=== PATIENT | female | born 1995 | race Caucasian/White ===

== ENCOUNTER 2018-04-22 09:35 | Emergency (ER) | payer MEDICAID, SELFPAY ==
[2018-04-22 09:39] VITALS: BP 132/83; PULSE 107; RESP 18; TEMP 37.4; O2SAT 100
--- NOTE | 2018-04-22 09:44 | ED.GENADUL ---
Disposition Clinical Impression: Tooth ache Disposition: HOME Condition: Good Instructions: Toothache (ED) Additional Instructions: Take the antibiotic as directed. Please follow-up with your dentist as soon as possible for reassessment. Please take Tylenol and Motrin. Please take 1000 mg of Tylenol every 6 hours and a maximum of 800 mg of ibuprofen/Motrin every 6 hours. If you notice any worsening of your symptoms, or any new symptoms such as vomiting, diarrhea, fever, chills, shortness of breath, chest pain, numbness, weakness, or fainting , please return immediately to the emergency department for reevaluation. Please follow up with your primary care provider as soon as possible for reassessment and reevaluation. As always, it was a pleasure participating in your medical care today. Prescriptions: Azithromycin [Zithromax] 200 mg PO DAILY #37 ml Referrals: Radha Mccollum NP [Primary Care Provider] - Medical Decision Making - Medical Decision Making This is a 22-year-old female with history of poor dental health, who presents for evaluation of right lower tooth pain. Physical exam demonstrates dental caries and a fractured tooth but no evidence of abscess. No other significant abnormalities in the mouth at this time. No evidence of systemic disease with fevers, chills, or abnormal vital signs. The patient is refusing a dental block, she has multiple antibiotic allergies but has tolerated azithromycin in the past for her dental pain. She does not want any pills that she states that she cannot swallow pills. We will give her liquid azithromycin for treatment of her dental disease, as well as her suspected pulpitis. I have encouraged her to use oral NSAIDs at home, which she does not want a prescription for. We have encouraged her to follow-up with her dentist and she understands. We discussed red flags for which to return and the importance of close PCP follow-up and she understands. I have extensively reviewed the treatment plan and discharge instructions with the patient. I have addressed all patient concerns at this time. The patient was made aware of what symptoms to monitor for that would warrant a return to the emergency department. Discussed the plan with the patient, they demonstrate verbal understanding and agreement with our assessment and plan at this time. History of Present Illness - General Chief complaint: DentalOral Stated complaint: TOOTH INFECTION Time Seen by Provider: 04/22/18 09:43 - History of Present Illness Initial comments: This is a 22-year-old female with no significant past medical history aside for dental pain who presents today for evaluation of dental pain. Patient states that roughly 1 week ago her right lower molar chipped off while eating, and since then she has had mild pain that is been worsening. She is had no associated fever, chills, discharge, swelling. She has contacted a dentist however has not been able to get follow-up yet. She has been able to eat well without any difficulty. Of note she does state that she cannot take pills and only takes liquid medications in general. The patient has no other associated complaints at this time. She does state that she has had dental pain like this in the past, for which she is responded well to antibiotics. Fortunately due to her allergies of amoxicillin and clindamycin and penicillin she is only able to take azithromycin which she has had good effects within the past. She is not currently on any control. She denies any significant surgeries aside for previous dental extractions. She denies any pertinent family history. She has no other complaints at this time. She denies any IV or illicit drug use. - Related Data Citalopram [CeleXA] 20 mg PO DAILY 11/13/17 Azithromycin [Zithromax] 200 mg PO DAILY #37 ml 04/22/18 Ibuprofen 1 cap PO PRN PRN 04/22/18 Allergies Allergy/AdvReac Type Severity Reaction Status Date / Time aspirin Allergy Mild Swelling Unverified 04/22/18 09:41 in lips amoxicillin [Amoxicillin] Allergy Redness Unverified 04/22/18 09:41 and swelling in throat clindamycin Allergy rash Unverified 04/22/18 09:41 Penicillins Allergy Inflamed Unverified 04/22/18 09:41 throat adhesive AdvReac Intermediate scarring Unverified 04/22/18 09:41 lactose AdvReac Mild Nausea, Unverified 04/22/18 09:41 intolerance-causes gas/diarrhea oxycodone HCl [From Percocet] AdvReac Unknown Nausea Unverified 04/22/18 09:41 Review of Systems Other: 10 point review of systems was performed, pertinent positives and negatives are noted in the history of present illness. Past Medical History - Past Medical History Medical history: no medical history psoriasis, migraine, IBS Surgical history: other (colonoscopy/endoscopy) Family history: no significant family history - Social History Alcohol use: occasionally Drug use: none General Exam - Other Other exam information: 1.Const: Well-nourished, Well-developed, appearing stated age 2.Eyes: PERRL, no conjunctival injection, and symmetrical lids. 3.ENT: Atraumatic external nose and ears. Moist MM. Neck: Symmetric, trachea midline, No thyromegaly. Poor dentition throughout. The patient's upper teeth have been removed and she has dentures. Lower teeth demonstrate notable dental caries. The patient's 28th tooth is fractured, no evidence of abscess or swelling. Dental caries are noted. No severe tenderness on palpation of the jaw, or the tooth root. No evidence of enlarged glands, or cervical lymphadenopathy. No active bleeding or discharge. No trismus. 4.CVS: +S1/S2, No murmurs or gallops. Peripheral pulses 2+ and equal in all extremities. Brisk capillary refill in all extremities. 5.RESP: Unlabored respiratory effort. Clear to auscultation bilaterally. No wheezes rales or rhonchi 6.GI: Soft, Nontender/Nondistended, No hepatosplenomegaly. No guarding or rebound. 7.MSK: Normocephalic/Atraumatic, Extremities w/o deformity or ttp No cyanosis or clubbing, Normal movement of all extremities 8.Skin: Warm, Dry. No rashes or lesions. 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 Sensation grossly intact, no focal neurologic deficits. 10.Psych: (AAO) x3. Appropriate mood and affect Course Vital Signs - 24 hr 04/22/18 09:39 Temperature 37.4 C Pulse 107 H Respiratory 18 Rate Blood Pressure 132/83 Pulse Oximetry 100
[2018-04-22 09:50] VITALS: BP 132/83; PULSE 107; RESP 18; TEMP 37.4; O2SAT 100
== END 2018-04-22 09:51 | disposition home or self-care (01) ==
PROVIDERS: Emergency Provider Student in an Organized Health Care Education/Training Program; PCP Nurse Practitioner Family
DX: S02.5XXA Fracture of tooth (traumatic), initial encounter for closed fracture (principal); X58.XXXA Exposure to other specified factors, initial encounter; K02.9 Dental caries, unspecified; R68.84 Jaw pain
CPT/HCPCS: 99283

== ENCOUNTER 2018-04-26 13:37 | Emergency (ER) | payer MEDICAID, SELFPAY ==
[2018-04-26 13:41] VITALS: BP 116/71; PULSE 90; RESP 18; TEMP 36.6; O2SAT 100
--- NOTE | 2018-04-26 14:24 | ED.GENADUL ---
Disposition Clinical Impression: Infected dental carries Disposition: HOME Condition: Good Instructions: Dental Caries (ED) Additional Instructions: Please take antibiotic as directed. Do not drink any alcohol while on this antibiotic. Please follow-up with your dentist at your scheduled appointment on Tuesday. Please continue to take Tylenol Motrin as directed. If you notice any worsening of your symptoms, or any new symptoms such as vomiting, diarrhea, fever, chills, shortness of breath, chest pain, numbness, weakness, or fainting , please return immediately to the emergency department for reevaluation. Please follow up with your primary care provider as soon as possible for reassessment and reevaluation. As always, it was a pleasure participating in your medical care today. Prescriptions: Levofloxacin [Levaquin] 750 mg PO DAILY #7 tablet Referrals: Radha Mccollum NP [Primary Care Provider] - Medical Decision Making - Medical Decision Making This is a pleasant 22-year-old female with extremely poor dentition, who is here over a week ago for suspected pulpitis, with potential infection. She has multiple allergies and was started on azithromycin which seems to have worked for her in the past. She presents today for mild continued pain there. She does have an appointment with the dentist coming up in 3 days. She also complains of a small area of soft tissue swelling on her upper palate. She had notable tenderness when she tried to put in her plate for her upper teeth this morning, was unable to secondary to the pain. Physical exam showed no signs of systemic infection, or any other significant abnormalities. The area of fluctuance was mildly concerning for small abscess however there was no evidence of local tooth infection right near it. No evidence of communication between the teeth in that space. She does not have many teeth for the upper palate. Out of concern for potential mild abscess area was anesthetized with bupivacaine paste, followed by 3 subsequent incisions with an 18-gauge needle. Each incision led to no discharge whatsoever. Small amount of bleeding, but no purulent discharge. I feel that an infectious etiology is unlikely, especially with no purulence, and no direct medication with the teeth, however and out of an abundance of precaution I did attempt to start the patient on antibiotic. With her allergies we did decide that Flagyl would be appropriate however the patient grossly refuse Flagyl stating that it makes her feel nauseous and that she does not want to take this. She has had Levaquin in the past which has given some benefit, however I do not feel that this is ideal. I did bring up with her starting doxycycline, and the patient is made it clear that she would rather try Levaquin first. I have encouraged her to continue her Tylenol and Motrin, return if she has any worsening of her symptoms, follow-up with her dentist on Tuesday. I have extensively reviewed the treatment plan and discharge instructions with the patient. I have addressed all patient concerns at this time. The patient was made aware of what symptoms to monitor for that would warrant a return to the emergency department. Discussed the plan with the patient, they demonstrate verbal understanding and agreement with our assessment and plan at this time. History of Present Illness - General Chief complaint: DentalOral Stated complaint: TOOTH PAIN Time Seen by Provider: 04/26/18 13:40 - History of Present Illness Initial comments: This is an 22-year-old female with past medical history of poor dentition, multiple pulled teeth, as well as multiple allergies to antibiotics including amoxicillin, clindamycin, penicillins. She was here over a week ago for evaluation of right lower dental pain where she refused a dental block at that time but did request azithromycin which she has been given in the past for treatment of dental pain and abscess. She has been taking Tylenol Motrin for her pain. She presents today because she noticed a small amount of swelling in the roof of her mouth. This was tender and she was unable to put her upper dental plate in. She states she still has some pain in her lower right molar. She does have an appointment with her dentist on Tuesday. The patient has been taking her azithromycin as directed. She denies any systemic symptoms of fevers, chills, chest pain, headache, vision changes, numbness, tingling, weakness. She denies any other complaints at this time. - Related Data Citalopram [CeleXA] 20 mg PO DAILY 11/13/17 Ibuprofen 1 cap PO PRN PRN 04/22/18 Levofloxacin [Levaquin] 750 mg PO DAILY #7 tablet 04/26/18 Allergies Allergy/AdvReac Type Severity Reaction Status Date / Time aspirin Allergy Mild Swelling Unverified 04/26/18 13:43 in lips amoxicillin [Amoxicillin] Allergy Redness Unverified 04/26/18 13:43 and swelling in throat clindamycin Allergy rash Unverified 04/26/18 13:43 Penicillins Allergy Inflamed Unverified 04/26/18 13:43 throat adhesive AdvReac Intermediate scarring Unverified 04/26/18 13:43 lactose AdvReac Mild Nausea, Unverified 04/26/18 13:43 intolerance-causes gas/diarrhea oxycodone HCl [From Percocet] AdvReac Unknown Nausea Unverified 04/26/18 13:43 Review of Systems Other: 10 point review of systems was performed, pertinent positives and negatives are noted in the history of present illness. Past Medical History - Past Medical History Medical history: no medical history psoriasis, migraine, IBS Surgical history: other (colonoscopy/endoscopy) Family history: no significant family history - Social History Alcohol use: occasionally Drug use: none General Exam - Other Other exam information: 1.Const: Well-nourished, Well-developed, appearing stated age 2.Eyes: PERRL, no conjunctival injection, and symmetrical lids. 3.ENT: Atraumatic external nose and ears. Moist MM. Neck: Symmetric, trachea midline, No thyromegaly. Patient demonstrates poor dentition throughout. No evidence of large abscess in the periapical region. Patient does have a very small area of fluctuance over the roof of her mouth behind the 11th tooth over the hard palate. Mild tenderness. No evidence of drainage. No evidence of ulcer. No evidence of airway compromise, large abscess, or discharge. 4.CVS: +S1/S2, No murmurs or gallops. Peripheral pulses 2+ and equal in all extremities. Brisk capillary refill in all extremities. 5.RESP: Unlabored respiratory effort. Clear to auscultation bilaterally. No wheezes rales or rhonchi 6.GI: Soft, Nontender/Nondistended, No hepatosplenomegaly. No guarding or rebound. 7.MSK: Normocephalic/Atraumatic, Extremities w/o deformity or ttp No cyanosis or clubbing, Normal movement of all extremities 8.Skin: Warm, Dry. No rashes or lesions. 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 Sensation grossly intact, no focal neurologic deficits. 10.Psych: (AAO) x3. Appropriate mood and affect Course Vital Signs - 24 hr 04/26/18 13:41 Temperature 36.6 C Pulse 90 Respiratory 18 Rate Blood Pressure 116/71 Pulse Oximetry 100
== END 2018-04-26 14:44 | disposition home or self-care (01) ==
PROVIDERS: Emergency Provider Student in an Organized Health Care Education/Training Program; PCP Nurse Practitioner Family
DX: K02.9 Dental caries, unspecified (principal); K04.7 Periapical abscess without sinus; R22.0 Localized swelling, mass and lump, head
CPT/HCPCS: 99283

== ENCOUNTER 2018-07-30 19:05 | Emergency (ER) | payer MEDICAID, SELFPAY ==
[2018-07-30 19:16] VITALS: BP 119/87; PULSE 75; RESP 16; TEMP 37; O2SAT 100
--- NOTE | 2018-07-30 19:51 | DI.CT_ITS ---
SYMPTOMS/DIAGNOSIS: LLQ ABD PAIN, ? OVARIAN CYST/TORSION CT SCAN OF THE ABDOMEN AND PELVIS: Noncontrast CT scan of the abdomen and pelvis was performed. The lack of IV contrast does limit evaluation of the abdominal and pelvic organs. The lung bases are clear. The unenhanced liver, spleen, pancreas, gallbladder, adrenal glands and bile ducts are unremarkable. There is a question of a tiny 2 mm nonobstructing stone in the lower pole of the left kidney. No ureterolithiasis or hydronephrosis is identified. The urinary bladder is intact. The left ovary measures 4.7 x 3.4 x 3.8 cm. There is a 3.1 cm cyst within the left ovary. The reproductive organs are otherwise unremarkable. The abdominal aorta is normal caliber. No significant free fluid, adenopathy or free air is seen. The bowel shows no evidence of obstruction or inflammation. There is a normal appendix present. The bones are intact. IMPRESSION: 3.1 cm left ovarian cyst. No definite inflammatory changes are seen around the left ovary, however, torsion can not be excluded on this noncontrast CT scan. If further evaluation is warranted, pelvic ultrasound should be performed.
--- NOTE | 2018-07-30 19:51 | ED.GENADUL_ITS ---
Discharge Plan Disposition Patient Disposition: HOME Condition: Stable Discharge Details Chief Complaint: Abd Prob Clinical Impression: Ovarian cyst Primary Care Provider: Radha Mccollum ED Provider: Ceasar Kelley Home Meds and New Rx's Prescriptions: No Action citalopram 10 MG tablet 20 mg PO DAILY RF: 0 ibuprofen 200 MG capsule 1 cap PO PRN PRNRF: 0 Discharge Instructions Instructions: Ovarian Cyst (ED) Additional Instructions: Please take Tylenol and Motrin as needed for pain. Please follow-up immediately with the obstetrics television news producer. Dr. Sarmiento knows that he will be attempting to follow-up this week, please contact their office tomorrow morning. If you notice any worsening of your symptoms, or any new symptoms such as worsening pelvic pain, vaginal discharge, vomiting, diarrhea, fever, chills, shortness of breath, chest pain, numbness, weakness, or fainting , please return immediately to the emergency department for reevaluation. Please follow up with your primary care provider as soon as possible for reassessment and reevaluation. As always, it was a pleasure participating in your medical care today. Referrals: Radha Mccollum, LINH [Primary Care Provider] - Discharge Data Discharge Date/Time-TO BE ENTERED AT DEPARTURE: 07/30/18 21:52 Medical Decision Making <Carmelina Mcconnell DO - Last Filed: 07/31/18 16:22> 22-year-old female with a history of irritable bowel syndrome, anxiety, depression and ovarian cyst who presents with constant left lower quadrant pain for 2 days. Also admits to nausea and dizziness tonight. Vitals within normal limits. Afebrile. Patient appears nontoxic. She does have tenderness to palpation in the suprapubic and left lower quadrant region. No rigidity, rebound, guarding. Differential diagnosis includes ovarian cyst, ovarian torsion, atypical L sided appendicitis, UTI. Pt refused pelvic exam and IV. Discussed with patient that CT scan may be limited with out IV contrast and she is understanding and will still rather proceed w/o IV. Ultrasound not available on the weekend. Dose of Motrin and Compazine p.o. in addition to labs and urinalysis ordered. test negative. Chart noted allergy to aspirin with lip swelling. Pt states she has taken motrin in the past w/o any reaction. 1999 --case endorsed to Dr. Kelley to follow-up on labs and imaging. <Ceasar Kelley, DO - Last Filed: 07/30/18 21:45> The case is signed out to be my my colleague Dr. Mcconnell. Pending CT and laboratory workup at that time. Patient's laboratory workup has returned and demonstrates no significant abnormalities. No evidence of significant leukocytosis or signs of infection. CT scan has returned and demonstrates a notably large left ovary with a total size of 4.7 cm by 3.4 x 3.8, with a 3.1 cm cyst. No evidence of any other significant acute abnormality on CT exam per radiology report. I did go in and reassessed the patient, at this time she is nearly pain-free, she is asking to leave. She states that she feels much better and actually fine now. Repeat pelvic/lower abdominal exam demonstrates no significant tenderness, clinical presentation at this time certainly shows no signs or symptoms suggestive of a ovarian torsion. Patient appears clinically well, with a reassuring exam and vital signs. Because of the size of the cyst and ovary though I did contact the obstetrics television news producer Dr. Lnadon Healy, and discussed the case with her. I reviewed the patient's clinical disposition, her lab and CT findings. She too agrees that with how the patient is currently feeling and looking she can be discharged home, however patient will require close follow-up on an outpatient basis this week. Patient will be discharged home with close follow-up. I had a long discussion with her regarding the red flags for which to immediately return including signs and symptoms of torsion, ruptured ovary, or other significant abnormalities. I have extensively reviewed the treatment plan and discharge instructions with the patient. I have addressed all patient concerns at this time. The patient was made aware of what symptoms to monitor for that would warrant a return to the emergency department. Discussed the plan with the patient, they demonstrate verbal understanding and agreement with our assessment and plan at this time. FINDINGS: Lower thorax: No acute findings. ABDOMEN: Liver: Unremarkable. No mass. Gallbladder and bile ducts: Normal. No calcified stones. No ductal dilation. Pancreas: Unremarkable. No ductal dilation. Spleen: Unremarkable. No splenomegaly. Adrenals: Normal. No mass. Kidneys and ureters: Unremarkable. No stones. No hydronephrosis. Stomach and bowel: Unremarkable. No obstruction. No mucosal thickening. Appendix: No evidence of appendicitis. PELVIS: Bladder: Mild thickening of the urinary bladder wall is likely secondary to underdistention. Reproductive: The left ovary measures 4.7 cm x 3.4 cm x 3.8 cm. There is a cyst measuring 3.1 cm within the left ovary. No inflammatory changes are present adjacent to the left ovary. Ovarian torsion cannot be excluded by unenhanced CT scan. If there is a continued clinical concern for ovarian torsion then further assessment with pelvic ultrasound using spectral Doppler imaging to evaluate for arterial and venous waveforms should be performed. The right adnexa is unremarkable. The uterus is unremarkable. ABDOMEN and PELVIS: Intraperitoneal space: No free air. No significant fluid collection. Bones/joints: No acute fracture. Soft tissues: Unremarkable. Vasculature: Unremarkable. No abdominal aortic aneurysm. Lymph nodes: No enlarged lymph nodes. IMPRESSION: Left ovarian cyst measuring 3.1 cm. Although ovarian torsion cannot be excluded by noncontrast CT scan, no inflammatory changes or fluid is identified adjacent to the left ovary. If clinically necessary, further assessed with pelvic ultrasound could be performed. Dictated and Authenticated by: Kaden Tello MD. Ordering:KAMALA HAYWOOD MD HPI <Carmelina Mcconnell, DO - Last Filed: 07/31/18 16:22> General Mode of arrival: ambulatory . Date/Time Provider Initiated Documentation: 07/30/18 19:18 . Limitations to Documentation: no limitations . Information obtained by: patient . HPI Narrative: Patient is a 22-year-old female with a history of anxiety, depression, irritable bowel syndrome and ovarian cyst who presents with constant left lower quadrant abdominal pain for the past 2 days. Patient states the pain is constantly crampy and occasionally sharp. She states the pain is currently 7/10. She denies any radiation. States the pain is worse with palpation and better without moving. She has not taken any medication for pain. She admits to nausea, dizziness and feeling shaky tonight but denies any vomiting, diarrhea or urinary symptoms. She states she last ate 1/2-hour ago. She states her last bowel movement was this morning and denies any bleeding. She states her pain feels similar to ovarian cysts previously but is more intense. She states she is sexually active with one partner does not use protection. She denies any vaginal discharge, or lesions. Related Data Home Medications Medication Instructions Recorded Confirmed citalopram 20 mg PO DAILY 11/13/17 07/30/18 ibuprofen 1 cap PO PRN PRN 04/22/18 07/30/18 Allergies Allergy/AdvReac Type Severity Reaction Status Date / Time aspirin Allergy Mild Swelling Unverified 07/30/18 19:27 in lips amoxicillin [Amoxicillin] Allergy Redness Unverified 07/30/18 19:27 and swelling in throat clindamycin Allergy rash Unverified 07/30/18 19:27 Penicillins Allergy Inflamed Unverified 07/30/18 19:27 throat adhesive AdvReac Intermediate scarring Unverified 07/30/18 19:27 lactose AdvReac Mild Nausea, Unverified 07/30/18 19:27 intolerance-causes gas/diarrhea oxycodone HCl [From Percocet] AdvReac Unknown Nausea Unverified 07/30/18 19:27 General Stated Complaint: Abd Prob JACKSON: 3 Review of Systems <Carmelina Mcconnell DO - Last Filed: 07/31/18 16:22> Review of Systems All systems reviewed & are unremarkable except as noted in HPI and below Constitutional Reports as per HPI, Denies chills and Denies fever(s) Eyes Denies blurry vision ENT Reports dizziness, Denies sore throat and Denies throat swelling Cardiovascular Denies chest pain and Denies dyspnea Respiratory Denies dyspnea Gastrointestinal Reports abdominal pain, Denies diarrhea, Reports nausea and Denies vomiting Genitourinary Denies hematuria and Denies dysuria Musculoskeletal Denies back pain and Denies numbness Integumentary/Breasts Denies lesions and Denies rash Neurologic Reports dizziness and Denies numbness Allergic/Immunologic Denies throat swelling Exam <Carmelina Mcconnell DO - Last Filed: 07/31/18 16:22> Const General: cooperative and healthy appearing Orientation: alert and awake HENMT Head: normal to inspection Ears: hearing grossly normal bilaterally and external ears normal General nose exam: external nose normal Face and sinus: normal facial exam Mouth: oral mucosae normal Eyes General: appearance normal, both eyes and all related structures Eyelids: eyelids normal EOM: EOM intact bilaterally Neck Neck: normal visual inspection Lymphatic: no lymphadenopathy noted Chest Chest: normal inspection of the chest Resp Effort & Inspection: normal respiratory effort and able to speak in complete sentences Auscultation: clear to auscultation bilaterally Cardio Rate: regular rate Rhythm: regular rhythm GI Inspection: normal to inspection Palpation: soft, not firm, no guarding, no hepatosplenomegaly, no masses and tender in the LLQ and suprapubicly Auscultation: hypoactive bowel sounds Back/Spine/Pelvis Back: no CVA tenderness Skin General skin exam: no rashes or lesions noted Neuro General: alert and awake Cognition: normal cognition Speech: speech normal Gait: normal gait Motor: muscle tone normal throughout Sensory Exam: no sensory deficits noted Extrem General: normal to inspection, full ROM, normal capillary refill and no edema Psych Appearance: grossly normal Mental Status: mental status grossly normal Speech and Movement: speech and movement normal Affect: normal affect Thought Process: normal Course <Carmelina Mcconnell, DO - Last Filed: 07/31/18 16:22> Vital Signs Temperature 98.6 F 07/30/18 19:16 Pulse 75 07/30/18 19:16 Respiratory Rate 16 07/30/18 19:16 Blood Pressure 119/87 07/30/18 19:16 Pulse Oximetry 100 07/30/18 19:16 Temperature 98.6 F 07/30/18 19:16 Temperature Source Temporal Artery Scan 07/30/18 19:16 Pulse 75 07/30/18 19:16 Respiratory Rate 16 07/30/18 19:16 Respiratory Effort 07/30/18 19:16 Blood Pressure 119/87 07/30/18 19:16 Pulse Oximetry 100 07/30/18 19:16 Oxygen Delivery Method Room Air 07/30/18 19:16 Oxygen Flow Rate 0 07/30/18 19:16 Pain Level 7 07/30/18 19:23 Lab/Test Results Lab/Test Results: POC- Test(urine) Negative
[2018-07-30 20:06] LABS: Abs Immature Grans 0.01 k/cumm (0.0-0.09); Absolute Basophil Count 0.04 k/cumm (0.0-0.2); Absolute Lymphocyte Count 2.23 k/cumm (1.2-3.4); Absolute Monocyte Count 0.54 k/cumm (0.11-0.7); Absolute Neutrophil Count 2.22 k/cumm (1.2-6.7); Basophils % 0.8; Eosinophils % 3.8; HCT 38.7 % (36.0-46.0); HGB 13.2 g/dL (12.0-15.5); Immature Grans % 0.2; Lymphocytes % 42.6; Mean Corp. HGB Concentration 34.1 g/dL (32.0-36.0); Mean Corpuscular Hemoglobin 30.7 pg (27.0-33.0); Mean Platelet Volume 10.7 fL (8.0-11.0); Monocytes % 10.3; Neutrophils % 42.3; Platelet Count 212 x1000/uL (130-400); RBC Distribution Width 14.1 % (11.7-14.6); White Blood Cell Count 5.24 k/cumm (4.4-10.8)
[2018-07-30 20:18] LABS: ALT 15 U/L (12-78); AST 13 U/L (15-37); Albumin 4.1 g/dL (3.4-5.0); Alkaline Phosphatase 44 U/L (46-116); Anion Gap 9.9 mmol/L (3-11); BUN 7 mg/dL (7-18); Bilirubin, Total 0.5 mg/dL (0.2-1.0); CO2 29.1 mmol/L (21.0-32.0); CREATININE 0.76 mg/dL (0.55-1.02); Calcium 8.8 mg/dL (8.5-10.1); Chloride 102 mmol/L (98-107); Glucose 97 mg/dL (70-100); Lipase 164 U/L (73-393); Potassium 3.8 mmol/L (3.5-5.1); Sodium 141 mmol/L (136-145); Total Protein 7.2 g/dL (6.4-8.2)
[2018-07-30 20:35] LABS: Bilirubin Negative (Negative); Blood Small (Negative); Clarity Sl Cloudy; Glucose Negative (Negative); Ketones Negative (Negative); Leukocyte Esterase Negative (Negative); Nitrite Negative (Negative); Urobilinogen 0.2 EU/dL (Up TO 0.2)
[2018-07-30 20:58] LABS: Bacteria Rare HPF (Negative); C & S Indicated? No; Casts Negative LPF (Negative); Crystals Negative HPF (Negative); Epithelial Cells Negative HPF (Negative); Mucus Negative (Negative); Other Cells Negative (Negative); RBC 0-2 (0-2); WBC Negative HPF (0-5)
--- NOTE | 2018-07-30 21:11 | DI.VRAD_ITS ---
EXAM: CT Abdomen and Pelvis Without Intravenous Contrast EXAM DATE/TIME: 07/30/2018 7:53 PM CLINICAL HISTORY: 22 years old, female; Pain; Other: Llq x 2 days; Patient HX: Rule out ovarian cyst/torsion TECHNIQUE: Axial computed tomography images of the abdomen and pelvis without intravenous contrast. All CT scans at this facility use at least one of these dose optimization techniques: automated exposure control; mA and/or kV adjustment per patient size (includes targeted exams where dose is matched to clinical indication); or iterative reconstruction. Coronal and sagittal reformatted images were created and reviewed. COMPARISON: CT ABD PELVIS WITH CONTRAST 05/05/2016 4:51 PM FINDINGS: Lower thorax: No acute findings. ABDOMEN: Liver: Unremarkable. No mass. Gallbladder and bile ducts: Normal. No calcified stones. No ductal dilation. Pancreas: Unremarkable. No ductal dilation. Spleen: Unremarkable. No splenomegaly. Adrenals: Normal. No mass. Kidneys and ureters: Unremarkable. No stones. No hydronephrosis. Stomach and bowel: Unremarkable. No obstruction. No mucosal thickening. Appendix: No evidence of appendicitis. PELVIS: Bladder: Mild thickening of the urinary bladder wall is likely secondary to underdistention. Reproductive: The left ovary measures 4.7 cm x 3.4 cm x 3.8 cm. There is a cyst measuring 3.1 cm within the left ovary. No inflammatory changes are present adjacent to the left ovary. Ovarian torsion cannot be excluded by unenhanced CT scan. If there is a continued clinical concern for ovarian torsion then further assessment with pelvic ultrasound using spectral Doppler imaging to evaluate for arterial and venous waveforms should be performed. The right adnexa is unremarkable. The uterus is unremarkable. ABDOMEN and PELVIS: Intraperitoneal space: No free air. No significant fluid collection. Bones/joints: No acute fracture. Soft tissues: Unremarkable. Vasculature: Unremarkable. No abdominal aortic aneurysm. Lymph nodes: No enlarged lymph nodes. IMPRESSION: Left ovarian cyst measuring 3.1 cm. Although ovarian torsion cannot be excluded by noncontrast CT scan, no inflammatory changes or fluid is identified adjacent to the left ovary. If clinically necessary, further assessed with pelvic ultrasound could be performed. Dictated and Authenticated by: Kaden Tello MD. Ordering:KAMALA HAYWOOD MD
[2018-07-30 21:47] VITALS: BP 115/67; PULSE 61; RESP 16; TEMP 36.7; O2SAT 100
== END 2018-07-30 21:52 | disposition home or self-care (01) ==
PROVIDERS: Physician Assistant; Emergency Provider Student in an Organized Health Care Education/Training Program; PCP Nurse Practitioner Family
DX: N83.202 Unspecified ovarian cyst, left side (principal); R11.0 Nausea
CPT/HCPCS: 36415; 80053; 81025; 83690; 99284; 74176; 81003; 81015; 85025

== ENCOUNTER 2018-09-04 12:44 | Outpatient (REF) | payer MEDICAID, SELFPAY ==
--- NOTE | 2018-09-04 11:40 | PAPFT_PTH ---
PATIENT: Shayna Echeverria LOC: [facility] U#:[id number] AGE/SX: 22/F ROOM: RE09/04/[address]: Darline Sarmiento : 1995 BED: DIS: 09/04/2018 SPEC #: [id number] RECD: 09/04/18 17:42 STATUS: BONNY DEMETRI #: [id number] EMILIA: 09/04/18 11:[address]: Darline Sarmiento DEPT: [facility] Cytology RECD BY: Letty Yusuf ENTERED: 09/04/18 17:43 SP TYPE: PAPFT OTHR DR: Radha Mccollum, GREG Tissues: 1 - CX/ENDOCX FOR PAP SMEARS Procedures: PAP THIN PREP/UVM Screening HPV DNA PROBE Comments: [id number]
[2018-09-05 14:51] LABS: Chlamydia Result Negative; GC Result Negative; Specimen Description CERVIX
== END 2018-09-04 13:04 ==
LOC: LBN 12:44
PROVIDERS: PCP Nurse Practitioner Family; Visit Provider Obstetrics & Gynecology Gynecology
DX: Z11.3 Encounter for screening for infections with a predominantly sexual mode of transmission (principal); Z12.4 Encounter for screening for malignant neoplasm of cervix; Z11.51 Encounter for screening for human papillomavirus (HPV)
CPT/HCPCS: 87491; 87591; 88142; 87624

== ENCOUNTER 2019-01-26 15:56 | Outpatient (CLI) | payer SELFPAY ==
[2019-01-26 17:37] LABS: TSH (W/Ref FT4) 1.29 uIU/mL (0.358-3.74)
== END 2019-01-26 16:16 ==
PROVIDERS: PCP Nurse Practitioner Family; Visit Provider Nurse Practitioner Family
DX: F41.9 Anxiety disorder, unspecified (principal)
CPT/HCPCS: 36415; 84443

== ENCOUNTER 2019-04-15 00:18 | Emergency (ER) | payer SELFPAY ==
[2019-04-15 00:25] VITALS: BP 123/72; PULSE 101; RESP 22; TEMP 36.6; O2SAT 99
--- NOTE | 2019-04-15 00:40 | W.ED.GENAD ---
Discharge Plan Disposition Patient Disposition: HOME Condition: Good Discharge Details Chief Complaint: Nk/Back Pain Clinical Impression: Lumbago Primary Care Provider: Radha Mccollum ED Provider: Ceasar Kelley Home Meds and New Rx's Prescriptions: New cyclobenzaprine 10 mg tablet 10 mg PO TID Qty: 14 RF: 0 lidocaine [Lidoderm] 1 PATCH patch 1 patch Topical Q24H Qty: 4 RF: 0 Continued medroxyprogesterone [Depo-Provera] 150 mg/mL syringe 150 mg IM [id number] Qty: 1 RF: 4 citalopram 20 mg tablet 20 mg PO DAILY Qty: 90 RF: 3 ibuprofen 200 MG capsule 1 cap PO PRN PRNRF: 0 acetaminophen 500 mg Tablet 1,000 mg PO PRN PRNRF: 0 Discharge Instructions Instructions: Low Back Strain (ED) Additional Instructions: At this time there is significant concern that you have strained your back. Please take 1000 mg of Tylenol and 800 mg of ibuprofen every 6 hours for pain. Please use Lidoderm patch as directed. Please do not lift anything heavy greater than 5 to 10 pounds for the next week. If you notice any worsening of your symptoms, or any new symptoms such as numbness or tingling in your groin, bowel or bladder incontinence, vomiting, diarrhea, fever, chills, shortness of breath, chest pain, numbness, weakness, or fainting , please return immediately to the emergency department for reevaluation. Please follow up with your primary care provider as soon as possible for reassessment and reevaluation. As always, it was a pleasure participating in your medical care today. Referrals: Radha Mccollum, LINH [Primary Care Provider] - Medical Decision Making This is a pleasant 23-year-old female who presents today for evaluation of low back pain. Pain began at noon. Aching in nature. Slight radiation down the lateral aspects of her legs. She denies any heavy lifting or trauma today. Physical exam demonstrates no concerning abnormalities for cauda equina syndrome or significant osseous deformity requiring imaging. Reflexes are normal, sensation intact throughout including dorsiflexion of the great toe. Straight leg raise elicits some mild pain but no numbness or tingling. She does have some mild urinary frequency. Signs and symptoms appear consistent with muscle strain. They appear inconsistent with cord compression. However because of her urinary frequency we will get a urinalysis for further assessment of potential infection. The patient would like to hold off on any additional imaging at this time. We did discuss risks and benefits of this and the patient understands. 2 AM Patient's urine has returned, no evidence of significant urinary tract infection, no hemoglobin. No RBCs. Patient has refused these steroids, and does not want to take any steroids at this time. We have given Toradol, and a Lidoderm patch and on reassessment the patient has complete resolution of her symptoms with this. Repeat neurologic exam remains normal. No signs or symptoms concerning for cauda equina syndrome or cord compression. With a complete resolution of her symptoms patient is asking to go home. Will give Flexeril for home use. We did discuss continued imaging and the patient would still like to hold off as she feels notably improved. At this time I feel the patient signs and symptoms are clinically consistent with a mild musculoskeletal sprain. Recommend close follow-up with PCP, no heavy lifting greater than 5 pounds, and continued NSAIDs and Lidoderm patch and Flexeril as needed. We discussed the importance of avoiding Flexeril use at home and during waking hours. Additionally we discussed the importance of avoiding driving, patient care, while taking the Flexeril. I have extensively reviewed the treatment plan and discharge instructions with the patient. I have addressed all patient concerns at this time. The patient was made aware of what symptoms to monitor for that would warrant a return to the emergency department. Discussed the plan with the patient, they demonstrate verbal understanding and agreement with our assessment and plan at this time. HPI General Date/Time Provider Initiated Documentation: 04/15/19 00:29. HPI Narrative: This is a 23-year-old female with a past medical history of previous dental caries who presents today for evaluation of back pain. She states that at noon she developed mild to moderate bilateral back pain, some radiation down the lateral aspects of her legs. Pain is made worse with bending over. She denies any associated numbness or tingling. She denies any bowel or bladder incontinence. She denies any saddle anesthesia. She does admit to increased urinary frequency but denies fever chills or hematuria. She does admit to regular heavy lifting for her work but she denies any focal events today. She denies any heavy lifting today, any falls or trauma or other complaints. Patient denies any other complaints or modifying factors at this time. Related Data Home Medications Medication Instructions Recorded Confirmed ibuprofen 1 cap PO PRN PRN 04/22/18 04/15/19 medroxyprogesterone 150 mg/mL 150 mg IM [id number] #1 ml 09/04/18 04/15/19 intramuscular syringe citalopram 20 mg tablet 20 mg PO DAILY #90 tab-cap 10/05/18 04/15/19 acetaminophen 1,000 mg PO PRN PRN 04/15/19 04/15/19 cyclobenzaprine 10 mg PO TID #14 tab 04/15/19 lidocaine [Lidoderm] 1 patch TOPICAL Q24H #4 patch 04/15/19 Previous Rx's Medication Instructions Recorded medroxyprogesterone 150 mg/mL 150 mg IM [id number] #1 ml 09/04/18 intramuscular syringe citalopram 20 mg tablet 20 mg PO DAILY #90 tab-cap 10/05/18 cyclobenzaprine 10 mg PO TID #14 tab 04/15/19 lidocaine [Lidoderm] 1 patch TOPICAL Q24H #4 patch 04/15/19 Allergies Allergy/AdvReac Type Severity Reaction Status Date / Time aspirin Allergy Mild Swelling Unverified 04/15/19 00:27 in lips amoxicillin [Amoxicillin] Allergy Redness Unverified 04/15/19 00:27 and swelling in throat clindamycin Allergy rash Unverified 04/15/19 00:27 Penicillins Allergy Inflamed Unverified 04/15/19 00:27 throat adhesive AdvReac Intermediate scarring Unverified 04/15/19 00:27 lactose AdvReac Mild Nausea, Unverified 04/15/19 00:27 intolerance-causes gas/diarrhea oxycodone HCl [From Percocet] AdvReac Unknown Nausea Unverified 04/15/19 00:27 General Stated Complaint: Nk/Back Pain JACKSON: 3 Review of Systems Review of Systems All systems reviewed & are unremarkable except as noted in HPI and below PFSH Social History Smoking/Tobacco Use Status: Current every day Tobacco Type: cigarettes Alcohol Intake: current Alcohol Intake frequency: a few times a week Drug use: Current Sobriety Substance use type: does not use Caregiver/Support person: No Household members: significant other Number of Children: 0 Communication Needs: None 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 3.ENT: Atraumatic external nose and ears. Moist MM. Neck: Symmetric, trachea midline, No thyromegaly. 4.CVS: +S1/S2, No murmurs or gallops. Peripheral pulses 2+ and equal in all extremities. Brisk capillary refill in all extremities. 5.RESP: Unlabored respiratory effort. Clear to auscultation bilaterally. No wheezes rales or rhonchi 6.GI: Soft, Nontender/Nondistended, No hepatosplenomegaly. No guarding or rebound. 7.MSK: Normocephalic/Atraumatic, Extremities w/o deformity or ttp No cyanosis or clubbing, Normal movement of all extremities. No midline tenderness to palpation over the CTLS spine. Normal ROM in flexion, extension, side bend, and rotation. Notable left-sided paraspinal spasm, notable reproducible pain on the left and right paraspinal sides, particularly around L4-L5 and S1 patient has +5 out of 5 strength in the lower extremities in dorsiflexion and plantarflexion, knee flexion and extension, hip flexion and extension. There is +2 over 2 dorsalis pedis pulses bilaterally. There is normal sensation to the skin with light touch at the foot, knee, and hip. Normal saddle sensation. Good sensation over the deep sural nerve area bilaterally. Normal dorsiflexion of the great toe. Rectal exam demonstrated normal rectal tone and good perirectal sensation. Reflexes are +2 over 4 in the patellar reflex bilaterally. +5 out of 5 strength in the medial, ulnar, radial nerve distribution bilaterally in the hands as well as intact light touch sensation to these dermatomes on the hands 8.Skin: Warm, Dry. No rashes or lesions. 9.Neuro: specimen preparation assistant II-XII grossly intact. Sensation grossly intact, no focal neurologic deficits. 10.Psych: (AAO) x3. Appropriate mood and affect Course Vital Signs Temperature 36.6 C 04/15/19 00:25 Pulse 101 H 04/15/19 00:25 Respiratory Rate 22 04/15/19 00:25 Blood Pressure 123/72 04/15/19 00:25 Pulse Oximetry 99 04/15/19 00:25 Temperature 36.6 C 04/15/19 00:25 Temperature Source Temporal Artery Scan 04/15/19 00:25 Pulse 101 H 04/15/19 00:25 Respiratory Rate 22 04/15/19 00:25 Respiratory Effort 04/15/19 00:30 Blood Pressure 123/72 04/15/19 00:25 Blood Pressure Position Sitting 04/15/19 00:25 Pulse Oximetry 99 04/15/19 00:25 Oxygen Delivery Method Room Air 04/15/19 00:25 Oxygen Flow Rate 0 04/15/19 00:25 Pain Level 8 04/15/19 00:25
[2019-04-15] MEDS: Lidocaine 5% Patch 1 PATCH TP (00:50)
[2019-04-15 00:56] LABS: Bilirubin Negative (Negative); Blood Trace-intact (Negative); Clarity Clear (Clear); Glucose Negative (Negative); Ketones Negative (Negative); Leukocyte Esterase Negative (Negative); Nitrite Negative (Negative); Specific Gravity <= 1.005 (1.005-1.025); Urobilinogen 0.2 EU/dL (Up TO 0.2)
[2019-04-15 00:58] LABS: Bacteria Negative HPF (Negative); C & S Indicated? No; Casts Negative LPF (Negative); Crystals Negative HPF (Negative); Epithelial Cells Negative HPF (Negative); Mucus Negative (Negative); RBC 0-2 (0-2); WBC 0-2 HPF (0-5)
[2019-04-15] MEDS: Acetaminophen 500 MG TAB 1000 MG PO (01:24)
[2019-04-15] MEDS: Ketorolac 30 MG/ML VIAL IM (01:25)
[2019-04-15] MEDS: Cyclobenzaprine 10 MG TAB PO (02:01)
== END 2019-04-15 02:06 | disposition home or self-care (01) ==
PROVIDERS: Emergency Provider Student in an Organized Health Care Education/Training Program; PCP Nurse Practitioner Family
DX: M54.5 Low back pain (principal); R35.0 Frequency of micturition
CPT/HCPCS: 81025; 96372; 99284; 81003; 81015; J1885

== ENCOUNTER 2019-08-10 21:46 | Emergency (ER) | payer SELFPAY ==
[2019-08-10 21:51] VITALS: BP 125/71; PULSE 90; RESP 22; TEMP 36.6; O2SAT 100
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
[2019-08-10] MEDS: Normal Saline 1,000 ML 1000 ML IV (22:45)
[2019-08-10 22:53] LABS: Bilirubin Negative (Negative); Blood Trace-intact (Negative); Clarity Clear (Clear); Glucose Negative (Negative); Ketones Negative (Negative); Leukocyte Esterase Negative (Negative); Nitrite Negative (Negative); Specific Gravity 1.015 (1.005-1.025); Urobilinogen 0.2 EU/dL (Up TO 0.2)
[2019-08-10 23:02] LABS: Abs Immature Grans 0.01 k/cumm (0.0-0.09); Absolute Basophil Count 0.02 k/cumm (0.0-0.2); Absolute Eosinophil Count 0.02 k/cumm (0.0-0.7); Absolute Lymphocyte Count 2.02 k/cumm (1.2-3.4); Absolute Monocyte Count 0.34 k/cumm (0.11-0.7); Absolute Neutrophil Count 2.44 k/cumm (1.2-6.7); Basophils % 0.4; Eosinophils % 0.4; HCT 45.6 % (36.0-46.0); Immature Grans % 0.2; Lymphocytes % 41.6; Mean Corp. HGB Concentration 35.1 g/dL (32.0-36.0); Mean Corpuscular Volume 91.2 fL (80-95); Neutrophils % 50.4; Platelet Count 280 x1000/uL (130-400); RBC Distribution Width 12.1 % (11.7-14.6); White Blood Cell Count 4.85 k/cumm (4.4-10.8)
[2019-08-10 23:12] LABS: Epithelial Cells Few HPF (Negative); HCG Qual (Urine) Negative; RBC 0-2 HPF (0-2); WBC Negative HPF (0-5)
[2019-08-10 23:13] LABS: Bacteria Rare HPF (Negative); C & S Indicated? No; Mucus Trace (Negative)
[2019-08-10 23:15] LABS: *AMPHETAMINES SCREEN URINE Negative (Negative); *BARBITURATES SCREEN URINE Negative (Negative); *BENZODIAZEPINES SCREEN URINE Negative (Negative); Cannabinoids THC Negative (Negative); Cocaine Screen,Urine Negative (Negative); METHADONE URINE SCREEN Negative (Negative); OPIATES URINE SCREEN Negative (Negative)
--- NOTE | 2019-08-10 23:19 | DI.CT_ITS ---
EXAM: CT HEAD WO CT HEAD WO CLINICAL HISTORY: headache with AMS. headache with AMS TECHNIQUE: Imaging Protocol: Axial computed tomography images with coronal and sagittal reformatted images were created and reviewed COMPARISON: No exams were available for comparison FINDINGS: Ventricles and Extra axial spaces: Normal in size and morphology for the patient's age. Hemorrhage: None. Cerebral parenchyma: Normal. Midline shift: None. Brainstem/Cerebellum: Normal. Calvarium: Normal. Visualized Paranasal sinuses/Mastoids: Clear. IMPRESSION: Normal CT of the head. DATA REPOSITORY: All CT scans at this facility are submitted to the National Radiology Data Registry (NRDR) Dose Index Registry (DIR) with the [employer] (ACR). RADIATION OPTIMIZATION: All CT scans at this facility use at least one of these dose optimization te chniques: automated exposure control; mA and/or kV adjustment per patient size (includes targeted exa ms where dose is matched to clinical indication); or iterative reconstruction.
[2019-08-10 23:21] LABS: Tricyclic Antidepressants Negative (Negative)
[2019-08-10 23:22] LABS: ALT 12 U/L (14-59); AST 13 U/L (15-37); Albumin 4.7 g/dL (3.4-5.0); Alkaline Phosphatase 49 U/L (46-116); Anion Gap 11.8 mmol/L (3-11); BUN 4 mg/dL (7-18); Bilirubin, Total 0.2 mg/dL (0.2-1.0); CO2 27.2 mmol/L (21.0-32.0); Calcium 9.1 mg/dL (8.5-10.1); Chloride 109 mmol/L (98-107); ETHANOL BLOOD 268.1 mg/dL (<3); Glucose 92 mg/dL (74-106); Magnesium 2.4 mg/dL (1.8-2.4); Potassium 3.7 mmol/L (3.5-5.1); Sodium 148 mmol/L (136-145); TSH 1.49 uIU/mL (0.36-3.74); Total Protein 8.4 g/dL (6.4-8.2); Troponin I < 0.05 ng/Ml (<0.06)
[2019-08-10 23:33] LABS: Casts Negative LPF (Negative); Crystals Negative HPF (Negative)
--- NOTE | 2019-08-10 23:34 | DI.VRAD_ITS ---
PROCEDURE INFORMATION: Exam: CT Head Without Contrast Exam date and time: 08/10/2019 10:53 PM Age: 23 years old Clinical history: Altered mental status/memory loss; Patient HX: Headache with AMS TECHNIQUE: Imaging protocol: Computed tomography of the head without contrast. Radiation optimization: All CT scans at this facility use at least one of these dose optimization techniques: automated exposure control; mA and/or kV adjustment per patient size (includes targeted exams where dose is matched to clinical indication); or iterative reconstruction. COMPARISON: No relevant prior studies available. FINDINGS: The ventricles, sulci and basilar cisterns appear normal for the patient's stated age. There is no evidence of mass, hemorrhage or infarct. No extra-axial fluid collections are identified. There is no midline shift. There is no evidence of fracture. The visualized paranasal sinuses are well-aerated. IMPRESSION: No evidence for acute infarct, mass or hemorrhage. Dictated and Authenticated by: Kurt Rodgers MD. Ordering:ONEAL Johnson MD
[2019-08-10 23:36] LABS: D-Dimer 210 ng/mlFEU (<500)
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
[2019-08-11] MEDS: Acetaminophen Solution 650 MG/20.3 ML CUP PO (00:24)
[2019-08-11 00:27] VITALS: BP 95/55; PULSE 96; RESP 14; O2SAT 100
--- NOTE | 2019-08-11 00:28 | NUR.NOTE ---
Pt awake, alert and oriented. able to recognize . police contacted per pt request, in to speak to pt.
--- NOTE | 2019-08-11 01:00 | NUR.NOTE ---
pt asking for DC after speaking to police. feels safe returning home with . Discharge instructions reviewed with verbal understanding. aware to f/u with pcp as needed. ambulated to exit with steady gait.
== END 2019-08-11 01:00 | disposition home or self-care (01) ==
LOC: ER 08-11 01:10
PROVIDERS: Emergency Provider Physician Assistant; PCP Nurse Practitioner Family
DX: R41.82 Altered mental status, unspecified (principal)
CPT/HCPCS: 36416; 80053; 80307; 82962; 93005; 96360; 99284; 70450; 80320; 81003; 81015; 81025; 83735; 84443; 84484; 84703; 85025; 85379; 93010

== ENCOUNTER 2019-10-25 20:17 | Emergency (ER) | payer OTHER, SELFPAY ==
--- NOTE | 2019-10-25 20:20 | W.ED.GENAD ---
Discharge Plan Disposition Patient Disposition: HOME Condition: Good Discharge Details Chief Complaint: Urinary Clinical Impression: UTI (urinary tract infection) Primary Care Provider: Radha Mccollum ED Provider: Joe Velázquez [place] Meds and New Rx's Prescriptions: New nitrofurantoin monohyd/m-cryst 100 mg capsule 100 mg PO Q12H Qty: 9 RF: 0 phenazopyridine 100 mg tablet 100 mg PO TID PRN (Reason: urinary symptoms) Qty: 3 RF: 0 Continued medroxyprogesterone [Depo-Provera] 150 mg/mL syringe 150 mg IM [id number] Qty: 1 RF: 4 clobetasol 0.05 % shampoo 1 applic TP QHS 28 Days Qty: 118 RF: 4 citalopram 20 mg tablet 30 mg PO DAILY Qty: 145 RF: 3 ibuprofen 200 MG capsule 1 cap PO PRN PRNRF: 0 acetaminophen 500 mg Tablet 1,000 mg PO PRN PRNRF: 0 Discharge Instructions Instructions: Urinary Tract Infection in Women (ED) Additional Instructions: Pyridium as needed for urinary symptoms and dysuria. Take all of the antibiotic regardless of symptoms. Follow-up with primary care next week if continued symptoms. Return to ED for spiking high fever, back/flank pain, vomiting, worsening abdominal pain. Referrals: Radha Mccollum, BENDING PRESS OPERATOR [Primary Care Provider] - Medical Decision Making Patient presenting with urinary symptoms consistent with UTI. No evidence of systemic illness. test negative. We will send off urinalysis but will begin treatment with Pyridium and Macrobid. Follow-up with PCP next week if continued symptoms despite antibiotic. Return to ED for high fever, flank/back pain, vomiting, worsening abdominal pain. HPI General Mode of arrival: ambulatory. Date/Time Provider Initiated Documentation: 10/25/19 20:18. Limitations to Documentation: no limitations. Information obtained by: patient and RN notes reviewed. HPI Narrative: Patient presents to ED with urinary symptoms for about 5 days now. Currently has dysuria, frequency, urgency. Has suprapubic discomfort on a constant basis. Has no fever, chills, back pain, vomiting. Has had UTIs in the past. Related Data Home Medications Medication Instructions Recorded Confirmed ibuprofen 1 cap PO PRN PRN 04/22/18 10/25/19 medroxyprogesterone 150 mg/mL 150 mg IM [id number] #1 ml 09/04/18 10/25/19 intramuscular syringe acetaminophen 1,000 mg PO PRN PRN 04/15/19 10/25/19 citalopram 20 mg tablet 30 mg PO DAILY #145 tab-cap 09/07/19 10/25/19 clobetasol 0.05 % shampoo 1 applic TP QHS 28 Days #118 ml 09/13/19 10/25/19 nitrofurantoin monohyd/m-cryst 100 mg PO Q12H #9 cap 10/25/19 phenazopyridine 100 mg PO TID PRN #3 tab 10/25/19 Previous Rx's Medication Instructions Recorded medroxyprogesterone 150 mg/mL 150 mg IM [id number] #1 ml 09/04/18 intramuscular syringe citalopram 20 mg tablet 30 mg PO DAILY #145 tab-cap 09/07/19 clobetasol 0.05 % shampoo 1 applic TP QHS 28 Days #118 ml 09/13/19 nitrofurantoin monohyd/m-cryst 100 mg PO Q12H #9 cap 10/25/19 phenazopyridine 100 mg PO TID PRN #3 tab 10/25/19 Allergies Allergy/AdvReac Type Severity Reaction Status Date / Time aspirin Allergy Mild Swelling Unverified 10/25/19 20:28 in lips amoxicillin [Amoxicillin] Allergy Redness Unverified 10/25/19 20:28 and swelling in throat clindamycin Allergy rash Unverified 10/25/19 20:28 Penicillins Allergy Inflamed Unverified 10/25/19 20:28 throat adhesive AdvReac Intermediate scarring Unverified 10/25/19 20:28 lactose AdvReac Mild Nausea, Unverified 10/25/19 20:28 intolerance-causes gas/diarrhea oxycodone HCl [From Percocet] AdvReac Unknown Nausea Unverified 10/25/19 20:28 General JACKSON: 3 Review of Systems Constitutional Constitutional: Denies chills and Denies fever(s) Gastrointestinal Gastrointestinal: Denies nausea and Denies vomiting Genitourinary Genitourinary: Reports urinary frequency, Reports dysuria, Denies flank pain and Reports urinary urgency PFSH Medical History ADHD (attention deficit hyperactivity disorder) (Inactive) Anxiety (Chronic 11/15/11) Body mass index (BMI) 19 or less, adult (Chronic) 12/2015 BMI 16.4 Depo-Provera contraceptive status (Resolved ~2015) initiated 2015. resumed 08/2018. discontinued 2/2 worsening scalp psoriasis. Depression (Chronic) IBS (irritable bowel syndrome) (Resolved) Migraine (Chronic 01/19/13) Oral contraception initial prescription (Acute) 08/2019. Change from DepoProvera to OCPs 2/2 worsening psoriasis sx. Orthostatic hypotension (Chronic 01/17/13) Pelvic pain (Chronic 02/18/16) longstanding. had R ovarian cyst 12/22/15 that had resolved on repeat imaging. Poor dentition (Chronic) has lost several teeth secondary to tooth decay Psoriasis (Chronic 11/28/12) 09/2019. Scalp psoriasis Rx with clobetasol lotion and change from DeopProvera to OCPs. Right ovarian cyst (Resolved) Tic disorder, unspecified (Chronic 11/28/12) Tobacco use disorder (Chronic) Surgical History Tooth extraction (Resolved) teeth extraction. 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[employer] 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: Currently in school for Nursing What is your relationship status?: Panel score (0-1 are the most socially isolated patients): 1 What type of physical activity do you participate in: none Seatbelt use: always Helmet use: Yes Drive intox or ride w/intox ups driver: No Working smoke detector in home: Yes Fire extinguisher in home: Yes Carbon monox detector in home: Yes Do you feel safe at home: Yes Do you feel safe in your relationship?: Yes Exam Narrative Exam Narrative: Vitals: Afebrile with normal vitals and room air pulse ox. Const: Thin female in NAD. HEENT: NC/AT. Normal facial exam. Eyes: Normal conjunctiva and sclera. Neck: Supple. Trachea midline. Lungs: Normal respiratory effort. GI: Soft. NT/ND. No guarding or rebound. Back: No CVAT Neuro: A+O x 3. Normal speech, mentation, gait. Cranial nerves II - XII grossly intact. No gross motor or sensory deficit.
[2019-10-25 20:24] VITALS: BP 123/85; PULSE 90; RESP 16; TEMP 35.4; O2SAT 99
[2019-10-25 20:51] LABS: Bilirubin Negative (Negative); Blood Trace-intact (Negative); Clarity Sl Cloudy (Clear); Glucose Negative (Negative); Ketones Negative (Negative); Leukocyte Esterase Large (Negative); Nitrite Negative (Negative)
[2019-10-25] MEDS: Phenazopyridine 200 MG TAB PO (20:55)
[2019-10-25] MEDS: MacroBID 100 MG CAP PO (20:55)
[2019-10-25] MEDS: Phenazopyridine 100 MG TAB, 2 TABS/BTL PO (20:56)
[2019-10-25 21:07] LABS: WBC >50 HPF (0-5)
[2019-10-25 21:08] LABS: Epithelial Cells Few HPF (Negative)
[2019-10-25 21:09] LABS: Bacteria Few HPF (Negative); C & S Indicated? Yes; Casts Negative LPF (Negative); Crystals Negative HPF (Negative); Mucus Trace (Negative); Other Cells Few Transitional (Negative)
== END 2019-10-25 20:55 | disposition home or self-care (01) ==
PROVIDERS: Emergency Provider Emergency Medicine; PCP Nurse Practitioner Family
DX: N39.0 Urinary tract infection, site not specified (principal)
CPT/HCPCS: 81025; 99283; 81003; 81015; 87086

== ENCOUNTER 2020-04-07 12:20 | Emergency (ER) | payer OTHER, SELFPAY ==
[2020-04-07 12:25] VITALS: BP 125/83; PULSE 94; RESP 16; TEMP 36.8; O2SAT 97
[2020-04-07] MEDS: Normal Saline 1,000 ML 1000 ML IV (12:45)
--- NOTE | 2020-04-07 12:45 | RT.EKG_ITS ---
APPROVED REPORT Exam: Resting ECG Patient Location: E HR:90 bpm ECG Measurements Heart Rate 90 AXIS ND 127 P 55 QRSd 81 QRS 85 QT 365 T 58 QTc 448 Conclusion Sinus rhythm...normal P axis, V-rate 60- 99 QTc nl Normal Electrocardiogram
--- NOTE | 2020-04-07 12:51 | W.ED.GENAD ---
Discharge Plan Disposition Patient Disposition: HOME Condition: Stable Discharge Details Chief Complaint: Nausea/Vomit/Diar Clinical Impression: Anxiety, Nausea vomiting and diarrhea Primary Care Provider: Radha Mccollum ED Provider: Lul Llanos Home Meds and New Rx's Prescriptions: New ondansetron 4 mg tablet,disintegrating 4 mg PO Q8H PRN (Reason: nausea and vomiting) Qty: 5 RF: 0 Continued clobetasol 0.05 % shampoo 1 applic TP QHS 28 Days Qty: 118 RF: 4 ibuprofen 200 MG capsule 1 cap PO PRN PRNRF: 0 acetaminophen 500 mg Tablet 1,000 mg PO PRN PRNRF: 0 No Action escitalopram oxalate 5 mg tablet 5 mg PO DAILY Qty: 30 RF: 1 clonazepam 0.5 mg tablet 0.25 - 0.5 mg PO DAILY PRN (Reason: acute anxiety) Qty: 20 RF: 0 Discharge Instructions Instructions: Acute Nausea and Vomiting (ED), Anxiety (ED) Additional Instructions: Please drink small amounts of fluid frequently in order to stay hydrated. Maintain bowel rest with no solid food tonight. Clear liquid diet only tonight. If you tolerate liquids tonight, you may advance to bland soft diet tomorrow. If you tolerate this diet tomorrow advance further as tolerated. Please contact your primary care physician to arrange follow-up. Return to the ER for any worsening or new concerning symptoms. Stand Alone Forms: Work Release Referrals: Radha Mccollum NP [Primary Care Provider] - Discharge Data Discharge Date/Time-TO BE ENTERED AT DEPARTURE: 04/07/20 14:38 Medical Decision Making 1325??24-year-old female with history of IBS, anxiety disorder, here with nausea, vomiting and loose stool over the past 1 week. Abdominal exam is benign. She does appear dehydrated with dry mucous membranes and tachycardia. ECG was reviewed and interpreted by me: See report, QTC normal. She has not been taking Celexa. I will give Zofran 4 mg IV for nausea. Will give IV fluid rehydration. We will check screening labs to assess for biliary and pancreatic disease. Consider . 1425??urine negative. Labs reviewed and mild anion gap acidosis noted. Suspect starvation ketosis secondary to vomiting. Patient was given 2 L of crystalloid and is now tolerating p.o. fluid. She was reassessed and she feels much better. Plan for discharge with outpatient follow-up. Patient notes she plans to stop using Celexa at this point. I will give short course of Zofran and have her follow-up with her PCP. Disposition decision was made weighing the risks and benefits of hospitalization versus outpatient treatment, the risk for further decompensation, and the patient's wishes. The patient was stable and requested discharge. Prior to discharge, my usual and customary return precautions were reviewed with the patient - this included follow-up instructions and reason to return to the emergency department if condition worsens, does not improve as expected, or other new concerns arise. HPI General Mode of arrival: ambulatory. Date/Time Provider Initiated Documentation: 04/07/20 12:30. Limitations to Documentation: no limitations. Information obtained by: patient. HPI Narrative: 24-year-old female presents with chief complaint of vomiting. Patient notes nausea and vomiting over the past 6 days. Worse over the past couple days. Excessive vomiting today. Vomit is yellowish with no blood. No associate abdominal pain. No associated fever. She does have associated loose stool over same period of time. No known sick contacts. No recent travel. Patient does state that she has associated anxiety and thinks that her nerves are contributing. Related Data Home Medications Medication Instructions Recorded Confirmed ibuprofen 1 cap PO PRN PRN 04/22/18 04/11/20 acetaminophen 1,000 mg PO PRN PRN 04/15/19 04/11/20 clobetasol 0.05 % shampoo 1 applic TP QHS 28 Days #118 ml 09/13/19 04/11/20 ondansetron 4 mg PO Q8H PRN #5 tab 04/07/20 04/11/20 clonazepam 0.5 mg tablet 0.25 - 0.5 mg PO DAILY PRN #20 tab 04/11/20 04/11/20 escitalopram oxalate 5 mg tablet 5 mg PO DAILY #30 tab 04/11/20 04/11/20 Previous Rx's Medication Instructions Recorded clobetasol 0.05 % shampoo 1 applic TP QHS 28 Days #118 ml 09/13/19 ondansetron 4 mg PO Q8H PRN #5 tab 04/07/20 clonazepam 0.5 mg tablet 0.25 - 0.5 mg PO DAILY PRN #20 tab 04/11/20 escitalopram oxalate 5 mg tablet 5 mg PO DAILY #30 tab 04/11/20 Allergies Allergy/AdvReac Type Severity Reaction Status Date / Time aspirin Allergy Mild Swelling Verified 04/11/20 11:03 in lips amoxicillin [Amoxicillin] Allergy Redness Verified 04/11/20 11:03 and swelling in throat clindamycin Allergy rash Verified 04/11/20 11:03 Penicillins Allergy Inflamed Verified 04/11/20 11:03 throat adhesive AdvReac Intermediate scarring Verified 04/11/20 11:03 lactose AdvReac Mild Nausea, Verified 04/11/20 11:03 intolerance-causes gas/diarrhea oxycodone HCl [From Percocet] AdvReac Unknown Nausea Verified 04/11/20 11:03 General Stated Complaint: Nausea/Vomit/Diar JACKSON: 3 Review of Systems All systems reviewed & are unremarkable except as noted in HPI and below Constitutional Constitutional: Denies fever(s) and Denies headache(s) ENT Ears, Nose, Mouth, and Throat: Denies headache(s) Gastrointestinal Gastrointestinal: Denies abdominal pain, Reports nausea and Reports vomiting Genitourinary Genitourinary: Denies vaginal discharge Neurologic Neurologic: Denies headache(s) Psychiatric Psychiatric: Reports anxiety, Denies depression and Denies suicidal ideation [facility] Medical History (Updated 04/11/20 @ 11:54 by Celestina Miranda NP) ADHD (attention deficit hyperactivity disorder) (Inactive) Anxiety (Chronic 11/15/11) RX Citalopram L-T x9 years (helped until stopped eating ~03/2020); RX Escitalopram Body mass index (BMI) 19 or less, adult (Chronic) 12/2015 BMI 16.4 Decreased libido (Acute) Depo-Provera contraceptive status (Resolved ~2015) initiated 2015. resumed 08/2018. discontinued 2/2 worsening scalp psoriasis. Depression (Chronic) RX Citalopram L-T x9 years (helped until stopped eating ~03/2020); RX Escitalopram 03/2020 IBS (irritable bowel syndrome) (Resolved) Migraine (Chronic 01/19/13) Oral contraception initial prescription (Acute) 08/2019. Change from DepoProvera to OCPs 2/2 worsening psoriasis sx. Orthostatic hypotension (Chronic 01/17/13) Pelvic pain (Chronic 02/18/16) longstanding. had R ovarian cyst 4/25/16 that had resolved on repeat imaging. Poor dentition (Chronic) has lost several teeth secondary to tooth decay Psoriasis (Chronic 11/28/12) 09/2019. Scalp psoriasis Rx with clobetasol lotion and change from DeopProvera to OCPs. Right ovarian cyst (Resolved) Tic disorder, unspecified (Chronic 11/28/12) Tobacco use disorder (Chronic) Surgical History Tooth extraction (Resolved) teeth extraction. hx of colonoscopy and endoscopy Family History Mother Drug addiction Mental disorder Gastric ulcer Father Essential hypertension Drug addiction Mental disorder Seizures Sister Autism Maternal Grandmother CHF (congestive heart failure) Gastric ulcer Paternal Great Aunt Coronary heart disease Grandmother CHF (congestive heart failure) Neoplasm Lung [place] (smoker) Grandfather Diabetes Maternal Uncle Diabetes Social History Smoking/Tobacco Use Status: Current every day Tobacco Type: cigarettes Smoking packs per day: 1 Smoking cigarettes per day: 20.0 Years smoked: 10 Smoking pack-years: 10.00 Quit status: considering quitting Alcohol Intake: current Alcohol Intake frequency: a few times a week Alcohol type: beer, wine and hard liquor Drug use: Never Substance use type: does not use Caregiver/Support person: No Household members: significant other Number of Children: 0 Communication Needs: None 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: Currently in school for Nursing What is your relationship status?: Panel score (0-1 are the most socially isolated patients): 1 What type of physical activity do you participate in: none Seatbelt use: always Helmet use: Yes Drive intox or ride w/intox hazardous materials driver: No Working smoke detector in home: Yes Fire extinguisher in home: Yes Carbon monox detector in home: Yes Do you feel safe at home: Yes Do you feel safe in your relationship?: Yes Exam Const General: cooperative and no acute distress HENMT Mouth: other (Dry mucous membranes) Eyes Conjunctivae: normal conjunctivae Sclera: normal sclerae Neck Neck: trachea midline and supple Resp Auscultation: clear to auscultation bilaterally, no rales, no rhonchi and no wheezes Cardio Rhythm: regular rhythm GI Palpation: soft, not firm, no guarding, no masses, not rigid and nontender Skin General skin exam: no rashes or lesions noted Neuro General: patient alert, patient awake, patient oriented x3 and tone normal Extrem General: no edema Psych Appearance: grossly normal Mental Status: mental status grossly normal Speech and Movement: speech and movement normal Mood: anxious mood Affect: normal affect Course Vital Signs Vital signs: Vital Signs Temperature 36.8 C 04/07/20 12:25 Pulse 94 H 04/07/20 12:25 Respiratory Rate 16 04/07/20 12:25 Blood Pressure 125/83 04/07/20 12:25 Pulse Oximetry 97 04/07/20 12:25 Temperature 36.8 C 04/07/20 12:25 Temperature Source Skin 04/07/20 12:25 Pulse 94 H 04/07/20 12:25 Respiratory Rate 16 04/07/20 12:25 Respiratory Effort Non-Labored 04/07/20 12:29 Blood Pressure 125/83 04/07/20 12:25 Blood Pressure Position Sitting 04/07/20 12:25 Pulse Oximetry 97 04/07/20 12:25 Oxygen Delivery Method Room Air 04/07/20 12:25 Oxygen Flow Rate 0 04/07/20 12:25 Pain Level 0 04/07/20 12:25
[2020-04-07] MEDS: Normal Saline Flush 10 ML SYR IVP ×2 (12:58→13:33)
[2020-04-07 13:08] LABS: Abs Immature Grans 0.02 10^3/uL (0.0-0.06); Absolute Basophil Count 0.05 10^3/uL (0.0-0.2); Absolute Eosinophil Count 0.09 10^3/uL (0.0-0.7); Absolute Lymphocyte Count 1.62 10^3/uL (1.2-3.4); Absolute Monocyte Count 0.61 10^3/uL (0.1-0.8); Absolute Neutrophil Count 3.75 10^3/uL (1.2-6.7); Basophils % 0.8; Eosinophils % 1.5; HGB 15.4 g/dL (11.2-15.7); Immature Grans % 0.3; Lymphocytes % 26.4; MCH 31.8 pg (27.0-33.0); MCV 90.7 fL (80-95); MPV 10.5 fL (8.0-11.0); Monocytes % 9.9; Neutrophils % 61.1; Nucleated RBC 0 %; Platelet Count 233 10^3/uL (130-400); RBC 4.85 10^6/uL (3.93-5.22); RDW 13.2 % (11.7-14.6); RDW-SD 43.7 fL; WBC 6.14 10^3/uL (4.4-10.8)
[2020-04-07] MEDS: Ondansetron 4 MG/2 ML VIAL IVP (13:16)
[2020-04-07 13:21] LABS: ALT 12 U/L (14-59); AST 10 U/L (15-37); Albumin 3.9 g/dL (3.4-5.0); Alkaline Phosphatase 52 U/L (46-116); BUN 6 mg/dL (7-18); Bilirubin, Total 0.8 mg/dL (0.2-1.0); CREATININE 0.82 mg/dL (0.55-1.02); Chloride 103 mmol/L (98-107); Glucose 92 mg/dL (74-106); Lipase 59 U/L (73-393); Potassium 3.8 mmol/L (3.5-5.1); Sodium 140 mmol/L (136-145); Total Protein 7.3 g/dL (6.4-8.2)
[2020-04-07] MEDS: LORazepam 2 MG/ML VIAL 0.5 MG IVP (13:32)
[2020-04-07] MEDS: Lactated Ringers 1,000 ML 1000 ML IV (13:33)
[2020-04-07 13:36] LABS: Bilirubin Negative (Negative); Blood Negative (Negative); Clarity Clear (Clear); Glucose Negative (Negative); Ketones Negative (Negative); Leukocyte Esterase Negative (Negative); Nitrite Negative (Negative); Specific Gravity 1.015 (1.005-1.025); pH 8.5 (5-8)
[2020-04-07 13:45] LABS: Bacteria Moderate HPF (Negative); C & S Indicated? No/Sq. Contamination; Casts Negative LPF (Negative); Crystals Negative HPF (Negative); Epithelial Cells Many HPF (Negative); Mucus Negative (Negative); RBC 0-2 HPF (0-2)
[2020-04-07 14:05] VITALS: BP 112/69; PULSE 89; RESP 16; TEMP 36.7; O2SAT 100
[2020-04-07 14:36] VITALS: BP 117/72; PULSE 92; RESP 15; O2SAT 100
== END 2020-04-07 14:38 | disposition home or self-care (01) ==
PROVIDERS: Emergency Provider Student in an Organized Health Care Education/Training Program; PCP Nurse Practitioner Family
DX: R11.2 Nausea with vomiting, unspecified (principal); F41.9 Anxiety disorder, unspecified; K58.9 Irritable bowel syndrome, unspecified; E86.0 Dehydration
CPT/HCPCS: 36415; 80053; 81025; 83690; 93005; 96361; 96374; 96375; 99284; 81003; 81015; 85025; 93010; J2060; J2405

== ENCOUNTER 2020-04-22 07:17 | Outpatient (CLI) | payer OTHER, SELFPAY ==
[2020-04-24 09:35] LABS: SARS-CoV-2 RNA Undetected (Undetected)
== END 2020-04-22 07:37 ==
PROVIDERS: PCP Nurse Practitioner Family; Visit Provider Nurse Practitioner Adult Health
DX: Z11.59 Encounter for screening for other viral diseases (principal)
CPT/HCPCS: U0003

== ENCOUNTER 2020-04-23 13:37 | Outpatient (CLI) | payer OTHER, SELFPAY ==
--- NOTE | 2020-04-23 14:00 | DI.RAD_ITS ---
EXAM: XR WRIST RT COMPLETE CLINICAL HISTORY: Radial pain after a fall M25.531 PAIN RT WRIST TECHNIQUE: COMPARISON: No exams were available for comparison FINDINGS: Three views were obtained. No fracture is seen. Carpal alignment appears within normal limits. IMPRESSION: RADIATION DOSE DELIVERED: Total DLP
== END 2020-04-23 13:57 ==
PROVIDERS: PCP Nurse Practitioner Family; Visit Provider Family Medicine
DX: M25.531 Pain in right wrist (principal)
CPT/HCPCS: 73110

== ENCOUNTER 2020-04-23 20:20 | Outpatient (REF) | payer OTHER, SELFPAY ==
[2020-04-25 15:02] LABS: Chlamydia Result Negative (Negative); GC Result Negative (Negative)
== END 2020-04-23 20:40 ==
LOC: LBN 20:20
PROVIDERS: PCP Nurse Practitioner Family; Visit Provider Obstetrics & Gynecology Gynecology
DX: Z11.3 Encounter for screening for infections with a predominantly sexual mode of transmission (principal)
CPT/HCPCS: 87491; 87591

== ENCOUNTER 2020-05-02 17:49 | Emergency (ER) | payer OTHER, SELFPAY ==
[2020-05-02 17:57] VITALS: BP 109/74; PULSE 115; RESP 20; TEMP 36.6; O2SAT 99
--- NOTE | 2020-05-02 18:10 | ED.GENADUL_ITS ---
Discharge Plan Disposition Patient Disposition: HOME Condition: Stable Discharge Details Chief Complaint: Headache Clinical Impression: Headache Primary Care Provider: Radha Mccollum ED Provider: Melisa Portillo Home Meds and New Rx's Prescriptions: New ondansetron 4 mg tablet,disintegrating 4 mg PO Q8H PRN (Reason: nausea and vomiting) Qty: 10 RF: 0 No Action clobetasol 0.05 % shampoo 1 applic TP QHS 28 Days Qty: 118 RF: 4 medroxyprogesterone 150 mg/mL syringe 150 mg IM [id number] Qty: 1 RF: 4 metronidazole 0.75 % gel 1 appful VG BID 5 Days Qty: 70 RF: 1 escitalopram oxalate 5 mg tablet 5 mg PO DAILY Qty: 30 RF: 1 clonazepam 0.5 mg tablet 0.25 - 0.5 mg PO DAILY PRN (Reason: acute anxiety) Qty: 20 RF: 0 sumatriptan succinate 100 mg tablet 100 mg PO ONCE MDD 200 mg PRN (Reason: migraine headache) Qty: 10 RF: 0 prochlorperazine 25 mg suppository 25 mg [place] BID PRN (Reason: nausea and vomiting) Qty: 12 RF: 0 ibuprofen 200 MG capsule 1 cap PO PRN PRNRF: 0 ondansetron 4 mg tablet,disintegrating 4 mg PO Q8H PRN (Reason: nausea and vomiting) Qty: 5 RF: 0 acetaminophen 500 mg Tablet 1,000 mg PO PRN PRNRF: 0 Discharge Instructions Instructions: General Headache (ED) Additional Instructions: Follow up with primary care provider in 3-5 days. Return to ED sooner if any worsening or concerns. Increase oral fluids. Please take Tylenol or Ibuprofen with food every 4-6 hours as needed for pain and swelling. Take medications as previously prescribed by PCP if needed. Return for fever, worsening headache or any concerns. Referrals: Radha Mccollum NP [Primary Care Provider] - Medical Decision Making 24-year-old female presents to the ER chief complaint of headache associated wit h nausea and vomiting photosensitivity and sensitivity to sound. This began last night. She reports frontal headache which radiates back to her occipital area. Positive neck pain. Denies any trauma no fever, positive chills. Patient states that movement and sound make it worse, makes it better is sleeping. Patient is a smoker does have a history of ADHD, anxiety, depression, irritable bowel syndrome. She does not endorse occasional alcohol no drugs. 2024: Patient reevaluation CT head is pending at this time patient is sleeping breathing eupneic. CBC is largely within normal limits, no leukocytosis, BMP is within normal limits as well. 2148: Patient returned from CT pain is 6 out of 10. Vital signs stable. COMPARISON: CT HEAD WO 08/10/2019 11:17 PM FINDINGS: Brain: Cerebral sulci show bilateral symmetry with no supratentorial mass or mass effect detected. Brainstem and cerebellum are normal in appearance. No significant foci of abnormal increased or decreased attenuation are seen within the brain parenchyma. There is no evidence of acute infarct or intracranial hemorrhage. Ventricles: Ventricular and cisternal spaces are normal in size and configuration and there is no midline shift or hydrocephalus seen. Bones/joints: Bony calvarium and skull base are intact and no acute fractures are detected. Sinuses: Mucosal disease is seen along the anterior margins of the right maxillary sinus and involving a few scattered bilateral ethmoidal lamellae with other paranasal sinuses clear at the levels imaged. Mastoid air cells: Normally pneumatized and clear bilaterally. Soft tissues: Unremarkable. IMPRESSION: Unremarkable noncontrast head CT with no evidence of an acute intracranial process. 2202: Discussed CT results with patient, verbalized understanding. Patient sta aurea that she feels better at this time discussed option of lumbar puncture which patient declined at this time she does understand the risks and benefits. She is able to make her own medical decisions. Will order Toradol 30 mg IV prior to discharge. Instructed to follow-up with her PCP and discuss strict return instructions. HPI General Mode of arrival: ambulatory . Date/Time Provider Initiated Documentation: 05/02/20 17:50 . Limitations to Documentation: no limitations . Information obtained by: patient . HPI Narrative: 24-year-old female presents to the ER chief complaint of headache associated with nausea and vomiting photosensitivity and sensitivity to sound. This began last night. She reports frontal headache which radiates back to her occipital area. Positive neck pain. Denies any trauma no fever, positive chills. Patient states that movement and sound make it worse, makes it better is sleeping. Patient is a smoker does have a history of ADHD, anxiety, depression, irritable bowel syndrome. She does not endorse occasional alcohol no drugs. Related Data Home Medications Medication Instructions Recorded Confirmed ibuprofen 1 cap PO PRN PRN 04/22/18 05/02/20 acetaminophen 1,000 mg PO PRN PRN 04/15/19 05/02/20 clobetasol 0.05 % shampoo 1 applic TP QHS 28 Days #118 ml 09/13/19 05/02/20 ondansetron 4 mg PO Q8H PRN #5 tab 04/07/20 05/02/20 clonazepam 0.5 mg tablet 0.25 - 0.5 mg PO DAILY PRN #20 tab 04/11/20 05/02/20 escitalopram oxalate 5 mg tablet 5 mg PO DAILY #30 tab 04/11/20 05/02/20 medroxyprogesterone 150 mg/mL 150 mg IM [id number] #1 ml 04/23/20 05/02/20 intramuscular syringe metronidazole 0.75 % vaginal gel 1 appful VG BID 5 Days #70 gm 04/23/20 05/02/20 ondansetron 4 mg PO Q8H PRN #10 tab 05/02/20 prochlorperazine 25 mg rectal 25 mg [place] BID PRN #12 each 05/02/20 05/02/20 suppository sumatriptan succinate 100 mg tablet 100 mg PO ONCE PRN #10 tab-cap MDD 05/02/20 05/02/20 200 mg Previous Rx's Medication Instructions Recorded clobetasol 0.05 % shampoo 1 applic TP QHS 28 Days #118 ml 09/13/19 ondansetron 4 mg PO Q8H PRN #5 tab 04/07/20 clonazepam 0.5 mg tablet 0.25 - 0.5 mg PO DAILY PRN #20 tab 04/11/20 escitalopram oxalate 5 mg tablet 5 mg PO DAILY #30 tab 04/11/20 medroxyprogesterone 150 mg/mL 150 mg IM [id number] #1 ml 04/23/20 intramuscular syringe metronidazole 0.75 % vaginal gel 1 appful VG BID 5 Days #70 gm 04/23/20 ondansetron 4 mg PO Q8H PRN #10 tab 05/02/20 prochlorperazine 25 mg rectal 25 mg [place] BID PRN #12 each 05/02/20 suppository sumatriptan succinate 100 mg tablet 100 mg PO ONCE PRN #10 tab-cap MDD 05/02/20 200 mg Allergies Allergy/AdvReac Type Severity Reaction Status Date / Time amoxicillin [Amoxicillin] Allergy Severe Redness Verified 05/02/20 17:59 and swelling in throat Penicillins Allergy Severe Inflamed Verified 05/02/20 17:59 throat clindamycin Allergy Intermediate rash Verified 05/02/20 17:59 aspirin Allergy Mild Swelling Verified 05/02/20 17:59 in lips adhesive AdvReac Intermediate scarring Verified 05/02/20 17:59 lactose AdvReac Mild Nausea, Verified 05/02/20 17:59 intolerance-causes gas/diarrhea oxycodone HCl [From Percocet] AdvReac Unknown Nausea Verified 05/02/20 17:59 General Stated Complaint: Headache JACKSON: 2 Review of Systems Narrative: Constitutional: Negative for weight loss, alert and oriented, well groomed, normal body habitus, appears uncomfortable. HEENT: Denies trauma, blurry vision, nasal discharge, sore throat, trouble swallowing. Positive headache. Chest: Denies chest pain, palpitations, irregular rhythm, hypertension. Respiratory: Denies Shortness of breath, cough, hemoptysis. GI: Denies abdominal pain, diarrhea, constipation. Positive nausea vomiting. : Denies dysuria, hematuria, flank pain, rectal bleeding. Neuro: Denies dizziness, blurry vision, weakness, syncope, or facial numbness. Hematologic: Denies easy bruising, intolerance to heat or cold, hair loss. [facility] Medical History ADHD (attention deficit hyperactivity disorder) (Inactive) Anxiety (Chronic 11/15/11) RX Citalopram L-T x9 years (helped until stopped eating ~03/2020); RX Escitalopram Body mass index (BMI) 19 or less, adult (Chronic) 12/2015 BMI 16.4 Decreased libido (Acute) Depo-Provera contraceptive status (Resolved ~2015) initiated 2015. resumed 08/2018. discontinued 09/30 worsening scalp psoriasis. Depression (Chronic) RX Citalopram L-T x9 years (helped until stopped eating ~03/2020); RX Escitalopram 03/2020 IBS (irritable bowel syndrome) (Resolved) Migraine (Chronic 01/19/13) Oral contraception initial prescription (Acute) 08/2019. Change from DepoProvera to OCPs 09/30 worsening psoriasis sx. Orthostatic hypotension (Chronic 01/17/13) Pelvic pain (Chronic 02/18/16) longstanding. had R ovarian cyst 12/22/15 that had resolved on repeat imaging. Poor dentition (Chronic) has lost several teeth secondary to tooth decay Psoriasis (Chronic 11/28/12) 09/2019. Scalp psoriasis Rx with clobetasol lotion and change from DeopProvera to OCPs. Right ovarian cyst (Resolved) Tic disorder, unspecified (Chronic 11/28/12) Tobacco use disorder (Chronic) Surgical History Tooth extraction (Resolved) teeth extraction. hx of colonoscopy and endoscopy Family History Mother Drug addiction Mental disorder Gastric ulcer Father Essential hypertension Drug addiction Mental disorder Seizures Sister Autism Maternal Grandmother CHF (congestive heart failure) Gastric ulcer Paternal Great Aunt Coronary heart disease Grandmother CHF (congestive heart failure) Neoplasm Lung [place] (smoker) Grandfather Diabetes Maternal Uncle Diabetes Social History Smoking/Tobacco Use Status: Current every day Tobacco Type: cigarettes Smoking packs per day: 1 Smoking cigarettes per day: 20.0 Years smoked: 10 Smoking pack- years: 10.00 Quit status: considering quitting Alcohol Intake: current Alcohol Intake frequency: a few times a week Alcohol type: beer, wine and hard liquor Drug use: Never Substance use type: does not use Caregiver/Support person: No Household members: significant other Number of Children: 0 Communication Needs: None 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: Currently in school for Nursing What is your relationship status?: Panel score (0-1 are the most socially isolated patients): 1 What type of physical activity do you participate in: none Seatbelt use: always Helmet use: Yes Drive intox or ride w/intox motorcycle delivery driver: No Working smoke detector in home: Yes Fire extinguisher in home: Yes Carbon monox detector in home: Yes Do you feel safe at home: Yes Do you feel safe in your relationship?: Yes Exam Narrative Exam Narrative: Constitutional: Alert and oriented x3. Appears stated age. Normal body habitus. Head: Normocephalic, no trauma. Eyes: Pupils PERRLA, Red reflex noted, EOM's intact. Eyelids symmetrical without lesions, discharge, or swelling. ENT: Bilateral TM's WNL, External ear normal to inspection, no mastoid TTP, swelling, or erythema, Nasal turbinates WNL, no nasal discharge. Normal dentition, Posterior pharynx WNL, no exudate. Chest: RRR, Normal S1, S2, distal pulses intact. Resp: Lungs clear to auscultation bilaterally, no wheezes, rales, or rhonchi. Musculoskeletal: Normal gait, 5/5 strength to all four extremities. Skin: No suspicious rashes or lesions. Capillary refill less than 2 sec. Neurologic: Cranial nerves II-XII intact. Alert and oriented x 3. DTR's intact. Hematologic/Lymphatic: No ecchymosis, no lymphadenopathy. Course Vital Signs Vital signs: Vital Signs Temperature 36.6 C 05/02/20 17:57 Pulse 115 H 05/02/20 17:57 Respiratory Rate 05/02/20 17:57 Blood Pressure 109/74 05/02/20 17:57 Pulse Oximetry 99 05/02/20 17:57 Temperature 36.6 C 05/02/20 17:57 Temperature Source Skin 05/02/20 17:57 Pulse 115 H 05/02/20 17:57 Respiratory Rate 05/02/20 17:57 Respiratory Effort Non-Labored 05/02/20 17:59 Blood Pressure 109/74 05/02/20 17:57 Blood Pressure Position Sitting 05/02/20 17:57 Pulse Oximetry 99 05/02/20 17:57 Oxygen Delivery Method Room Air 05/02/20 17:57 Oxygen Flow Rate 0 05/02/20 17:57 Pain Level 10 05/02/20 17:57
[2020-05-02] MEDS: Ondansetron 4 MG/2 ML VIAL IVP (18:26)
[2020-05-02] MEDS: Normal Saline 1,000 ML 1000 ML IV ×2 (18:26→19:54)
[2020-05-02] MEDS: SUMAtriptan 6 MG/0.5 ML VIAL SC (18:28)
[2020-05-02 18:42] LABS: Abs Immature Grans 0.04 10^3/uL (0.0-0.06); Absolute Basophil Count 0.03 10^3/uL (0.0-0.2); Absolute Eosinophil Count 0.01 10^3/uL (0.0-0.7); Absolute Lymphocyte Count 1.22 10^3/uL (1.2-3.4); Absolute Monocyte Count 1.01 10^3/uL (0.1-0.8); Absolute Neutrophil Count 8.05 10^3/uL (1.2-6.7); Basophils % 0.3; Eosinophils % 0.1; HCT 45.5 % (36.0-46.0); HGB 15.4 g/dL (11.2-15.7); Immature Grans % 0.4; Lymphocytes % 11.8; MCH 32.5 pg (27.0-33.0); MCHC 33.8 % (32.0-36.0); MPV 9.8 fL (8.0-11.0); Monocytes % 9.7; Neutrophils % 77.7; Nucleated RBC 0 %; Platelet Count 226 10^3/uL (130-400); RBC 4.74 10^6/uL (3.93-5.22); RDW 14.9 % (11.7-14.6); RDW-SD 52.9 fL; WBC 10.36 10^3/uL (4.4-10.8)
[2020-05-02 18:55] LABS: ALT 9 U/L (14-59); AST 11 U/L (15-37); Albumin 3.5 g/dL (3.4-5.0); Alkaline Phosphatase 69 U/L (46-116); Anion Gap 12.2 mmol/L (3-11); BUN 7 mg/dL (7-18); Bilirubin, Total 0.7 mg/dL (0.2-1.0); CO2 23.8 mmol/L (21.0-32.0); CREATININE 0.86 mg/dL (0.55-1.02); Calcium 9.1 mg/dL (8.5-10.1); Chloride 105 mmol/L (98-107); Glucose 91 mg/dL (74-106); Potassium 3.5 mmol/L (3.5-5.1); Sodium 141 mmol/L (136-145); Total Protein 6.8 g/dL (6.4-8.2)
[2020-05-02 19:53] VITALS: BP 118/78; PULSE 97; RESP 16; O2SAT 100
[2020-05-02] MEDS: Prochlorperazine 10 MG/2 ML VIAL IVP (19:55)
[2020-05-02] MEDS: diphenhydrAMINE 50 MG/ML VIAL 25 MG IVP (19:57)
[2020-05-02] MEDS: MORPHine 10 MG/ML VIAL 2 MG IVP (19:59)
[2020-05-02 21:06] LABS: C-Reactive Protein 0.55 mg/dL (0.0-0.3)
[2020-05-02 21:10] LABS: Bilirubin Small (Negative); Blood Negative (Negative); Clarity Clear (Clear); Glucose Negative (Negative); Ketones 40 mg/dL (Negative); Leukocyte Esterase Negative (Negative); Nitrite Negative (Negative); Specific Gravity 1.025 (1.005-1.025); Urobilinogen 0.2 EU/dL (Up TO 0.2)
[2020-05-02 21:26] LABS: ESR 8 mm/hr (0-20)
--- NOTE | 2020-05-02 21:40 | DI.CT_ITS ---
EXAM: CT HEAD WO CLINICAL HISTORY: Headache. TECHNIQUE: Imaging Protocol: Axial computed tomography images with coronal and sagittal reformatted images were created and reviewed COMPARISON: CT CT HEAD WO from 08/10/2019 FINDINGS: Exam is mildly limited by motion on the inferior images. Ventricles and Extra axial spaces: Normal in size and morphology for the patient's age. Hemorrhage: None. Cerebral parenchyma: Normal. Midline shift: None. Brainstem/Cerebellum: Normal. Calvarium: Normal. Visualized Paranasal sinuses/Mastoids: Clear. Soft Tissues: Unremarkable. IMPRESSION: No acute intracranial process. RADIATION DOSE DELIVERED: Total DLP DATA REPOSITORY: All CT scans at this facility are submitted to the National Radiology Data Registry (NRDR) Dose Index Registry (DIR) with the [employer] (A[employer]). RADIATION OPTIMIZATION: All CT scans at this facility use at least one of these dose optimization te chniques: automated exposure control; mA and/or kV adjustment per patient size (includes targeted exa ms where dose is matched to clinical indication); or iterative reconstruction.
[2020-05-02 21:46] VITALS: BP 104/66; PULSE 76; RESP 16; TEMP 37; O2SAT 100
--- NOTE | 2020-05-02 21:55 | DI.VRAD_ITS ---
PROCEDURE INFORMATION: Exam: CT Head Without Contrast Exam date and time: 05/02/2020 9:35 PM Age: 24 years old Clinical indication: Other: Headache TECHNIQUE: Imaging protocol: Computed tomography of the head without contrast. Radiation optimization: All CT scans at this facility use at least one of these dose optimization techniques: automated exposure control; mA and/or kV adjustment per patient size (includes targeted exams where dose is matched to clinical indication); or iterative reconstruction. COMPARISON: CT HEAD WO 08/10/2019 11:17 PM FINDINGS: Brain: Cerebral sulci show bilateral symmetry with no supratentorial mass or mass effect detected. Brainstem and cerebellum are normal in appearance. No significant foci of abnormal increased or decreased attenuation are seen within the brain parenchyma. There is no evidence of acute infarct or intracranial hemorrhage. Ventricles: Ventricular and cisternal spaces are normal in size and configuration and there is no midline shift or hydrocephalus seen. Bones/joints: Bony calvarium and skull base are intact and no acute fractures are detected. Sinuses: Mucosal disease is seen along the anterior margins of the right maxillary sinus and involving a few scattered bilateral ethmoidal lamellae with other paranasal sinuses clear at the levels imaged. Mastoid air cells: Normally pneumatized and clear bilaterally. Soft tissues: Unremarkable. IMPRESSION: Unremarkable noncontrast head CT with no evidence of an acute intracranial process. Dictated and Authenticated by: Sunday Rivera MD. Ordering:CHRISTOPHER Vincent MD
[2020-05-02] MEDS: Ketorolac 30 MG/ML VIAL IVP (22:16)
[2020-05-02 22:25] VITALS: BP 110/68; PULSE 75; RESP 16; O2SAT 99
== END 2020-05-02 22:50 | disposition home or self-care (01) ==
PROVIDERS: Emergency Provider Registered Nurse Emergency; PCP Nurse Practitioner Family
DX: R51 Headache (principal); R11.2 Nausea with vomiting, unspecified; M54.2 Cervicalgia
CPT/HCPCS: 36415; 80053; 81025; 85652; 96361; 96372; 96374; 96375; 99284; 70450; 81003; 84702; 85025; 86140; J0780; J1200; J1885; J2270; J2405

== ENCOUNTER 2020-07-02 12:32 | Outpatient (REF) | payer OTHER, SELFPAY ==
[2020-07-02 20:01] LABS: ALT 12 U/L (14-59); AST 12 U/L (15-37); Alkaline Phosphatase 58 U/L (46-116); Anion Gap 7.5 mmol/L (3-11); BUN 5 mg/dL (7-18); Bilirubin, Total 0.5 mg/dL (0.2-1.0); CO2 27.5 mmol/L (21.0-32.0); CREATININE 0.95 mg/dL (0.55-1.02); Calcium 8.8 mg/dL (8.5-10.1); Chloride 106 mmol/L (98-107); Glucose 88 mg/dL (74-106); Potassium 4.2 mmol/L (3.5-5.1); Sodium 141 mmol/L (136-145)
[2020-07-02 20:09] LABS: Lipase 114 U/L (73-393)
[2020-07-11 16:22] LABS: HIV-1/2 Ag & Ab Screen Negative (Negative)
== END 2020-07-02 12:52 ==
LOC: LBN 12:32
PROVIDERS: PCP Nurse Practitioner Adult Health; Visit Provider Nurse Practitioner Adult Health
DX: R16.0 Hepatomegaly, not elsewhere classified (principal); R11.2 Nausea with vomiting, unspecified; Z11.4 Encounter for screening for human immunodeficiency virus [HIV]
CPT/HCPCS: 80053; 83690; 87389

== ENCOUNTER 2020-07-07 14:50 | Outpatient (REF) | payer OTHER, SELFPAY ==
[2020-07-09 11:59] LABS: SARS-CoV-2 RNA Not Detected (NotDetected); SARS-CoV-2 RNA Source Nasal/Nares
== END 2020-07-07 15:10 ==
LOC: LBO 14:50
PROVIDERS: PCP Nurse Practitioner Adult Health; Visit Provider Nurse Practitioner Family
DX: Z11.59 Encounter for screening for other viral diseases (principal)
CPT/HCPCS: U0003

== ENCOUNTER 2020-07-22 01:37 | Outpatient (CLI) | payer OTHER, SELFPAY ==
--- NOTE | 2020-07-22 07:30 | DI.US_ITS ---
EXAM: US SOFT TISSUE EXTREMITY CLINICAL HISTORY: L FA over brachioradialis tender ?cyst,SKIN LUMP OF ARM,R22.30. TECHNIQUE: Ultrasound was performed using standard protocol. COMPARISON: No exams were available for comparison FINDINGS: Sonographic assessment utilizing grayscale and color Doppler imaging was performed and targeted to th e area of clinical concern. No fluid collection or mass is identified. Thrombus is visible in the cephalic vein in the forearm. IMPRESSION: Cephalic vein thrombosis. No evidence of cyst or mass. DATA REPOSITORY:
--- NOTE | 2020-07-22 13:15 | DI.US_ITS ---
EXAM: US UPPER EXTREMITY VENOUS LT CLINICAL HISTORY: Superficial thrombophlebitis, lt arm, I80.9. TECHNIQUE: Ultrasound examination of the left upper extremity venous system(s) is performed using gr ayscale, color-flow, and spectral Doppler analysis. COMPARISON: US US SOFT TISSUE EXTREMITY from 07/22/2020 FINDINGS: There is thrombus in the left cephalic vein seen in the forearm to the level of the elbow. The lengt h of the thrombus is approximately 7 cm. The left internal jugular, axillary, subclavian, basilic, brachial, radial, and ulnar veins are patent without evidence of thrombosis. IMPRESSION: Thrombus within the cephalic vein in the forearm. No additional sites of thrombus. DATA REPOSITORY:
== END 2020-07-22 01:57 ==
PROVIDERS: PCP Nurse Practitioner Adult Health; Visit Provider Nurse Practitioner Adult Health
DX: I82.612 Acute embolism and thrombosis of superficial veins of left upper extremity (principal)
CPT/HCPCS: 76881; 93971

== ENCOUNTER 2020-10-12 12:39 | Outpatient (REF) | payer OTHER, SELFPAY ==
[2020-10-12 14:27] LABS: HCG Quant, Pregnancy < 1 mIU/mL (1-3)
== END 2020-10-12 12:40 | disposition home or self-care (01) ==
LOC: LBN 12:39
PROVIDERS: Obstetrics & Gynecology Gynecology; PCP Nurse Practitioner Adult Health; Visit Provider Nurse Practitioner Adult Health
DX: N91.2 Amenorrhea, unspecified (principal)
CPT/HCPCS: 84702

== ENCOUNTER 2021-01-02 22:15 | Emergency (ER) | payer OTHER, SELFPAY ==
[2021-01-02] VITALS (13 sets, daily range): BP systolic 97–125; BP diastolic 73–90; PULSE 92–117; RESP 19–25; TEMP 36.8–37; O2SAT 97–100
--- NOTE | 2021-01-02 22:15 | RT.EKG_ITS ---
APPROVED REPORT Exam: Resting ECG Reason for Exam: sob Patient Location: E HR:89 bpm ECG Measurements Heart Rate 89 AXIS WY 141 P 39 QRSd 76 QRS 77 QT 356 T 55 QTc 433 Conclusion Sinus rhythm...normal P axis, V-rate 60- 99
--- NOTE | 2021-01-02 22:15 | DI.RAD_ITS ---
Exam(s) XR PORTABLE CHEST AP EXAM: XR PORTABLE CHEST AP CLINICAL HISTORY: sob. TECHNIQUE: 2D digital imaging was performed. COMPARISON: CR CHEST 2 VIEWS PA,LAT from 06/04/2012 FINDINGS: Heart size is normal. The mediastinum is not widened. Lungs are clear. No infiltrates nor obvious pleural effusions. IMPRESSION: No acute pulmonary findings on this single AP portable view of the chest. DATA REPOSITORY: RADIATION DOSE DELIVERED: All CT scans at this facility use at least one of these dose optimization techniques: automated exposure control; mA and/or kV adjustment per patient size (includes targeted e xams where dose is matched to clinical indication); or iterative reconstruction.
--- NOTE | 2021-01-02 22:20 | ED.GENADUL_ITS ---
Discharge Plan Disposition Patient Disposition: HOME Condition: Stable Discharge Details Clinical Impression: Dyspnea Primary Care Provider: Celestina Miranda ED Provider: Blaine Krause Home Meds and New Rx's Prescriptions: Continued escitalopram oxalate 10 mg tablet 10 mg PO DAILY Qty: 90 RF: 3 triamcinolone acetonide 0.5 % cream 1 applic topical BID Qty: 15 RF: 5 vitamins PO DAILY RF: 0 buspirone 5 mg tablet 5 mg PO BID RF: 0 clonazepam 0.5 mg tablet 0.25 - 0.5 mg PO DAILY PRN (Reason: acute anxiety) Qty: 20 RF: 0 fluticasone propionate [Flonase Allergy Relief] 50 mcg/actuation spray,suspension 1 - 2 spray SHANIKA DAILY PRN (Reason: sinus congestion/pressure) Qty: 9.9 RF: 0 loratadine [Allergy Relief (loratadine)] 10 mg tablet 10 mg PO DAILY PRN (Reason: allergy symptoms) Qty: 30 RF: 0 aluminum chloride [Drysol] 20 % solution 1 applic topical QHS Qty: 60 RF: 2 clobetasol 0.05 % shampoo 1 applic TP QHS 28 Days Qty: 118 RF: 4 ibuprofen 200 MG capsule 1 cap PO PRN PRNRF: 0 acetaminophen 500 mg Tablet 1,000 mg PO PRN PRNRF: 0 Discharge Instructions Instructions: Dyspnea (ED) Additional Instructions: Work-up in the ER thus far has been unremarkable, you are afebrile, O2 sats are 99% on room air, and your heart rate is in the 90s. Rapid Covid test is pending and will be resulted in 1-2 hours. If your test is positive we will contact you. You were tomorrow morning here at our facility, I recommend contacting the ER first thing tomorrow morning for your results if you do not hear from us this evening. If your test is positive you will not be able to come to work and will need to quarantine. Otherwise please watch for new or worsening symptoms and return to the ER for any concerns. Contact your primary care provider on Tuesday to discuss your evaluation here in the ER and need for outpatient reassessment. Medical Decision Making 25-year-old female reports what she describes as a dry cough and shortness of breath that began approximately 1 hour ago while smoking a cigarette. She denies any fever, productive cough, recent illness, travel or sick contacts, or chest pain. Denies any pain or swelling in her legs. She appears slightly anxious and is slightly tachycardic. Based upon her presentation extremely low suspicion for ACS. Do believe obtaining routine laboratory values, D-dimer, chest x-ray is reasonable. O2 sats are 100% on room air and she is afebrile. Lungs are clear to auscultation and she is speaking in full sentences. No respiratory distress. No indication for breathing treatment at this time or steroids. Upon reevaluation heart rate is 86, O2 sat is 99% on room air. WBC of 7.00 hemoglobin 16.7 hematocrit 49.3 platelet count 297. Urinalysis unremarkable. Chest x-ray read by me as negative, awaiting official radiology read Laboratory values reveal a D-dimer of 260. Will not pursue CTA. Sodium 143, potassium 3.3, EKG does not reveal any signs of hypokalemia. Creatinine 0.9 GFR greater than 60, troponin less than 0.05. Tox screen negative. Chest x-ray read by radiology as negative. 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 Because of this I will perform a rapid Covid. Patient appears well, nontoxic, would not make her wait here in the ER for the results. We will contact her this evening if the results are positive otherwise will have her call the ER first thing in the morning for her results. Patient is agreeable to this plan. Medical Records Medical records reviewed: Yes I reviewed the patient's medical records. ECG Data Attestation: I personally reviewed and interpreted this ECG (s) as follows: Interpretation: Please see official report by Dr. Llanos. Sinus rhythm, ventricular rate 89. No STEMI HPI General Mode of arrival: ambulatory . Date/Time Provider Initiated Documentation: 01/02/21 22:15 . Limitations to Documentation: no limitations . Information obtained by: patient . HPI Narrative: This is a 25-year-old female, reports past medical history of anxiety, depression, ADHD, superficial phlebitis, denies any current hormone therapy, current smoker of approximately half pack of cigarettes daily, presents to the ER reporting shortness of breath approximately 1 hour ago that began while smoking a cigarette. She admits to occasional marijuana use and alcohol use but denies any other drug use. She reports a mild dry cough also began about an hour ago. She denies any fever, recent travel, sick contacts, headache, productive cough, chest pain, wheezing, abdominal pain, nausea, vomiting, pain or swelling in her legs, back pain, change in bowel or bladder function. Patient states that it simply feels like she cannot catch a deep breath. Related Data Home Medications Medication Instructions Recorded Confirmed ibuprofen 1 cap PO PRN PRN 04/22/18 11/28/20 acetaminophen 1,000 mg PO PRN PRN 04/15/19 11/28/20 fluticasone propionate 50 1 - 2 spray SHANIKA DAILY PRN #9.9 gm 05/04/20 11/28/20 mcg/actuation nasal spray,suspension loratadine 10 mg tablet 10 mg PO DAILY PRN #30 tab 05/04/20 11/28/20 escitalopram oxalate 10 mg tablet 10 mg PO DAILY #90 tab 06/04/20 11/28/20 aluminum chloride 20 % topical 1 applic TOPICAL QHS #60 ml 10/02/20 11/28/20 solution triamcinolone acetonide 0.5 % 1 applic TOPICAL BID #15 g 10/24/20 11/28/20 topical cream clobetasol 0.05 % shampoo 1 applic TP QHS 28 Days #118 ml 11/04/20 11/28/20 buspirone 5 mg tablet 5 mg PO BID 11/28/20 11/28/20 clonazepam 0.5 mg tablet 0.25 - 0.5 mg PO DAILY PRN #20 tab 11/28/20 11/28/20 vitamins PO DAILY 11/28/20 11/28/20 Previous Rx's Medication Instructions Recorded fluticasone propionate 50 1 - 2 spray SHANIKA DAILY PRN #9.9 gm 05/04/20 mcg/actuation nasal spray,suspension loratadine 10 mg tablet 10 mg PO DAILY PRN #30 tab 05/04/20 escitalopram oxalate 10 mg tablet 10 mg PO DAILY #90 tab 06/04/20 aluminum chloride 20 % topical 1 applic TOPICAL QHS #60 ml 10/02/20 solution triamcinolone acetonide 0.5 % 1 applic TOPICAL BID #15 g 10/24/20 topical cream clobetasol 0.05 % shampoo 1 applic TP QHS 28 Days #118 ml 11/04/20 clonazepam 0.5 mg tablet 0.25 - 0.5 mg PO DAILY PRN #20 tab 11/28/20 Allergies Allergy/AdvReac Type Severity Reaction Status Date / Time amoxicillin [Amoxicillin] Allergy Severe Redness Verified 11/28/20 11:20 and swelling in throat Penicillins Allergy Severe Inflamed Verified 11/28/20 11:20 throat clindamycin Allergy Intermediate rash Verified 11/28/20 11:20 aspirin Allergy Mild Swelling Verified 11/28/20 11:20 in lips adhesive AdvReac Intermediate scarring Verified 11/28/20 11:20 lactose AdvReac Mild Nausea, Verified 11/28/20 11:20 intolerance-causes gas/diarrhea oxycodone HCl [From Percocet] AdvReac Unknown Nausea Verified 11/28/20 11:20 General JACKSON: 2 Review of Systems Constitutional Constitutional: Denies fatigue, Denies fever(s) and Denies weakness ENT Ears, Nose, Mouth, and Throat: Denies neck pain Cardiovascular Cardiovascular: Denies chest pain and Reports dyspnea Respiratory Respiratory: Reports cough and Reports dyspnea Gastrointestinal Gastrointestinal: Denies abdominal pain, Denies nausea and Denies vomiting Genitourinary Genitourinary: Denies dysuria Musculoskeletal Musculoskeletal: Denies back pain, Denies neck pain, Denies numbness and Denies tingling Integumentary/Breasts Skin/Breast: Denies rash Neurologic Neurologic: Denies numbness, Denies tingling and Denies weakness Psychiatric Psychiatric: Reports anxiety Endocrine Endocrine: Denies fatigue Hematologic/Lymphatic Hematologic/Lymphatic: Denies easy bleeding and Denies easy bruising [facility] Medical History ADHD (attention deficit hyperactivity disorder) Anxiety (11/15/11) RX Citalopram L-T x9 years (helped until stopped eating ~03/2020); RX Esc italopram Body mass index (BMI) 19 or less, adult 12/2015 BMI 16.4 Cephalic vein thrombosis superficial vein; s/p IV Decreased libido Depo-Provera contraceptive status (~2015) initiated 2015. resumed 08/2018. discontinued 09/30 worsening scalp psoriasis. Depression RX Citalopram L-T x9 years (helped until stopped eating ~03/2020); RX Escitalopram 03/2020 Hyperhidrosis of axilla Improved with Rx antiperspirant IBS (irritable bowel syndrome) Migraine (01/19/13) Oral contraception initial prescription 08/2019. Change from DepoProvera to OCPs 09/30 worsening psoriasis sx. 05/2020. stopped Depo 09/24/20. Restarted OCPs Orthostatic hypotension (01/17/13) Pelvic pain (02/18/16) longstanding. had R ovarian cyst 12/22/15 that had resolved on repeat imaging. Poor dentition has lost several teeth secondary to tooth decay Psoriasis (11/28/12) 09/2019. Scalp psoriasis Rx with clobetasol lotion and change from DeopProvera to OCPs. Right ovarian cyst Stress due to family tension Tic disorder, unspecified (11/28/12) Tobacco use disorder Surgical History Tooth extraction teeth extraction. hx of colonoscopy and endoscopy Family History Mother Drug addiction Mental disorder Gastric ulcer Father Essential hypertension Drug addiction Mental disorder Seizures Sister Autism Maternal Grandmother CHF (congestive heart failure) Gastric ulcer Paternal Great Aunt Coronary heart disease Grandmother CHF (congestive heart failure) Neoplasm Lung CA (smoker) Grandfather Diabetes Maternal Uncle Diabetes Other Alcohol abuse Social History Smoking/Tobacco Use Status: Current every day Tobacco Type: cigarettes Smoking packs per day: 1 Smoking cigarettes per day: 20.0 Years smoked: 10 Smoking pack- years: 10.00 Quit status: considering quitting Smoking risk assessment performed?: Yes Alcohol Intake: current Alcohol Intake frequency: a few times a week Alcohol type: beer Counseling given: Yes Counseling provided: other Details: see A/P Drug use: Occasionally Substance use type: marijuana Caregiver/Support person: No Household members: significant other and other Details: New partner since 01/2020. 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 What is your relationship status?: Panel score (0-1 are the most socially isolated patients): 0 What type of physical activity do you participate in: none Seatbelt use: always Helmet use: Yes Drive intox or ride w/intox equipment driver: No Working smoke detector in home: Yes Fire extinguisher in home: Yes Carbon monox detector in home: Yes Do you feel safe at home: Yes Do you feel safe in your relationship?: Yes Exam Const General: cooperative, healthy appearing, comfortable, no acute distress and anxious (Slightly) Orientation: alert, awake and oriented x3 HENMT Head: normal to inspection, normocephalic and atraumatic Face and sinus: normal facial exam Mouth: moist mucous membranes Throat: posterior oropharynx normal Eyes General: appearance normal, both eyes and all related structures Conjunctivae: conjunctivae normal Neck Neck: normal visual inspection, full ROM, no meningeal signs, trachea midline and supple Resp Effort & Inspection: normal respiratory effort and able to speak in complete sentences Auscultation: clear to auscultation bilaterally Cardio Rate: tachycardic (106) Rhythm: regular rhythm GI Palpation: soft and nontender Back/Spine/Pelvis Back: No back tenderness Skin General skin exam: no rashes or lesions noted Neuro General: patient alert, patient awake, moves all extremities and no focal motor deficits Cognition: normal cognition Speech: speech normal Gait: normal gait Motor: muscle tone normal throughout Sensory Exam: no sensory deficits noted Extrem General: normal to inspection, full ROM, capillary refill normal, no pedal edema and no calf tenderness Psych Appearance: grossly normal Mental Status: mental status grossly normal
[2021-01-02 22:41] LABS: Bilirubin Negative (Negative); Blood Negative (Negative); Clarity Clear (Clear); Glucose Negative (Negative); Ketones Negative (Negative); Leukocyte Esterase Negative (Negative); Nitrite Negative (Negative); Specific Gravity <= 1.005 (1.005-1.025); Urobilinogen 0.2 EU/dL (Up TO 0.2)
[2021-01-02 22:43] LABS: Abs Immature Grans 0.01 10^3/uL (0.0-0.06); Absolute Basophil Count 0.05 10^3/uL (0.0-0.2); Absolute Eosinophil Count 0.11 10^3/uL (0.0-0.7); Absolute Lymphocyte Count 3.32 10^3/uL (1.2-3.4); Absolute Monocyte Count 0.58 10^3/uL (0.1-0.8); Absolute Neutrophil Count 2.93 10^3/uL (1.2-6.7); Basophils % 0.7; Eosinophils % 1.6; HCT 49.3 % (36.0-46.0); HGB 16.7 g/dL (11.2-15.7); Immature Grans % 0.1; Lymphocytes % 47.4; MCH 33.7 pg (27.0-33.0); MCHC 33.9 % (32.0-36.0); MCV 99.6 fL (80-95); MPV 9.8 fL (8.0-11.0); Monocytes % 8.3; Neutrophils % 41.9; Nucleated RBC 0 %; Platelet Count 297 10^3/uL (130-400); RBC 4.95 10^6/uL (3.93-5.22); RDW 13.7 % (11.7-14.6); RDW-SD 50.7 fL
[2021-01-02 22:59] LABS: ALT 15 U/L (14-59); AST 12 U/L (15-37); Albumin 4.2 g/dL (3.4-5.0); Alkaline Phosphatase 61 U/L (46-116); Anion Gap 10.4 mmol/L (3-11); BUN 5 mg/dL (7-18); Bilirubin, Total 0.3 mg/dL (0.2-1.0); CO2 26.6 mmol/L (21.0-32.0); CREATININE 0.9 mg/dL (0.55-1.02); Calcium 8.8 mg/dL (8.5-10.1); Chloride 106 mmol/L (98-107); Glucose 86 mg/dL (74-106); Potassium 3.3 mmol/L (3.5-5.1); Sodium 143 mmol/L (136-145); Total Protein 7.9 g/dL (6.4-8.2)
[2021-01-02 23:01] LABS: *AMPHETAMINES SCREEN URINE Negative (Negative); *BARBITURATES SCREEN URINE Negative (Negative); *BENZODIAZEPINES SCREEN URINE Negative (Negative); Cannabinoids THC Negative (Negative); Cocaine Screen,Urine Negative (Negative); METHADONE URINE SCREEN Negative (Negative); OPIATES URINE SCREEN Negative (Negative)
[2021-01-02 23:03] LABS: Troponin I < 0.05 ng/mL (<0.06)
[2021-01-02 23:03] LABS: Tricyclic Antidepressants Negative (Negative)
[2021-01-02 23:13] LABS: D-Dimer 260 ng/mlFEU (<500)
--- NOTE | 2021-01-02 23:16 | DI.VRAD_ITS ---
PROCEDURE INFORMATION: Exam: XR Chest Exam date and time: 01/02/2021 22:27 Age: 25 years old Clinical indication: Shortness of breath TECHNIQUE: Imaging protocol: XR of the chest. Views: 1 view. COMPARISON: No relevant prior studies available. FINDINGS: Lungs: No consolidation. Pleural spaces: No pleural effusion. No pneumothorax. Heart/Mediastinum: No cardiomegaly. Bones/joints: No acute fracture. IMPRESSION: Negative portable chest. Dictated and Authenticated by: Kira Rai MD. Ordering:ASHLEY Valladares MD
[2021-01-03 07:27] LABS: COVID-19 PCR Negative (Negative)
== END 2021-01-02 23:35 | disposition home or self-care (01) ==
PROVIDERS: Emergency Provider Physician Assistant; PCP Nurse Practitioner Adult Health
DX: R06.00 Dyspnea, unspecified (principal); F17.210 Nicotine dependence, cigarettes, uncomplicated; Z03.818 Encounter for observation for suspected exposure to other biological agents ruled out
CPT/HCPCS: 36415; 80053; 80307; 81025; 87635; 93005; 99285; 71045; 81003; 84484; 85025; 85379; 93010

== ENCOUNTER 2021-01-07 16:47 | Outpatient (CLI) | payer OTHER, SELFPAY ==
[2021-01-07 17:28] LABS: HCG Quant, Pregnancy < 1 mIU/mL (1-3)
== END 2021-01-07 16:48 | disposition home or self-care (01) ==
LOC: LBO 16:48
PROVIDERS: PCP Nurse Practitioner Adult Health; Visit Provider Obstetrics & Gynecology Gynecology
DX: N91.2 Amenorrhea, unspecified (principal)
CPT/HCPCS: 84702

== ENCOUNTER 2021-03-07 00:29 | Emergency (ER) | payer OTHER, SELFPAY ==
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
[2021-03-07 00:30] VITALS: BP 132/88; PULSE 116; RESP 16; TEMP 36.7; O2SAT 98
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
[2021-03-07 00:54] LABS: Abs Immature Grans 0.01 10^3/uL (0.0-0.06); Absolute Basophil Count 0.04 10^3/uL (0.0-0.2); Absolute Eosinophil Count 0.09 10^3/uL (0.0-0.7); Absolute Lymphocyte Count 1.84 10^3/uL (1.2-3.4); Absolute Monocyte Count 0.46 10^3/uL (0.1-0.8); Absolute Neutrophil Count 2.98 10^3/uL (1.2-6.7); Basophils % 0.7; Eosinophils % 1.7; HCT 44.4 % (36.0-46.0); Immature Grans % 0.2; Lymphocytes % 33.9; MCH 32.9 pg (27.0-33.0); MCHC 33.8 % (32.0-36.0); MCV 97.4 fL (80-95); Monocytes % 8.5; Nucleated RBC 0 %; Platelet Count 228 10^3/uL (130-400); RBC 4.56 10^6/uL (3.93-5.22); RDW 12.6 % (11.7-14.6); RDW-SD 45.2 fL; WBC 5.42 10^3/uL (4.4-10.8)
[2021-03-07 01:08] LABS: ALT 14 U/L (14-59); AST 15 U/L (15-37); Albumin 3.7 g/dL (3.4-5.0); Alkaline Phosphatase 50 U/L (46-116); Anion Gap 11.5 mmol/L (3-11); BUN 5 mg/dL (7-18); Bilirubin, Total 0.4 mg/dL (0.2-1.0); CO2 22.5 mmol/L (21.0-32.0); CREATININE 0.8 mg/dL (0.55-1.02); Calcium 8.3 mg/dL (8.5-10.1); Chloride 108 mmol/L (98-107); ETHANOL BLOOD 194.6 mg/dL (<3); Glucose 114 mg/dL (74-106); Lipase 93 U/L (73-393); Magnesium 2.2 mg/dL (1.8-2.4); Potassium 3.3 mmol/L (3.5-5.1); Sodium 142 mmol/L (136-145); Total Protein 6.9 g/dL (6.4-8.2)
[2021-03-07 01:20] VITALS: BP 115/80; PULSE 120; RESP 16; O2SAT 99
[2021-03-07 01:30] VITALS: BP 118/81; PULSE 119; RESP 16; O2SAT 100
[2021-03-07] MEDS: Omnipaque 350 MG/ML 100 ML BTL IJ (01:35)
[2021-03-07] MEDS: Normal Saline Flush 10 ML SYR IVP (01:37)
[2021-03-07] MEDS: Normal Saline - Diluent 50 ML VIAL IV (01:37)
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
[2021-03-07 01:45] VITALS: BP 121/85; PULSE 106; RESP 16; O2SAT 99
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
[2021-03-07] MEDS: Lactated Ringers 1,000 ML 1000 ML IV (01:50)
[2021-03-07 02:15] VITALS: BP 122/83; PULSE 103; RESP 18; O2SAT 98
[2021-03-07 02:30] VITALS: BP 109/72; PULSE 83; RESP 16; O2SAT 100
[2021-03-07 02:35] LABS: Bilirubin Negative (Negative); Blood Negative (Negative); Clarity Clear (Clear); Glucose Negative (Negative); Ketones Negative (Negative); Leukocyte Esterase Negative (Negative); Nitrite Negative (Negative)
[2021-03-07 02:48] LABS: *AMPHETAMINES SCREEN URINE Negative (Negative); *BARBITURATES SCREEN URINE Negative (Negative); *BENZODIAZEPINES SCREEN URINE Negative (Negative); Cannabinoids THC Negative (Negative); Cocaine Screen,Urine Negative (Negative); METHADONE URINE SCREEN Negative (Negative); OPIATES URINE SCREEN Negative (Negative); Tricyclic Antidepressants Negative (Negative)
== END 2021-03-07 03:00 | disposition other institution (70) ==
LOC: ER 02:50
PROVIDERS: Emergency Provider Emergency Medicine; PCP Nurse Practitioner Adult Health
DX: S01.112A Laceration without foreign body of left eyelid and periocular area, initial encounter (principal); S16.1XXA Strain of muscle, fascia and tendon at neck level, initial encounter; S50.12XA Contusion of left forearm, initial encounter; V47.5XXA Car driver injured in collision with fixed or stationary object in traffic accident, initial encounter; F10.120 Alcohol abuse with intoxication, uncomplicated; Y90.6 Blood alcohol level of 120-199 mg/100 ml
CPT/HCPCS: 36415; 74177; 80053; 80307; 81025; 83690; 96360; 99285; 70450; 71260; 72125; 80320; 81003; 83735; 85025; 99284; J3490

== ENCOUNTER 2021-09-12 13:05 | Emergency (ER) | payer OTHER, SELFPAY ==
--- NOTE | 2021-09-12 13:00 | RT.EKG_ITS ---
APPROVED REPORT Exam: Resting ECG Reason for Exam: chest pain Patient Location: E HR:107 bpm ECG Measurements Heart Rate 107 AXIS IN 149 P 84 QRSd 87 QRS 93 QT 344 T -25 QTc 460 Conclusion Sinus tachycardia...rate> 99 Probable left atrial enlargement...P >50mS, <-0.10mV V1 Nonspecific T abnormalities, anterior leads...T <-0.10mV, V2-V4. Sinus. T wave inversion in V3-4. No STEMI. I have reviewed and interpreted ECG and agree with software generated interpretation.
[2021-09-12 13:08] VITALS: BP 145/88; PULSE 118; RESP 16; TEMP 36.6; O2SAT 99
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
[2021-09-12] MEDS: LORazepam 1 MG TAB PO (14:11)
[2021-09-12 14:24] LABS: Abs Immature Grans 0.01 10^3/uL (0.0-0.06); Absolute Basophil Count 0.04 10^3/uL (0.0-0.2); Absolute Eosinophil Count 0.12 10^3/uL (0.0-0.7); Absolute Lymphocyte Count 2.07 10^3/uL (1.2-3.4); Absolute Monocyte Count 0.46 10^3/uL (0.1-0.8); Absolute Neutrophil Count 2.64 10^3/uL (1.2-6.7); Basophils % 0.7; Eosinophils % 2.2; HCT 43.5 % (36.0-46.0); HGB 14.4 g/dL (11.2-15.7); Immature Grans % 0.2; Lymphocytes % 38.8; MCH 31.5 pg (27.0-33.0); MCHC 33.1 % (32.0-36.0); MCV 95.2 fL (80-95); Monocytes % 8.6; Neutrophils % 49.5; Nucleated RBC 0 %; Platelet Count 287 10^3/uL (130-400); RBC 4.57 10^6/uL (3.93-5.22); RDW 13.2 % (11.7-14.6); RDW-SD 46.3 fL; WBC 5.34 10^3/uL (4.4-10.8)
[2021-09-12 14:40] LABS: ALT 37 U/L (14-59); AST 121 U/L (15-37); Albumin 4.1 g/dL (3.4-5.0); Alkaline Phosphatase 55 U/L (46-116); Anion Gap 7.5 mmol/L (3-11); BUN 7 mg/dL (7-18); Bilirubin, Total 0.4 mg/dL (0.2-1.0); CO2 27.5 mmol/L (21.0-32.0); CREATININE 0.7 mg/dL (0.55-1.02); Calcium 9.1 mg/dL (8.5-10.1); Chloride 103 mmol/L (98-107); Glucose 94 mg/dL (74-106); Magnesium 1.8 mg/dL (1.8-2.4); Potassium 3.6 mmol/L (3.5-5.1); Sodium 138 mmol/L (136-145); Total Protein 7.2 g/dL (6.4-8.2)
[2021-09-12 14:41] LABS: Troponin I < 50 ng/L (<or=60)
--- NOTE | 2021-09-12 14:53 | DI.RAD_ITS ---
Exam(s) XR CHEST 2V PA LATERAL EXAM: XR CHEST 2V PA LATERAL CLINICAL HISTORY: palpitations, r/o acute disease. TECHNIQUE: 2D digital imaging was performed. COMPARISON: CR,XR XR PORTABLE CHEST AP from 01/02/2021 FINDINGS: Heart size is normal. The mediastinum is not widened. Lungs are clear. No infiltrates nor pleural effusions. IMPRESSION: No acute pulmonary findings. DATA REPOSITORY: RADIATION DOSE DELIVERED:
[2021-09-12 14:55] LABS: D-Dimer 117 ng/mlFEU (<500)
--- NOTE | 2021-09-12 15:00 | DI.VRAD_ITS ---
PROCEDURE INFORMATION: Exam: XR Chest Exam date and time: 09/12/2021 1:52 PM Age: 25 years old Clinical indication: Other: Palpitations; Additional info: New piercing, unable to remove for imaging TECHNIQUE: Imaging protocol: XR of the chest. Views: 2 views. Total images: 2 COMPARISON: CT CHEST/ABD/PEL W 03/07/2021 1:17 AM FINDINGS: Lungs: Unremarkable. No consolidation. Pleural spaces: No pleural effusion. No pneumothorax. Heart/Mediastinum: Unremarkable. No cardiomegaly. Bones/joints: No acute bone abnormality. IMPRESSION: No acute findings. Dictated and Authenticated by: Vilma Rose MD. Ordering:KAMALA Cosme MD
== END 2021-09-12 15:24 | disposition home or self-care (01) ==
PROVIDERS: Emergency Provider Physician Assistant; PCP Nurse Practitioner Adult Health
DX: R00.2 Palpitations (principal); R06.02 Shortness of breath; R42 Dizziness and giddiness; R07.9 Chest pain, unspecified
CPT/HCPCS: 36415; 80053; 81025; 93005; 99284; 71046; 83735; 84484; 85025; 85379; 93010; 99283

== ENCOUNTER 2021-09-14 15:45 | Outpatient (RCR) | payer OTHER, SELFPAY ==
--- NOTE | 2021-09-14 16:15 | HOLTER_ITS ---
APPROVED REPORT Conclusion This is a 48-hour Holter monitor ordered for palpitations Rhythm throughout was sinus with an average heart rate of 96. Minimum was 57, maximum 149 There were no supraventricular dysrhythmias A total of 4 isolated PVCs were seen There was no atrial fibrillation, no high-grade AV block, no pauses greater than 3 seconds Patient symptoms corresponded to sinus tachycardia rate 138
== END 2021-09-28 23:59 | disposition home or self-care (01) ==
LOC: RT 15:45
PROVIDERS: PCP Nurse Practitioner Adult Health; Visit Provider Nurse Practitioner Adult Health
DX: R00.2 Palpitations (principal); I49.3 Ventricular premature depolarization
CPT/HCPCS: 93225; 93226

== ENCOUNTER 2021-11-12 03:58 | Outpatient (CLI) | payer SELFPAY ==
[2021-11-12 15:15] LABS: FREE T4 0.81 ng/dL (0.76-1.46)
[2021-11-12 15:24] LABS: TSH 1.83 uIU/mL (0.36-3.74)
[2021-11-12 15:29] LABS: HCG Quant, Pregnancy < 1 mIU/mL (1-3)
[2021-11-12 21:58] LABS: T3,Free 4.4 pg/mL (2.8-5.3)
[2021-11-14 11:24] LABS: Antimullerian Hormone 5.9 ng/mL (0.89-9.9)
== END 2021-11-12 03:59 | disposition home or self-care (01) ==
LOC: LBO 03:58
PROVIDERS: Nurse Practitioner; PCP Nurse Practitioner Adult Health; Visit Provider Obstetrics & Gynecology Gynecology
DX: Z31.9 Encounter for procreative management, unspecified (principal); N91.2 Amenorrhea, unspecified; R00.2 Palpitations
CPT/HCPCS: 36415; 83520; 84439; 84443; 84481; 84702

== ENCOUNTER 2022-03-03 02:56 | Outpatient (CLI) | payer MEDICAID, SELFPAY ==
[2022-03-03 13:32] LABS: HCG Quant, Pregnancy < 1 mIU/mL (1-3)
== END 2022-03-03 02:57 | disposition home or self-care (01) ==
LOC: LBO 02:57
PROVIDERS: PCP Nurse Practitioner Adult Health; Visit Provider Obstetrics & Gynecology Gynecology
DX: N92.6 Irregular menstruation, unspecified (principal)
CPT/HCPCS: 36415; 84702

== ENCOUNTER 2022-03-09 19:40 | Outpatient (CLI) | payer SELFPAY ==
[2022-03-09 16:20] LABS: HCG Qual (Serum) Positive
== END 2022-03-09 19:41 | disposition home or self-care (01) ==
LOC: LBO 19:43
PROVIDERS: PCP Nurse Practitioner Adult Health; Visit Provider Obstetrics & Gynecology
DX: Z32.01 Encounter for pregnancy test, result positive (principal); N92.5 Other specified irregular menstruation
CPT/HCPCS: 36415; 84703

== ENCOUNTER 2022-03-16 11:19 | Emergency (ER) | payer MEDICAID, SELFPAY ==
[2022-03-16 11:26] VITALS: BP 114/72; PULSE 84; RESP 16; TEMP 34.7; O2SAT 100
--- NOTE | 2022-03-16 11:30 | DI.US_ITS ---
Exam(s) US OB 1ST TRIMESTER EXAM: US OB 1ST TRIMESTER CLINICAL HISTORY: abd pain, ? 7 wks preg, r/o ectopic. TECHNIQUE: First trimester obstetrical ultrasound was performed. COMPARISON: US US LOWER EXTREMITY VENOUS RT from 12/29/2021 FINDINGS: There is finding in the endometrium on transvaginal study which measures 3.6 x 2.6 millimeters, this hypoechoic structure possibly representing an early gestational sac. Yolk sac pole are not see n at point. Maternal ovaries: Right ovary measures 2.6 x 2.0 x 2.1 cm Left ovary measures 3.7 x 2.8 x 2.9 cm. Contains a 2.1 x 2.0 cm septated cyst There is no fluid in the cul-de-sac and adnexal regions. IMPRESSION:: Very small-early probable intrauterine gestational sac. Too early to detect pole and yolk sac. Close follow-up recommended and correlation with appropriate blood work. This study does not rule out possibly of ectopic DATA REPOSITORY:
[2022-03-16 13:26] LABS: Abs Immature Grans 0.03 10^3/uL (0.0-0.06); Absolute Basophil Count 0.05 10^3/uL (0.0-0.2); Absolute Eosinophil Count 0.14 10^3/uL (0.0-0.7); Absolute Lymphocyte Count 2.19 10^3/uL (1.2-3.4); Absolute Monocyte Count 0.63 10^3/uL (0.1-0.8); Absolute Neutrophil Count 4.42 10^3/uL (1.2-6.7); Basophils % 0.7; Eosinophils % 1.9; HCT 40.6 % (36.0-46.0); HGB 13.7 g/dL (11.2-15.7); Immature Grans % 0.4; Lymphocytes % 29.4; MCH 32.2 pg (27.0-33.0); MCHC 33.7 % (32.0-36.0); MCV 95 fL (80-95); Monocytes % 8.4; Neutrophils % 59.2; Platelet Count 293 10^3/uL (130-400); RBC 4.26 10^6/uL (3.93-5.22); RDW 14.6 % (11.7-14.6); RDW-SD 50.9 fL; WBC 7.46 10^3/uL (4.4-10.8)
[2022-03-16 13:34] LABS: Bilirubin Negative (Negative); Blood Negative (Negative); Clarity Clear (Clear); Glucose Negative (Negative); Ketones Negative (Negative); Leukocyte Esterase Trace (Negative); Nitrite Negative (Negative); Specific Gravity 1.015 (1.005-1.025); Urobilinogen 0.2 EU/dL (Up TO 0.2); pH 7.5 (5-8)
[2022-03-16 13:45] LABS: Epithelial Cells Many HPF (Negative); RBC Negative HPF (0-2)
[2022-03-16 13:46] LABS: Bacteria Few HPF (Negative); C & S Indicated? No/Sq. Contamination; Casts Negative LPF (Negative); Crystals Negative HPF (Negative); Mucus Negative (Negative)
[2022-03-16 13:54] LABS: ALT 17 U/L (14-59); AST 16 U/L (15-37); Albumin 3.3 g/dL (3.4-5.0); Alkaline Phosphatase 48 U/L (46-116); Anion Gap 9.1 mmol/L (3-11); BUN 6 mg/dL (7-18); Bilirubin, Total 0.5 mg/dL (0.2-1.0); CO2 25.9 mmol/L (21.0-32.0); CREATININE 0.7 mg/dL (0.55-1.02); Calcium 8.4 mg/dL (8.5-10.1); Chloride 104 mmol/L (98-107); Glucose 89 mg/dL (74-106); Lipase 71 U/L (73-393); Potassium 3.7 mmol/L (3.5-5.1); Sodium 139 mmol/L (136-145); Total Protein 6.2 g/dL (6.4-8.2)
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
[2022-03-16 14:48] VITALS: BP 122/80; PULSE 65; RESP 18
[2022-03-16 22:33] LABS: HCG Beta,Quant Preg 809 mIU/mL (<5)
== END 2022-03-16 14:50 | disposition home or self-care (01) ==
PROVIDERS: Emergency Provider Physician Assistant; PCP Nurse Practitioner Adult Health
DX: O26.891 Other specified pregnancy related conditions, first trimester (principal); R10.30 Lower abdominal pain, unspecified; Z3A.01 Less than 8 weeks gestation of pregnancy
CPT/HCPCS: 80053; 83690; 99284; 76801; 81003; 81015; 84702; 85025; 99283

== ENCOUNTER 2022-03-18 10:08 | Outpatient (CLI) | payer MEDICAID, SELFPAY ==
[2022-03-18 22:06] LABS: HCG Beta,Quant Preg 1793 mIU/mL (<5)
== END 2022-03-18 10:09 | disposition home or self-care (01) ==
LOC: LBO 10:08
PROVIDERS: PCP Nurse Practitioner Adult Health; Visit Provider Physician Assistant
DX: Z34.91 Encounter for supervision of normal pregnancy, unspecified, first trimester (principal); Z3A.01 Less than 8 weeks gestation of pregnancy
CPT/HCPCS: 36415; 84702

== ENCOUNTER 2022-04-26 11:34 | Outpatient (REF) | payer MEDICAID, SELFPAY ==
[2022-04-28 11:12] LABS: COVID-19 RT-PCR UVMMC Result Positive (Negative)
== END 2022-04-26 11:35 | disposition home or self-care (01) ==
LOC: LBN 11:34
PROVIDERS: PCP Nurse Practitioner Adult Health; Visit Provider Nurse Practitioner Adult Health
DX: Z20.822 Contact with and (suspected) exposure to COVID-19 (principal)
CPT/HCPCS: U0003

== ENCOUNTER 2022-05-04 02:12 | Outpatient (CLI) | payer MEDICAID, SELFPAY ==
[2022-05-04 14:54] LABS: Kit/Specimen SENT
[2022-05-04 15:03] LABS: Abs Immature Grans 0.03 10^3/uL (0.0-0.06); Absolute Basophil Count 0.03 10^3/uL (0.0-0.2); Absolute Eosinophil Count 0.14 10^3/uL (0.0-0.7); Absolute Lymphocyte Count 2.61 10^3/uL (1.2-3.4); Absolute Monocyte Count 0.63 10^3/uL (0.1-0.8); Absolute Neutrophil Count 6.92 10^3/uL (1.2-6.7); Basophils % 0.3; Eosinophils % 1.4; HCT 32.7 % (36.0-46.0); HGB 11.8 g/dL (11.2-15.7); Immature Grans % 0.3; Lymphocytes % 25.2; MCH 31.2 pg (27.0-33.0); MCHC 36.1 % (32.0-36.0); MCV 87 fL (80-95); MPV 11.5 fL (8.0-11.0); Monocytes % 6.1; Neutrophils % 66.7; Platelet Count 218 10^3/uL (130-400); RBC 3.78 10^6/uL (3.93-5.22); RDW 13.1 % (11.7-14.6); RDW-SD 41.3 fL; WBC 10.36 10^3/uL (4.4-10.8)
[2022-05-05 09:28] LABS: Hepatitis C Ab w Rflx HCV PCR Negative (Negative)
[2022-05-05 09:39] LABS: HIV-1/2 Ag & Ab Screen Negative (Negative)
[2022-05-05 10:15] LABS: Hepatitis B Surface Ag Negative (Negative)
[2022-05-05 11:08] LABS: Varicella IgG Antibody Positive (See Note)
[2022-05-05 11:16] LABS: Rubella IgG Ab (UVM) Negative (See Note)
[2022-05-05 19:24] LABS: Syphilis IgG w/Reflex Nonreactive (Nonreactive)
[2022-05-08 01:17] LABS: Specimen WB Whole Blood
[2022-05-28 18:11] LABS: Result Summary NEGATIVE; Specimen WB Whole Blood
== END 2022-05-04 02:13 | disposition home or self-care (01) ==
LOC: LBO 02:12
PROVIDERS: PCP Nurse Practitioner Adult Health; Visit Provider Advanced Practice Midwife
DX: Z34.81 Encounter for supervision of other normal pregnancy, first trimester (principal)
CPT/HCPCS: 81220; 81222; 81329; 86787; 86803; 86850; 86900; 86901; 87340; 87389; 85025; 86762; 86780

== ENCOUNTER 2022-05-04 14:19 | Outpatient (REF) | payer MEDICAID, SELFPAY ==
--- NOTE | 2022-05-04 13:50 | PAPFT_PTH ---
PATIENT: Shayna Echeverria LOC: [facility] U#:[id number] AGE/SX: 26/F ROOM: RE05/04/[address]: Patt Smith CNM : 1995 BED: DIS: 05/04/2022 SPEC #: [id number] RECD: 05/04/22 18:15 STATUS: BONNY REQ #: [id number] EMILIA: 05/04/22 13:[address]: Patt Smith DEPT: [facility] Cytology RECD BY: Letty Yusuf ENTERED: 05/04/22 18:15 SP TYPE: PAPFT OTHR DR: Celestina Miranda APRN Tissues: 1 - CX/ENDOCX FOR PAP SMEARS Procedures: PAP THIN PREP/[facility] Screening HPV DNA PROBE Comments: [id number] (CHLAMYDIA/GC)
[2022-05-04 15:54] LABS: *AMPHETAMINES SCREEN URINE Negative (Negative); *BARBITURATES SCREEN URINE Negative (Negative); *BENZODIAZEPINES SCREEN URINE Negative (Negative); Cannabinoids THC Negative (Negative); Cocaine Screen,Urine Negative (Negative); METHADONE URINE SCREEN Negative (Negative); OPIATES URINE SCREEN Negative (Negative)
[2022-05-04 16:03] LABS: Tricyclic Antidepressants Negative (Negative)
[2022-05-05 15:39] LABS: Chlamydia Result Negative (Negative); GC Result Negative (Negative)
[2022-05-07 12:25] LABS: Buprenorphine Negative ng/mL (Cutoff: 5.0); Norbuprenorphine Negative ng/mL (Cutoff: 2.5)
== END 2022-05-04 14:20 | disposition home or self-care (01) ==
LOC: LBN 14:19
PROVIDERS: PCP Nurse Practitioner Adult Health; Visit Provider Advanced Practice Midwife
DX: Z34.91 Encounter for supervision of normal pregnancy, unspecified, first trimester (principal); Z3A.11 11 weeks gestation of pregnancy; Z12.4 Encounter for screening for malignant neoplasm of cervix; Z11.3 Encounter for screening for infections with a predominantly sexual mode of transmission; R87.610 Atypical squamous cells of undetermined significance on cytologic smear of cervix (ASC-US); Z11.51 Encounter for screening for human papillomavirus (HPV); R87.810 Cervical high risk human papillomavirus (HPV) DNA test positive
CPT/HCPCS: 80307; 87491; 87591; 88142; 87086; 87624

== ENCOUNTER 2022-05-07 15:48 | Emergency (ER) | payer MEDICAID, SELFPAY ==
[2022-05-07] VITALS (7 sets, daily range): BP systolic 97–113; BP diastolic 63–73; PULSE 72–81; RESP 16–23; TEMP 36.9–37; O2SAT 98–100
[2022-05-07 16:57] LABS: Bilirubin Negative (Negative); Blood Small (Negative); Clarity Clear (Clear); Glucose Negative (Negative); Ketones Negative (Negative); Leukocyte Esterase Negative (Negative); Nitrite Negative (Negative); Urobilinogen 0.2 EU/dL (Up TO 0.2); pH 6.5 (5-8)
[2022-05-07] MEDS: Acetaminophen 325 MG TAB 650 MG PO (16:58)
[2022-05-07 17:44] LABS: Abs Immature Grans 0.03 10^3/uL (0.0-0.06); Absolute Basophil Count 0.03 10^3/uL (0.0-0.2); Absolute Eosinophil Count 0.17 10^3/uL (0.0-0.7); Absolute Lymphocyte Count 2.52 10^3/uL (1.2-3.4); Absolute Monocyte Count 0.56 10^3/uL (0.1-0.8); Absolute Neutrophil Count 4.54 10^3/uL (1.2-6.7); Basophils % 0.4; Eosinophils % 2.2; HGB 10.4 g/dL (11.2-15.7); Immature Grans % 0.4; Lymphocytes % 32.1; MCH 31.1 pg (27.0-33.0); MCHC 35.9 % (32.0-36.0); MCV 87 fL (80-95); MPV 11.8 fL (8.0-11.0); Monocytes % 7.1; Neutrophils % 57.8; Platelet Count 206 10^3/uL (130-400); RBC 3.34 10^6/uL (3.93-5.22); RDW 13.1 % (11.7-14.6); RDW-SD 41.7 fL; WBC 7.85 10^3/uL (4.4-10.8)
[2022-05-07 17:51] LABS: Bacteria Negative HPF (Negative); C & S Indicated? No/Sq. Contamination; Casts Negative LPF (Negative); Crystals Negative HPF (Negative); Epithelial Cells Many HPF (Negative); Mucus Negative (Negative); Other Cells Negative (Negative); RBC Negative HPF (0-2)
--- NOTE | 2022-05-07 18:00 | DI.US_ITS ---
Exam(s) US OB 1ST TRIMESTER EXAM: US OB 1ST TRIMESTER CLINICAL HISTORY: pelvic pain, 11 weeks preg. TECHNIQUE: First trimester obstetrical ultrasound was performed. COMPARISON: US US OB 1ST TRIMESTER from 03/16/2022 FINDINGS: There is an intrauterine gestational sac which contains a viable pole which exhibits hear t rate of 167 bpm. [place]-rump length measurement is 51 mm, corresponding to 11 weeks and 6 days gestational age. There is no evidence of subchorionic hemorrhage. Placenta appears to be developing anteriorly. Maternal ovaries: Both appear unremarkable. There are no extraovarian adnexal masses. No free fluid. There is no fluid in the cul-de-sac and adnexal regions. IMPRESSION:: Single viable intrauterine gestation which is approximately 11 weeks and 6 days gestati onal age by crown rump length measurement, implying JB of 11/20/2022, No abnormal adnexal findings. DATA REPOSITORY:
--- NOTE | 2022-05-07 18:00 | RT.EKG_ITS ---
APPROVED REPORT Exam: Resting ECG Reason for Exam: hypokalemia Patient Location: E HR:64 bpm ECG Measurements Heart Rate 64 AXIS GA 140 P 31 QRSd 82 QRS 82 QT 394 T 21 QTc 406 Conclusion Sinus arrhythmia...V-rate 49- 78, variation>10%
[2022-05-07 18:08] LABS: Lipase 17 U/L (73-393)
[2022-05-07 18:12] LABS: ALT 14 U/L (14-59); AST 13 U/L (15-37); Alkaline Phosphatase 25 U/L (46-116); Anion Gap 8.3 mmol/L (3-11); BUN 5 mg/dL (7-18); Bilirubin, Total 0.4 mg/dL (0.2-1.0); CO2 26.7 mmol/L (21.0-32.0); CREATININE 0.6 mg/dL (0.55-1.02); Calcium 8.7 mg/dL (8.5-10.1); Chloride 102 mmol/L (98-107); Estimated GFR 126.09 (mL/min/1.73m2); Glucose 75 mg/dL (74-106); Sodium 137 mmol/L (136-145); Total Protein 5.9 g/dL (6.4-8.2)
[2022-05-07 18:14] LABS: HCG Quant, Pregnancy 41975 mIU/mL (1-3); Potassium 2.6 mmol/L (3.5-5.1)
[2022-05-07] MEDS: Potassium Chloride 20 MEQ TABCR 40 MEQ PO (18:49)
--- NOTE | 2022-05-07 19:09 | DI.VRAD_ITS ---
PROCEDURE INFORMATION: Exam: US First Trimester, Transabdominal Exam date and time: 05/07/2022 6:11 PM Age: 26 years old Clinical indication: Other: Pelvic pain; Gestational age or lmp: 11 weeks, 3 days based on josette; TECHNIQUE: Imaging protocol: Real-time transabdominal obstetrical ultrasound of the maternal pelvis and a first trimester , less than 14 weeks 0 days, with image documentation. COMPARISON: US OB 1ST TRIMESTER 03/16/2022 12:21 PM FINDINGS: GESTATION: Gestation: There is a single live intrauterine present. Embryonic/ heart rate: heart rate is 164. Extra-embryonic membranes/Placenta: There is no subchorionic hemorrhage. Amniotic fluid: Amniotic and extra-amniotic fluid are normal for gestational age. BIOMETRY: Gestational age (AUA): measurements correlate with a mean gestational age of 11 weeks 6 days +/-1 week. Early gestational age precludes any comment on anatomy. MATERNAL: Uterus: The uterus appears normal. Cervix: The cervix is normal. The cervix appears closed. Right ovary/adnexa: The right ovary appears normal with normal Doppler signal. Left ovary/adnexa: The left ovary appears normal with normal Doppler signal. Intraperitoneal space: There is no free fluid present. IMPRESSION: Single live intrauterine . Dictated and Authenticated by: Gregg Garcia MD. Ordering:JOCELYNE Saenz MD
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
== END 2022-05-07 19:36 | disposition home or self-care (01) ==
PROVIDERS: Emergency Provider Physician Assistant; PCP Nurse Practitioner Adult Health
DX: O26.891 Other specified pregnancy related conditions, first trimester (principal); R10.30 Lower abdominal pain, unspecified; O99.281 Endocrine, nutritional and metabolic diseases complicating pregnancy, first trimester; E87.6 Hypokalemia; O99.331 Smoking (tobacco) complicating pregnancy, first trimester; F17.210 Nicotine dependence, cigarettes, uncomplicated; Z86.718 Personal history of other venous thrombosis and embolism; Z3A.11 11 weeks gestation of pregnancy
CPT/HCPCS: 36415; 80053; 83690; 93005; 96365; 96366; 99284; 76801; 81003; 81015; 84702; 85025; 93010

== ENCOUNTER 2022-05-12 16:40 | Outpatient (REF) | payer MEDICAID, SELFPAY ==
[2022-05-12 20:13] LABS: Anion Gap 11.9 mmol/L (3-11); BUN 6 mg/dL (7-18); CO2 23.1 mmol/L (21.0-32.0); CREATININE 0.5 mg/dL (0.55-1.02); Calcium 8.5 mg/dL (8.5-10.1); Chloride 102 mmol/L (98-107); Estimated GFR 131.75 (mL/min/1.73m2); Glucose 107 mg/dL (74-106); Potassium 3.1 mmol/L (3.5-5.1); Sodium 137 mmol/L (136-145)
== END 2022-05-12 16:41 | disposition home or self-care (01) ==
LOC: LBN 16:40
PROVIDERS: PCP Nurse Practitioner Adult Health; Visit Provider Nurse Practitioner Adult Health
DX: R10.9 Unspecified abdominal pain (principal); E87.6 Hypokalemia
CPT/HCPCS: 80048

== ENCOUNTER 2022-05-21 10:13 | Emergency (ER) | payer MEDICAID, SELFPAY ==
[2022-05-21 10:15] VITALS: BP 112/71; PULSE 90; RESP 18; TEMP 36.7; O2SAT 100
--- NOTE | 2022-05-21 10:15 | RT.EKG_ITS ---
APPROVED REPORT Exam: Resting ECG Reason for Exam: high hr Patient Location: E HR:83 bpm ECG Measurements Heart Rate 83 AXIS DE 132 P 42 QRSd 71 QRS 80 QT 358 T 51 QTc 421 Conclusion Sinus rhythm...normal P axis, V-rate 60- 99 sinus rhythm, normal axis, normal intervals, non ischemic
[2022-05-21 10:32] VITALS: PULSE 90; RESP 19; O2SAT 98
[2022-05-21 10:33] VITALS: BP 117/81; PULSE 89; PULSE 90; RESP 21; O2SAT 100
[2022-05-21 10:42] VITALS: RESP 18
[2022-05-21] MEDS: LORazepam 1 MG TAB PO (11:27)
[2022-05-21 11:43] LABS: Bilirubin Negative (Negative); Blood Negative (Negative); Clarity Clear (Clear); Glucose Negative (Negative); Ketones Trace mg/dL (Negative); Leukocyte Esterase Negative (Negative); Nitrite Negative (Negative); Specific Gravity 1.015 (1.005-1.025); Urobilinogen 0.2 EU/dL (Up TO 0.2)
[2022-05-21 11:48] LABS: Anion Gap 8.6 mmol/L (3-11); BUN 4 mg/dL (7-18); CO2 25.4 mmol/L (21.0-32.0); CREATININE 0.5 mg/dL (0.55-1.02); Calcium 8.9 mg/dL (8.5-10.1); Chloride 104 mmol/L (98-107); Estimated GFR 131.75 (mL/min/1.73m2); Glucose 89 mg/dL (74-106); Potassium 3.4 mmol/L (3.5-5.1); Sodium 138 mmol/L (136-145)
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
[2022-05-21 12:38] VITALS: BP 117/81; PULSE 89; RESP 18; TEMP 36.7; O2SAT 100
== END 2022-05-21 12:47 | disposition home or self-care (01) ==
PROVIDERS: Emergency Provider Physician Assistant; PCP Nurse Practitioner Adult Health
DX: O26.891 Other specified pregnancy related conditions, first trimester (principal); R42 Dizziness and giddiness; O99.331 Smoking (tobacco) complicating pregnancy, first trimester; F17.210 Nicotine dependence, cigarettes, uncomplicated; Z3A.13 13 weeks gestation of pregnancy
CPT/HCPCS: 80048; 81025; 93005; 99283; 81003; 93010; 99284

== ENCOUNTER 2022-06-29 17:15 | Outpatient (REF) | payer MEDICAID, SELFPAY | END 2022-06-29 17:16 | disposition home or self-care (01) | LOC: LBN 17:15 | PROVIDERS: PCP Nurse Practitioner Adult Health; Visit Provider Advanced Practice Midwife | DX: R10.2 Pelvic and perineal pain (principal) | CPT/HCPCS: 87077; 87086; 87186 ==

== ENCOUNTER 2022-07-08 16:09 | Outpatient (REF) | payer MEDICAID, SELFPAY | END 2022-07-08 16:10 | disposition home or self-care (01) | LOC: LBN 16:09 | PROVIDERS: PCP Nurse Practitioner Adult Health; Visit Provider Advanced Practice Midwife | DX: R10.9 Unspecified abdominal pain (principal) | CPT/HCPCS: 87086; 87480; 87510; 87660 ==

== ENCOUNTER 2022-08-11 16:02 | Outpatient (REF) | payer MEDICAID, SELFPAY ==
[2022-08-13 13:47] LABS: COVID-19 RT-PCR UVMMC Result Negative (Negative)
[2022-08-13 15:50] LABS: Influenza A RNA Result Negative (Negative); Influenza B RNA Result Negative (Negative); RSV RNA Result Negative (Negative)
== END 2022-08-11 16:03 | disposition home or self-care (01) ==
LOC: LBN 16:02
PROVIDERS: PCP Nurse Practitioner Adult Health; Visit Provider Nurse Practitioner
DX: R05.8 Other specified cough (principal); R53.83 Other fatigue; Z20.822 Contact with and (suspected) exposure to COVID-19
CPT/HCPCS: 87631; U0003

== ENCOUNTER 2022-08-19 18:49 | Outpatient (CLI) | payer MEDICAID, SELFPAY ==
--- NOTE | 2022-08-25 17:19 | W.OBNST ---
Date of service: 08/19/22 Time of Service: 19:00 NST Evaluation Reason for NST Reasons for Nonstress Test: DECREASED MOVEMENT Gestational Age Gestational Age in Weeks and Days: 26 Weeks and 2Days Test and Monitor Explained Test/Monitor Explained: Test Explained and Monitor Explained Urine Results Urine Protein: Negative Urine Ketones: Negative Urine Glucose: Negative Urine Blood: Negative NST Information Date on Monitor: 08/19/22 Time on Monitor: 19:04 Date off Monitor: 08/19/22 Time off Monitor: 19:45 Total Time on Monitor: 41 NST Interventions: None NST Evaluation Patient States Movement: Present FHR Baseline: 150 Variability: Moderate 6-25 bpm Accelerations: None Decelerations: None Note NST Note Note: Appropriate for gestational age. Pt also felt movement after arriving. NST Reviewed and Verified by: Priscilla Azar
== END 2022-08-19 19:50 | disposition home or self-care (01) ==
LOC: BCD 18:50 → OBS 19:09
PROVIDERS: PCP Nurse Practitioner Adult Health; Visit Provider Obstetrics & Gynecology
DX: O36.8120 Decreased fetal movements, second trimester, not applicable or unspecified (principal); Z3A.26 26 weeks gestation of pregnancy
CPT/HCPCS: 59025

== ENCOUNTER 2022-09-01 03:26 | Outpatient (CLI) | payer MEDICAID, SELFPAY ==
--- NOTE | 2022-09-01 07:00 | DI.US_ITS ---
Exam(s) US OB MAITE WEIGHT EXAM: US OB MAITE WEIGHT CLINICAL HISTORY: wt loss during ,Z34.03. TECHNIQUE: Transabdominal obstetrical ultrasound performed. COMPARISON: US US OB 1ST TRIMESTER from 05/07/2022 FINDINGS:: Number of fetuses: One. position: Vertex. Placental location: Anterior. No evidence of previa. BIOMETRIC DATA: BPD: 70mm = 28+ 2 weeks HC: 260mm = 28+ 2 weeks AC: 234mm = 27+ 5 weeks FL: 51 mm = 27+ 3 weeks EFW: 1114 Gms = 22% Composite Age: 28+ 0 weeks EDC: November 18 Heart Rate: 143BPM Amniotic fluid index: 13.4 cm. Amount of fluid is visually within normal limits. IMPRESSION: size and weight are within the expected range. DATA REPOSITORY:
== END 2022-09-01 03:46 ==
LOC: DI 03:26
PROVIDERS: PCP Nurse Practitioner Adult Health; Visit Provider Obstetrics & Gynecology Gynecology
DX: Z34.03 Encounter for supervision of normal first pregnancy, third trimester (principal); Z3A.28 28 weeks gestation of pregnancy
CPT/HCPCS: 76816

== ENCOUNTER 2022-09-01 04:57 | Outpatient (CLI) | payer MEDICAID, SELFPAY ==
[2022-09-01 10:10] LABS: HCT 31.2 % (36.0-46.0); HGB 10.6 g/dL (11.2-15.7); MCH 32.6 pg (27.0-33.0); MCV 96 fL (80-95); MPV 10.7 fL (8.0-11.0); Platelet Count 190 10^3/uL (130-400); RBC 3.25 10^6/uL (3.93-5.22); RDW 12.2 % (11.7-14.6); RDW-SD 42.6 fL; WBC 10.97 10^3/uL (4.4-10.8)
[2022-09-01 10:20] LABS: Glucose,1 Hr (Glucola) 166 mg/dL (80-140)
== END 2022-09-01 04:58 | disposition home or self-care (01) ==
LOC: LBO 04:57
PROVIDERS: Obstetrics & Gynecology Gynecology; PCP Nurse Practitioner Adult Health; Visit Provider Advanced Practice Midwife
DX: O99.013 Anemia complicating pregnancy, third trimester (principal); O99.343 Other mental disorders complicating pregnancy, third trimester; F41.8 Other specified anxiety disorders; Z3A.28 28 weeks gestation of pregnancy
CPT/HCPCS: 36415; 82950; 85027

== ENCOUNTER 2022-09-01 14:53 | Outpatient (REF) | payer MEDICAID, SELFPAY ==
[2022-09-01 14:18] LABS: *AMPHETAMINES SCREEN URINE Negative (Negative); *BARBITURATES SCREEN URINE Negative (Negative); *BENZODIAZEPINES SCREEN URINE Negative (Negative); Cannabinoids THC Positive (Negative); Cocaine Screen,Urine Negative (Negative); METHADONE URINE SCREEN Negative (Negative); OPIATES URINE SCREEN Negative (Negative)
[2022-09-01 14:19] LABS: Tricyclic Antidepressants Negative (Negative)
== END 2022-09-01 14:54 | disposition home or self-care (01) ==
LOC: LBN 14:53
PROVIDERS: PCP Nurse Practitioner Adult Health; Visit Provider Obstetrics & Gynecology
DX: Z34.93 Encounter for supervision of normal pregnancy, unspecified, third trimester (principal); Z3A.28 28 weeks gestation of pregnancy
CPT/HCPCS: 80307

== ENCOUNTER 2022-09-02 22:39 | Outpatient (CLI) | payer MEDICAID, SELFPAY ==
[2022-09-02 23:08] VITALS: BP 108/68; PULSE 82
[2022-09-02] MEDS: Acetaminophen 500 MG TAB 1000 MG PO (23:39)
[2022-09-06 11:39] VITALS: BP 108/68; PULSE 82
--- NOTE | 2022-09-06 11:39 | W.OBNST ---
Date of service: 09/06/22 Time of Service: 11:39 NST Evaluation Reason for NST Reasons for Nonstress Test: OTHER, SEE COMMENT Reason for NST Other: cramping Gestational Age Gestational Age in Weeks and Days: 28 Weeks and 2Days Test and Monitor Explained Test/Monitor Explained: Test Explained and Monitor Explained Vital Signs Blood Pressure: 108/68 Pulse: 82 NST Information Date on Monitor: 09/02/22 Time on Monitor: 22:45 Date off Monitor: 09/03/22 Time off Monitor: 00:00 Total Time on Monitor: 75 NST Interventions: PO Hydration NST Evaluation Patient States Movement: Present FHR Baseline: 125 Variability: Moderate 6-25 bpm Accelerations: 10x10 Decelerations: None NST Results: Reactive Note NST Note Note: Category 1, reactive nonstress test. No contractions. NST Reviewed and Verified by: Jackeline Powell
== END 2022-09-03 00:05 | disposition home or self-care (01) ==
LOC: BCD 22:43 → OBS 22:50
PROVIDERS: PCP Nurse Practitioner Adult Health; Visit Provider Obstetrics & Gynecology
DX: O26.893 Other specified pregnancy related conditions, third trimester (principal); Z3A.28 28 weeks gestation of pregnancy
CPT/HCPCS: 59025

== ENCOUNTER 2022-09-14 03:02 | Outpatient (CLI) | payer MEDICAID, SELFPAY ==
[2022-09-14 09:30] LABS: Glucose 1 Hour 190 mg/dL
[2022-09-14 11:28] LABS: Glucose 3 Hour 141 mg/dL
== END 2022-09-14 03:03 | disposition home or self-care (01) ==
LOC: LBO 03:02
PROVIDERS: PCP Nurse Practitioner Adult Health; Visit Provider Advanced Practice Midwife
DX: Z34.93 Encounter for supervision of normal pregnancy, unspecified, third trimester (principal); Z3A.30 30 weeks gestation of pregnancy
CPT/HCPCS: 36415; 82951

== ENCOUNTER 2022-09-16 03:30 | Outpatient (CLI) | payer MEDICAID, SELFPAY ==
--- NOTE | 2022-09-16 06:30 | DI.US_ITS ---
Exam(s) US OB MAITE WEIGHT EXAM: US OB MAITE WEIGHT CLINICAL HISTORY: growth and cervical length,h/o covid,z34.03,O26.893. TECHNIQUE: Transabdominal obstetrical ultrasound was performed. COMPARISON: US US OB MAITE WEIGHT from 09/01/2022 FINDINGS: There is a single viable intrauterine gestation with cardiac activity identified-145 bpm The fetus is presently in cephalic position . Amniotic fluid: There is a low normal amount of amniotic fluid with an MAITE of 10.5cm. Placental location: The placenta is anterior grade 2,with no evidence of placenta previa. Dating parameters place this at approximately 30 weeks and 1 day gestational age, implying JB of November 24, 2022. BPD measures 30 weeks and 0 days HC measures 30 weeks and 6 days AC measures 29 weeks and 0 days FL measures 30 weeks and 5 days Estimated weight is 1460 gm-3 pounds 4 ounces Fetus is at the 23rd percentile on the Hadlock scale. IMPRESSION:: Viable 3rd trimester gestation, as described above. DATA REPOSITORY:
--- NOTE | 2022-09-16 14:14 | W.DIABETESNO ---
Date of service: 09/16/22 Time of Service: 14:14 Diabetes Note Reason for Visit: gdm NOTE: Met with Misael in [facility]. She has been checking her BS QID and reports only 1 fasting sugar was high in last week. No elevated post prandial levels. No excess weight gain. Reviewed ideal meal plan for optimal glycemic management. Provided written material, meal plans and contact information. WIll be available prn. Time Spent in Nutritional Counseling and Treatment: 20
== END 2022-09-16 03:50 ==
PROVIDERS: PCP Nurse Practitioner Adult Health; Visit Provider Obstetrics & Gynecology
DX: O99.333 Smoking (tobacco) complicating pregnancy, third trimester (principal); O26.893 Other specified pregnancy related conditions, third trimester; Z3A.30 30 weeks gestation of pregnancy
CPT/HCPCS: 76816

== ENCOUNTER 2022-09-23 03:34 | Outpatient (CLI) | payer MEDICAID, SELFPAY ==
[2022-09-23 03:52] VITALS: BP 110/60; PULSE 65; TEMP 36.6
[2022-09-23 04:40] VITALS: BP 110/66; PULSE 70; TEMP 36.6
--- NOTE | 2022-09-23 07:50 | HPE_ITS ---
Date of service: 09/23/22 Time of Service: 07:50 Assessment and Plan Assessment and plan (1) Second trimester bleeding: Status: Acute Assessment and plan: Patient with a solitary episode of vaginal bleeding noted on the toilet tissue earlier this morning. No evidence of contractions no evidence of vaginal bleeding while in the hospital. No evidence of blood in the vaginal vault with vaginal exam. status is reassuring. I recommend to the patient that she continue on pelvic rest and keep her scheduled appointments. OB-HPI Labor/Delivery History of Present Illness Reason for Visit: REG/ADM Chief Complaint: Vaginal Bleeding , Associated Signs and Symptoms of Vaginal Bleeding: Blood on toilet tissue when wiping. No evidence of blood on SVE at the time of discharge. JB Calculator Estimated Delivery Date Method Current WG Current Estimate 11/23/22 Ultrasound #1 31w 2d Other Estimates 10/31/22 LMP (Certain) 34w 4d 11/23/22 Ultrasound #2 31w 2d History of Present Expected Delivery Route/Plan - 08/03/22 changed to MD care ANDRÉS Blair, his first child BG Rubella Non-Immune, offer MMR Specific Issues/Plan 1. Anxiety/panic attacks/ [facility] provider Rx for clonidine and Abilify. 08/2022. Rx will be prescribed by C till pt gets new provider 2. Hx Superfiical thrombophlebitis x2 s/p IV placement: treated with short term anticoagulation. 2a. [facility] Heme consult October 2021 does not recommend anticoagulation during . 2b. Recommended low dose ASA- declines due to aspirin allergy 3. Hx tobacco and alcohol abuse/DUI. 08/03/22. Has abstained from ETOH and MJ during . Has decreased but no stopped tobacco. -THC positive at 28wk visit. Please review POSC at next visit. 09/16/22. Pt counseled to stop 4. Accepts morphology US & consult at [facility] d/t ASA allergy & FOB family hx of cousin w/heart defect, FOB w/antithrombin disorder 4a. Done 07/06/22, level 2 scan=nml anatomy 5. SMA & CF carrier negative; cfDNA low prob x5 female 6. Pap ASCUS + HR HPV colpo 05/13/2022. No biopsies. Repeat pap at 6 week PPE 7. Covid vaccinated x 2, no booster, Had covid 04/19, 32 week growth US: 09/16/22. EFW 23%tile. MAITE 10.5 8. UTI e.coli @ 20 wks, patient declines all antibiotics except azithromycin. 07/08/22. SURYA neg. 9. Anemia @ 11 wks- CBC at the ED: hgb 10.4/hct 29.0 - 10.6 and 31.2 at 28 weeks 10. BV @ 20 wks: [facility] Rx'ed. HAS DIFFICULTY SWALLOWING PILLS 11. Elevated 1-hr GTT = 166. 09/14/22 3-hr GTT elevated. Met with Maribell, doing CGBs 4x/day Narrative: Patient is currently 30 1W2D EGA who called the approximate 2:00 this morning to report vaginal bleeding. She noted blood on her toilet tissue when wiping. She denies sexual relations in the last 24 hours. She was not experiencing regular contractions but had some pelvic pain and I recommended that she present for evaluation and monitoring on the center. Review of Systems Constitutional Constitutional: Reports system reviewed and no additional complaints, except as documented Psychiatric Psychiatric: Reports anxiety PFSH All Active Problems (Updated 09/23/22 @ 07:55 by Darlien Sarmiento MD) Second trimester bleeding (Acute) Gestational diabetes (Acute) Elevated glucose tolerance test (Acute) Tobacco use disorder (Acute) related pelvic pain in third trimester, antepartum (Acute) Anxiety (Chronic 11/15/11) RX Citalopram L-T x9 years (helped until stopped eating ~03/2020); RX Escitalopram, stopped 02/2021 in favor of Ability & Lamotrigine ([facility]) Depression (Chronic) RX Citalopram L-T x9 years (helped until stopped eating ~03/2020); RX Escitalopram 03/2020, stopped 02/2021 in favor of Ability & Lamotrigine ([facility]) Bipolar 1 disorder (Acute) PTSD (post-traumatic stress disorder) (Acute) Rubella non-immune status, antepartum (Acute) ASCUS with positive high risk HPV cervical (Acute) Colpo on 05/13/22 with KJ. Recommendation is repeat 6 wks PP Anemia affecting first (Acute) (Acute) Encounter for supervision of normal first , third trimester (Acute) Medical History (Updated 09/23/22 @ 07:55 by Darline Sarmiento MD) Acute thrombosis of right basilic vein Started anticoag Apix [facility] Heme consult 10/2021 Alcohol abuse Consumes four beers at a time. Had DWI 2020. 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 History of COVID-16 Apr 2022 Hyperhidrosis of axilla Improved with Rx antiperspirant IBS (irritable bowel syndrome) Poor dentition has lost several teeth secondary to tooth decay Psoriasis (11/28/12) 09/2019. Scalp psoriasis Rx with clobetasol lotion and change from DeopProvera to OCPs. Sinus tachycardia Holter 08/2021, labs & ECHO pending Surgical History Tooth extraction teeth extraction. hx of colonoscopy and endoscopy Family History (Updated 07/13/22 @ 09:19 by Olesya Armas RN) Mother Drug addiction Mental disorder Gastric ulcer Father Essential hypertension Drug addiction Mental disorder Seizures Sister Autism Maternal Grandmother CHF (congestive heart failure) Gastric ulcer COPD (chronic obstructive pulmonary disease) Paternal Great Aunt Coronary heart disease Grandmother CHF (congestive heart failure) Neoplasm Lung CA (smoker) Grandfather Diabetes Maternal Uncle Diabetes Paternal Grandmother COPD (chronic obstructive pulmonary disease) Other Alcohol abuse Congenital heart defect Substance use disorder Social History (Updated 08/03/22 @ 18:19 by Darline Sarmiento MD) Smoking/Tobacco Use Status: Current every day Tobacco Type: cigarettes Smoking packs per day: 1 Smoking cigarettes per day: 20.0 Years smoked: 10 Smoking pack- years: 10.00 Quit status: considering quitting Smoking risk assessment performed?: Yes Alcohol Intake: former Details: see A/P Drug use: Never Substance use type: marijuana Details: Stopping in 2nd trimester. Caregiver/Support person: No Household members: significant other and other Details: New partner since 01/2020. Number of Children: 0 Communication Needs: None current occupation: working as [employer] 08/2022. 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 Date GA/Weeks # Preg Succ Route Wgt Sex Labor Lgth Anesth esia Location Prov Complic 05/03/12 8 No No 04/29/17 6 No No 04/29/18 8 No No Delivery Date: 05/03/12 Last Updated by: KASEY Perry Delivery Date: 04/29/17 Last Updated by: Patt Smith CNM SAB Delivery Date: 04/29/18 Last Updated by: KASEY Perry Meds Allergies and Home Medications Allergies Allergy/AdvReac Type Severity Reaction Status Date / Time amoxicillin [Amoxicillin] Allergy Severe Redness Verified 09/16/22 13:46 and swelling in throat naproxen [From Aleve] Allergy Severe Swelling/Ed Verified 09/16/22 13:46 summer Penicillins Allergy Severe Inflamed Verified 09/16/22 13:46 throat clindamycin Allergy Intermediate rash Verified 09/16/22 13:46 aspirin Allergy Mild Swelling Verified 09/16/22 13:46 in lips adhesive AdvReac Intermediate scarring Verified 09/16/22 13:46 lactose AdvReac Mild Nausea, Verified 09/16/22 13:46 intolerance-causes gas/diarrhea oxycodone HCl [From Percocet] AdvReac Unknown Nausea Verified 09/16/22 13:46 Home Medications Medication Instructions Recorded Confirmed Type acetaminophen 500 mg tablet 1,000 mg PO PRN PRN 04/15/19 09/20/22 History fluticasone propionate 50 1 - 2 spray intranasal DAILY PRN 05/04/20 09/20/22 Rx mcg/actuation nasal sinus congestion/pressure #9.9 spray,suspension (Flonase Allergy grams Relief) loratadine 10 mg tablet (Allergy 10 mg PO DAILY PRN allergy 05/04/20 09/20/22 Rx Relief (loratadine)) symptoms #30 tabs aluminum chloride 20 % topical 1 applic topical QHS #60 mL 10/02/20 09/20/22 Rx solution (Drysol) clobetasol 0.05 % shampoo 1 applic topical QHS 4 weeks #118 12/04/21 09/20/22 Rx mL prenat.vits,elaina,wcj-beyz-oftuk 1 tab PO DAILY 03/29/22 09/20/22 History clonazepam 1 mg tablet 0.5 mg PO DAILY PRN 05/04/22 09/20/22 History citalopram 10 mg tablet (Celexa) 10 mg PO DAILY 05/12/22 09/20/22 History triamcinolone acetonide 0.5 % 1 applic topical BID #15 grams 08/24/22 09/20/22 Rx topical cream aripiprazole 10 mg tablet (Abilify) 10 mg PO DAILY #30 tabs 08/30/22 09/20/22 Rx alcohol swabs (Alcohol Prep Pads) 1 pad topical QID QID testing #200 09/14/22 09/20/22 Rx ea blood sugar diagnostic #100 ea 09/14/22 09/20/22 Rx blood-glucose meter (OneTouch #1 ea 09/14/22 09/20/22 Rx Ultra2 Meter) lancets (OneTouch UltraSoft #200 ea 09/14/22 09/20/22 Rx Lancets) Exam Physical Exam Vital signs: Temp Pulse BP 97.9 F 65 110/60 09/23/22 03:52 09/23/22 03:52 09/23/22 03:52 Vital Signs Reviewed: Yes Narrative: She was observed for several hours no evidence of uterine contractions on external tocometer heart rate category 1 for 31+ weeks EGA. Constitutional Constitutional: no acute distress Detailed Labor and Delivery Exam Dilation: 0 Effacement (%): 0 station: -2 Cervix position: mid Consistency: soft Rodriguez Score: Cervical Points Exam 0 1 2 3 Dilation Closed 1-2cm 3-4 cm 5-6cm Effacement 0-30% 40-50% 60-70% 80% Consistency Firm Medium Soft Station -3 -2 -1,0 +1,+2 Position Posterior Mid Anterior RODRIGUEZ Score(Cervical Ripeness Score): 4 Amniotic Membrane Status: Intact Contraction Frequency(min): 0 Fetus A Heart Rate Baseline: 150 Monitor Accelerations: 10 X 10 Monitor Decelerations: None Variability: Minimal (1-5 BPM) Presentation: Cephalic Categories: Category I (As interpreted by gestational age) Neck Exam Neck Exam: Normal Respiratory Exam Respiratory Exam: Normal Cardiovascular Exam Cardiovascular Exam: Normal Abdominal Exam Abdominal Exam: Normal (Gravid, no focal uterine tenderness.) Rectal Exam Rectal Exam: Not Done Exam Exam: Normal (As previously noted) Skin Exam Skin Exam: Normal (Multiple tattoos) Psychiatric Exam Psychiatric Exam: Normal Results Results Group Beta Strep: Not Done Blood Type: A+ Rubella Status: Nonimmune Varicella Immunity: Immune Risk Assessment Risk for Shoulder Dystocia Historical/Initial OB: NEGATIVE FOR: Pelvic Abnormality, Pre- BMI>30, Previous Shoulder Dystocia or Previous Macrosomia Date/Initial: low risk; 05/04/22 THERESE Risk for Pre-Eclampsia Date Initiated/Initials: 05/04/22: THERESE Yes, if one or more: NEGATIVE FOR: Hx Pre-E/Gest HTN, Chronic HTN, Multiple Gestation, Pre-gestational DM, Renal Disease, Systemic Lupus or APA Syndrome Yes, if 2 or more: POSITIVE FOR: Nulliparity; NEGATIVE FOR: Age>= 35 yrs, >10yr btwn pregnancies, BMI>30, ethinicty, Mother/Sister w/ Pre-E or Previous IUGR Risk for Post- Hemorrhage Initial: NEGATIVE FOR: Multiple Gestation, Previous PPH, Known Clotting Deficiency, Grand Multiparity or Anticoagulation Risks Reviewed Risks Reviewed Upon Admission: Yes
--- NOTE | 2022-09-23 10:53 | W.OBNST ---
Date of service: 09/23/22 Time of Service: 10:53 NST Evaluation Reason for NST Reasons for Nonstress Test: OTHER, SEE COMMENT (vaginal bleeding at 31+w EGA) Gestational Age Gestational Age in Weeks and Days: 31 Weeks and 2Days Test and Monitor Explained Test/Monitor Explained: Test Explained Vital Signs Blood Pressure: 110/66 Pulse: 70 Temperature: 97.9 F Urine Results Urine Protein: Negative Urine Ketones: Negative Urine Glucose: Negative Urine Blood: Negative NST Information Date on Monitor: 09/23/22 Time on Monitor: 03:34 Date off Monitor: 09/23/22 Time off Monitor: 04:32 Total Time on Monitor: 58 NST Interventions: PO Hydration and Meal Given Contraction Frequency: irritablity NST Evaluation Patient States Movement: Decreased FHR Baseline: 135 Variability: Moderate 6-25 bpm Accelerations: 10x10 Decelerations: Variable NST Results: Reactive Note Presentation Presentation Results: VTX Coding for Presentation w/NST: Completed Exam NST Note Note: Pt had no bleeding during her time on BC. No further c/o pelvic discomfort. SVE was performed prior to her discharge: closed, long, soft, VTX, -1 station. Pt will keep her scheduled visit. NST Reviewed and Verified by: Darline Sarmiento
[2022-09-23 10:55] VITALS: BP 110/66; PULSE 70; TEMP 36.6
== END 2022-09-23 08:43 | disposition home or self-care (01) ==
LOC: OBS 08:04 → BCD 08:08
PROVIDERS: PCP Nurse Practitioner Adult Health; Visit Provider Obstetrics & Gynecology Gynecology
DX: O26.853 Spotting complicating pregnancy, third trimester (principal); Z3A.31 31 weeks gestation of pregnancy
CPT/HCPCS: 59025

== ENCOUNTER 2022-09-29 14:51 | Outpatient (CLI) | payer MEDICAID, SELFPAY ==
[2022-09-29 16:01] VITALS: BP 110/65; PULSE 90; TEMP 37.2
[2022-09-29 16:04] VITALS: BP 110/65; PULSE 90
[2022-09-29 16:05] VITALS: PULSE 88; O2SAT 100
--- NOTE | 2022-09-29 17:41 | W.OBNST ---
Date of service: 09/29/22 Time of Service: 17:41 NST Evaluation Reason for NST Reasons for Nonstress Test: OTHER, SEE COMMENT Reason for NST Other: L leg pain and swelling Gestational Age Gestational Age in Weeks and Days: 32 Weeks and 1Days Test and Monitor Explained Test/Monitor Explained: Test Explained, Monitor Explained and Patient Verbalized Understanding Vital Signs Blood Pressure: 110/65 Pulse: 90 Temperature: 99.0 F NST Information Date on Monitor: 09/29/22 Time on Monitor: 15:50 Date off Monitor: 09/29/22 Time off Monitor: 16:17 Total Time on Monitor: 27 NST Interventions: None NST Evaluation Patient States Movement: Present FHR Baseline: 135 Variability: Moderate 6-25 bpm Accelerations: 15x15 Decelerations: None NST Results: Reactive Note N/A NST Note Note: Ultrasound of left leg is negative Sx consistent with sciatica, pt accepts referral to PT F/up with OB provider NST Reviewed and Verified by: Chica Ding
[2022-09-29 17:42] VITALS: BP 110/65; PULSE 90; TEMP 37.2
== END 2022-09-29 16:20 | disposition home or self-care (01) ==
LOC: BCD 14:51 → OBS 15:24
PROVIDERS: PCP Nurse Practitioner Adult Health; Visit Provider Obstetrics & Gynecology
DX: O12.03 Gestational edema, third trimester (principal); Z3A.32 32 weeks gestation of pregnancy
CPT/HCPCS: 59025

== ENCOUNTER 2022-09-29 17:27 | Outpatient (CLI) | payer MEDICAID, SELFPAY ==
--- NOTE | 2022-09-29 15:15 | DI.US_ITS ---
Exam(s) US LOWER EXTREMITY VENOUS LT EXAM: US LOWER EXTREMITY VENOUS LT CLINICAL HISTORY: swelling and pain in left leg, ,Z79.662 PAIN LEFT LEG M79.89 Z34.90. TECHNIQUE: Lower extremity venous ultrasound performed using grayscale, color-flow, and spectral Do ppler analysis. COMPARISON: No exams were available for comparison FINDINGS: The common femoral, femoral and popliteal veins demonstrate normal compressibility, augmentation, and color Doppler. The posterior tibial veins are patent. No saphenous vein thrombosis or other superfi cial venous thrombosis is seen. No hematoma or Salinas's cyst is seen. IMPRESSION: Negative lower extremity ultrasound. No evidence of DVT. DATA REPOSITORY:
== END 2022-09-29 17:47 ==
LOC: DI 17:28
PROVIDERS: PCP Nurse Practitioner Adult Health; Visit Provider Advanced Practice Midwife
DX: O26.893 Other specified pregnancy related conditions, third trimester (principal); O99.333 Smoking (tobacco) complicating pregnancy, third trimester; M79.662 Pain in left lower leg; M79.89 Other specified soft tissue disorders; Z3A.32 32 weeks gestation of pregnancy
CPT/HCPCS: 93971

== ENCOUNTER 2022-10-08 00:10 | Outpatient (CLI) | payer MEDICAID, SELFPAY | END 2022-10-08 00:11 | disposition home or self-care (01) | LOC: BCD 00:13 | PROVIDERS: PCP Nurse Practitioner Adult Health; Visit Provider Obstetrics & Gynecology ==

== ENCOUNTER 2022-10-12 10:32 | Outpatient (CLI) | payer MEDICAID, SELFPAY ==
[2022-10-12 12:54] VITALS: BP 113/67; PULSE 97; RESP 16; TEMP 36.8
[2022-10-12 12:57] VITALS: BP 113/67; PULSE 97
[2022-10-12 13:12] LABS: ROM Plus Negative
--- NOTE | 2022-10-12 13:13 | W.OBNST ---
Date of service: 10/12/22 Time of Service: 13:13 NST Evaluation Reason for NST Reasons for Nonstress Test: OTHER, SEE COMMENT (Possible rupture of membranes) Gestational Age Gestational Age in Weeks and Days: 34 Weeks and 0Days NST Evaluation Patient States Movement: Present Note MAITE (10) Indication: R/O rupture of membranes Total MAITE: 10.8 Other Pertinent Findings: Heart Rate and Presentation (Vertex) Coding for MAITE w/NST: Completed Exam and Presentation Coding for Presentation w/NST: Completed Exam NST Note Note: Patient seen in the triage area for rule out rupture of membranes and nonstress testing. She is 27-year-old female who felt a pop and a gush of fluid while she was at school today. She has been recently sexually active so the ROM plus that was sent to the lab will be in adequate. Speculum examination was performed which shows a scant amount of discharge that is nitrazine positive, however fern negative and no significant pooling. She declines a cervical examination today my impression is that she does not have spontaneous rupture of membranes that her discharge is related to recent sexual activity. She will be seen in the office for her routine care. All of her questions were answered today. NST Reviewed and Verified by: Jackeline Powell
[2022-10-12 16:06] VITALS: BP 112/66; PULSE 117
== END 2022-10-12 12:29 | disposition home or self-care (01) ==
LOC: OBS 13:37 → BCD 10-13 10:32
PROVIDERS: Obstetrics & Gynecology; PCP Nurse Practitioner Adult Health; Visit Provider Obstetrics & Gynecology Gynecology
DX: O26.893 Other specified pregnancy related conditions, third trimester (principal); Z3A.33 33 weeks gestation of pregnancy
CPT/HCPCS: 59025; 84112

== ENCOUNTER 2022-10-17 17:24 | Emergency (ER) | payer MEDICAID, SELFPAY ==
[2022-10-17] VITALS (79 sets, daily range): BP systolic 104–124; BP diastolic 67–85; PULSE 72–117; RESP 16–28; TEMP 36.5–37.1; O2SAT 96–100
--- NOTE | 2022-10-17 17:15 | RT.EKG_ITS ---
APPROVED REPORT Exam: Resting ECG Reason for Exam: chest pain Patient Location: E HR:113 bpm ECG Measurements Heart Rate 113 AXIS VA 126 P 37 QRSd 77 QRS 78 QT 351 T -3 QTc 481 Conclusion Sinus tachycardia...rate> 99 Probable left atrial enlargement...P >50mS, <-0.10mV V1 Borderline T abnormalities, diffuse leads...T flat/neg Sinus tachycardia at a rate of 113. Normal axis. Narrow complex. Intervals within normal limits. No ST segment abnormalities. T wave flattening in lead III. Similar to prior dated last fall. No a cute injury pattern.
--- NOTE | 2022-10-17 18:03 | ED.GENADUL_ITS ---
Discharge Plan Disposition Patient Disposition: Home Condition: Improving Discharge Details Clinical Impression: Third trimester , Chest pain, Palpitations, Hypokalemia, Hypocalcemia Primary Care Provider: Celestina Miranda ED Provider: Carmelina Mcconnell Home Meds and New Rx's Prescriptions: Continued citalopram [Celexa] 10 mg tablet 10 mg PO DAILY clonazepam 1 mg tablet 0.5 mg PO DAILY PRN prenat.vits,elaina,[id number]-[id number] Tablet 1 tab PO DAILY fluticasone propionate [Flonase Allergy Relief] 50 mcg/actuation spray,suspension 1 - 2 spray SHANIKA DAILY PRN (Reason: sinus congestion/pressure) Qty: 9.9 0RF Rx Instructions: administer into each nostril for sinus congestion/pressure loratadine [Allergy Relief (loratadine)] 10 mg tablet 10 mg PO DAILY PRN (Reason: allergy symptoms) Qty: 30 0RF Rx Instructions: Allergies Drysol 20 % solution 1 applic topical QHS Qty: 60 2RF clobetasol 0.05 % shampoo 1 applic TP QHS 28 Days Qty: 118 4RF Rx Instructions: Use daily for 4 weeks. triamcinolone acetonide 0.5 % cream 1 applic topical BID Qty: 15 5RF Rx Instructions: apply small amount to arms and affected areas aripiprazole [Abilify] 10 mg tablet 10 mg PO DAILY Qty: 30 0RF alcohol swabs [Alcohol Prep Pads] Pads, Medicated 1 pad topical QID Qty: 200 2RF (DME) blood-glucose meter [OneTouch Ultra2 Meter] Misc See Rx Instructions .ROUTE .MEDSUPPLY Qty: 1 0RF Rx Instructions: As directed (DME) lancets [OneTouch UltraSoft Lancets] Misc See Rx Instructions .ROUTE .MEDSUPPLY Qty: 200 2RF Rx Instructions: QID testing (DME) blood sugar diagnostic Strip See Rx Instructions .ROUTE .MEDSUPPLY Qty: 100 3RF Rx Instructions: QID testing dexmethylphenidate [Focalin] 2.5 mg tablet 2.5 mg PO DAILY MDD 1 Qty: 20 0RF acetaminophen 500 mg Tablet 1,000 mg PO PRN PRN Discharge Instructions Instructions: Chest Pain (ED), Heart Palpitations (ED), Hypokalemia (ED), Hypocalcemia (ED) Additional Instructions: Your potassium and calcium was noted to be low today in the emergency department but you were given potassium and calcium supplementation and these levels have significantly improved. Your CT scan today showed no evidence of acute concerning findings. Drink plenty of fluids and get plenty of rest. 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 Return immediately to the emergency department if you develop any worsening or new concerning symptoms. Stand Alone Forms: School Release Discharge Data Discharge Date/Time-TO BE ENTERED AT DEPARTURE: 10/17/22 23:25 Discharge Physician: Carmelina Mcconnell Medical Decision Making <Arnulfo Jones MD - Last Filed: 10/18/22 08:20> Dr. Jones This is a tachycardic but normothermic, normotensive and not hypoxic 34-year-old G4, P0 at 35 weeks with chest pain and shortness of breath. Her ECG is nonischemic however will obtain a troponin and if initial troponin is negative will repeat troponin given the duration of her symptoms began less than 3 hours ago. PE is also a possibility given her tachycardia. She has had no vaginal bleeding nor any gush of fluids to suggest premature labor. We discussed D- dimer testing and we will proceed with this and CTA as necessary based on cutpoint of 1000 with YEARS criteria. Patient has not had any syncope. She has had no nausea vomiting however she was found to be markedly hypokalemic with a serum potassium level of 2.4 for which she will receive both IV and oral repletion. She was also found to be markedly hypocalcemic for which we will replete her with 2 g of IV calcium Gluconate. She does report history of gestational diabetes managed by diet. She is not on insulin. 7 PM I updated the patient on plan for repeat troponin and repeat potassium at 9:10 PM. Patient reports that she previously had an MARINE OPERATIONS COORDINATOR follow-up scheduled for tomorrow. I will touch base with MARINE OPERATIONS COORDINATOR as I plan on signing patient out to oncoming provider, Dr. Mcconnell. 7:25 PM I spoke with Dr. Priscilla Azar from MARINE OPERATIONS COORDINATOR letting her know of the patient's hypokalemia and hypocalcemia for which patient is receiving IV repletion. Will order repeat levels at 9:10 PM. Patient will likely benefit from hospitalization if she has a PE, Troponin, or has persistent hypokalemia or hypocalcemia refractory to IV replete. We will defer this decision to Dr. Mcconnell upon her reassessment. Dr. Mcconnell 1999 --please see Dr. Jones's note for initial presentation, exam and plan. Case endorsed to follow-up on CT chest, delta troponin and repeat labs after electrolyte repletion. CT chest negative for PE; notes tiny b/l pleural effusions. Extreme lung bases have been excluded from view, likely expect this is secondary to limit exposure to fetus. Patient is a 27-year-old female G0, P4 at 35 weeks gestation presented with palpitations, chest pain and shortness of breath that occurred while sitting at home today. She states it lasted a few hours and then resolved. She currently is asymptomatic. Thus far she was noted to be hypokalemic and hypocalcemic. She denies any abdominal pain, vaginal bleeding or syncope. She is receiving her normal saline with potassium at this time. Pending repeat electrolytes and troponin. 2144 --repeat troponin negative. Repeat potassium significantly improved now to 3.3. Calcium now normalized at 8.9. Case discussed with Dr. Azar who was informed of improving electrolytes, tiny bilateral pleural effusions but that patient is oxygenating well without any complaint of shortness of breath at this time. Once patient is finished with her potassium and fluid bolus, she can be discharged home if remains asymptomatic. Patient has a follow-up appointment with OB tomorrow afternoon. Patient requested a return to school note indicating her findings in the emergency department. <Carmelina Mcconnell, DO - Last Filed: 10/17/22 22:54> Dr. Jones This is a tachycardic but normothermic, normotensive and not hypoxic 34-year-old G4, P0 at 35 weeks with chest pain and shortness of breath. Her ECG is nonischemic however will obtain a troponin and if it starts single initial troponin is negative will repeat troponin given the duration of her symptoms began less than 3 hours ago. PE is also a possibility given her tachycardia. She has had no vaginal bleeding nor any gush of fluids to suggest premature labor. We discussed D-dimer testing and we will proceed with this and CTA as necessary. Patient has not had any syncope. She has had no nausea vomiting however she was found to be markedly hypokalemic with a serum potassium level of 2.4 for which she will receive both IV and oral repletion. She was also found to be markedly hypocalcemic for which we will replete her with 2 g of IV calcium Gluconate. She does report history of gestational diabetes managed by diet. She is not on insulin. 7 PM I updated the patient on plan for repeat troponin and repeat potassium at 9:10 PM. Patient reports that she previously had an MARINE OPERATIONS COORDINATOR follow-up scheduled for tomorrow. I will touch base with MARINE OPERATIONS COORDINATOR as I would need to sign oncoming provider, Dr. Mcconnell. 7:25 PM I spoke with Dr. Priscilla Azar from MARINE OPERATIONS COORDINATOR letting her know of the patient's hypokalemia and hypocalcemia for which patient is receiving IV repletion. Will order repeat levels at 9:10 PM. Patient will likely benefit from hospitalization if she has a PE, Troponin, or has persistent hypokalemia or h ypocalcemia refractory to IV replete. We will defer this decision to Dr. Mcconnell upon her reassessment. Dr. Mcconnell 1999 --please see Dr. Jones's note for initial presentation, exam and plan. Case endorsed to follow-up on CT chest, delta troponin and repeat labs after electrolyte repletion. CT chest negative for PE; notes tiny b/l pleural effusions. Extreme lung bases have been excluded from view, likely expect this is secondary to limit exposure to fetus. Patient is a 27-year-old female G0, P4 at 35 weeks gestation presented with palpitations, chest pain and shortness of breath that occurred while sitting at home today. She states it lasted a few hours and then resolved. She currently is asymptomatic. Thus far she was noted to be hypokalemic and hypocalcemic. She denies any abdominal pain, vaginal bleeding or syncope. She is receiving her normal saline with potassium at this time. Pending repeat electrolytes and troponin. 2144 --repeat troponin negative. Repeat potassium significantly improved now to 3.3. Calcium now normalized at 8.9. Case discussed with Dr. Azar who was informed of improving electrolytes, tiny bilateral pleural effusions but that patient is oxygenating well without any complaint of shortness of breath at this time. Once patient is finished with her potassium and fluid bolus, she can be discharged home if remains asymptomatic. Patient has a follow-up appointment with OB tomorrow afternoon. Patient requested a return to school note indicating her findings in the emergency department. Medical Records Medical records reviewed: Yes I reviewed the patient's medical records. HPI <Arnulfo Jones MD - Last Filed: 10/18/22 08:20> General Date/Time Provider Initiated Documentation: 10/17/22 17:31 . HPI Narrative: This is a G4, P0 at 35 weeks in the emergency department in the setting of palpitations and chest pain. Patient reports that she felt a dull aching sensation in the center of her chest approximately 1-1/2 hours ago. Subsequently she developed a sharp pain. She notes that she checked her heart rate and it was 140 bpm. Her pain does not radiate. It is not positional nor pleuritic. She did not syncopized. She has never had a lower extremity DVT but there was concern that she had an upper extremity DVT triggered by an IV infusion. She said that she was transiently on apixaban but is no longer on th is medication. She is a daily tobacco user. She denies vaginal bleeding fevers nausea vomiting dysuria and frequency. She does not feel as if her water has broken. Related Data Home Medications Medication Instructions Recorded Confirmed acetaminophen 500 mg tablet 1,000 mg PO PRN PRN 04/15/19 10/17/22 fluticasone propionate 50 1 - 2 spray intranasal DAILY PRN 05/04/20 10/17/22 mcg/actuation nasal sinus congestion/pressure #9.9 spray,suspension (Flonase Allergy grams Relief) loratadine 10 mg tablet (Allergy 10 mg PO DAILY PRN allergy 05/04/20 10/17/22 Relief (loratadine)) symptoms #30 tabs aluminum chloride 20 % topical 1 applic topical QHS #60 mL 10/02/20 10/17/22 solution (Drysol) clobetasol 0.05 % shampoo 1 applic topical QHS 4 weeks #118 12/04/21 10/17/22 mL prenat.vits,elaina,cps-fzzs-yltnm 1 tab PO DAILY 03/29/22 10/17/22 clonazepam 1 mg tablet 0.5 mg PO DAILY PRN 05/04/22 10/17/22 citalopram 10 mg tablet (Celexa) 10 mg PO DAILY 05/12/22 10/17/22 triamcinolone acetonide 0.5 % 1 applic topical BID #15 grams 08/24/22 10/17/22 topical cream aripiprazole 10 mg tablet (Abilify) 10 mg PO DAILY #30 tabs 08/30/22 10/17/22 alcohol swabs (Alcohol Prep Pads) 1 pad topical QID QID testing #200 09/14/22 10/17/22 ea blood sugar diagnostic #100 ea 09/14/22 10/17/22 blood-glucose meter (OneTouch #1 ea 09/14/22 10/17/22 Ultra2 Meter) lancets (OneTouch UltraSoft #200 ea 09/14/22 10/17/22 Lancets) dexmethylphenidate 2.5 mg tablet 2.5 mg PO DAILY #20 tabs 10/07/22 10/17/22 (Focalin) Previous Rx's Medication Instructions Recorded fluticasone propionate 50 1 - 2 spray intranasal DAILY PRN 05/04/20 mcg/actuation nasal sinus congestion/pressure #9.9 spray,suspension (Flonase Allergy grams Relief) loratadine 10 mg tablet (Allergy 10 mg PO DAILY PRN allergy 05/04/20 Relief (loratadine)) symptoms #30 tabs aluminum chloride 20 % topical 1 applic topical QHS #60 mL 10/02/20 solution (Drysol) clobetasol 0.05 % shampoo 1 applic topical QHS 4 weeks #118 12/04/21 mL triamcinolone acetonide 0.5 % 1 applic topical BID #15 grams 08/24/22 topical cream aripiprazole 10 mg tablet (Abilify) 10 mg PO DAILY #30 tabs 08/30/22 alcohol swabs (Alcohol Prep Pads) 1 pad topical QID QID testing #200 09/14/22 ea blood sugar diagnostic #100 ea 09/14/22 blood-glucose meter (OneTouch #1 ea 09/14/22 Ultra2 Meter) lancets (OneTouch UltraSoft #200 ea 09/14/22 Lancets) dexmethylphenidate 2.5 mg tablet 2.5 mg PO DAILY #20 tabs 10/07/22 (Focalin) Allergies Allergy/AdvReac Type Severity Reaction Status Date / Time amoxicillin [Amoxicillin] Allergy Severe Redness Verified 10/17/22 17:41 and swelling in throat naproxen [From Aleve] Allergy Severe Swelling/Ed Verified 10/17/22 17:41 summer Penicillins Allergy Severe Inflamed Verified 10/17/22 17:41 throat clindamycin Allergy Intermediate rash Verified 10/17/22 17:41 aspirin Allergy Mild Swelling Verified 10/17/22 17:41 in lips adhesive AdvReac Intermediate scarring Verified 10/17/22 17:41 lactose AdvReac Mild Nausea, Verified 10/17/22 17:41 intolerance-causes gas/diarrhea oxycodone HCl [From Percocet] AdvReac Unknown Nausea Verified 10/17/22 17:41 General Stated Complaint: Chest Pain JACKSON: 3 PFSH <Arnulfo Jones MD - Last Filed: 10/18/22 08:20> All Active Problems (Updated 10/17/22 @ 21:56 by Carmelina Mcconnell DO) Third trimester (Acute) Chest pain (Acute) Palpitations (Acute) Hypokalemia (Acute) Hypocalcemia (Acute) Attention and concentration deficit (Acute) Sciatica of left side (Acute) Pain and swelling of left lower leg (Acute) Encounter for supervision of normal first , third trimester (Acute) Gestational diabetes (Acute) Elevated glucose tolerance test (Acute) Tobacco use disorder (Acute) related pelvic pain in third trimester, antepartum (Acute) Anxiety (Chronic 11/15/11) RX Citalopram L-T x9 years (helped until stopped eating ~03/2020); RX Escitalopram, stopped 02/2021 in favor of Ability & Lamotrigine ([facility]) Depression (Chronic) RX Citalopram L-T x9 years (helped until stopped eating ~03/2020); RX Escitalopram 03/2020, stopped 02/2021 in favor of Ability & Lamotrigine ([facility]) Bipolar 1 disorder (Acute) PTSD (post-traumatic stress disorder) (Acute) Rubella non-immune status, antepartum (Acute) ASCUS with positive high risk HPV cervical (Acute) Colpo on 05/13/22 with KJ. Recommendation is repeat 6 wks PP Anemia affecting first (Acute) (Acute) Encounter for supervision of normal first , third trimester (Acute) Medical History Acute thrombosis of right basilic vein Started anticoag Apix [facility] Heme consult 10/2021 Alcohol abuse Consumes four beers at a time. Had DWI 2020. 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 History of COVID-16 Apr 2022 Hyperhidrosis of axilla Improved with Rx antiperspirant IBS (irritable bowel syndrome) Poor dentition has lost several teeth secondary to tooth decay Psoriasis (11/28/12) 09/2019. Scalp psoriasis Rx with clobetasol lotion and change from DeopProvera to OCPs. Sinus tachycardia Holter 08/2021, labs & ECHO pending Surgical History Tooth extraction teeth extraction. hx of colonoscopy and endoscopy Family History Mother Drug addiction Mental disorder Gastric ulcer Father Essential hypertension Drug addiction Mental disorder Seizures Sister Autism Maternal Grandmother CHF (congestive heart failure) Gastric ulcer COPD (chronic obstructive pulmonary disease) Paternal Great Aunt Coronary heart disease Grandmother CHF (congestive heart failure) Neoplasm Lung CA (smoker) Grandfather Diabetes Maternal Uncle Diabetes Paternal Grandmother COPD (chronic obstructive pulmonary disease) Other Alcohol abuse Congenital heart defect Substance use disorder Social History Smoking/Tobacco Use Status: Current every day Tobacco Type: cigarettes Smoking packs per day: 1 Smoking cigarettes per day: 20.0 Years smoked: 10 Smoking pack- years: 10.00 Quit status: considering quitting Smoking risk assessment performed?: Yes Alcohol Intake: former Details: see A/P Drug use: Never Details: Stopping in 2nd trimester. Caregiver/Support person: No Household members: significant other and other Details: New partner since 01/2020. Number of Children: 0 Communication Needs: None current occupation: working as [employer] 08/2022. 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 Date GA/Weeks # Preg Succ Route Wgt Sex Labor Lgth Anesth esia Location Prov Compl 05/03/12 8 No No 04/29/17 6 No No 04/29/18 8 No No Delivery Date: 05/03/12 Last Updated by: KASEY Perry Delivery Date: 04/29/17 Last Updated by: Patt Smith CNM SAB Delivery Date: 04/29/18 Last Updated by: KASEY Perry Exam <Arnulfo Jones MD - Last Filed: 10/18/22 08:20> Narrative Exam Narrative: General: Well-appearing in no acute distress speaking in complete sentences. Head: Normocephalic, atraumatic Ear, nose, mouth, throat: Grossly normal inspection. Normal voice, handling secretions normally. Neck: Trachea midline. Cardiovascular: Well-perfused distal extremities. Rapid irregular rhythm. Respiratory: Nonlabored respiration. Gastrointestinal: Nondistended abdomen. Gravid uterus. Musculoskeletal: No edema. Moving all 4 extremities spontaneously. Skin: Normal for age and race, grossly normal temperature and turgor. No acute rash. Neurologic: Alert and appropriate, no apparent acute deficits. Psychiatric: Mood and manner are appropriate. Grooming and personal hygiene are appropriate. Course <Arnulfo Jones MD - Last Filed: 10/18/22 08:20> Vital Signs Vital signs: Vital Signs Temperature 37.1 C 10/17/22 17:27 Pulse 103 H 10/17/22 17:27 Respiratory Rate 18 10/17/22 17:27 Blood Pressure 119/74 10/17/22 17:27 Pulse Oximetry 100 10/17/22 17:27 Temperature 37.1 C 10/17/22 17:27 Temperature Source Tympanic 10/17/22 17:27 Pulse 103 H 10/17/22 17:27 Respiratory Rate 18 10/17/22 17:31 Respiratory Effort Short of Breath 10/17/22 17:31 Respiratory Depth Normal 10/17/22 17:31 Respiratory Pattern Normal 10/17/22 17:31 Blood Pressure 119/74 10/17/22 17:27 Blood Pressure Position Sitting 10/17/22 17:27 Pulse Oximetry 100 10/17/22 17:27 Oxygen Delivery Method Room Air 10/17/22 17:27 Oxygen Flow Rate 0 10/17/22 17:27 POCUS Exam (ED) <Arnulfo Jones MD - Last Filed: 10/18/22 08:20> Limited Cardiac Exam DATE OF EXAM: 10/17/22 TIME OF EXAM: 18:30 REASON FOR EXAM: Chest pain VISUALIZED STRUCTURES: Four Chambers and LVOT VIEW OBTAINED: Apical 4-Chamber, Parasternal long-axis and Subxiphoid PERTINENT FINDINGS/IMPRESSION: Other (Good squeeze, RV less than LV, aortic outflow tract less than 4 cm, no significant pericardial effusion.) Exam complete Limited OB Exam DATE OF EXAM:: 10/17/22 TIME OF EXAM:: 18:31 Type of Exam: Pelvic OB Trans Abdominal REASON FOR EXAM: other (3rd trimester ) indication: assess FHR Exam Complete. DIFFERENTAL DIAGNOSES: Reassuring heart rate at 148 bpm. Sign Out <Arnulfo Jones MD - Last Filed: 10/18/22 08:20> Sign Out Data: Sign Out Comment: G4, P0 34-year-old female with chest pain pending results from a CTA to assess for PE. Also found to be hypokalemic and hypocalcemic for which she is receiving IV repletion and pending repeat labs including troponin at 9:10 PM. Last updated by Arnulfo Jones MD at 10/17/22 19:58
[2022-10-17 18:16] LABS: HCT 25.7 % (36.0-46.0); HGB 8.8 g/dL (11.2-15.7); MCHC 34.2 % (32.0-36.0); MCV 96 fL (80-95); MPV 10.6 fL (8.0-11.0); Platelet Count 206 10^3/uL (130-400); RBC 2.67 10^6/uL (3.93-5.22); RDW 13.6 % (11.7-14.6); RDW-SD 47.8 fL; WBC 9.85 10^3/uL (4.4-10.8)
[2022-10-17 18:21] LABS: Anion Gap 11.1 mmol/L (3-11); BUN 3 mg/dL (7-18); CO2 20.9 mmol/L (21.0-32.0); CREATININE 0.4 mg/dL (0.55-1.02); Calcium 7.3 mg/dL (8.5-10.1); Chloride 109 mmol/L (98-107); Estimated GFR 138.17 (mL/min/1.73m2); Glucose 73 mg/dL (74-106); Sodium 141 mmol/L (136-145)
[2022-10-17 18:24] LABS: Potassium 2.4 mmol/L (3.5-5.1)
[2022-10-17 18:30] LABS: Troponin I < 50 ng/L (<or=60)
--- NOTE | 2022-10-17 18:45 | DI.CT_ITS ---
Exam(s) CT CHEST PE CTA EXAM: CT CHEST PE CTA CLINICAL HISTORY: YEARS adjusted positive dimer,SOB,. TECHNIQUE: Imaging Protocol: Axial CT angiography was performed with multi-slice acquisition and mu lti-planar reconstructions as well as axial, coronal and sagittal MIP reconstructions. CONTRAST MATERIAL: Intravenous: Omnipaque 350 Contrast volume:100 ml COMPARISON: CT CT THORACIC LUMBAR SPINE REC from 03/07/[address] CHEST/ABD/PEL W from 03/07/2021 FINDINGS: Inferior lung bases and inferior aspect of the heart not fully included on the exam. Pulmonary Arteries: No evidence of filling defect to suggest pulmonary emboli. Tracheobronchial tree: Patent where visualized. Mediastinum and Altagracia: No dominant adenopathy or fluid collection. Pulmonary parenchyma: Mild dependent changes. No consolidation or dominant measurable mass. Pleura: No effusion or pneumothorax. Heart: The heart is not dilated. No coronary artery calcifications are seen. Aorta: Thoracic aorta non-dilated. No aneurysm. No dissection. Upper abdomen: Unremarkable. Bones: Unremarkable for age. Tubes, Catheters, and Lines: None IMPRESSION: No evidence of pulmonary embolism or other acute abnormality.. RADIATION DOSE DELIVERED: 176.59mGy.cm Total DLP DATA REPOSITORY: All CT scans at this facility are submitted to the National Radiology Data Registry (NRDR) Dose Index Registry (DIR) with the [employer] (ACR). RADIATION OPTIMIZATION: All CT scans at this facility use at least one of these dose optimization te chniques: automated exposure control; mA and/or kV adjustment per patient size (includes targeted exa ms where dose is matched to clinical indication); or iterative reconstruction.
[2022-10-17 18:50] LABS: D-Dimer 1216 ng/mlFEU (<500)
[2022-10-17] MEDS: Potassium Bicarbonate/Cit AC 25 MEQ TABLET.EFF 50 MEQ PO (18:53)
[2022-10-17] MEDS: Calcium Gluconate 4.65 MEQ/10 ML VIAL 9.3 MG IVP (19:01)
[2022-10-17] MEDS: Normal Saline 100 ML 200 ML (19:17)
[2022-10-17] MEDS: Omnipaque 350 MG/ML 100 ML BTL IJ (19:49)
[2022-10-17] MEDS: Normal Saline - Diluent 50 ML VIAL IV (19:51)
[2022-10-17] MEDS: Normal Saline Flush 10 ML SYR IVP (19:51)
--- NOTE | 2022-10-17 20:07 | DI.VRAD_ITS ---
PROCEDURE INFORMATION: Exam: CTA Chest With Contrast Exam date and time: 10/17/2022 7:41 PM Age: 27 years old Clinical indication: Shortness of breath and other: Elevated d-dimer; Patient HX: Years adjusted positive dimer, SOB, TECHNIQUE: Imaging protocol: Computed tomographic angiography of the chest with contrast. 3D rendering (Not supervised by radiologist): MIP and/or 3D reconstructed images were created by the technologist. Radiation optimization: All CT scans at this facility use at least one of these dose optimization techniques: automated exposure control; mA and/or kV adjustment per patient size (includes targeted exams where dose is matched to clinical indication); or iterative reconstruction. Contrast material: OMNIPAQUE 350; Contrast volume: 60 ml; Contrast route: INTRAVENOUS (IV); COMPARISON: CT CHEST/ABD/PEL W 03/07/2021 1:17 AM FINDINGS: Limitations: Lung bases partially excluded from view. Pulmonary arteries: No pulmonary embolism identified. Aorta: No thoracic aortic aneurysm or dissection. Thyroid: Thyroid gland partially excluded from view but grossly unremarkable through its visualized portion. Lungs: No pulmonary consolidation. Pleural spaces: Tiny bilateral pleural effusions. No pneumothorax. Heart: Heart partially excluded from view but normal in size. Lymph nodes: No pathologically enlarged mediastinal or hilar lymph nodes. Diaphragm: Elevation of the right hemidiaphragm. Bones/joints: Lower ribs partially excluded from view and incompletely evaluated. Otherwise, no acute fracture seen among the bones of the chest. Soft tissues: No gross soft tissue mass or fluid collection seen in the chest wall. IMPRESSION: 1. Extreme lung bases excluded from view. 2. Tiny bilateral pleural effusions. 3. No pulmonary embolism identified. Dictated and Authenticated by: Issa Alfaro MD. Ordering:SHERRY Arredondo MD
[2022-10-17] MEDS: POTASSIUM CHLORIDE/D5-0.9%NACL 1,000 ML 500 MEQ IV (21:30)
[2022-10-17 21:33] LABS: Calcium 8.9 mg/dL (8.5-10.1)
[2022-10-17 21:34] LABS: Potassium 3.3 mmol/L (3.5-5.1)
[2022-10-17 21:43] LABS: Troponin I < 50 ng/L (<or=60)
== END 2022-10-17 23:25 | disposition home or self-care (01) ==
PROVIDERS: Emergency Medicine; Emergency Provider Physician Assistant; PCP Nurse Practitioner Adult Health
DX: O26.893 Other specified pregnancy related conditions, third trimester (principal); R07.9 Chest pain, unspecified; R00.2 Palpitations; O99.283 Endocrine, nutritional and metabolic diseases complicating pregnancy, third trimester; E87.6 Hypokalemia; E83.51 Hypocalcemia; O99.333 Smoking (tobacco) complicating pregnancy, third trimester; F17.210 Nicotine dependence, cigarettes, uncomplicated; Z3A.35 35 weeks gestation of pregnancy; Z86.16 Personal history of COVID-19
CPT/HCPCS: 36416; 71275; 76815; 80048; 82962; 85027; 93005; 93308; 96365; 96366; 96375; 99285; 82310; 84132; 84484; 85379; 93010; 99284; J0610; J3490

== ENCOUNTER 2022-10-18 01:34 | Outpatient (CLI) | payer MEDICAID, SELFPAY ==
--- NOTE | 2022-10-18 06:45 | DI.US_ITS ---
Exam(s) US OB MAITE WEIGHT EXAM: US OB MAITE WEIGHT CLINICAL HISTORY: hx of covid infection,SMOKER,Z34.03. TECHNIQUE: Transabdominal obstetrical ultrasound performed. COMPARISON: US US OB MAITE WEIGHT from 09/16/2022 FINDINGS:: Number of fetuses: One. position: Vertex. Placental location: Anterior, grade 3. No evidence of previa. BIOMETRIC DATA: BPD: 84mm = 33+ 6 weeks HC: 314mm = 35+1 weeks AC: 295mm = 33+4 weeks FL: 66 mm = 33+5 weeks EFW: 2274 Gms = 19% Composite Age: 34+1 weeks EDC: 28 November 2022 Heart Rate: 148BPM Amniotic fluid index: 8.3 cm. Amount of fluid is visually within normal limits. IMPRESSION: size and weight are within the expected range. DATA REPOSITORY:
== END 2022-10-18 01:54 ==
LOC: DI 01:34
PROVIDERS: PCP Nurse Practitioner Adult Health; Visit Provider Obstetrics & Gynecology Gynecology
DX: F17.200 Nicotine dependence, unspecified, uncomplicated (principal); Z34.03 Encounter for supervision of normal first pregnancy, third trimester
CPT/HCPCS: 76816

== ENCOUNTER 2022-10-18 15:04 | Outpatient (CLI) | payer MEDICAID, SELFPAY ==
[2022-10-18 15:40] LABS: ROM Plus Negative
[2022-10-18 16:27] VITALS: BP 110/61; PULSE 103; TEMP 37
--- NOTE | 2022-10-18 16:39 | W.OBNST ---
Date of service: 10/18/22 Time of Service: 16:00 NST Evaluation Reason for NST Reasons for Nonstress Test: OTHER, SEE COMMENT Reason for NST Other: question rupture Gestational Age Gestational Age in Weeks and Days: 34 Weeks and 6Days Test and Monitor Explained Test/Monitor Explained: Test Explained, Monitor Explained and Patient Verbalized Understanding Vital Signs Blood Pressure: 110/61 Pulse: 103 Temperature: 98.6 F NST Information Date on Monitor: 10/18/22 Time on Monitor: 15:15 Date off Monitor: 10/18/22 Time off Monitor: 15:40 Total Time on Monitor: 25 NST Interventions: PO Hydration Contraction Frequency: 0 NST Evaluation Patient States Movement: Present Variability: Moderate 6-25 bpm Accelerations: 15x15 Decelerations: None NST Results: Reactive Note N/A NST Note Note: ROM+ negative NST Reviewed and Verified by: Priscilla Azar
[2022-10-18 16:40] VITALS: BP 110/61; PULSE 103; TEMP 37
== END 2022-10-18 16:43 | disposition home or self-care (01) ==
LOC: BCD 15:06 → OBS 15:07
PROVIDERS: PCP Nurse Practitioner Adult Health; Visit Provider Obstetrics & Gynecology
DX: O26.893 Other specified pregnancy related conditions, third trimester (principal); Z3A.34 34 weeks gestation of pregnancy
CPT/HCPCS: 59025; 84112

== ENCOUNTER 2022-10-20 10:43 | Outpatient (REF) | payer MEDICAID, SELFPAY ==
[2022-10-20 16:29] LABS: Influenza A PCR Negative (Negative); Influenza B PCR Negative (Negative); RSV PCR Negative (Negative)
[2022-10-20 16:36] LABS: COVID-19 PCR Positive (Negative); Source Nasopharynx
== END 2022-10-20 10:44 | disposition home or self-care (01) ==
LOC: LBN 10:43
PROVIDERS: PCP Nurse Practitioner Adult Health; Visit Provider Nurse Practitioner
DX: R50.9 Fever, unspecified (principal); R09.81 Nasal congestion; R05.8 Other specified cough; Z20.822 Contact with and (suspected) exposure to COVID-19
CPT/HCPCS: 87637

== ENCOUNTER 2022-10-27 15:52 | Outpatient (REF) | payer MEDICAID, SELFPAY ==
[2022-10-27 17:45] LABS: *AMPHETAMINES SCREEN URINE Negative (Negative); *BARBITURATES SCREEN URINE Negative (Negative); *BENZODIAZEPINES SCREEN URINE Negative (Negative); Cannabinoids THC Negative (Negative); Cocaine Screen,Urine Negative (Negative); METHADONE URINE SCREEN Negative (Negative); OPIATES URINE SCREEN Negative (Negative)
[2022-10-27 17:48] LABS: Tricyclic Antidepressants Negative (Negative)
[2022-11-03 18:51] LABS: Buprenorphine Negative ng/mL (Cutoff: 5.0); Norbuprenorphine Negative ng/mL (Cutoff: 2.5)
== END 2022-10-27 15:53 | disposition home or self-care (01) ==
LOC: LBN 15:52
PROVIDERS: PCP Nurse Practitioner Adult Health; Visit Provider Obstetrics & Gynecology
DX: Z34.93 Encounter for supervision of normal pregnancy, unspecified, third trimester (principal); Z36.85 Encounter for antenatal screening for Streptococcus B; Z3A.36 36 weeks gestation of pregnancy
CPT/HCPCS: 80307; 80348; 87081

== ENCOUNTER 2022-10-28 00:31 | Outpatient (CLI) | payer MEDICAID, SELFPAY ==
[2022-10-28 01:10] VITALS: BP 113/76; PULSE 93
[2022-10-28 02:15] VITALS: BP 113/76; PULSE 93; RESP 18
--- NOTE | 2022-10-28 04:01 | W.OBNST ---
Date of service: 10/28/22 Time of Service: 13:00 NST Evaluation Reason for NST Reasons for Nonstress Test: LABOR Gestational Age Gestational Age in Weeks and Days: 36 Weeks and 2Days Test and Monitor Explained Test/Monitor Explained: Test Explained, Monitor Explained and Patient Verbalized Understanding Vital Signs Blood Pressure: 113/76 Pulse: 93 Urine Results Urine Protein: Negative Urine Ketones: Negative Urine Glucose: Negative NST Information Date on Monitor: 10/28/22 Time on Monitor: 01:09 Date off Monitor: 10/28/22 Time off Monitor: 01:50 Total Time on Monitor: 41 NST Interventions: PO Hydration NST Evaluation Patient States Movement: Present FHR Baseline: 130 Variability: Moderate 6-25 bpm Accelerations: 15x15 Decelerations: None NST Results: Reactive Note N/A NST Note NST Reviewed and Verified by: Priscilla Azar
[2022-10-28 04:02] VITALS: BP 113/76; PULSE 93
== END 2022-10-28 01:30 | disposition home or self-care (01) ==
PROVIDERS: PCP Nurse Practitioner Adult Health; Visit Provider Obstetrics & Gynecology
DX: O47.03 False labor before 37 completed weeks of gestation, third trimester (principal); Z3A.36 36 weeks gestation of pregnancy
CPT/HCPCS: 59025

== ENCOUNTER 2022-10-28 08:52 | Outpatient (CLI) | payer MEDICAID, SELFPAY ==
[2022-10-28 08:52] VITALS: BP 117/77; PULSE 85; TEMP 36.6
--- NOTE | 2022-10-28 10:08 | W.OBNST ---
Date of service: 10/28/22 Time of Service: 10:08 NST Evaluation Reason for NST Reasons for Nonstress Test: FALSE LABOR Gestational Age Gestational Age in Weeks and Days: 36 Weeks and 2Days Test and Monitor Explained Test/Monitor Explained: Test Explained, Monitor Explained and Patient Verbalized Understanding Vital Signs Blood Pressure: 117/77 Pulse: 85 Temperature: 97.9 F NST Information Date on Monitor: 10/28/22 Time on Monitor: 08:48 Date off Monitor: 10/28/22 Time off Monitor: 09:11 Total Time on Monitor: 23 Contraction Frequency: 10 NST Evaluation Patient States Movement: Present FHR Baseline: 125 Variability: Moderate 6-25 bpm Accelerations: 15x15 Decelerations: None NST Results: Reactive Note N/A NST Note Note: Patient seen and examined while on the center today. She had a nonstress test for report of uterine contractions. While on the monitor, she had 2 discrete mild contractions. Cervical exam performed which showed her cervix to be closed, 50% effaced, posterior. Her nonstress test was reactive, category 1 strip. She will continue to monitor. Reassurance was given. Follow-up as scheduled. NST Reviewed and Verified by: Jackeline Powell
[2022-10-28 10:09] VITALS: BP 117/77; PULSE 85; TEMP 36.6
== END 2022-10-28 09:20 | disposition home or self-care (01) ==
LOC: BCD 08:57 → OBS 08:59
PROVIDERS: PCP Nurse Practitioner Adult Health; Visit Provider Obstetrics & Gynecology
DX: O47.03 False labor before 37 completed weeks of gestation, third trimester (principal); Z3A.36 36 weeks gestation of pregnancy
CPT/HCPCS: 59025

== ENCOUNTER 2022-10-31 16:30 | Outpatient (CLI) | payer MEDICAID, SELFPAY ==
[2022-10-31 17:25] VITALS: BP 109/66; PULSE 98; TEMP 36.8
[2022-10-31 17:55] VITALS: BP 109/66; PULSE 98
== END 2022-10-31 18:26 ==
LOC: BCD 16:33 → OBS 17:19
PROVIDERS: PCP Nurse Practitioner Adult Health; Visit Provider Obstetrics & Gynecology Gynecology
DX: O47.03 False labor before 37 completed weeks of gestation, third trimester (principal); Z3A.36 36 weeks gestation of pregnancy
CPT/HCPCS: 59025

== ENCOUNTER 2022-11-02 19:48 | Outpatient (CLI) | payer MEDICAID, SELFPAY ==
[2022-11-02 20:36] VITALS: BP 109/70; PULSE 83; TEMP 37.1
[2022-11-02 20:38] VITALS: BP 109/70; PULSE 83
[2022-11-02 22:14] LABS: ROM Plus Negative
--- NOTE | 2022-11-02 22:14 | W.OBNST ---
Date of service: 11/02/22 Time of Service: 22:14 NST Evaluation Reason for NST Reasons for Nonstress Test: OTHER, SEE COMMENT Reason for NST Other: r/o labor Gestational Age Gestational Age in Weeks and Days: 37 Weeks and 0Days Test and Monitor Explained Test/Monitor Explained: Test Explained, Monitor Explained and Patient Verbalized Understanding Vital Signs Blood Pressure: 109/70 Pulse: 83 Temperature: 98.8 F NST Information Date on Monitor: 11/02/22 Time on Monitor: 20:36 Date off Monitor: 11/02/22 Time off Monitor: 22:05 Total Time on Monitor: 89 NST Interventions: PO Hydration NST Evaluation Patient States Movement: Present FHR Baseline: 135 Variability: Moderate 6-25 bpm Accelerations: 15x15 NST Results: Reactive Note N/A NST Note Note: Pt is having lots of pain and some contractions worse the past 2hrs. Sh denies bleeding or leaking of fluid prior to arrival. However, after she arrived she had a small amount of fluid leak that wet her pants. No continued leaking. ROM plus pending. No regular ctxs. Cx:closed. Will await ROM+ and treat accordingly. NST Reviewed and Verified by: Priscilla Azar
[2022-11-02 22:16] VITALS: BP 109/70; PULSE 83; TEMP 37.1
== END 2022-11-02 22:20 | disposition home or self-care (01) ==
LOC: BCD 19:50 → OBS 20:35
PROVIDERS: PCP Nurse Practitioner Adult Health; Visit Provider Obstetrics & Gynecology
DX: O47.1 False labor at or after 37 completed weeks of gestation (principal); Z3A.37 37 weeks gestation of pregnancy
CPT/HCPCS: 59025; 84112

== ENCOUNTER 2022-11-03 07:16 | Outpatient (CLI) | payer MEDICAID, SELFPAY ==
[2022-11-03 16:18] VITALS: BP 110/65; PULSE 90; TEMP 36.9
--- NOTE | 2022-11-12 20:02 | PDOC.NST_ITS ---
Date of service: 11/12/22 Time of Service: 20:02 NST Evaluation Reason for NST Reasons for Nonstress Test: OTHER, SEE COMMENT Reason for NST Other: Post Covid / Small Baby Gestational Age Gestational Age in Weeks and Days: 37 Weeks and 4Days Test and Monitor Explained Test/Monitor Explained: Test Explained and Monitor Explained Vital Signs Blood Pressure: 110/65 Pulse: 90 Temperature: 98.4 F NST Information Date on Monitor: 11/03/22 Time on Monitor: 15:57 Date off Monitor: 11/03/22 Time off Monitor: 16:25 Total Time on Monitor: 28 NST Interventions: None NST Evaluation Patient States Movement: Present FHR Baseline: 135 Variability: Moderate 6-25 bpm Accelerations: 15x15 Decelerations: None NST Results: Reactive Note N/A NST Note Note: I reviewed NST findings with pt. No evidence of active labor. Pt given reassu jessica. NST Reviewed and Verified by: Darline Sarmiento
[2022-11-12 20:03] VITALS: BP 110/65; PULSE 90; TEMP 36.9
== END 2022-11-03 16:33 | disposition home or self-care (01) ==
LOC: BCD 07:17 → OBS 15:56
PROVIDERS: PCP Nurse Practitioner Adult Health; Visit Provider Obstetrics & Gynecology Gynecology
DX: O36.5930 Maternal care for other known or suspected poor fetal growth, third trimester, not applicable or unspecified (principal); Z3A.37 37 weeks gestation of pregnancy
CPT/HCPCS: 59025

== ENCOUNTER 2022-11-06 04:46 | Outpatient (CLI) | payer MEDICAID, SELFPAY ==
[2022-11-06 05:57] VITALS: BP 118/73; PULSE 90
[2022-11-06 06:05] VITALS: BP 118/73; PULSE 103
== END 2022-11-06 06:39 | disposition home or self-care (01) ==
LOC: BCD 04:48 → OBS 05:20
PROVIDERS: PCP Nurse Practitioner Adult Health; Visit Provider Obstetrics & Gynecology
DX: O47.1 False labor at or after 37 completed weeks of gestation (principal)
CPT/HCPCS: 59025

== ENCOUNTER 2022-12-22 14:57 | Inpatient (IN) | payer MEDICAID, SELFPAY ==
[2022-12-22] VITALS (16 sets, daily range): BP systolic 107–127; BP diastolic 72–85; PULSE 81–112; RESP 16–24; TEMP 36.5–36.6; O2SAT 97–100
--- NOTE | 2022-12-22 15:15 | DI.US_ITS ---
Exam(s) US LOWER EXTREMITY VENOUS LT EXAM: US LOWER EXTREMITY VENOUS LT CLINICAL HISTORY: hx of dvt, recent preg, L leg pain. TECHNIQUE: Lower extremity venous ultrasound performed using grayscale, color-flow, and spectral Do ppler analysis. COMPARISON: No exams were available for comparison FINDINGS: The common femoral through mid femoral demonstrate normal compressibility, augmentation, and color Do ppler. Thrombus is visible in the distal femoral vein through the popliteal veins into the post post erior tibial veins and peroneal veins the distal calf. No saphenous vein thrombosis or other superfi cial venous thrombosis is seen. No hematoma or Salinas's cyst is seen. IMPRESSION: Deep venous thrombosis from the distal femoral vein through the distal calf veins. DATA REPOSITORY:
--- NOTE | 2022-12-22 15:15 | DI.RAD_ITS ---
Exam(s) XR TIB/FIB LT XR ANKLE LT COMPLETE EXAM: XR ANKLE LT COMPLETE CLINICAL HISTORY: leg pain, ankle pain TECHNIQUE: 2D digital imaging was performed. Three views of the ankle. AP and lateral views of the lower leg.. COMPARISON: CR XR TIB/FIB LT from 12/22/2022 FINDINGS: BONES: No acute fracture is present. No bony destructive lesion is seen. JOINTS:The ankle mortise is normally aligned. The knee is unremarkable as visualized. SOFT TISSUE: Normal. IMPRESSION: Unremarkable radiographs of the left ankle and lower leg.. DATA REPOSITORY: RADIATION DOSE DELIVERED:
--- NOTE | 2022-12-22 15:25 | W.ED.GENAD ---
Discharge Plan Disposition Patient Disposition: Admit to [facility] Condition: Stable Discharge Details Chief Complaint: Orthopedic Clinical Impression: Pulmonary emboli, DVT, lower extremity Primary Care Provider: Celestina Miranda ED Provider: Hoang Wellington Home Meds and New Rx's Prescriptions: No Action citalopram [Celexa] 10 mg tablet 10 mg PO DAILY dexmethylphenidate [Focalin] 2.5 mg tablet 5 mg PO DAILY MDD 1 Qty: 30 0RF clonazepam 1 mg tablet 0.5 mg PO DAILY PRN prenat.vits,elaina,rmi-uzsf-leiyu Tablet 1 tab PO DAILY fluticasone propionate [Flonase Allergy Relief] 50 mcg/actuation spray,suspension 1 - 2 spray SHANIKA DAILY PRN (Reason: sinus congestion/pressure) Qty: 9.9 0RF Rx Instructions: administer into each nostril for sinus congestion/pressure loratadine [Allergy Relief (loratadine)] 10 mg tablet 10 mg PO DAILY PRN (Reason: allergy symptoms) Qty: 30 0RF Rx Instructions: Allergies Drysol 20 % solution 1 applic topical QHS Qty: 60 2RF clobetasol 0.05 % shampoo 1 applic TP QHS 28 Days Qty: 118 4RF Rx Instructions: Use daily for 4 weeks. triamcinolone acetonide 0.5 % cream 1 applic topical BID Qty: 15 5RF Rx Instructions: apply small amount to arms and affected areas aripiprazole [Abilify] 10 mg tablet 10 mg PO DAILY Qty: 30 0RF alcohol swabs [Alcohol Prep Pads] Pads, Medicated 1 pad topical QID Qty: 200 2RF (DME) blood-glucose meter [OneTouch Ultra2 Meter] Misc See Rx Instructions .ROUTE .MEDSUPPLY Qty: 1 0RF Rx Instructions: As directed (DME) lancets [OneTouch UltraSoft Lancets] Misc See Rx Instructions .ROUTE .MEDSUPPLY Qty: 200 2RF Rx Instructions: QID testing (DME) blood sugar diagnostic Strip See Rx Instructions .ROUTE .MEDSUPPLY Qty: 100 3RF Rx Instructions: QID testing acetaminophen 500 mg Tablet 1,000 mg PO PRN PRN Medical Decision Making 27 yr old female hx of dvt upper extremity provoked by infiltrated IV, presents with atraumatic left lower extremity pain located in ankle and calf region, worse with movement and palpation; recently , no exogenous estrogen; bilateral mild edema to ankles; no external signs of trauma; no maleolar or calcaneal tenderness; patient is tender over posterior aspect of leg from calf to ankle; bailey's test demonstrating intact migue's; consider DVT v muscle strain v ligamentous sprain, low suspicion for fracture or dislocation; US LE, xr ankle and tib fib 16: 13 evidence of DVT and left femoral to calf veins. Will discuss anticoagulation options with patient. Patient is moderately tachycardic on arrival however no dyspnea or hypoxia. Will recheck pulse and consider evaluation for PE 20: 20 evidence of submassive PE, bilateral pulmonary arteries into distal branches, evidence of heart strain. No bump in troponin however slightly elevated BNP. Please call to [facility] PE team consulted with Dr. Roche of cardiology to discuss possibility of localized thrombolysis versus thrombectomy however given patient's stability labs and imaging at this point Dr. Roche is recommending inpatient observation and continuation of anticoagulation. Will need hematology evaluation for possible prothrombotic state upon discharge. Patient current resting comfortably hemodynamically stable not requiring any supplemental oxygenation HPI General Date/Time Provider Initiated Documentation: 12/22/22 15:15. HPI Narrative: 27-year-old female history of upper extremity DVT provoked by infiltrated IV, presents with atraumatic left calf pain over the past several days, of note patient was recently . Pain worse with movement and palpation. Related Data Home Medications Medication Instructions Recorded Confirmed acetaminophen 500 mg tablet 1,000 mg PO PRN PRN 04/15/19 10/27/22 fluticasone propionate 50 1 - 2 spray intranasal DAILY PRN 05/04/20 10/27/22 mcg/actuation nasal sinus congestion/pressure #9.9 spray,suspension (Flonase Allergy grams Relief) loratadine 10 mg tablet (Allergy 10 mg PO DAILY PRN allergy 05/04/20 10/27/22 Relief (loratadine)) symptoms #30 tabs aluminum chloride 20 % topical 1 applic topical QHS #60 mL 10/02/20 10/27/22 solution (Drysol) clobetasol 0.05 % shampoo 1 applic topical QHS 4 weeks #118 12/04/21 10/27/22 mL prenat.vits,elaina,ewq-dciv-zctrh 1 tab PO DAILY 03/29/22 10/27/22 clonazepam 1 mg tablet 0.5 mg PO DAILY PRN 05/04/22 10/27/22 citalopram 10 mg tablet (Celexa) 10 mg PO DAILY 05/12/22 10/27/22 triamcinolone acetonide 0.5 % 1 applic topical BID #15 grams 08/24/22 10/27/22 topical cream aripiprazole 10 mg tablet (Abilify) 10 mg PO DAILY #30 tabs 08/30/22 10/27/22 alcohol swabs (Alcohol Prep Pads) 1 pad topical QID QID testing #200 09/14/22 10/27/22 ea blood sugar diagnostic #100 ea 09/14/22 10/27/22 blood-glucose meter (OneTouch #1 ea 09/14/22 10/27/22 Ultra2 Meter) lancets (OneTouch UltraSoft #200 ea 09/14/22 10/27/22 Lancets) dexmethylphenidate 2.5 mg tablet 5 mg PO DAILY #30 tabs 11/03/22 11/03/22 (Focalin) Previous Rx's Medication Instructions Recorded fluticasone propionate 50 1 - 2 spray intranasal DAILY PRN 05/04/20 mcg/actuation nasal sinus congestion/pressure #9.9 spray,suspension (Flonase Allergy grams Relief) loratadine 10 mg tablet (Allergy 10 mg PO DAILY PRN allergy 05/04/20 Relief (loratadine)) symptoms #30 tabs aluminum chloride 20 % topical 1 applic topical QHS #60 mL 10/02/20 solution (Drysol) clobetasol 0.05 % shampoo 1 applic topical QHS 4 weeks #118 12/04/21 mL triamcinolone acetonide 0.5 % 1 applic topical BID #15 grams 08/24/22 topical cream aripiprazole 10 mg tablet (Abilify) 10 mg PO DAILY #30 tabs 08/30/22 alcohol swabs (Alcohol Prep Pads) 1 pad topical QID QID testing #200 09/14/22 ea blood sugar diagnostic #100 ea 09/14/22 blood-glucose meter (OneTouch #1 ea 09/14/22 Ultra2 Meter) lancets (OneTouch UltraSoft #200 ea 09/14/22 Lancets) dexmethylphenidate 2.5 mg tablet 5 mg PO DAILY #30 tabs 11/03/22 (Focalin) Allergies Allergy/AdvReac Type Severity Reaction Status Date / Time amoxicillin [Amoxicillin] Allergy Severe Redness Verified 12/22/22 15:05 and swelling in throat naproxen [From Aleve] Allergy Severe Swelling/Ed Verified 12/22/22 15:05 summer Penicillins Allergy Severe Inflamed Verified 12/22/22 15:05 throat clindamycin Allergy Intermediate rash Verified 12/22/22 15:05 aspirin Allergy Mild Swelling Verified 12/22/22 15:05 in lips adhesive AdvReac Intermediate scarring Verified 12/22/22 15:05 lactose AdvReac Mild Nausea, Verified 12/22/22 15:05 intolerance-causes gas/diarrhea oxycodone HCl [From Percocet] AdvReac Unknown Nausea Verified 12/22/22 15:05 General Stated Complaint: Orthopedic JACKSON: 4 Review of Systems Narrative: Review of Systems Constitutional: negative Eyes: negative ENT: negative Cardiovascular: negative Respiratory: negative Gastrointestinal: negative : negative Musculoskeletal: Leg pain Skin: negative Neurologic: negative Psych: negative PFSH All Active Problems (Updated 12/22/22 @ 20:22 by Hoang Wellington MD) Pulmonary emboli (Chronic) DVT, lower extremity (Acute) COVID-19 affecting in third trimester (Acute) Attention and concentration deficit (Acute) Sciatica of left side (Acute) Pain and swelling of left lower leg (Acute) Encounter for supervision of normal first , third trimester (Acute) Gestational diabetes (Acute) Elevated glucose tolerance test (Acute) Tobacco use disorder (Acute) related pelvic pain in third trimester, antepartum (Acute) Anxiety (Chronic 11/15/11) RX Citalopram L-T x9 years (helped until stopped eating ~03/2020); RX Escitalopram, stopped 02/2021 in favor of Ability & Lamotrigine ([facility]) Depression (Chronic) RX Citalopram L-T x9 years (helped until stopped eating ~03/2020); RX Escitalopram 03/2020, stopped 02/2021 in favor of Ability & Lamotrigine ([facility]) Bipolar 1 disorder (Acute) PTSD (post-traumatic stress disorder) (Acute) Rubella non-immune status, antepartum (Acute) ASCUS with positive high risk HPV cervical (Acute) Colpo on 05/13/22 with KJ. Recommendation is repeat 6 wks PP Anemia affecting first (Acute) (Acute) Encounter for supervision of normal first , third trimester (Acute) Medical History Acute thrombosis of right basilic vein Started anticoag Apix [facility] [place] [facility] [place] consult 10/2021 Alcohol abuse Consumes four beers at a time. Had DWI 2020. Quit with Cephalic vein thrombosis 07/18 and 03/18: superficial thrombophlebitis s/p IV placement [facility] [place] [facility] [place] consult 10/2021: do not recommend ppx during . History of COVID-16 Apr 2022 Hyperhidrosis of axilla Improved with Rx antiperspirant IBS (irritable bowel syndrome) Poor dentition has lost several teeth secondary to tooth decay Psoriasis (11/28/12) 09/2019. Scalp psoriasis Rx with clobetasol lotion and change from DeopProvera to OCPs. Sinus tachycardia Holter 08/2021, labs & ECHO pending Surgical History Tooth extraction teeth extraction. hx of colonoscopy and endoscopy Family History Mother Drug addiction Mental disorder Gastric ulcer Father Essential hypertension Drug addiction Mental disorder Seizures Sister Autism Maternal Grandmother CHF (congestive heart failure) Gastric ulcer COPD (chronic obstructive pulmonary disease) Paternal Great Aunt Coronary heart disease Grandmother CHF (congestive heart failure) Neoplasm Lung CA (smoker) Grandfather Diabetes Maternal Uncle Diabetes Paternal Grandmother COPD (chronic obstructive pulmonary disease) Other Alcohol abuse Congenital heart defect Substance use disorder Social History Smoking/Tobacco Use Status: Current every day Tobacco Type: cigarettes Smoking packs per day: 1 Smoking cigarettes per day: 20.0 Years smoked: 10 Smoking pack-years: 10.00 Quit status: considering quitting Smoking risk assessment performed?: Yes Alcohol Intake: former Details: see A/P Drug use: Never Details: Stopping in 2nd trimester. Caregiver/Support person: No Household members: significant other and other Details: New partner since 01/2020. Number of Children: 0 Communication Needs: None current occupation: working as [employer] 08/2022. 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 Date GA/Weeks # Preg Succ Route Wgt Sex Labor Lgth Anesthesia Location Prov Complic 05/03/12 8 No No 04/29/17 6 No No 04/29/18 8 No No Delivery Date: 05/03/12 Last Updated by: KASEY Perry Delivery Date: 04/29/17 Last Updated by: Patt Smith CNM SAB Delivery Date: 04/29/18 Last Updated by: KASEY Perry Exam Narrative Exam Narrative: Physical Examination General: alert, awake, cooperative, resting comfortably, no acute distress HEENT: normocephalic, atraumatic; PERRL, EOM intact, conjunctiva normal; no nasal discharge; moist mucous membranes, oral and pharyngeal mucosa normal, tolerating secretions Neck: supple, trachea midline; full ROM Chest: normal to inspection Respiratory: normal respiratory effort, speaking in full sentences, clear to auscultation, no wheezing, rales or rhonchi Cardiac: Tachycardia, regular rhythm, S1S2 intact, no murmurs rubs or gallops GI: abdomen soft, non-tender, non-distended; no palpable mass or hepatosplenomegaly Skin: no lesions, rashes or trauma appreciated Neuro: AAOx3, normal speech, moving all extremities Extremities: Tenderness to calf and posterior leg left lower extremity, no evidence of deformity or trauma, no malleoli or tenderness no calcaneal tenderness, DP pulse intact, Bailey's test resulted in normal Achilles function, ambulatory, minimal bilateral edema to ankles Psych: Appropriate mood and affect Course Vital Signs Vital signs: Vital Signs Temperature 36.5 C 12/22/22 15:05 Pulse 112 H 12/22/22 15:05 Respiratory Rate 18 12/22/22 15:05 Blood Pressure 127/85 12/22/22 15:05 Pulse Oximetry 100 12/22/22 15:05 Temperature 36.5 C 12/22/22 15:05 Temperature Source Temporal Artery Scan 12/22/22 15:05 Pulse 112 H 12/22/22 15:05 Respiratory Rate 18 12/22/22 15:05 Respiratory Effort Normal, Non-Labored 12/22/22 15:04 Blood Pressure 127/85 12/22/22 15:05 Pulse Oximetry 100 12/22/22 15:05 Oxygen Delivery Method Room Air 12/22/22 15:05 Oxygen Flow Rate 0 12/22/22 15:05 Lab/Test Results Lab/Test Results: POC- Test(urine) Negative PAWSS Have you Been Recently Intoxicated or Drunk Within the Last 30 days?: No Have you Ever Experienced Previous Episodes of Alcohol Withdrawal?: No Have you ever Experienced Withdrawal Seizures?: No Have you ever Experienced Delirium Tremens(DT)s?: No Have you ever undergone Alcohol Rehabilitation Treatment (i.e, inpt ot outpatient treatment programs)?: No Have you ever Experienced Blackouts?: No Have you ever Combined Alcohol with other Downers within the last 90 days?: No Have you ever Combined Alcohol with any other Substance of Abuse during the last 90 days?: No Positive Blood Alcohol level on Presentation? [PCS.BAL]: No Evidence of Increased Autonomic Activity (i.e. HR>120, tremor, sweating, agitation, nausea)?: No Result: 0
--- NOTE | 2022-12-22 16:30 | DI.CT_ITS ---
Exam(s) CT CHEST PE CTA EXAM: CT CHEST PE CTA CLINICAL HISTORY: LLE DVT, tachycardia. TECHNIQUE: Imaging Protocol: Axial CT angiography was performed with multi-slice acquisition and mu lti-planar and/or 3D reconstructions. CONTRAST MATERIAL: Intravenous: Omnipaque 350 contrast volume:100 mL COMPARISON: Comparison is made with prior examinations. FINDINGS: Tracheobronchial tree: Patent where visualized. Pulmonary parenchyma: No consolidation or dominant measurable mass. No architectural distortion. Pulmonary Arteries: There is extensive pulmonary embolic disease involving all 5 lobes of the pulmona ry arteries. There are emboli seen in the distal aspects of both the right and left main pulmonary a rteries. Mediastinum and Altagracia: No dominant adenopathy or fluid collection. The esophagus is unremarkable. Visualized thyroid gland: Unremarkable. Pleura: No effusion or pneumothorax. Heart: The heart is not dilated. No coronary artery calcifications are seen. No pericardial effusion. The RV to LV ratio is 1. Aorta: Thoracic aorta non-dilated. No evidence of dissection. Upper abdomen: Unremarkable. Soft tissues: Unremarkable. Bones: Within normal limits for the patient's age. IMPRESSION: Extensive pulmonary embolic disease with right ventricular dysfunction. RADIATION DOSE DELIVERED: 236.37mGy.cm Total DLP DATA REPOSITORY: All CT scans at this facility are submitted to the National Radiology Data Registry (NRDR) Dose Index Registry (DIR) with the [employer] (A[employer]). RADIATION OPTIMIZATION: All CT scans at this facility use at least one of these dose optimization te chniques: automated exposure control; mA and/or kV adjustment per patient size (includes targeted exa ms where dose is matched to clinical indication); or iterative reconstruction.
--- NOTE | 2022-12-22 16:45 | RT.EKG_ITS ---
APPROVED REPORT Exam: Resting ECG Reason for Exam: tachy, dvt Patient Location: E HR:100 bpm ECG Measurements Heart Rate 100 AXIS AL 119 P 63 QRSd 78 QRS 88 QT 370 T 63 QTc 478 Conclusion Sinus tachycardia...rate> 99 sinus tachycardia, normal axis, non ischemic
[2022-12-22] MEDS: Normal Saline Flush 10 ML SYR IVP (16:56)
[2022-12-22] MEDS: Omnipaque 350 MG/ML 100 ML BTL IJ (16:57)
[2022-12-22] MEDS: Normal Saline - Diluent 50 ML VIAL IJ (16:57)
[2022-12-22 17:01] LABS: PTT Activated 25.6 sec (21.5-31.9); Prothrombin Time 10.6 sec (9.3-11.0)
[2022-12-22 17:11] LABS: ALT 12 U/L (14-59); AST 10 U/L (15-37); Albumin 3.5 g/dL (3.4-5.0); Alkaline Phosphatase 129 U/L (46-116); BUN 8 mg/dL (7-18); Bilirubin, Total 0.4 mg/dL (0.2-1.0); CREATININE 0.9 mg/dL (0.55-1.02); Chloride 103 mmol/L (98-107); Glucose 94 mg/dL (74-106); NT-proBNP 491 pg/mL (<300); Potassium 3.9 mmol/L (3.5-5.1); Sodium 137 mmol/L (136-145); Total Protein 7.2 g/dL (6.4-8.2); Troponin I < 50 ng/L (<or=60)
[2022-12-22] MEDS: LORazepam 2 MG/ML VIAL 0.5 MG IVP (17:24)
[2022-12-22] MEDS: Apixaban 5 MG TAB 10 MG PO (17:24)
--- NOTE | 2022-12-22 17:39 | DI.VRAD_ITS ---
Addendum created by Yon Otto MD on 12/22/2022 5:44:37 PM EDT: THIS REPORT CONTAINS FINDINGS THAT MAY BE CRITICAL TO PATIENT CARE. The findings were verbally communicated via telephone conference with Hoang Chowdary at 5:44 PM EDT on 12/22/2022. The findings were acknowledged and understood. Initial report created on 12/22/2022 5:39:08 PM EDT: PROCEDURE INFORMATION: Exam: CTA Chest With Contrast Exam date and time: 12/22/2022 4:58 PM Age: 27 years old Clinical indication: Other: Lle dvt, tachycardia TECHNIQUE: Imaging protocol: Computed tomographic angiography of the chest with contrast. 3D rendering (Not supervised by radiologist): MIP and/or 3D reconstructed images were created by the technologist. Contrast material: OMNIPAQUE 350; Contrast volume: 100 ml; Contrast route: INTRAVENOUS (IV); COMPARISON: CT CHEST PE CTA 10/17/2022 7:41 PM FINDINGS: Pulmonary arteries: There is pulmonary embolus within the right main pulmonary artery extending into primary and secondary branches of the right upper lobe. This extends into primary and secondary branches of the right lower lobe. This extends into primary and secondary branches of the right middle lobe. There is pulmonary embolus within the left main pulmonary artery extending into primary and secondary branches of the left upper lobe. This extends into primary and secondary branches of the left lower lobe. Aorta: The aorta is within normal limits. Lungs: The tracheobronchial tree is patent bilaterally. There is no evidence of an infiltrate. Pleural spaces: There are no pleural effusions. Heart: There is right ventricular dysfunction. Heart RV/LV ratio: The RV/LV ratio is equal to 1.00. Coronary arteries: There are no coronary artery calcifications. Lymph nodes: Unremarkable. No enlarged lymph nodes. Bones/joints: The visualized bony structures appear within normal limits. Soft tissues: Unremarkable. IMPRESSION: Extensive pulmonary embolus as described above. There is right ventricular dysfunction. Dictated and Authenticated by: Yon Otto MD. Ordering:SURAJ Bolton MD
[2022-12-22 20:47] LABS: Source Nasal/Nares
[2022-12-22 20:57] LABS: Troponin I < 50 ng/L (<or=60)
--- NOTE | 2022-12-22 21:09 | HPE_ITS ---
Date of service: 12/22/22 Time of Service: 21:11 Assessment and Plan Assessment and plan (1) Bilateral pulmonary embolism: Status: Acute Assessment and plan: Present on admission. In setting of an extensive LLE DVT, also present on admissoin, with RV strain. Stable for medical surgical floor based on the vital signs in the ER. Monitor on telemetry. Obtain an echo. Anticoagulate with therapeutic apixaban. Will need a hypercoagulable workup as outpatient. Does have a h/o prior DVT as well as h/o COVID-19 during the 3rd trimester of her recent . She is currently post-. There is also a h/o tobacco abuse. All of these factors make her hypercoagulable. Will need an outpatient heme referral. (2) Right ventricular dysfunction: Status: Acute Assessment and plan: Case evaluated by [facility]: based on hemodynamic stability, would not benefit from transfer for a trombectomy or thrombolysis. Will obtain a formal echocardiogram in am. I did do a POCUS exam where I did not see obvious wall motion abnormalities in RV, however, saw a suggestion of a D-shaped ventricle on a subcostal view. Monitor on tele. Monitor oxygenation. (3) Left leg DVT: Status: Acute Assessment and plan: Anticoagulate as above (4) H/O deep venous thrombosis: Status: Resolved Assessment and plan: As above (5) Tobacco use disorder: Status: Acute Assessment and plan: Discussed that this could worsen the risk of recurrent blood clots and recommended quitting. Will provide a nicotrol inhaler. (6) History of COVID-19: Assessment and plan: During 3rd trimester of . Possible hypercoagulable state. As above (7) Discharge planning issues: Status: Acute Assessment and plan: Full code Admit to medical surgical floor History of Present Illness History of Present Illness Chief Complaint: LLE pain, SY Narrative: Ms Echeverria is a 27 year old female who is 5 weeks post- and has a PMHx of prior upper extremity DVT in setting of an infiltrated IV, no longer on anticoagulation at the time of presentation, as well as h/o COVID-19 x 2 during her (one of those times was in the 3rd semester of ), tobacco use disorder, gestational diabetes (now resolved), psoriasis, who presented to [facility] ED today c/o LLE pain, was found to be tachycardic and reported SY. Her workup revealed a DVT in her left distal femoral through distal calf veins and an extensive submassive bilateral PE with evidence of RV dysfunction by CTA. The patient had a negative troponin I x2. Her pro-BNP was 491. She is not requiring oxygen, and her vital signs are stable. Her case was reviewed with the [facility] PE team who recommended therapeutic anticoagulation with eliquis (the patient is not breast-feeding). There was no role for transfer of the patient to a tertiary care facility as she was not felt to necessitate either thrombectomy or catheter-directed thrombolysis. Hospitalist admission was requested. Dao states that she has been short of breath, especially on exertion for a couple of weeks. She has noticed that she gets dizzy when she stands up then as well. She never had chest pain, but did notice her ribs moving when breathing also a couple of weeks ago. She had not had any difficulty climbing a flight of 12 stairs during , but now feels short of breath doing that. Today she coughed up brownish sputum (otherwise, it's been green). Her left leg had nerve pain for several weeks, but this morning Dao could not put weight on it and noticed that her ankle was a little swollen and red. Dao denies fevers, chest pain, says her cough has otherwise been productive of greenish sputum, denies palpitations, endorses anxiety more so than her normal, denies n/v, denies blood in stool or urine, but does endorse a brownish vaginal discharge starting today which she thinks may be related to getting a period. She is not currently breast-feeding. There is no family h/o blood clots. Review of Systems All systems reviewed & are unremarkable except as noted in HPI and below PFSH All Active Problems (Updated 12/22/22 @ 21:31 by Evi Wahl MD) Discharge planning issues (Acute) DVT prophylaxis (Acute) Left leg DVT (Acute) Right ventricular dysfunction (Acute) Bilateral pulmonary embolism (Acute) Pulmonary emboli (Chronic) DVT, lower extremity (Acute) COVID-19 affecting in third trimester (Acute) Attention and concentration deficit (Acute) Sciatica of left side (Acute) Pain and swelling of left lower leg (Acute) Encounter for supervision of normal first , third trimester (Acute) Gestational diabetes (Acute) Elevated glucose tolerance test (Acute) Tobacco use disorder (Acute) related pelvic pain in third trimester, antepartum (Acute) Anxiety (Chronic 11/15/11) RX Citalopram L-T x9 years (helped until stopped eating ~03/2020); RX Escitalopram, stopped 02/2021 in favor of Ability & Lamotrigine ([facility]) Depression (Chronic) RX Citalopram L-T x9 years (helped until stopped eating ~03/2020); RX Es citalopram 03/2020, stopped 02/2021 in favor of Ability & Lamotrigine ([facility]) Bipolar 1 disorder (Acute) PTSD (post-traumatic stress disorder) (Acute) Rubella non-immune status, antepartum (Acute) ASCUS with positive high risk HPV cervical (Acute) Colpo on 05/13/22 with KJ. Recommendation is repeat 6 wks PP Anemia affecting first (Acute) (Acute) Encounter for supervision of normal first , third trimester (Acute) Medical History Acute thrombosis of right basilic vein Started anticoag Apix [facility] Heme consult 10/2021 Alcohol abuse Consumes four beers at a time. Had DWI 2020. Quit with Cephalic vein thrombosis 07/18 and 03/18: superficial thrombophlebitis s/p IV placement [facility] Heme consult 10/2021: do not recommend ppx during . History of COVID-16 Apr 2022 Hyperhidrosis of axilla Improved with Rx antiperspirant IBS (irritable bowel syndrome) Poor dentition has lost several teeth secondary to tooth decay Psoriasis (11/28/12) 09/2019. Scalp psoriasis Rx with clobetasol lotion and change from DeopProvera to OCPs. Sinus tachycardia Holter 08/2021, labs & ECHO pending Surgical History Tooth extraction teeth extraction. hx of colonoscopy and endoscopy Family History Mother Drug addiction Mental disorder Gastric ulcer Father Essential hypertension Drug addiction Mental disorder Seizures Sister Autism Maternal Grandmother CHF (congestive heart failure) Gastric ulcer COPD (chronic obstructive pulmonary disease) Paternal Great Aunt Coronary heart disease Grandmother CHF (congestive heart failure) Neoplasm Lung CA (smoker) Grandfather Diabetes Maternal Uncle Diabetes Paternal Grandmother COPD (chronic obstructive pulmonary disease) Other Alcohol abuse Congenital heart defect Substance use disorder Social History (Updated 12/22/22 @ 21:55 by Evi Wahl MD) Smoking/Tobacco Use Status: Current every day Tobacco Type: cigarettes Smoking packs per day: 1 Smoking cigarettes per day: 20.0 Years smoked: 10 Smoking pack- years: 10.00 Tobacco: How many years used: 14 Quit status: considering quitting Smoking risk assessment performed?: Yes Alcohol Intake: former Details: see A/P Drug use: Never Details: Stopping in 2nd trimester. Caregiver/Support person: No Household members: significant other and other Details: New partner since 01/2020. Number of Children: 0 Communication Needs: None current occupation: working as [employer] school 08/2022. 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 Date GA/Weeks # Preg Succ Route Wgt Sex Labor Lgth Anesth esia Location Prov Complic 05/03/12 8 No No 04/29/17 6 No No 04/29/18 8 No No Delivery Date: 05/03/12 Last Updated by: Patt Smith CNM EASusan Delivery Date: 04/29/17 Last Updated by: Patt Smith CNM SAB Delivery Date: 04/29/18 Last Updated by: Patt Smith CNM EAB Meds Allergies and Home Medications Allergies Allergy/AdvReac Type Severity Reaction Status Date / Time amoxicillin [Amoxicillin] Allergy Severe Redness Verified 12/22/22 15:05 and swelling in throat naproxen [From Aleve] Allergy Severe Swelling/Ed Verified 12/22/22 15:05 summer Penicillins Allergy Severe Inflamed Verified 12/22/22 15:05 throat clindamycin Allergy Intermediate rash Verified 12/22/22 15:05 aspirin Allergy Mild Swelling Verified 12/22/22 15:05 in lips adhesive AdvReac Intermediate scarring Verified 12/22/22 15:05 lactose AdvReac Mild Nausea, Verified 12/22/22 15:05 intolerance-causes gas/diarrhea oxycodone HCl [From Percocet] AdvReac Unknown Nausea Verified 12/22/22 15:05 Home Medications Medication Instructions Recorded Confirmed Type acetaminophen 500 mg tablet 1,000 mg PO PRN PRN 04/15/19 12/22/22 History aluminum chloride 20 % topical 1 applic topical QHS #60 mL 10/02/20 12/22/22 Rx solution (Drysol) clobetasol 0.05 % shampoo 1 applic topical QHS 4 weeks #118 12/04/21 12/22/22 Rx mL clonazepam 1 mg tablet 0.5 mg PO DAILY PRN 05/04/22 12/22/22 History citalopram 10 mg tablet (Celexa) 10 mg PO DAILY 05/12/22 12/22/22 History triamcinolone acetonide 0.5 % 1 applic topical BID #15 grams 08/24/22 12/22/22 Rx topical cream aripiprazole 10 mg tablet (Abilify) 10 mg PO DAILY #30 tabs 08/30/22 12/22/22 Rx dexmethylphenidate 2.5 mg tablet 2.5 mg PO BID 12/22/22 12/22/22 History Exam Narrative Exam Narrative: General: Very pleasant female who is A&Ox3, appears comfortable in bed, on RA, no dyspnea/tachypnea/cyanosis Neurological: A&Ox3, no focal deficits Psychiatric: Appropriate speech pattern/content Skin: Multiple tattoos; slight pink discoloration of the medial L ankle, otherwise no bruises/rashes HEENT: Atraumatic, normocephalic, EOMI, MMM, clear oropharynx, no submandibular or cervical lymphadenopathy, no goiter or JVD Cardiovascular: RRR, no m/r/g Lungs: CTAB Gastrointestinal: soft, nontender, nondistended Genitourinary: deferred Extremities: no edema BLEs except for a slight swelling of the L ankle, no c/c. Results Imaging Additional studies: XR L ankle: Unremarkable radiographs of the left ankle and lower leg. XR tib/fib L: Unremarkable radiographs of the left ankle and lower leg. Venous doppler LLE: Deep venous thrombosis from the distal femoral vein through the distal calf veins.? CTA chest: Extensive pulmonary embolus as described above. There is right ventricular dysfunction. EKG: ST, HR 100, no acute ischemia, no [id number]. Labs 12/22/22 21:08 12/22/22 16:30 Labs: Laboratory Results - last 24 hr 12/22/22 12/22/22 12/22/22 16:30 16:30 20:34 PT 10.6 INR 1.0 APTT 25.6 Sodium 137 Potassium 3.9 Chloride 103 Carbon Dioxide 25.0 Anion Gap 9.0 BUN 8 Creatinine 0.9 Est GFR (CKD-EPI 2020) 89.30 Glucose 94 Calcium 9.0 Total Bilirubin 0.4 AST 10 L ALT 12 L Alkaline Phosphatase 129 H Troponin I < 50 < 50 NT-Pro-B Natriuret Pep 491 H Total Protein 7.2 Albumin 3.5 COVID-19 Source 12/22/22 20:44 PT INR APTT Sodium Potassium Chloride Carbon Dioxide Anion Gap BUN Creatinine Est GFR (CKD-EPI 2020) Glucose Calcium Total Bilirubin AST ALT Alkaline Phosphatase Troponin I NT-Pro-B Natriuret Pep Total Protein Albumin COVID-19 Source Nasal/Nares Last Vital Signs Temp 36.5 C 12/22/22 15:05 Pulse 87 12/22/22 19:46 Resp 21 12/22/22 19:50 BP 107/76 12/22/22 19:46 Pulse Ox 100 12/22/22 19:50 PAWSS Have you Been Recently Intoxicated or Drunk Within the Last 30 days?: No Have you Ever Experienced Previous Episodes of Alcohol Withdrawal?: No Have you ever Experienced Withdrawal Seizures?: No Have you ever Experienced Delirium Tremens(DT)s?: No Have you ever undergone Alcohol Rehabilitation Treatment (i.e, inpt ot outpatient treatment programs)?: No Have you ever Experienced Blackouts?: No Have you ever Combined Alcohol with other Downers within the last 90 days?: No Have you ever Combined Alcohol with any other Substance of Abuse during the last 90 days?: No Positive Blood Alcohol level on Presentation? [PCS.BAL]: No Evidence of Increased Autonomic Activity (i.e. HR>120, tremor, sweating, agitation, nausea)?: No Result: 0 Time Spent Time spent with Patient: 55-74 minutes Time was spent: preparing to see the patient(eg.review tests), obtaining and/or reviewing separately otained hiistory, ordering medications,tests, procedures, referring, communicating with other health children's zoo caretaker, indepentently interpreting results, counseling the patient and care coordination
[2022-12-22 21:42] LABS: COVID-19 PCR Negative (Negative)
[2022-12-22 21:49] LABS: Abs Immature Grans 0.02 10^3/uL (0.0-0.06); Absolute Basophil Count 0.06 10^3/uL (0.0-0.2); Absolute Eosinophil Count 0.46 10^3/uL (0.0-0.7); Absolute Lymphocyte Count 3.15 10^3/uL (1.2-3.4); Absolute Monocyte Count 0.66 10^3/uL (0.1-0.8); Absolute Neutrophil Count 4.13 10^3/uL (1.2-6.7); Basophils % 0.7; Eosinophils % 5.4; HGB 12.1 g/dL (11.2-15.7); Immature Grans % 0.2; Lymphocytes % 37.1; MCH 31.8 pg (27.0-33.0); MCHC 33.6 % (32.0-36.0); MCV 95 fL (80-95); MPV 10.2 fL (8.0-11.0); Monocytes % 7.8; Neutrophils % 48.8; Platelet Count 189 10^3/uL (130-400); RDW 13.2 % (11.7-14.6); RDW-SD 44.9 fL; WBC 8.48 10^3/uL (4.4-10.8)
[2022-12-23 03:17] VITALS: BP 116/67; PULSE 82; RESP 16; TEMP 37.7; O2SAT 96
[2022-12-23] MEDS: Apixaban 5 MG TAB 10 MG PO (05:47)
[2022-12-23 05:54] VITALS: BP 116/75; PULSE 95; RESP 18; TEMP 37.5; O2SAT 98
[2022-12-23 06:27] LABS: Abs Immature Grans 0.01 10^3/uL (0.0-0.06); Absolute Basophil Count 0.04 10^3/uL (0.0-0.2); Absolute Eosinophil Count 0.59 10^3/uL (0.0-0.7); Absolute Lymphocyte Count 1.97 10^3/uL (1.2-3.4); Absolute Monocyte Count 0.61 10^3/uL (0.1-0.8); Absolute Neutrophil Count 3.16 10^3/uL (1.2-6.7); Basophils % 0.6; Eosinophils % 9.2; HCT 37.3 % (36.0-46.0); HGB 12.4 g/dL (11.2-15.7); Immature Grans % 0.2; Lymphocytes % 30.9; MCH 31.5 pg (27.0-33.0); MCHC 33.2 % (32.0-36.0); MCV 95 fL (80-95); MPV 10.3 fL (8.0-11.0); Monocytes % 9.6; Neutrophils % 49.5; Platelet Count 210 10^3/uL (130-400); RBC 3.94 10^6/uL (3.93-5.22); RDW 13.3 % (11.7-14.6); RDW-SD 46.1 fL; WBC 6.38 10^3/uL (4.4-10.8)
[2022-12-23 06:46] LABS: Anion Gap 9.5 mmol/L (3-11); BUN 7 mg/dL (7-18); CO2 24.5 mmol/L (21.0-32.0); CREATININE 0.9 mg/dL (0.55-1.02); Calcium 9.1 mg/dL (8.5-10.1); Chloride 104 mmol/L (98-107); Glucose 100 mg/dL (74-106); Potassium 3.9 mmol/L (3.5-5.1); Sodium 138 mmol/L (136-145)
[2022-12-23 07:00] VITALS: PULSE 77
[2022-12-23 07:53] LABS: Procalcitonin < 0.1 ng/mL
[2022-12-23] MEDS: ARIPiprazole 5 MG TAB 10 MG PO (08:18)
[2022-12-23] MEDS: clonazePAM 1 MG TAB 0.5 MG PO (08:25)
--- NOTE | 2022-12-23 10:30 | DI.US_ITS ---
APPROVED REPORT EXAM: Comprehensive 2D, Doppler, and color-flow Echocardiogram Patient Location: In-Patient Room/Bed: 226 Gauge Machine Operator: Frannie Moreno RDCS (AE) Indications: Acute PE with right ventricular dysfunction Other Information Study Quality: Good Conclusion Normal left ventricular wall thickness and chamber size. Estimated ejection fraction is 55 to 60%. Wall motion is normal Normal right ventricular size and systolic function Both atria are normal in size There is no structural or hemodynamically significant valvular disease Admitted right ventricular systolic pressure is 30.7 mmHg Wall motion Left Ventricle The left ventricle is normal size. The left ventricular systolic function is normal. The left ventric ular ejection fraction is within the normal range. There is normal left ventricular wall thickness. T here is normal LV segmental wall motion. There is no ventricular septal defect visualized. LVEF is 57 %. Right Ventricle The right ventricle is normal size. The right ventricular systolic function is normal. The RVSP is 30 .7 mmHg. Atria The left atrium size is normal. The right atrium size is normal. The interatrial septum is intact wit h no evidence for an atrial septal defect. Aortic Valve The aortic valve is normal in structure. Aortic valve is trileaflet. There is no aortic valvular sten osis. No aortic regurgitation is present. Mitral Valve The mitral valve is normal in structure. No evidence of mitral valve stenosis. Trace mitral regurgita tion. Tricuspid Valve The tricuspid valve is normal in structure. There is no tricuspid valve stenosis. Mild tricuspid regu rgitation. Pulmonic Valve The pulmonary valve is normal in structure. There is no pulmonic valvular stenosis. Trace to mild pul [place] regurgitation. Great Vessels The aortic root is normal in size. The ascending aorta is normal in size. Aortic arch is normal in ca liber. IVC is normal in size and collapses >50% with inspiration. Pericardium There is no pericardial effusion. 2D Dimensions IVSD d PLAX 0.67 cm F: 0.6-1.0 LV Vol A2C d MOD 88.2 mL LVPW d PLAX 0.73 cm F: 0.6 - 1.0 LV Vol A4C d MOD 88.1 mL LVID d PLAX 4.33 cm F: 3.8 - 5.2 LA vol/ BSA A4C s A-L 8.2 mL/m2 LVDs 3.05 cm F: 2.2 - 3.5 LA Area A4C s MOD 8.08 cm2 Ao Root d 2.60 cm F: 2.7 - 3.3 LV EF A4C MOD 55.0 % Ao Asc Diam d 2.12 cm F: 2.3 - 3.1 LV EF A2C MOD 56.4 % LV EF Teichholz 56.8 % LV EF Biplane MOD 54.6 % LVEF (Mtz's) 54.55 % F: 54 - 74 SV 49.27 mL LV Volume 75.86 mL F: 46 - 106 SV Index 33.50 mL/m2 LV Volume Index 5.45 mL/m2 F: 29 - 61 LV Vol Biplane MOD 90.3 mL FS 29.50 % M-Mode TAPSE 1.21 cm (M/F) >1.7 LV Diastology MV E' medial 0.132 (>0.07 m/s) MV E' lateral 0.145 (>0.1 m/s) Aortic Valve LVOT Area 2.96 cm2 AoV Area Vmax 2.39 cm2 LVOT Vmax 0.90 m/s AoV Area/ BSA (Vmax) 1.62 cm2/m2 LVOT Mean Rick. 0.72 m/s YI Mean Rick. 2.67 cm2 LVOT Peak Grad 3.2 mmHg YI Mean Rick. Index 1.82 cm2/m2 LVOT Mean Grad 2.2 mmHg LVOT VTI 0.155 m LVOT Diam s 1.90 cm AoV Vmax 1.11 m/s Velocity Ratio 0.81 AoV Mean Rick. 0.80 m/s AoV Peak Grad 5.0 mmHg LVOT SV 45.91 mL AoV Mean Grad 2.9 mmHg AoV VTI 0.182 m AoV Area VTI 2.53 cm2 AoV Area/ BSA (VTI) 1.72 cm/m2 Pulmonary Valve PV Vmax 0.81 (0.5-1.5 m/s) RVOT Peak Gr. 1.26 mmHg PV Peak Grad 2.6 mmHg RVOT Mean Gr. 0.75 mmHg PV Mean Grad 1.4 mmHg RVOT VTI 0.116 m PV VTI 0.136 m RVOT Vmax 0.56 m/s Tricuspid Valve TR Peak Grad 27.7 mmHg TR Vmax 2.63 m/s RA Pressure 3.00 mmHg RVSP (TR) 30.7 mmHg
[2022-12-23 11:10] VITALS: BP 113/74; PULSE 87; RESP 20; TEMP 37.4; O2SAT 94
--- NOTE | 2022-12-23 13:03 | PDOC.CMIN ---
- If Service Date Differs Date of service: 12/23/22 Time of Service: 13:03 Care Management Initial Assess REASON FOR HOSPITALIZATION:: Acute PE w/RV Dysfunction and LLE DVT
--- NOTE | 2022-12-23 13:48 | DSE_ITS ---
Date of service: 12/23/22 Time of Service: 13:48 DS: Diagnosis Discharge Diagnosis (1) Bilateral pulmonary embolism: Status: Acute (2) Right ventricular dysfunction: Status: Deleted (3) Left leg DVT: Status: Acute (4) H/O deep venous thrombosis: Status: Deleted (5) Tobacco use disorder: Status: Acute (6) History of COVID-19: (7) Discharge planning issues: Status: Deleted Discharge Plan Disposition Patient Disposition: Home Condition: Good Discharge Details Reason For Visit: Acute PE w/RV Dysfunction and LLE DVT in a Post Pa Admit Date/Time: 12/22/22 20:24 Admit Provider: Evi Wahl Attending Provider: Evi Wahl Primary Care Provider: Celestina Miranda Hospital Course Hospital Course: This is a 27 year old female who is 5 weeks post- and has a? PMHx of prior upper extremity DVT in setting of an infiltrated IV, no longer on anticoagulation at the time of presentation, as well as h/o COVID-19 x 2 during her (one of those times was in the 3rd semester of ), tobacco use disorder, gestational diabetes (now resolved), psoriasis, who presented to [facility] ED 12/22/2022 c/o LLE pain, was found to be tachycardic and reported SY. Her workup revealed a DVT in her left distal femoral through distal calf veins and bilateral PE with evidence of RV dysfunction by CTA. The patient had a negative troponin I x2. Her pro-BNP was 491. She is not requiring oxygen, and her vital signs are stable. Her [place] was [place] with [place] [facility] [place] who recommended therapeutic anticoagulation with eliquis (the patient is not breast- feeding). There was no role for transfer of the patient to a tertiary care facility as she was not felt to necessitate either thrombectomy or catheter- directed thrombolysis. Dao stated that she had been short of breath, especially on exertion for a couple of weeks. She had noticed that she got dizzy when she stands up then as well. She never had chest pain, but did notice her ribs moving when breathing. She had not had any difficulty climbing a flight of 12 stairs during , but now feels short of breath doing that. On day of admission she coughed up brownish sputum (otherwise, it's been green). Her left leg had nerve pain for several weeks, but on morning of day of admission patient could not put weight on it and noticed that her ankle was a little swollen and red. Dao denied fevers, chest pain, said her cough had otherwise been productive of greenish sputum, denied palpitations, endorsed anxiety more so than her normal, denied n/v, and denied blood in stool or urine. There is no family h/o blood clots. She was started on Apixaban for PE. She had a normal echo. She was told to stop smoking. She was discharged stable to home. Home Meds and New Rx's Prescriptions: New Eliquis 5 mg Tablet 10 mg PO 0600,1800 Qty: 60 0RF Continued citalopram [Celexa] 10 mg tablet 10 mg PO DAILY Rx Instructions: Not yet taking it clonazepam 1 mg tablet 0.5 mg PO DAILY PRN Drysol 20 % solution 1 applic topical QHS Qty: 60 2RF clobetasol 0.05 % shampoo 1 applic TP QHS 28 Days Qty: 118 4RF Rx Instructions: Use daily for 4 weeks. triamcinolone acetonide 0.5 % cream 1 applic topical BID Qty: 15 5RF Rx Instructions: apply small amount to arms and affected areas aripiprazole [Abilify] 10 mg tablet 10 mg PO DAILY Qty: 30 0RF dexmethylphenidate 2.5 mg tablet 2.5 mg PO BID acetaminophen 500 mg Tablet 1,000 mg PO PRN PRN Discharge Instructions Instructions: Apixaban (By mouth), Pulmonary Embolism (DC), How to Stop Smoking (DC) Stand Alone Forms: Nursing Discharge Form Referrals: [facility] [Provider Group] - 01/19/23 3:20 am Activity:: Activity as Tolerated Equipment/Supplies:: No Equipment Needed Diet:: As Tolerated Discharge Orders Discharge Orders: Discharge Order (Routine); Ordered 12/23/22 Ordered By: Yaritza Solis Discharge Data Discharge Date/Time-TO BE ENTERED AT DEPARTURE: 12/23/22 15:48 DS: Summary Time Spent with Patient providing and/or coordinating discharge services: Greater than 30 minutes Status at Discharge Functional status at discharge: independent ambulation Overall status at discharge: patient is progressing back to baseline Mental Status: mental status grossly normal Speech and Movement: speech and movement normal Mood: congruent mood Affect: normal affect Exam Narrative Exam Narrative: General: Very pleasant female who is A&Ox3, appears comfortable in bed, on RA, no dyspnea/tachypnea/cyanosis Neurological: A&Ox3, no focal deficits Psychiatric: Appropriate speech pattern/content Skin: Multiple tattoos; slight pink discoloration of the medial L ankle, otherwise no bruises/rashes HEENT: Atraumatic, normocephalic, EOMI, MMM, clear oropharynx, no submandibular or cervical lymphadenopathy, no goiter or JVD Cardiovascular: RRR, no m/r/g Lungs: CTAB Gastrointestinal: soft, nontender, nondistended Genitourinary: deferred Extremities: no edema BLEs except for a slight swelling of the L ankle, no c/c. Psych Mental Status: mental status grossly normal Speech and Movement: speech and movement normal Mood: congruent mood Affect: normal affect DS: Data Vitals/I&O Vitals and I&O: Vital Signs Temperature 37.4 C 12/23/22 11:10 Temperature Source Tympanic 12/23/22 11:10 Pulse 87 12/23/22 11:10 Pulse Rhythm Regular 12/23/22 09:30 Pulse 84 12/22/22 19:50 Respiratory Rate 20 12/23/22 11:10 Respiratory Effort Normal 12/23/22 09:30 Respiratory Depth Normal 12/23/22 09:30 Respiratory Pattern Normal 12/23/22 09:30 Blood Pressure 113/74 12/23/22 11:10 Blood Pressure Mean 83 12/22/22 19:46 Pulse Oximetry 94 12/23/22 11:10 Oxygen Delivery Method Room Air 12/23/22 11:10 Oxygen Flow Rate 0 12/23/22 11:10 Pain Level 0 12/23/22 11:10 Intake & Output 12/22/22 12/23/22 12/23/22 23:59 11:59 23:59 Output Total 400 / 400 Balance -400 / -400 Weight 47.582 kg 47.2 kg Output: Urine 400 / 400 Other: Urine Color Yellow Urine Appearance Clear Clear Voiding Methods Toilet Data Completed and Pending Labs on day of discharge: Labs from last 24 hours 12/23/22 12/23/22 12/23/22 06:12 06:12 06:12 WBC 6.38 RBC 3.94 Hgb 12.4 Hct 37.3 MCV 95 MCH 31.5 MCHC 33.2 RDW 13.3 Plt Count 210 MPV 10.3 Immature Gran % 0.2 Neutrophils % 49.5 Lymphocytes % 30.9 Monocytes % 9.6 Eosinophils % 9.2 Basophils % 0.6 Nucleated RBC % 0.0 Absolute Neutrophils 3.16 Absolute Lymphocytes 1.97 Absolute Monocytes 0.61 Absolute Eosinophils 0.59 Absolute Basophils 0.04 PT INR APTT Sodium 138 Potassium 3.9 Chloride 104 Carbon Dioxide 24.5 Anion Gap 9.5 BUN 7 Creatinine 0.9 Est GFR (CKD-EPI 2020) 89.30 Glucose 100 Calcium 9.1 Magnesium 2.0 Total Bilirubin AST ALT Alkaline Phosphatase Troponin I NT-Pro-B Natriuret Pep Total Protein Albumin Procalcitonin < 0.1 COVID-19 Source SARS-CoV-2 (PCR) 12/22/22 12/22/22 12/22/22 21:38 20:44 20:34 WBC 8.48 RBC 3.80 L Hgb 12.1 Hct 36.0 MCV 95 MCH 31.8 MCHC 33.6 RDW 13.2 Plt Count 189 MPV 10.2 Immature Gran % 0.2 Neutrophils % 48.8 Lymphocytes % 37.1 Monocytes % 7.8 Eosinophils % 5.4 Basophils % 0.7 Nucleated RBC % 0.0 Absolute Neutrophils 4.13 Absolute Lymphocytes 3.15 Absolute Monocytes 0.66 Absolute Eosinophils 0.46 Absolute Basophils 0.06 PT INR APTT Sodium Potassium Chloride Carbon Dioxide Anion Gap BUN Creatinine Est GFR (CKD-EPI 2020) Glucose Calcium Magnesium Total Bilirubin AST ALT Alkaline Phosphatase Troponin I < 50 NT-Pro-B Natriuret Pep Total Protein Albumin Procalcitonin COVID-19 Source Nasal/Nares SARS-CoV-2 (PCR) Negative 12/22/22 12/22/22 16:30 16:30 WBC RBC Hgb Hct MCV MCH MCHC RDW Plt Count MPV Immature Gran % Neutrophils % Lymphocytes % Monocytes % Eosinophils % Basophils % Nucleated RBC % Absolute Neutrophils Absolute Lymphocytes Absolute Monocytes Absolute Eosinophils Absolute Basophils PT 10.6 INR 1.0 APTT 25.6 Sodium 137 Potassium 3.9 Chloride 103 Carbon Dioxide 25.0 Anion Gap 9.0 BUN 8 Creatinine 0.9 Est GFR (CKD-EPI 2020) 89.30 Glucose 94 Calcium 9.0 Magnesium Total Bilirubin 0.4 AST 10 L ALT 12 L Alkaline Phosphatase 129 H Troponin I < 50 NT-Pro-B Natriuret Pep 491 H Total Protein 7.2 Albumin 3.5 Procalcitonin COVID-19 Source SARS-CoV-2 (PCR) PFSH All Active Problems (Updated 12/24/22 @ 00:03 by GARRET MCCALL) DVT prophylaxis (Acute) Left leg DVT (Acute) Bilateral pulmonary embolism (Acute) COVID-19 affecting in third trimester (Acute) Attention and concentration deficit (Acute) Sciatica of left side (Acute) Pain and swelling of left lower leg (Acute) Encounter for supervision of normal first , third trimester (Acute) Gestational diabetes (Acute) Elevated glucose tolerance test (Acute) Tobacco use disorder (Acute) related pelvic pain in third trimester, antepartum (Acute) Anxiety (Chronic 11/15/11) RX Citalopram L-T x9 years (helped until stopped eating ~03/2020); RX Escitalopram, stopped 02/2021 in favor of Ability & Lamotrigine ([facility]) Depression (Chronic) RX Citalopram L-T x9 years (helped until stopped eating ~03/2020); RX Escitalopram 03/2020, stopped 02/2021 in favor of Ability & Lamotrigine ([facility]) Bipolar 1 disorder (Acute) PTSD (post-traumatic stress disorder) (Acute) Rubella non-immune status, antepartum (Acute) ASCUS with positive high risk HPV cervical (Acute) Colpo on 05/13/22 with KJ. Recommendation is repeat 6 wks PP Anemia affecting first (Acute) (Acute) Encounter for supervision of normal first , third trimester (Acute) Medical History Acute thrombosis of right basilic vein Started anticoag Apix [facility] [place] Alcohol abuse Consumes four beers at a time. Had DWI 2020. Quit with Cephalic vein thrombosis 07/18 and 03/18: superficial thrombophlebitis s/p IV placement [facility] [place] 10/2021: do not recommend ppx during . History of COVID-16 Apr 2022 Hyperhidrosis of axilla Improved with Rx antiperspirant IBS (irritable bowel syndrome) Poor dentition has lost several teeth secondary to tooth decay Psoriasis (11/28/12) 09/2019. Scalp psoriasis Rx with clobetasol lotion and change from DeopProvera to OCPs. Sinus tachycardia Holter 08/2021, labs & ECHO pending Surgical History Tooth extraction teeth extraction. hx of colonoscopy and endoscopy Family History Mother Drug addiction Mental disorder Gastric ulcer Father Essential hypertension Drug addiction Mental disorder Seizures Sister Autism Maternal Grandmother CHF (congestive heart failure) Gastric ulcer COPD (chronic obstructive pulmonary disease) Paternal Great Aunt Coronary heart disease Grandmother CHF (congestive heart failure) Neoplasm Lung CA (smoker) Grandfather Diabetes Maternal Uncle Diabetes Paternal Grandmother COPD (chronic obstructive pulmonary disease) Other Alcohol abuse Congenital heart defect Substance use disorder Social History (Updated 12/22/22 @ 21:55 by Evi Wahl MD) Smoking/Tobacco Use Status: Current every day Tobacco Type: cigarettes Smoking packs per day: 1 Smoking cigarettes per day: 20.0 Years smoked: 10 Smoking pack- years: 10.00 Tobacco: How many years used: 14 Quit status: considering quitting Smoking risk assessment performed?: Yes Alcohol Intake: former Details: see A/P Drug use: Never Details: Stopping in 2nd trimester. Caregiver/Support person: No Household members: significant other and other Details: New partner since 01/2020. Number of Children: 0 Communication Needs: None current occupation: working as [employer] 08/2022. 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 Date GA/Weeks # Preg Succ Route Wgt Sex Labor Lgth Anesth esia Location Prov Complic 05/03/12 8 No No 04/29/17 6 No No 04/29/18 8 No No Delivery Date: 05/03/12 Last Updated by: KASEY Perry Delivery Date: 04/29/17 Last Updated by: Patt Smith CNM SAB Delivery Date: 04/29/18 Last Updated by: KASEY Perry Time Spent with Patient Time Spent with Patient: 45-69 minutes Time was spent: preparing to see the patient(eg.review tests), ordering medications,tests, procedures, referring, communicating with other health healthcare representative, indepentently interpreting results, counseling the patient and care coordination
[2022-12-23 14:29] VITALS: PULSE 106; PULSE 108; PULSE 96; O2SAT 100; O2SAT 98
[2022-12-23 14:49] VITALS: PULSE 93
== END 2022-12-23 15:48 | disposition home or self-care (01) | DRG 776 ==
LOC: ER 20:22 → MS 21:17
PROVIDERS: Admitting Provider Internal Medicine; Emergency Provider Emergency Medicine; PCP Nurse Practitioner Adult Health; Visit Provider Internal Medicine
DX: O88.83 Other embolism in the puerperium (principal); I26.99 Other pulmonary embolism without acute cor pulmonale; O87.1 Deep phlebothrombosis in the puerperium; I82.412 Acute embolism and thrombosis of left femoral vein; I82.442 Acute embolism and thrombosis of left tibial vein; I82.432 Acute embolism and thrombosis of left popliteal vein; I51.89 Other ill-defined heart diseases; Z86.718 Personal history of other venous thrombosis and embolism; F17.210 Nicotine dependence, cigarettes, uncomplicated; Z86.16 Personal history of COVID-19; O99.345 Other mental disorders complicating the puerperium; F41.8 Other specified anxiety disorders
CPT/HCPCS: 36415; 71275; 80048; 80053; 81025; 84145; 87635; 93005; 94618; 96374; 99285; 73590; 73610; 83735; 83880; 84484; 85025; 85610; 85730; 93010; 93306; 93971; 99223; 99239; J2060; J3490

== ENCOUNTER 2023-03-14 12:08 | Emergency (ER) | payer MEDICAID, SELFPAY ==
[2023-03-14] VITALS (15 sets, daily range): BP systolic 111–124; BP diastolic 80–82; PULSE 102–139; RESP 13–27; TEMP 37; O2SAT 100
--- NOTE | 2023-03-14 12:15 | RT.EKG_ITS ---
APPROVED REPORT Exam: Resting ECG Reason for Exam: trouble breathing Patient Location: E HR:116 bpm ECG Measurements Heart Rate 116 AXIS WY 156 P 53 QRSd 76 QRS 88 QT 325 T -6 QTc 452 Conclusion Sinus tachycardia...rate> 99 Borderline T abnormalities, diffuse leads...T flat/neg Physician: no stemi
--- NOTE | 2023-03-14 12:30 | DI.CT_ITS ---
Exam(s) CT CHEST PE CTA EXAM: CT CHEST PE CTA CLINICAL HISTORY: hx of Pe's , now sob. TECHNIQUE: Imaging Protocol: Axial CT angiography was performed with multi-slice acquisition and mu lti-planar reconstructions as well as axial, coronal and sagittal MIP reconstructions. CONTRAST MATERIAL: Intravenous: Omnipaque 350 Contrast volume:52 ml COMPARISON: CT CT CHEST PE CTA from 12/22/2022 FINDINGS: Pulmonary Arteries: Two small filing defects in 2 left lower lobe pulmonary arteries. The prior exam showed extensive bilateral emboli. Tracheobronchial tree: Patent where visualized. Mediastinum and Altagracia: No dominant adenopathy or fluid collection. Pulmonary parenchyma: No consolidation or dominant measurable mass. Pleura: No effusion or pneumothorax. Heart: The heart is not dilated. No coronary artery calcifications are seen. Aorta: Thoracic aorta non-dilated. No aneurysm. No dissection. Upper abdomen: Unremarkable. Bones: Unremarkable for age. Tubes, Catheters, and Lines: None. IMPRESSION: Small left lower lobe pulmonary emboli. This could be residual emboli vs acute emboli. RADIATION DOSE DELIVERED: 204.3mGy.cm Total DLP DATA REPOSITORY: All CT scans at this facility are submitted to the National Radiology Data Registry (NRDR) Dose Index Registry (DIR) with the [employer] (A[employer]). RADIATION OPTIMIZATION: All CT scans at this facility use at least one of these dose optimization te chniques: automated exposure control; mA and/or kV adjustment per patient size (includes targeted exa ms where dose is matched to clinical indication); or iterative reconstruction.
[2023-03-14 13:01] LABS: Abs Immature Grans 0.01 10^3/uL (0.0-0.06); Absolute Basophil Count 0.06 10^3/uL (0.0-0.2); Absolute Eosinophil Count 0.39 10^3/uL (0.0-0.7); Absolute Lymphocyte Count 2.43 10^3/uL (1.2-3.4); Absolute Monocyte Count 0.64 10^3/uL (0.1-0.8); Absolute Neutrophil Count 4.41 10^3/uL (1.2-6.7); Basophils % 0.8; Eosinophils % 4.9; HCT 42.2 % (36.0-46.0); HGB 14.3 g/dL (11.2-15.7); Immature Grans % 0.1; Lymphocytes % 30.6; MCH 29.4 pg (27.0-33.0); MCHC 33.9 % (32.0-36.0); MCV 87 fL (80-95); MPV 9.6 fL (8.0-11.0); Monocytes % 8.1; Neutrophils % 55.5; Platelet Count 347 10^3/uL (130-400); RBC 4.86 10^6/uL (3.93-5.22); RDW 16.4 % (11.7-14.6); RDW-SD 51.5 fL; WBC 7.94 10^3/uL (4.4-10.8)
[2023-03-14] MEDS: LORazepam 2 MG/ML VIAL 1 MG IVP (13:05)
[2023-03-14 13:17] LABS: PTT Activated 23.6 sec (21.5-31.9); Prothrombin Time 10.4 sec (9.3-11.0)
[2023-03-14 13:21] LABS: ALT 15 U/L (14-59); AST 13 U/L (15-37); Albumin 3.4 g/dL (3.4-5.0); Alkaline Phosphatase 82 U/L (46-116); BUN 3 mg/dL (7-18); Bilirubin, Total 0.8 mg/dL (0.2-1.0); CREATININE 0.9 mg/dL (0.55-1.02); Calcium 8.7 mg/dL (8.5-10.1); Chloride 107 mmol/L (98-107); Glucose 94 mg/dL (74-106); Potassium 3.7 mmol/L (3.5-5.1); Sodium 140 mmol/L (136-145); Total Protein 6.9 g/dL (6.4-8.2)
[2023-03-14 13:26] LABS: Troponin I < 50 ng/L (<or=60)
[2023-03-14 13:28] LABS: NT-proBNP 46 pg/mL (<300); TSH (W/Ref FT4) 1.38 uIU/mL (0.36-3.74)
[2023-03-14] MEDS: Omnipaque 350 MG/ML 500 ML BTL-Imaging package IJ (14:13)
[2023-03-14] MEDS: Normal Saline - Diluent 50 ML VIAL IJ (14:14)
--- NOTE | 2023-03-14 15:05 | ED.GENADUL_ITS ---
Discharge Plan Disposition Patient Disposition: Home Condition: Good Discharge Details Clinical Impression: Pulmonary embolism Primary Care Provider: Unknown,Unknown ED Provider: Ceasar Kelley Home Meds and New Rx's Prescriptions: No Action citalopram [Celexa] 10 mg tablet 10 mg PO DAILY Rx Instructions: Not yet taking it Eliquis 5 mg tablet 5 mg PO BID Qty: 60 3RF clonazepam 1 mg tablet 0.5 mg PO DAILY PRN Drysol 20 % solution 1 applic topical QHS Qty: 60 2RF clobetasol 0.05 % shampoo 1 applic TP QHS 28 Days Qty: 118 4RF Rx Instructions: Use daily for 4 weeks. triamcinolone acetonide 0.5 % cream 1 applic topical BID Qty: 15 5RF Rx Instructions: apply small amount to arms and affected areas aripiprazole [Abilify] 10 mg tablet 10 mg PO DAILY Qty: 30 0RF dexmethylphenidate 2.5 mg tablet 2.5 mg PO BID acetaminophen 500 mg Tablet 1,000 mg PO PRN PRN Discharge Instructions Instructions: Pulmonary Embolism (ED) Additional Instructions: At this time you have evidence of pulmonary embolism. Unfortunately this likely occurred due to the diminished dose of the Eliquis. Please continue taking your Eliquis twice daily as directed. Please take 10 mg twice daily for 1 week and then transition back to your normal daily dosing. Please follow-up closely with your primary care provider. If you notice any worsening of your symptoms, or any new symptoms such as vomiting, diarrhea, fever, chills, shortness of breath, chest pain, numbness, weakness, or fainting , please return immediately to the emergency department for reevaluation. Please follow up with your primary care provider as soon as possible for reassessment and reevaluation. As always, it was a pleasure participating in your medical care today. Stand Alone Forms: Work Release Referrals: Rigo Romero [ NON-[facility] STAFF PHYSICIAN] - Discharge Data Discharge Date/Time-TO BE ENTERED AT DEPARTURE: 03/14/23 15:22 Medical Decision Making 27-year-old female with a past medical history of pulmonary embolism DVT in the past, smoking, bipolar type I, PTSD, who presents today for evaluation of shortness of breath. Patient states that she had been missing her nightly dose of Eliquis for the last month or so. It was not purposeful, just in the air. However over the last 12 to 24 hours she developed shortness of breath, mild sensation of panic, weakness, dizziness. And feelings that were similar to her previous pulmonary embolism. She presented to the ER for further assessment. She denies any exertional chest pain. She denies any other complaints. Physical exam demonstrates well-appearing female, elevated heart rate, oxygenation good. No calf tenderness. Lung sounds clear. Concern for potential pulmonary emboli secondary to accidental medication noncompliance. Patient also feels notably nervous. We will give mild dose of anxiolytic. We will evaluate for PE, monitor closely and reassess. 4 PM Laboratory work-up demonstrates evidence of normal white count, electrolytes normal, renal function good, troponin normal, proBNP normal with no suggestion of heart strain. Thyroid function normal. CTA shows evidence of pulmonary emboli x3. Symptoms appear consistent with PE secondary to medication noncompliance. Will recommend taking the full and appropriate dose of her medication here now, patient understands this, and agrees to medication compliance. Additionally the patient shows no clinical or laboratory or radiographic evidence of heart strain. No indication for thrombolytics. EKG otherwise stable. Patient stable for discharge. She does have her home prescription already for the Eliquis. We will recommend 10 mg twice daily for the next week, followed by 5 mg twice daily. I have extensively reviewed the treatment plan and discharge instructions with the patient. I have addressed all patient concerns at this time. The patient was made aware of what symptoms to monitor for that would warrant a return to the emergency department. Discussed the plan with the patient, they demonstrate verbal understanding and agreement with our assessment and plan at this time. The documentation in this chart was dictated using [employer] dictation software. Please excuse any dictation errors. HPI General Date/Time Provider Initiated Documentation: 03/14/23 12:25 . HPI Narrative: 27-year-old female with a past medical history of pulmonary embolism DVT in the past, smoking, bipolar type I, PTSD, who presents today for evaluation of shortness of breath. Patient states that she had been missing her nightly dose of Eliquis for the last month or so. It was not purposeful, just in the air. However over the last 12 to 24 hours she developed shortness of breath, mild sensation of panic, weakness, dizziness. And feelings that were similar to her previous pulmonary embolism. She presented to the ER for further assessment. She denies any exertional chest pain. She denies any other complaints. Related Data Home Medications Medication Instructions Recorded Confirmed acetaminophen 500 mg tablet 1,000 mg PO PRN PRN 04/15/19 12/22/22 aluminum chloride 20 % topical 1 applic topical QHS #60 mL 10/02/20 12/22/22 solution (Drysol) clobetasol 0.05 % shampoo 1 applic topical QHS 4 weeks #118 12/04/21 12/22/22 mL clonazepam 1 mg tablet 0.5 mg PO DAILY PRN 05/04/22 12/22/22 citalopram 10 mg tablet (Celexa) 10 mg PO DAILY 05/12/22 12/22/22 triamcinolone acetonide 0.5 % 1 applic topical BID #15 grams 08/24/22 12/22/22 topical cream aripiprazole 10 mg tablet (Abilify) 10 mg PO DAILY #30 tabs 08/30/22 12/22/22 dexmethylphenidate 2.5 mg tablet 2.5 mg PO BID 12/22/22 12/22/22 apixaban 5 mg tablet (Eliquis) 5 mg PO BID #60 tabs 12/30/22 12/30/22 Previous Rx's Medication Instructions Recorded aluminum chloride 20 % topical 1 applic topical QHS #60 mL 10/02/20 solution (Drysol) clobetasol 0.05 % shampoo 1 applic topical QHS 4 weeks #118 12/04/21 mL triamcinolone acetonide 0.5 % 1 applic topical BID #15 grams 08/24/22 topical cream aripiprazole 10 mg tablet (Abilify) 10 mg PO DAILY #30 tabs 08/30/22 apixaban 5 mg tablet (Eliquis) 5 mg PO BID #60 tabs 12/30/22 Allergies Allergy/AdvReac Type Severity Reaction Status Date / Time amoxicillin [Amoxicillin] Allergy Severe Redness Verified 12/30/22 11:09 and swelling in throat naproxen [From Aleve] Allergy Severe Swelling/Ed Verified 12/30/22 11:09 summer Penicillins Allergy Severe Inflamed Verified 12/30/22 11:09 throat clindamycin Allergy Intermediate rash Verified 12/30/22 11:09 aspirin Allergy Mild Swelling Verified 12/30/22 11:09 in lips adhesive AdvReac Intermediate scarring Verified 12/30/22 11:09 lactose AdvReac Mild Nausea, Verified 12/30/22 11:09 intolerance-causes gas/diarrhea oxycodone HCl [From Percocet] AdvReac Unknown Nausea Verified 12/30/22 11:09 General Stated Complaint: Dizzy/Sync JACKSON: 3 Review of Systems All systems reviewed & are unremarkable except as noted in HPI and below PFSH All Active Problems Pulmonary embolism (Chronic) DVT prophylaxis (Acute) Left leg DVT (Acute) Bilateral pulmonary embolism (Acute) COVID-19 affecting in third trimester (Acute) Attention and concentration deficit (Acute) Sciatica of left side (Acute) Pain and swelling of left lower leg (Acute) Encounter for supervision of normal first , third trimester (Acute) Gestational diabetes (Acute) Elevated glucose tolerance test (Acute) Tobacco use disorder (Acute) related pelvic pain in third trimester, antepartum (Acute) Anxiety (Chronic 11/15/11) RX Citalopram L-T x9 years (helped until stopped eating ~03/2020); RX Escitalopram, stopped 02/2021 in favor of Ability & Lamotrigine ([facility]) Depression (Chronic) RX Citalopram L-T x9 years (helped until stopped eating ~03/2020); RX Escitalopram 03/2020, stopped 02/2021 in favor of Ability & Lamotrigine ([facility]) Bipolar 1 disorder (Acute) PTSD (post-traumatic stress disorder) (Acute) Rubella non-immune status, antepartum (Acute) ASCUS with positive high risk HPV cervical (Acute) Colpo on 05/13/22 with KJ. Recommendation is repeat 6 wks PP Anemia affecting first (Acute) (Acute) Encounter for supervision of normal first , third trimester (Acute) Medical History Acute thrombosis of right basilic vein [place] [facility] [place] Alcohol abuse Consumes four beers at a time. Had DWI 2020. 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 History of COVID-16 Apr 2022 Hyperhidrosis of axilla Improved with Rx antiperspirant IBS (irritable bowel syndrome) Poor dentition has lost several teeth secondary to tooth decay Psoriasis (11/28/12) 09/2019. Scalp psoriasis Rx with clobetasol lotion and change from DeopProvera to OCPs. Sinus tachycardia Holter 08/2021, labs & ECHO pending Surgical History Tooth extraction teeth extraction. hx of colonoscopy and endoscopy Family History Mother Drug addiction Mental disorder Gastric ulcer Father Essential hypertension Drug addiction Mental disorder Seizures Sister Autism Maternal Grandmother CHF (congestive heart failure) Gastric ulcer COPD (chronic obstructive pulmonary disease) Paternal Great Aunt Coronary heart disease Grandmother CHF (congestive heart failure) Neoplasm Lung CA (smoker) Grandfather Diabetes Maternal Uncle Diabetes Paternal Grandmother COPD (chronic obstructive pulmonary disease) Other Alcohol abuse Congenital heart defect Substance use disorder Social History Smoking/Tobacco Use Status: Current every day Tobacco Type: cigarettes Smoking packs per day: 1 Smoking cigarettes per day: 20.0 Years smoked: 10 Smoking pack- years: 10.00 Tobacco: How many years used: 14 Quit status: considering quitting Smoking risk assessment performed?: Yes Alcohol Intake: former Details: see A/P Drug use: Never Details: Stopping in 2nd trimester. Caregiver/Support person: No Household members: significant other and other Details: New partner since 01/2020. Housing: house Number of Children: 0 Communication Needs: None current occupation: working as [employer] school 08/2022. 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 Date GA/Weeks # Preg Succ Route Wgt Sex Labor Lgth Anesth esia Location Prov Complic 05/03/12 8 No No 04/29/17 6 No No 04/29/18 8 No No Delivery Date: 05/03/12 Last Updated by: KASEY Perry Delivery Date: 04/29/17 Last Updated by: Patt Smith CNM SAB Delivery Date: 04/29/18 Last Updated by: KASEY Perry Exam Narrative Exam Narrative: 1.Const: Well-nourished, Well-developed, appearing stated age 2.Eyes: PERRL, no conjunctival injection, and symmetrical lids. 3.ENT: Atraumatic external nose and ears. Moist MM. Neck: Symmetric, trachea midline, No thyromegaly. 4.CVS: +S1/S2, No murmurs or gallops. Peripheral pulses 2+ and equal in all extremities. Brisk capillary refill in all extremities. 5.RESP: Unlabored respiratory effort. Clear to auscultation bilaterally. No wheezes rales or rhonchi 6.GI: Soft, Nontender/Nondistended, No hepatosplenomegaly. No guarding or rebound. 7.MSK: Normocephalic/Atraumatic, Extremities w/o deformity or ttp No cyanosis or clubbing, Normal movement of all extremities 8.Skin: Warm, Dry. No rashes or lesions. 9.Neuro: chief underwriter II-XII grossly intact. Sensation grossly intact, no focal neurologic deficits. 10.Psych: (AAO) x3. Appropriate mood and affect Course Vital Signs Vital signs: Vital Signs Temperature 37.0 C 03/14/23 12:18 Pulse 128 H 03/14/23 12:18 Respiratory Rate 16 03/14/23 12:18 Blood Pressure 111/80 03/14/23 12:18 Pulse Oximetry 100 03/14/23 12:18 Temperature 37.0 C 03/14/23 12:18 Temperature Source Oral 03/14/23 12:18 Pulse 128 H 03/14/23 12:18 Pulse 115 H 03/14/23 14:50 Respiratory Rate 25 H 03/14/23 14:50 Respiratory Effort Normal 03/14/23 12:54 Respiratory Depth Normal 03/14/23 12:54 Respiratory Pattern Normal 03/14/23 12:54 Blood Pressure 111/80 03/14/23 12:18 Blood Pressure Position Sitting 03/14/23 12:18 Pulse Oximetry 100 03/14/23 14:20 Oxygen Delivery Method Room Air 03/14/23 12:18 Oxygen Flow Rate 0 03/14/23 12:18 Lab/Test Results Lab/Test Results: Laboratory Tests Range/Units 03/14/23 03/14/23 03/14/23 12:55 12:55 12:55 WBC (4.4-10.8) 10^3/uL 7.94 RBC (3.93-5.22) 10^6/uL 4.86 Hgb (11.2-15.7) g/dL 14.3 Hct (36.0-46.0) % 42.2 MCV (80-95) fL 87 MCH (27.0-33.0) pg 29.4 MCHC (32.0-36.0) % 33.9 RDW (11.7-14.6) % 16.4 H Plt Count (130-400) 10^3/uL 347 MPV (8.0-11.0) fL 9.6 Immature Gran % 0.1 Neutrophils % 55.5 Lymphocytes % 30.6 Monocytes % 8.1 Eosinophils % 4.9 Basophils % 0.8 Nucleated RBC % (0.0-0.3) % 0.0 Absolute Neutrophils (1.2-6.7) 10^3/uL 4.41 Absolute Lymphocytes (1.2-3.4) 10^3/uL 2.43 Absolute Monocytes (0.1-0.8) 10^3/uL 0.64 Absolute Eosinophils (0.0-0.7) 10^3/uL 0.39 Absolute Basophils (0.0-0.2) 10^3/uL 0.06 PT (9.3-11.0) sec INR (0.9-1.1) APTT (21.5-31.9) sec Sodium (136-145) mmol/L 140 Potassium (3.5-5.1) mmol/L 3.7 Chloride (98-107) mmol/L 107 Carbon Dioxide (21.0-32.0) mmol/L 24.0 Anion Gap (3-11) mmol/L 9.0 BUN (7-18) mg/dL 3 L Creatinine (0.55-1.02) mg/dL 0.9 Est GFR (CKD-EPI 2020) (mL/min/1.73m2) 89.30 Glucose (74-106) mg/dL 94 Calcium (8.5-10.1) mg/dL 8.7 Total Bilirubin (0.2-1.0) mg/dL 0.8 AST (15-37) U/L 13 L ALT (14-59) U/L 15 Alkaline Phosphatase (46-116) U/L 82 Troponin I (<or=60) ng/L < 50 NT-Pro-B Natriuret Pep (<300) pg/mL 46 Total Protein (6.4-8.2) g/dL 6.9 Albumin (3.4-5.0) g/dL 3.4 TSH (0.36-3.74) uIU/mL 1.38 Range/Units 03/14/23 12:55 WBC (4.4-10.8) 10^3/uL RBC (3.93-5.22) 10^6/uL Hgb (11.2-15.7) g/dL Hct (36.0-46.0) % MCV (80-95) fL MCH (27.0-33.0) pg MCHC (32.0-36.0) % RDW (11.7-14.6) % Plt Count (130-400) 10^3/uL MPV (8.0-11.0) fL Immature Gran % Neutrophils % Lymphocytes % Monocytes % Eosinophils % Basophils % Nucleated RBC % (0.0-0.3) % Absolute Neutrophils (1.2-6.7) 10^3/uL Absolute Lymphocytes (1.2-3.4) 10^3/uL Absolute Monocytes (0.1-0.8) 10^3/uL Absolute Eosinophils (0.0-0.7) 10^3/uL Absolute Basophils (0.0-0.2) 10^3/uL PT (9.3-11.0) sec 10.4 INR (0.9-1.1) 1.0 APTT (21.5-31.9) sec 23.6 Sodium (136-145) mmol/L Potassium (3.5-5.1) mmol/L Chloride (98-107) mmol/L Carbon Dioxide (21.0-32.0) mmol/L Anion Gap (3-11) mmol/L BUN (7-18) mg/dL Creatinine (0.55-1.02) mg/dL Est GFR (CKD-EPI 2020) (mL/min/1.73m2) Glucose (74-106) mg/dL Calcium (8.5-10.1) mg/dL Total Bilirubin (0.2-1.0) mg/dL AST (15-37) U/L ALT (14-59) U/L Alkaline Phosphatase (46-116) U/L Troponin I (<or=60) ng/L NT-Pro-B Natriuret Pep (<300) pg/mL Total Protein (6.4-8.2) g/dL Albumin (3.4-5.0) g/dL TSH (0.36-3.74) uIU/mL POC- Test(urine) Negative PAWSS Have you Been Recently Intoxicated or Drunk Within the Last 30 days?: No Have you Ever Experienced Previous Episodes of Alcohol Withdrawal?: No Have you ever Experienced Withdrawal Seizures?: No Have you ever Experienced Delirium Tremens(DT)s?: No Have you ever undergone Alcohol Rehabilitation Treatment (i.e, inpt ot outpatient treatment programs)?: No Have you ever Experienced Blackouts?: No Have you ever Combined Alcohol with other Downers within the last 90 days?: No Have you ever Combined Alcohol with any other Substance of Abuse during the last 90 days?: No Positive Blood Alcohol level on Presentation? [PCS.BAL]: No Evidence of Increased Autonomic Activity (i.e. HR>120, tremor, sweating, agitation, nausea)?: No Result: 0
== END 2023-03-14 15:22 | disposition home or self-care (01) ==
PROVIDERS: Emergency Provider Student in an Organized Health Care Education/Training Program
DX: R06.02 Shortness of breath (principal); I26.99 Other pulmonary embolism without acute cor pulmonale; R53.1 Weakness; T45.516A Underdosing of anticoagulants, initial encounter; Z91.148 Patient's other noncompliance with medication regimen for other reason; F17.210 Nicotine dependence, cigarettes, uncomplicated; Z86.718 Personal history of other venous thrombosis and embolism
CPT/HCPCS: 36415; 71275; 80053; 93005; 93308; 99285; 83880; 84443; 84484; 85025; 85610; 85730; 93010; 99284; J2060

== ENCOUNTER 2023-03-15 22:09 | Emergency (ER) | payer MEDICAID, SELFPAY ==
--- NOTE | 2023-03-15 22:00 | RT.EKG_ITS ---
APPROVED REPORT Exam: Resting ECG Reason for Exam: SOB Patient Location: E HR:123 bpm ECG Measurements Heart Rate 123 AXIS DC 138 P 53 QRSd 75 QRS 89 QT 316 T 21 QTc 452 Conclusion Sinus tachycardia...rate> 99 Probable left atrial enlargement...P >50mS, <-0.10mV V1
[2023-03-15 22:12] VITALS: BP 118/74; PULSE 128; RESP 13; TEMP 37.1; O2SAT 100
--- NOTE | 2023-03-15 22:15 | DI.RAD_ITS ---
Exam(s) XR CHEST 2V PA LATERAL EXAM: XR CHEST 2V PA LATERAL CLINICAL HISTORY: cp TECHNIQUE: 2D digital imaging was performed. COMPARISON: CT CT CHEST PE CTA from 03/14/2023 FINDINGS: HEART: Normal size. Aorta: Not dilated. PULMONARY VASCULATURE: Normal. LUNGS: Clear. PLEURAL SPACE: No pleural effusion or pneumothorax. BONE:Unremarkable for age. IMPRESSION: No acute abnormality. DATA REPOSITORY: RADIATION DOSE DELIVERED:
--- NOTE | 2023-03-15 22:24 | ED.GENADUL_ITS ---
Discharge Plan Disposition Patient Disposition: Home Condition: Stable Discharge Details Clinical Impression: Pulmonary embolism Primary Care Provider: Rigo Romero ED Provider: Joe Watts Home Meds and New Rx's Prescriptions: No Action citalopram [Celexa] 10 mg tablet 10 mg PO DAILY Rx Instructions: Not yet taking it clonazepam 1 mg tablet 0.5 mg PO DAILY PRN Eliquis 5 mg tablet 10 mg PO BID Qty: 60 5RF Drysol 20 % solution 1 applic topical QHS Qty: 60 2RF clobetasol 0.05 % shampoo 1 applic TP QHS 28 Days Qty: 118 4RF Rx Instructions: Use daily for 4 weeks. triamcinolone acetonide 0.5 % cream 1 applic topical BID Qty: 15 5RF Rx Instructions: apply small amount to arms and affected areas aripiprazole [Abilify] 10 mg tablet 10 mg PO DAILY Qty: 30 0RF dexmethylphenidate 2.5 mg tablet 2.5 mg PO BID acetaminophen 500 mg Tablet 1,000 mg PO PRN PRN Discharge Instructions Instructions: Blood Thinners (ED) HPI General Date/Time Provider Initiated Documentation: 03/15/23 22:10 . HPI Narrative: 27 year old female presents to the ED with c/o cp that started a few hours ago, and moved into her neck, and full body. She was seen yesterday, CTA showed 2 small peripheral PE's. She was initially dx with PE ~2 months ago, but had some issues missing her evening dose of meds, so was changed back to loading dose of 10mg BID x 1 week, then going down to 5 mg BID. She says that her pain started all of a sudden and concerned that something is worse or that her clots have moved. She says pain started suddenly and feels like it's worse R > L. Related Data Home Medications Medication Instructions Recorded Confirmed acetaminophen 500 mg tablet 1,000 mg PO PRN PRN 04/15/19 03/15/23 aluminum chloride 20 % topical 1 applic topical QHS #60 mL 10/02/20 03/15/23 solution (Drysol) clobetasol 0.05 % shampoo 1 applic topical QHS 4 weeks #118 12/04/21 03/15/23 mL clonazepam 1 mg tablet 0.5 mg PO DAILY PRN 05/04/22 03/15/23 citalopram 10 mg tablet (Celexa) 10 mg PO DAILY 05/12/22 03/15/23 triamcinolone acetonide 0.5 % 1 applic topical BID #15 grams 08/24/22 03/15/23 topical cream aripiprazole 10 mg tablet (Abilify) 10 mg PO DAILY #30 tabs 08/30/22 03/15/23 dexmethylphenidate 2.5 mg tablet 2.5 mg PO BID 12/22/22 03/15/23 apixaban 5 mg tablet (Eliquis) 10 mg PO BID #60 tabs 03/15/23 03/15/23 Previous Rx's Medication Instructions Recorded aluminum chloride 20 % topical 1 applic topical QHS #60 mL 10/02/20 solution (Drysol) clobetasol 0.05 % shampoo 1 applic topical QHS 4 weeks #118 12/04/21 mL triamcinolone acetonide 0.5 % 1 applic topical BID #15 grams 08/24/22 topical cream aripiprazole 10 mg tablet (Abilify) 10 mg PO DAILY #30 tabs 08/30/22 apixaban 5 mg tablet (Eliquis) 10 mg PO BID #60 tabs 03/15/23 Allergies Allergy/AdvReac Type Severity Reaction Status Date / Time amoxicillin [Amoxicillin] Allergy Severe Redness Verified 03/15/23 10:55 and swelling in throat naproxen [From Aleve] Allergy Severe Swelling/Ed Verified 03/15/23 10:55 summer Penicillins Allergy Severe Inflamed Verified 03/15/23 10:55 throat clindamycin Allergy Intermediate rash Verified 03/15/23 10:55 aspirin Allergy Mild Swelling Verified 03/15/23 10:55 in lips adhesive AdvReac Intermediate scarring Verified 03/15/23 10:55 lactose AdvReac Mild Nausea, Verified 03/15/23 10:55 intolerance-causes gas/diarrhea oxycodone HCl [From Percocet] AdvReac Unknown Nausea Verified 03/15/23 10:55 General Stated Complaint: Recheck JACKSON: 3 Review of Systems Narrative: CONST: no fever or chills HEENT: no sore throat SKIN: no rashes PULM: no sob, no cough CARD:+ cp, no palpitations ABD: no abd pain EXTR: no swelling NEURO: No focal weakness PFSH All Active Problems (Updated 03/15/23 @ 23:03 by Joe Watts MD) Urine test negative (Acute) Pulmonary embolism (Chronic) DVT prophylaxis (Acute) Left leg DVT (Acute) Bilateral pulmonary embolism (Acute) Attention and concentration deficit (Acute) Sciatica of left side (Acute) Tobacco use disorder (Acute) Anxiety (Chronic 11/15/11) RX Citalopram L-T x9 years (helped until stopped eating ~03/2020); RX Escitalopram, stopped 02/2021 in favor of Ability & Lamotrigine ([facility]) Depression (Chronic) RX Citalopram L-T x9 years (helped until stopped eating ~03/2020); RX Escitalopram 03/2020, stopped 02/2021 in favor of Ability & Lamotrigine ([facility]) Bipolar 1 disorder (Acute) PTSD (post-traumatic stress disorder) (Acute) ASCUS with positive high risk HPV cervical (Acute) Colpo on 05/13/22 with KJ. Recommendation is repeat 6 wks PP Medical History (Updated 03/15/23 @ 23:03 by Joe Watts MD) Acute thrombosis of right basilic vein Started anticoag Apix [facility] [place] consult 10/2021 Alcohol abuse Consumes four beers at a time. Had DWI 2020. 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 Scalp psoriasis Rx with clobetasol lotion and change from DeopProvera to OCPs. Rubella non-immune status, antepartum Sinus tachycardia Holter 08/2021, labs & ECHO pending Surgical History Tooth extraction teeth extraction. hx of colonoscopy and endoscopy Family History Mother Drug addiction Mental disorder Gastric ulcer Father Essential hypertension Drug addiction Mental disorder Seizures Sister Autism Maternal Grandmother CHF (congestive heart failure) Gastric ulcer COPD (chronic obstructive pulmonary disease) Paternal Great Aunt Coronary heart disease Grandmother CHF (congestive heart failure) Neoplasm Lung CA (smoker) Grandfather Diabetes Maternal Uncle Diabetes Paternal Grandmother COPD (chronic obstructive pulmonary disease) Other Alcohol abuse Congenital heart defect Substance use disorder Social History Smoking/Tobacco Use Status: Current every day Tobacco Type: cigarettes Smoking packs per day: 1 Smoking cigarettes per day: 20.0 Years smoked: 10 Smoking pack- years: 10.00 Tobacco: How many years used: 14 Quit status: considering quitting Smoking risk assessment performed?: Yes Alcohol Intake: current Alcohol Intake frequency: a few times a week Alcohol type: beer Details: see A/P Drug use: Occasionally Substance use type: marijuana Caregiver/Support person: No Household members: significant other and other Details: New partner since 01/2020. Housing: house Number of Children: 0 Communication Needs: None current occupation: working as [employer] school 08/2022. 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 Date GA/Weeks # Preg Succ Route Wgt Sex Labor Lgth Anesth esia Location Prov Complic 05/03/12 8 No No 04/29/17 6 No No 04/29/18 8 No No 11/15/22 39 No Yes vaginal Female [facility] other Delivery Date: 05/03/12 Last Updated by: KASEY Perry Delivery Date: 04/29/17 Last Updated by: Patt Smith CNM SAB Delivery Date: 04/29/18 Last Updated by: KASEY Perry Delivery Date: 11/15/22 Last Updated by: Darline Sarmiento MD Pt transfered care to while in prodromal labor. Adrianna. 5w PP LE D VT and bilateral PEs Exam Narrative Exam Narrative: Const: well appearing, somewhat anxious HEENT: normocephalic, atraumatic; MMM Lungs: CTA, no wheezing or rales Heart: RRR, tachycardia Abd: soft, NT/ND Ext: well perfused Neuro: non-focal Skin: no rashes Course 27 yo female with cp, dx yesterday with new or persistent PE's, currently increased her Eliquis to loading dose of 10 mg BID. Reviewed her test results from yesterday, 2 small peripheral LLL PE's, and US that showd no RV strain. Unlikely to have any significant change in 24 hours on Eliquis, which I explained to her. She is tachy, noted yesterday as well, and likely more anxiety then anything else. I offered to repeat some blood work and ekg, but CT really not worth the radiation given circumstances. Reevaluation(s) Initial Evaluation: No acute findings on work-up, and no emergent intervention to be done at this time. She says she is taking her medicine, and explained that as long as she is compliant, would expect to slowly improve. Pt is not happy with this, feels there is something else that needs to be done, does not feel reassured with normal testing today. Vital Signs Vital signs: Vital Signs Temperature 37.1 C 03/15/23 22:12 Pulse 128 H 03/15/23 22:12 Respiratory Rate 13 03/15/23 22:12 Blood Pressure 118/74 03/15/23 22:12 Pulse Oximetry 100 03/15/23 22:12 Temperature 37.1 C 03/15/23 22:12 Temperature Source Temporal Artery Scan 03/15/23 22:12 Pulse 128 H 03/15/23 22:12 Respiratory Rate 13 03/15/23 22:12 Respiratory Effort Normal, Non-Labored 03/15/23 22:17 Blood Pressure 118/74 03/15/23 22:12 Blood Pressure Position Sitting 03/15/23 22:12 Pulse Oximetry 100 03/15/23 22:12 Oxygen Delivery Method Room Air 03/15/23 22:12 Oxygen Flow Rate 0 03/15/23 22:12 Pain Level 9 03/15/23 22:12
[2023-03-15] MEDS: LORazepam 1 MG TAB PO (22:39)
[2023-03-15 22:41] LABS: Abs Immature Grans 0.01 10^3/uL (0.0-0.06); Absolute Basophil Count 0.05 10^3/uL (0.0-0.2); Absolute Eosinophil Count 0.46 10^3/uL (0.0-0.7); Absolute Lymphocyte Count 2.23 10^3/uL (1.2-3.4); Absolute Monocyte Count 0.61 10^3/uL (0.1-0.8); Basophils % 0.8; HCT 39.6 % (36.0-46.0); HGB 13.4 g/dL (11.2-15.7); Immature Grans % 0.2; MCH 29.6 pg (27.0-33.0); MCHC 33.8 % (32.0-36.0); MCV 87 fL (80-95); MPV 9.4 fL (8.0-11.0); Monocytes % 9.3; Neutrophils % 48.7; Platelet Count 318 10^3/uL (130-400); RBC 4.53 10^6/uL (3.93-5.22); RDW 16.2 % (11.7-14.6); RDW-SD 51.2 fL; WBC 6.56 10^3/uL (4.4-10.8)
[2023-03-15 22:58] LABS: ALT 17 U/L (14-59); AST 14 U/L (15-37); Albumin 3.4 g/dL (3.4-5.0); Alkaline Phosphatase 86 U/L (46-116); Anion Gap 12.8 mmol/L (3-11); BUN 3 mg/dL (7-18); Bilirubin, Total 0.4 mg/dL (0.2-1.0); CO2 22.2 mmol/L (21.0-32.0); CREATININE 0.8 mg/dL (0.55-1.02); Calcium 8.5 mg/dL (8.5-10.1); Chloride 108 mmol/L (98-107); Estimated GFR 102.86 (mL/min/1.73m2); Glucose 102 mg/dL (74-106); Potassium 3.6 mmol/L (3.5-5.1); Sodium 143 mmol/L (136-145); Total Protein 6.7 g/dL (6.4-8.2); Troponin I < 50 ng/L (<or=60)
[2023-03-15 23:03] VITALS: BP 118/74; PULSE 118
--- NOTE | 2023-03-16 00:01 | DI.VRAD_ITS ---
PROCEDURE INFORMATION: Exam: XR Chest Exam date and time: 03/15/2023 10:42 PM Age: 27 years old Clinical indication: Other: Cp TECHNIQUE: Imaging protocol: Radiologic exam of the chest. Views: 2 views. COMPARISON: CT CHEST PE CTA 03/14/2023 2:06 PM FINDINGS: Lungs: No consolidation. Pleural spaces: Unremarkable. No pleural effusion. No pneumothorax. Heart/Mediastinum: Unremarkable. No cardiomegaly. Bones/joints: Unremarkable. IMPRESSION: No acute findings. Dictated and Authenticated by: Leroy Cardona MD. Ordering:LORE Diaz MD
== END 2023-03-15 23:08 | disposition home or self-care (01) ==
PROVIDERS: Emergency Provider Emergency Medicine; PCP Physician Assistant
DX: I26.99 Other pulmonary embolism without acute cor pulmonale (principal); R07.9 Chest pain, unspecified
CPT/HCPCS: 36415; 80053; 93005; 99284; 71046; 84484; 85025; 93010

== ENCOUNTER 2023-03-22 08:39 | Emergency (ER) | payer MEDICAID, SELFPAY ==
[2023-03-22 08:45] VITALS: BP 111/80; PULSE 112; RESP 20; TEMP 37.2; O2SAT 100
--- NOTE | 2023-03-22 08:45 | RT.EKG_ITS ---
APPROVED REPORT Exam: Resting ECG Reason for Exam: sob, chest pain Patient Location: E HR:101 bpm ECG Measurements Heart Rate 101 AXIS GA 113 P 39 QRSd 75 QRS 77 QT 356 T 61 QTc 463 Conclusion Sinus tachycardia...rate> 99 sinus tachycardia, normal axis, normal intervals non ischemic
--- NOTE | 2023-03-22 08:56 | DI.US_ITS ---
Exam(s) US EXTREMITY VENOUS BI EXAM: US EXTREMITY VENOUS BI CLINICAL HISTORY: recurrent PEs TECHNIQUE: Grayscale, color, and doppler imaging of the deep venous system of both lower extremities was performed. COMPARISON: US POCUS EXAM from 03/14/2023 FINDINGS: There is no evidence of intraluminal thrombus and there is normal compression and augmentation demons trated within the common femoral veins, femoral veins, and popliteal veins of both lower extremities. In the calves the interrogated veins also exhibit normal compression/ augmentation properties. The greater saphenous veins also appear patent as do the saphenofemoral junctions bilaterally.. IMPRESSION: 1. No ultrasound evidence of DVT in either lower extremity. DATA REPOSITORY:
[2023-03-22 08:58] VITALS: RESP 18
--- NOTE | 2023-03-22 08:59 | ED.GENADUL_ITS ---
Discharge Plan Disposition Patient Disposition: Home Condition: Improving Discharge Details Chief Complaint: SOB/SuddenOnset Clinical Impression: Dyspnea Primary Care Provider: Jennifer Marsh ED Provider: Hoang Wellington Home Meds and New Rx's Prescriptions: No Action citalopram [Celexa] 10 mg tablet 10 mg PO DAILY Rx Instructions: Not yet taking it clonazepam 1 mg tablet 0.5 mg PO DAILY PRN Eliquis 5 mg tablet 10 mg PO BID Qty: 60 5RF Drysol 20 % solution 1 applic topical QHS Qty: 60 2RF clobetasol 0.05 % shampoo 1 applic TP QHS 28 Days Qty: 118 4RF Rx Instructions: Use daily for 4 weeks. triamcinolone acetonide 0.5 % cream 1 applic topical BID Qty: 15 5RF Rx Instructions: apply small amount to arms and affected areas aripiprazole [Abilify] 10 mg tablet 10 mg PO DAILY Qty: 30 0RF dexmethylphenidate 2.5 mg tablet 2.5 mg PO BID acetaminophen 500 mg Tablet 1,000 mg PO PRN PRN Discharge Instructions Instructions: Dyspnea (ED) Additional Instructions: Please continue to take your medications as prescribed, follow-up with your primary care physician. Medical Decision Making 27-year-old female presents with chest pain shortness of breath worsening over the last week, history of PE on Eliquis, has missed a couple doses of nighttime Eliquis otherwise compliant. No pain or swelling to legs no pain or swelling to arms. Patient displaying sinus tachycardia on monitor will obtain EKG. Normoxic no respiratory distress, no hypotension. Will obtain screening labs, bilateral lower extremity ultrasound and repeat CT chest given progressive worsening symptoms. Consider large clot burden leading to recurrent PEs. Must also consider anxiety versus pleurisy versus costochondritis versus less likely ACS or aortic pathology or suspicion for pneumonia or pneumothorax. Disposition pending reassessment labs and imaging 11: 30 patient resting comfortably no acute distress. Imaging demonstrating large resolution of PE clot burden. Labs unremarkable. Patient resting comfortably. No acute distress HPI General Date/Time Provider Initiated Documentation: 03/22/23 08:40 . HPI Narrative: 27-year-old female history of PE on Eliquis presents with worsening chest pain shortness of breath over the past several days. Related Data Home Medications Medication Instructions Recorded Confirmed acetaminophen 500 mg tablet 1,000 mg PO PRN PRN 04/15/19 03/22/23 aluminum chloride 20 % topical 1 applic topical QHS #60 mL 10/02/20 03/22/23 solution (Drysol) clobetasol 0.05 % shampoo 1 applic topical QHS 4 weeks #118 12/04/21 03/22/23 mL clonazepam 1 mg tablet 0.5 mg PO DAILY PRN 05/04/22 03/22/23 citalopram 10 mg tablet (Celexa) 10 mg PO DAILY 05/12/22 03/22/23 triamcinolone acetonide 0.5 % 1 applic topical BID #15 grams 08/24/22 03/22/23 topical cream aripiprazole 10 mg tablet (Abilify) 10 mg PO DAILY #30 tabs 08/30/22 03/22/23 dexmethylphenidate 2.5 mg tablet 2.5 mg PO BID 12/22/22 03/22/23 apixaban 5 mg tablet (Eliquis) 10 mg PO BID #60 tabs 03/15/23 03/22/23 Previous Rx's Medication Instructions Recorded aluminum chloride 20 % topical 1 applic topical QHS #60 mL 10/02/20 solution (Drysol) clobetasol 0.05 % shampoo 1 applic topical QHS 4 weeks #118 12/04/21 mL triamcinolone acetonide 0.5 % 1 applic topical BID #15 grams 08/24/22 topical cream aripiprazole 10 mg tablet (Abilify) 10 mg PO DAILY #30 tabs 08/30/22 apixaban 5 mg tablet (Eliquis) 10 mg PO BID #60 tabs 03/15/23 Allergies Allergy/AdvReac Type Severity Reaction Status Date / Time amoxicillin [Amoxicillin] Allergy Severe Redness Verified 03/22/23 08:47 and swelling in throat naproxen [From Aleve] Allergy Severe Swelling/Ed Verified 03/22/23 08:47 summer Penicillins Allergy Severe Inflamed Verified 03/22/23 08:47 throat clindamycin Allergy Intermediate rash Verified 03/22/23 08:47 aspirin Allergy Mild Swelling Verified 03/22/23 08:47 in lips adhesive AdvReac Intermediate scarring Verified 03/22/23 08:47 lactose AdvReac Mild Nausea, Verified 03/22/23 08:47 intolerance-causes gas/diarrhea oxycodone HCl [From Percocet] AdvReac Unknown Nausea Verified 03/22/23 08:47 General Stated Complaint: SOB/SuddenOnset JACKSON: 3 Review of Systems Narrative: Review of Systems Constitutional: negative Eyes: negative ENT: negative Cardiovascular: Chest pain Respiratory: Shortness of breath Gastrointestinal: negative : negative Musculoskeletal: negative Skin: negative Neurologic: negative Psych: negative PFSH All Active Problems (Updated 03/22/23 @ 11:31 by Hoang Wellington MD) Dyspnea (Acute) ASCUS with positive high 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 papillomavirus of vagina (Acute) PATIENT NEEDS REPEAT PAP WHEN SEEN FOR IUD INSERTION Urine test negative (Acute) Pulmonary embolism (Chronic) DVT prophylaxis (Acute) Left leg DVT (Acute) Bilateral pulmonary embolism (Acute) Attention and concentration deficit (Acute) Sciatica of left side (Acute) Tobacco use disorder (Acute) Anxiety (Chronic 11/15/11) RX Citalopram L-T x9 years (helped until stopped eating ~03/2020); RX Escitalopram, stopped 02/2021 in favor of Ability & Lamotrigine ([facility]) Depression (Chronic) RX Citalopram L-T x9 years (helped until stopped eating ~03/2020); RX Escitalopram 03/2020, stopped 02/2021 in favor of Ability & Lamotrigine ([facility]) Bipolar 1 disorder (Acute) PTSD (post-traumatic stress disorder) (Acute) ASCUS with positive high risk HPV cervical (Acute) Colpo on 05/13/22 with KJ. Recommendation is repeat 6 wks PP Medical History (Updated 03/22/23 @ 11:31 by Hoang Wellington MD) Acute thrombosis of right basilic vein Started anticoag Apix [facility] [place] Heme consult 10/2021 Alcohol abuse Consumes four beers at a time. Had DWI 2020. 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 Scalp psoriasis Rx with clobetasol lotion and change from DeopProvera to OCPs. Rubella non-immune status, antepartum Sinus tachycardia Holter 08/2021, labs & ECHO pending Surgical History Tooth extraction teeth extraction. hx of colonoscopy and endoscopy Family History Mother Drug addiction Mental disorder Gastric ulcer Father Essential hypertension Drug addiction Mental disorder Seizures Sister Autism Maternal Grandmother CHF (congestive heart failure) Gastric ulcer COPD (chronic obstructive pulmonary disease) Paternal Great Aunt Coronary heart disease Grandmother CHF (congestive heart failure) Neoplasm Lung CA (smoker) Grandfather Diabetes Maternal Uncle Diabetes Paternal Grandmother COPD (chronic obstructive pulmonary disease) Other Alcohol abuse Congenital heart defect Substance use disorder Social History Smoking/Tobacco Use Status: Current every day Tobacco Type: cigarettes Smoking packs per day: 1 Smoking cigarettes per day: 20.0 Years smoked: 10 Smoking pack- years: 10.00 Tobacco: How many years used: 14 Quit status: considering quitting Smoking risk assessment performed?: Yes Alcohol Intake: current Alcohol Intake frequency: a few times a week Alcohol type: beer Details: see A/P Drug use: Occasionally Substance use type: marijuana Caregiver/Support person: No Household members: significant other and other Details: New partner since 01/2020. Housing: house Number of Children: 0 Communication Needs: None current occupation: working as [employer] school 08/2022. 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 Date GA/Weeks # Preg Succ Route Wgt Sex Labor Lgth Anesth esia Location Prov Complic 05/03/12 8 No No 04/29/17 6 No No 04/29/18 8 No No 11/15/22 39 No Yes vaginal Female [facility] other Delivery Date: 05/03/12 Last Updated by: KASEY Perry Delivery Date: 04/29/17 Last Updated by: Patt Smith CNM SAB Delivery Date: 04/29/18 Last Updated by: KASEY Perry Delivery Date: 11/15/22 Last Updated by: Darline Sarmiento MD Pt transfered care to while in prodromal labor. Adrianna. 5w PP LE DVT and bilateral PEs Exam Narrative Exam Narrative: Physical Examination General: alert, awake, cooperative, resting comfortably, no acute distress HEENT: normocephalic, atraumatic; PERRL, EOM intact, conjunctiva normal; no nasal discharge; moist mucous membranes, oral and pharyngeal mucosa normal, tolerating secretions Neck: supple, trachea midline; full ROM Chest: normal to inspection Respiratory: normal respiratory effort, speaking in full sentences, clear to auscultation, no wheezing, rales or rhonchi Cardiac: Tachycardia, regular rhythm, S1S2 intact, no murmurs rubs or gallops GI: abdomen soft, non-tender, non-distended; no palpable mass or hepatosplenomegaly Skin: no lesions, rashes or trauma appreciated Neuro: AAOx3, normal speech, moving all extremities Extremities: No peripheral edema Psych: Appropriate mood and affect Course Vital Signs Vital signs: Vital Signs Temperature 37.2 C 03/22/23 08:45 Pulse 112 H 03/22/23 08:45 Respiratory Rate 20 03/22/23 08:45 Blood Pressure 111/80 03/22/23 08:45 Pulse Oximetry 100 03/22/23 08:45 Temperature 37.2 C 03/22/23 08:45 Temperature Source Oral 03/22/23 08:45 Pulse 112 H 03/22/23 08:45 Respiratory Rate 20 03/22/23 08:45 Blood Pressure 111/80 03/22/23 08:45 Blood Pressure Position Sitting 03/22/23 08:45 Pulse Oximetry 100 03/22/23 08:45 Oxygen Delivery Method Room Air 03/22/23 08:45 Oxygen Flow Rate 0 03/22/23 08:45
[2023-03-22 09:12] LABS: Abs Immature Grans 0.01 10^3/uL (0.0-0.06); Absolute Basophil Count 0.03 10^3/uL (0.0-0.2); Absolute Eosinophil Count 0.08 10^3/uL (0.0-0.7); Absolute Lymphocyte Count 2.56 10^3/uL (1.2-3.4); Absolute Monocyte Count 0.44 10^3/uL (0.1-0.8); Absolute Neutrophil Count 1.74 10^3/uL (1.2-6.7); Basophils % 0.6; Eosinophils % 1.6; HCT 43.2 % (36.0-46.0); HGB 14.6 g/dL (11.2-15.7); Immature Grans % 0.2; Lymphocytes % 52.7; MCH 29.9 pg (27.0-33.0); MCHC 33.8 % (32.0-36.0); MCV 88 fL (80-95); MPV 9.4 fL (8.0-11.0); Monocytes % 9.1; Neutrophils % 35.8; Platelet Count 341 10^3/uL (130-400); RBC 4.89 10^6/uL (3.93-5.22); RDW-SD 57.1 fL; WBC 4.86 10^3/uL (4.4-10.8)
[2023-03-22 09:44] LABS: INR 1.1 (0.9-1.1); PTT Activated 25.4 sec (21.5-31.9); Prothrombin Time 11.6 sec (9.3-11.0)
[2023-03-22] MEDS: LORazepam 2 MG/ML VIAL 0.5 MG IVP (09:45)
[2023-03-22 09:46] LABS: ALT 15 U/L (14-59); AST 12 U/L (15-37); Albumin 3.6 g/dL (3.4-5.0); Alkaline Phosphatase 77 U/L (46-116); Anion Gap 9.6 mmol/L (3-11); BUN 2 mg/dL (7-18); Bilirubin, Total 0.5 mg/dL (0.2-1.0); CO2 27.4 mmol/L (21.0-32.0); CREATININE 0.7 mg/dL (0.55-1.02); Calcium 8.8 mg/dL (8.5-10.1); Chloride 108 mmol/L (98-107); Estimated GFR 120.74 (mL/min/1.73m2); Glucose 87 mg/dL (74-106); NT-proBNP 92 pg/mL (<300); Potassium 4.1 mmol/L (3.5-5.1); Sodium 145 mmol/L (136-145); Total Protein 7.1 g/dL (6.4-8.2)
[2023-03-22 09:50] LABS: Troponin I < 50 ng/L (<or=60)
[2023-03-22] MEDS: Apixaban 5 MG TAB 10 MG PO (10:19)
[2023-03-22] MEDS: Normal Saline - Diluent 50 ML VIAL IJ ×2 (10:44→10:45)
[2023-03-22] MEDS: Normal Saline Flush 10 ML SYR IJ (10:46)
[2023-03-22] MEDS: Omnipaque 350 MG/ML 500 ML BTL-Imaging package 56 ML IJ (10:49)
--- NOTE | 2023-03-22 11:01 | DI.CT_ITS ---
Exam(s) CT CHEST PE CTA EXAM: CT CHEST PE CTA CLINICAL HISTORY: hx of PEs, worsening SOB and chest pain. TECHNIQUE: Imaging Protocol: CT angiography of the chest was performed using pulmonary embolus tone col. Multi planar reconstructions were performed. CONTRAST MATERIAL: Intravenous: Omnipaque 350 Contrast volume: 100 cc COMPARISON: CT CT CHEST PE CTA from 12/22/[address] CHEST PE CTA from 03/14/2023 FINDINGS: CHEST: PULMONARY ARTERIES: There are still some intraluminal filling defects in left lower lobe vessels but somewhat less than was evident on CT scan of 03/14/2023 and significantly less than was evident on th e scan of 12/22/2022 (which revealed extensive bilateral pulmonary emboli at that time). On the oppo site-right side there is web like remnant of intraluminal thrombus still evident but significantly le ss than was evident on the 12/22/2022 scan. LUNGS: There are no infiltrates nor evidence of pulmonary infarction.. There are no pleural effusions . No pneumothorax. MEDIASTINUM: There is no hilar nor mediastinal adenopathy. Visualized thyroid unremarkable. CARDIAC: Heart size is upper normal. There is no pericardial effusion.Caliber of the thoracic aorta is within normal limits. There is no significant shift of the interventricular septum. PARTIALLY VISUALIZED UPPERMOST ABDOMEN: No obvious findings OSSEOUS: No significant osseous lesions.No fractures.. IMPRESSION: There is no evidence of new acute pulmonary emboli nor pulmonary infarction. There is remnant web-li ke thrombus thread bilaterally. Findings have significantly improved when compared to the extensive bilateral pulmonary emboli which were evident on 12/22/2022. Relatively stable when compared to 02/26 with slight further improvement on the left side. Images reviewed at my PACS monitor with ER physician. RADIATION DOSE DELIVERED: Total DLP DATA REPOSITORY: All CT scans at this facility are submitted to the National Radiology Data Registry (NRDR) Dose Index Registry (DIR) with the [employer] (ACR). RADIATION OPTIMIZATION: All CT scans at this facility use at least one of these dose optimization te chniques: automated exposure control; mA and/or kV adjustment per patient size (includes targeted exa ms where dose is matched to clinical indication); or iterative reconstruction.
[2023-03-22 11:26] VITALS: BP 118/84; PULSE 112; RESP 18; O2SAT 100
--- NOTE | 2023-03-25 15:14 | NUR.NOTE ---
Accessed chart to determine orders for EKG and to determine whether or not one needs to be cancelled. Nursing Note:
== END 2023-03-22 11:49 | disposition home or self-care (01) ==
PROVIDERS: Emergency Provider Emergency Medicine; PCP Nurse Practitioner Family
DX: R06.09 Other forms of dyspnea (principal); R05.9 Cough, unspecified; R06.2 Wheezing; R06.02 Shortness of breath; R00.0 Tachycardia, unspecified
CPT/HCPCS: 36415; 71275; 80053; 81025; 93005; 96374; 99284; 83880; 84439; 84443; 84484; 85025; 85610; 85730; 93010; 93970; J2060

== ENCOUNTER 2023-05-13 04:32 | Emergency (ER) | payer MEDICAID, SELFPAY ==
[2023-05-13] VITALS (18 sets, daily range): BP systolic 121–136; BP diastolic 84–90; PULSE 86–149; RESP 14–35; TEMP 36.6; O2SAT 99–100
--- NOTE | 2023-05-13 05:02 | ED.GENADUL_ITS ---
Discharge Plan Disposition Patient Disposition: Home Condition: Improving Discharge Details Chief Complaint: SOB Clinical Impression: Shortness of breath Primary Care Provider: Jennifer Marsh ED Provider: Hoang Wellington Home Meds and New Rx's Prescriptions: No Action Eliquis 5 mg tablet 10 mg PO BID Qty: 60 5RF dexmethylphenidate 5 mg tablet 5 mg PO BID Rx Instructions: administer doses at least 4 hours apart Boost High Protein 0.06 gram- 1 kcal/mL liquid 1 ml PO DAILY Qty: 2844 3RF clonazepam 0.5 mg tablet 0.5 mg PO DAILY PRN (Reason: anxiety) Qty: 28 0RF Drysol 20 % solution 1 applic topical QHS Qty: 60 2RF clobetasol 0.05 % shampoo 1 applic TP QHS 28 Days Qty: 118 4RF Rx Instructions: Use daily for 4 weeks. triamcinolone acetonide 0.5 % cream 1 applic topical BID Qty: 15 5RF Rx Instructions: apply small amount to arms and affected areas aripiprazole [Abilify] 10 mg tablet 10 mg PO DAILY Qty: 30 0RF albuterol sulfate 90 mcg/actuation HFA aerosol inhaler 2 inh inhalation Q6H PRN (Reason: shortness of breath or wheezing) Qty: 18 4RF (DME) BreatheRite MDI Spacer Spacer See Rx Instructions .ROUTE .MEDSUPPLY Qty: 1 0RF Rx Instructions: As directed acetaminophen 500 mg Tablet 1,000 mg PO PRN PRN Discharge Instructions Instructions: Dyspnea (ED) Medical Decision Making 27-year-old female history of PE on apixaban, presents with chest pain shortness of breath that feels like her prior PE, also believes she may be as her last menstrual period was 8 weeks ago, sore throat and cough as well as fatigue. Consider viral illness versus pneumonia versus recurrent PE versus pre gnancy versus dehydration versus electrolyte abnormality. Screening labs imaging trial of nebs steroids, COVID swab, close reassessment of symptoms 8: 02 patient resting comfortably no acute distress. Hemodynamically stable. Heart rate 98 bpm on monitor. Normoxic normotensive. CT negative for PE. HPI General Date/Time Provider Initiated Documentation: 05/13/23 04:33 . HPI Narrative: 27-year-old female history of PE on apixaban presents with shortness of breath cough and sore throat over the last day. Endorses that she may be . Last menstrual period 8 weeks ago. Feels like the last time she had a blood clot. Related Data Home Medications Medication Instructions Recorded Confirmed acetaminophen 500 mg tablet 1,000 mg PO PRN PRN 04/15/19 05/13/23 aluminum chloride 20 % topical 1 applic topical QHS #60 mL 10/02/20 05/13/23 solution (Drysol) clobetasol 0.05 % shampoo 1 applic topical QHS 4 weeks #118 12/04/21 05/13/23 mL triamcinolone acetonide 0.5 % 1 applic topical BID #15 grams 08/24/22 05/13/23 topical cream aripiprazole 10 mg tablet (Abilify) 10 mg PO DAILY #30 tabs 08/30/22 05/13/23 apixaban 5 mg tablet (Eliquis) 10 mg PO BID #60 tabs 03/15/23 05/13/23 clonazepam 0.5 mg tablet 0.5 mg PO DAILY PRN anxiety #28 05/09/23 05/13/23 tabs dexmethylphenidate 5 mg tablet 5 mg PO BID 05/09/23 05/13/23 food supplemt, lactose-reduced 1 ml PO DAILY #2,844 mL 05/09/23 05/13/23 0.06 gram-1 kcal/mL oral liquid (Boost High Protein) albuterol sulfate 90 mcg/actuation 2 inh inhalation Q6H PRN shortness 05/12/23 05/13/23 aerosol inhaler of breath or wheezing #18 grams inhalational spacing device #1 ea 05/12/23 05/13/23 (BreatheRite MDI Spacer) Previous Rx's Medication Instructions Recorded aluminum chloride 20 % topical 1 applic topical QHS #60 mL 10/02/20 solution (Drysol) clobetasol 0.05 % shampoo 1 applic topical QHS 4 weeks #118 12/04/21 mL triamcinolone acetonide 0.5 % 1 applic topical BID #15 grams 08/24/22 topical cream aripiprazole 10 mg tablet (Abilify) 10 mg PO DAILY #30 tabs 08/30/22 apixaban 5 mg tablet (Eliquis) 10 mg PO BID #60 tabs 03/15/23 clonazepam 0.5 mg tablet 0.5 mg PO DAILY PRN anxiety #28 05/09/23 tabs food supplemt, lactose-reduced 1 ml PO DAILY #2,844 mL 05/09/23 0.06 gram-1 kcal/mL oral liquid (Boost High Protein) albuterol sulfate 90 mcg/actuation 2 inh inhalation Q6H PRN shortness 05/12/23 aerosol inhaler of breath or wheezing #18 grams inhalational spacing device #1 ea 05/12/23 (BreatheRite MDI Spacer) Allergies Allergy/AdvReac Type Severity Reaction Status Date / Time amoxicillin [Amoxicillin] Allergy Severe Redness Verified 05/13/23 04:46 and swelling in throat naproxen [From Aleve] Allergy Severe Swelling/Ed Verified 05/13/23 04:46 summer Penicillins Allergy Severe Inflamed Verified 05/13/23 04:46 throat clindamycin Allergy Intermediate rash Verified 05/13/23 04:46 metronidazole [From Flagyl] Allergy Intermediate Verified 05/13/23 04:46 aspirin Allergy Mild Swelling Verified 05/13/23 04:46 in lips adhesive AdvReac Intermediate scarring Verified 05/13/23 04:46 lactose AdvReac Mild Nausea, Verified 05/13/23 04:46 intolerance-causes gas/diarrhea oxycodone HCl [From Percocet] AdvReac Unknown Nausea Verified 05/13/23 04:46 General Stated Complaint: SOB [facility]ACK[facility]: 2 Review of Systems Narrative: Review of Systems Constitutional: Fatigue Eyes: negative ENT: Sore throat Cardiovascular: negative Respiratory: Shortness of breath Gastrointestinal: negative : negative Musculoskeletal: negative Skin: negative Neurologic: negative Psych: negative PFSH All Active Problems (Updated 05/13/23 @ 08:03 by Hoang Wellington MD) Shortness of breath (Acute) ASCUS with positive high risk human papillomavirus of vagina (Acute) PATIENT NEEDS REPEAT PAP WHEN SEEN FOR IUD INSERTION Urine test negative (Acute) DVT prophylaxis (Acute) Left leg DVT (Acute) Bilateral pulmonary embolism (Acute) Attention and concentration deficit (Acute) Sciatica of left side (Acute) Tobacco use disorder (Acute) Anxiety (Chronic 11/15/11) RX Citalopram L-T x9 years (helped until stopped eating ~03/2020); RX Escitalopram, stopped 02/2021 in favor of Ability & Lamotrigine ([facility]) Depression (Chronic) RX Citalopram L-T x9 years (helped until stopped eating ~03/2020); RX Escitalopram 03/2020, stopped 02/2021 in favor of Ability & Lamotrigine ([facility]) Bipolar 1 disorder (Acute) PTSD (post-traumatic stress disorder) (Acute) ASCUS with positive high risk HPV cervical (Acute) Colpo on 05/13/22 with KJ. Recommendation is repeat 6 wks PP Medical History (Updated 05/13/23 @ 08:03 by Hoang Wellington MD) Acute thrombosis of right basilic vein Started anticoag Apix [facility] Heme consult 10/2021 Alcohol abuse Consumes four beers at a time. Had DWI 2020. 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 Heme consult 10/2021: do not recommend ppx during . 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 Scalp psoriasis Rx with clobetasol lotion and change from DeopProvera to OCPs. Rubella non-immune status, antepartum Sinus tachycardia Holter 08/2021, labs & ECHO pending Surgical History Tooth extraction teeth extraction. hx of colonoscopy and endoscopy Family History (Updated 05/09/23 @ 15:27 by Alana Springer) Mother Drug addiction Mental disorder Gastric ulcer Depression Father Essential hypertension Drug addiction Mental disorder Seizures Depression Sister Autism Maternal Grandmother CHF (congestive heart failure) Gastric ulcer COPD (chronic obstructive pulmonary disease) Paternal Great Aunt Coronary heart disease Grandmother CHF (congestive heart failure) Neoplasm Lung CA (smoker) Grandfather Diabetes Maternal Uncle Diabetes Paternal Grandmother COPD (chronic obstructive pulmonary disease) Other Alcohol abuse Congenital heart defect Substance use disorder Social History (Updated 05/09/23 @ 15:26 by Alana Springer) Smoking/Tobacco Use Status: Current every day Tobacco Type: cigarettes Smoking packs per day: 1 Smoking cigarettes per day: 20.0 Years smoked: 10 Smoking pack- years: 10.00 Tobacco: How many years used: 14 Quit status: not considering quitting Smoking risk assessment performed?: Yes Alcohol Intake: current Alcohol Intake frequency: a few times a week Alcohol type: beer Details: see A/P Drug use: Occasionally Substance use type: marijuana Caregiver/Support person: No Household members: significant other, children and other Details: New partner since 01/2020. Housing: apartment Number of Children: 0 Communication Needs: None Do you need help understanding health information?: Never current occupation: working as [employer] 08/2022. 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 What is your relationship status?: How often do you talk on the phone with friends or family?: three or more times per week How often do you get together with friends or relatives?: once per week How often do you attend jehovah's witness or advent services?: decline to answer Do you belong to any clubs or organized social groups?: decline to answer Panel score (0-1 are the most socially isolated patients): 2 What type of physical activity do you participate in: none and 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 Date GA/Weeks # Preg Succ Route Wgt Sex Labor Lgth Anesth esia Location Prov Complic 05/03/12 8 No No 04/29/17 6 No No 04/29/18 8 No No 11/15/22 39 No Yes vaginal Female [facility] other Delivery Date: 05/03/12 Last Updated by: KASEY Perry Delivery Date: 04/29/17 Last Updated by: Patt Smith CNM SAB Delivery Date: 04/29/18 Last Updated by: KASEY Perry Delivery Date: 11/15/22 Last Updated by: Darline Sarmiento MD Pt transfered care to while in prodromal labor. Adrianna. 5w PP LE DVT and bilateral PEs Exam Narrative Exam Narrative: Physical Examination General: alert, awake, cooperative, resting comfortably, no acute distress HEENT: normocephalic, atraumatic; PERRL, EOM intact, conjunctiva normal; no nasal discharge; moist mucous membranes, oral and pharyngeal mucosa normal, tolerating secretions Neck: supple, trachea midline; full ROM Chest: normal to inspection Respiratory: normal respiratory effort, speaking in full sentences, clear to auscultation, no wheezing, rales or rhonchi Cardiac: tachycardia, regular rhythm, S1S2 intact, no murmurs rubs or gallops GI: abdomen soft, non-tender, non-distended; no palpable mass or hepatosplenomegaly Skin: no lesions, rashes or trauma appreciated Neuro: AAOx3, normal speech, moving all extremities Psych: Appropriate mood and affect Course Vital Signs Vital signs: Vital Signs Temperature 36.6 C 05/13/23 04:41 Pulse 112 H 05/13/23 04:41 Respiratory Rate 16 05/13/23 04:41 Blood Pressure 121/87 05/13/23 04:41 Pulse Oximetry 100 05/13/23 04:41 Temperature 36.6 C 05/13/23 04:41 Temperature Source Oral 05/13/23 04:41 Pulse 112 H 05/13/23 04:41 Respiratory Rate 16 05/13/23 04:41 Respiratory Effort Normal, Short of Breath 05/13/23 04:41 Blood Pressure 121/87 05/13/23 04:41 Blood Pressure Position Sitting 05/13/23 04:41 Pulse Oximetry 100 05/13/23 04:41 Pain Level 8 05/13/23 04:41
[2023-05-13 05:09] LABS: Abs Immature Grans 0.01 10^3/uL (0.0-0.06); Absolute Basophil Count 0.06 10^3/uL (0.0-0.2); Absolute Eosinophil Count 0.39 10^3/uL (0.0-0.7); Absolute Lymphocyte Count 2.63 10^3/uL (1.2-3.4); Absolute Monocyte Count 0.53 10^3/uL (0.1-0.8); Absolute Neutrophil Count 2.62 10^3/uL (1.2-6.7); Eosinophils % 6.3; HCT 47.4 % (36.0-46.0); Immature Grans % 0.2; Lymphocytes % 42.1; MCH 30.9 pg (27.0-33.0); MCHC 33.8 % (32.0-36.0); MCV 92 fL (80-95); MPV 9.5 fL (8.0-11.0); Monocytes % 8.5; Neutrophils % 41.9; Platelet Count 344 10^3/uL (130-400); RBC 5.18 10^6/uL (3.93-5.22); RDW 15.3 % (11.7-14.6); RDW-SD 52.1 fL; WBC 6.24 10^3/uL (4.4-10.8)
[2023-05-13] MEDS: Normal Saline 1,000 ML 1000 ML IV (05:10)
[2023-05-13] MEDS: Dexamethasone 10 MG/ML VIAL IVP (05:15)
[2023-05-13] MEDS: LORazepam 2 MG/ML VIAL 1 MG IVP (05:18)
[2023-05-13] MEDS: Albuterol/Ipratropium 3 ML UPD VIAL UPD (05:25)
[2023-05-13 05:34] LABS: ALT 15 U/L (14-59); AST 16 U/L (15-37); Albumin 3.7 g/dL (3.4-5.0); Alkaline Phosphatase 90 U/L (46-116); Anion Gap 9.8 mmol/L (3-11); BUN 2 mg/dL (7-18); Bilirubin, Total 0.4 mg/dL (0.2-1.0); CO2 27.2 mmol/L (21.0-32.0); CREATININE 0.8 mg/dL (0.55-1.02); Calcium 9.1 mg/dL (8.5-10.1); Chloride 103 mmol/L (98-107); Estimated GFR 102.86 (mL/min/1.73m2); Glucose 96 mg/dL (74-106); NT-proBNP 34 pg/mL (<300); Potassium 3.7 mmol/L (3.5-5.1); Sodium 140 mmol/L (136-145); Total Protein 7.9 g/dL (6.4-8.2)
[2023-05-13 05:40] LABS: HCG Quant, Pregnancy < 1 mIU/mL (1-3); Troponin I < 50 ng/L (<or=60)
[2023-05-13 05:54] LABS: COVID-19 PCR Negative (Negative); Influenza A PCR Negative (Negative); Influenza B PCR Negative (Negative); RSV PCR Negative (Negative); Source Nasopharynx
[2023-05-13 05:55] LABS: INR 1.1 (0.9-1.1); Prothrombin Time 10.7 sec (9.3-11.0)
[2023-05-13] MEDS: Omnipaque 350 MG/ML 100 ML BTL 60 ML IJ (06:12)
[2023-05-13] MEDS: Normal Saline - Diluent 50 ML VIAL IJ (06:15)
--- NOTE | 2023-05-13 06:15 | DI.CT_ITS ---
Exam(s) CT CHEST PE CTA EXAM: CT CHEST PE CTA CLINICAL HISTORY: chest pain sob, hx of PE. TECHNIQUE: Imaging Protocol: Axial CT angiography was performed with multi-slice acquisition and mu lti-planar and/or 3D reconstructions. CONTRAST MATERIAL: Intravenous: Omnipaque 350 contrast volume:60 mL COMPARISON: CT CT CHEST PE CTA from 03/22/2023 FINDINGS: Tracheobronchial tree: Patent where visualized. Pulmonary parenchyma: No consolidation or dominant measurable mass. No architectural distortion. Atel ectasis or scarring is seen in the left lingula. Pulmonary Arteries: No evidence of a new filling defect to suggest acute pulmonary emboli. The previ ously described web-like changes within the pulmonary emboli are again seen most notable on the right . Mediastinum and Altagracia: No dominant adenopathy or fluid collection. The esophagus is unremarkable. Visualized thyroid gland: Unremarkable. Pleura: No effusion or pneumothorax. Heart: The heart is not dilated. No coronary artery calcifications are seen. No pericardial effusion. Aorta: Thoracic aorta non-dilated. No evidence of dissection. Upper abdomen: Unremarkable. Soft tissues: Unremarkable. Bones: Within normal limits for the patient's age. IMPRESSION: No evidence of an acute pulmonary embolism, aortic dissection or aneurysm. RADIATION DOSE DELIVERED: 236.88mGy.cm Total DLP DATA REPOSITORY: All CT scans at this facility are submitted to the National Radiology Data Registry (NRDR) Dose Index Registry (DIR) with the [employer] (ACR). RADIATION OPTIMIZATION: All CT scans at this facility use at least one of these dose optimization te chniques: automated exposure control; mA and/or kV adjustment per patient size (includes targeted exa ms where dose is matched to clinical indication); or iterative reconstruction.
--- NOTE | 2023-05-13 07:59 | DI.VRAD_ITS ---
PROCEDURE INFORMATION: Exam: CTA Chest With Contrast Exam date and time: 05/13/2023 6:08 AM Age: 27 years old Clinical indication: Cough; Patient HX: HX pe TECHNIQUE: Imaging protocol: Computed tomographic angiography of the chest with contrast. Exam focused on the arteries. 3D rendering (Not supervised by radiologist): MIP and/or 3D reconstructed images were created by the technologist. Radiation optimization: All CT scans at this facility use at least one of these dose optimization techniques: automated exposure control; mA and/or kV adjustment per patient size (includes targeted exams where dose is matched to clinical indication); or iterative reconstruction. Contrast material: OMNI 350; Contrast volume: 60 ml; Contrast route: INTRAVENOUS (IV); COMPARISON: CT CHEST PE CTA 03/22/2023 10:54 AM FINDINGS: Pulmonary arteries: Normal. No pulmonary emboli. Aorta: Unremarkable. No aortic aneurysm. No aortic dissection. Lungs: Linear atelectasis and/or fibrosis is seen involving the inferior lingula. Pleural spaces: Unremarkable. No pneumothorax. No pleural effusion. Heart: Unremarkable. No cardiomegaly. No pericardial effusion. Lymph nodes: Unremarkable. No enlarged lymph nodes. Bones/joints: Unremarkable. No acute fracture. Soft tissues: Unremarkable. IMPRESSION: 1. No pulmonary embolus. 2. Linear atelectasis and/or fibrosis, as described above. Dictated and Authenticated by: Augustin Haynes MD. Ordering:SURAJ Bolton MD
== END 2023-05-13 10:26 | disposition home or self-care (01) ==
PROVIDERS: Emergency Provider Emergency Medicine; PCP Nurse Practitioner Family
DX: R06.02 Shortness of breath (principal); R07.9 Chest pain, unspecified; Z86.711 Personal history of pulmonary embolism; Z79.01 Long term (current) use of anticoagulants; J02.9 Acute pharyngitis, unspecified
CPT/HCPCS: 36415; 71275; 80053; 81025; 87637; 87880; 94640; 99285; 83880; 84484; 84702; 85025; 85610; 85730; 87081; J1100; J2060; J3490; J7620

== ENCOUNTER 2023-05-21 11:38 | Emergency (ER) | payer MEDICAID, SELFPAY ==
[2023-05-21 11:41] VITALS: BP 116/84; PULSE 114; RESP 20; O2SAT 100
[2023-05-21] MEDS: diphenhydrAMINE Elixir 25 MG/10 ML CUP 12.5 MG PO (11:59)
[2023-05-21] MEDS: Mylanta Suspension 30 ML CUP PO (11:59)
--- NOTE | 2023-05-21 11:59 | W.ED.GENAD ---
Discharge Plan Disposition Patient Disposition: Home Discharge Details Chief Complaint: Allergic Clinical Impression: Throat pain, Itching Primary Care Provider: Jennifer Marsh ED Provider: Hoang Wellington Home Meds and New Rx's Prescriptions: No Action Eliquis 5 mg tablet 10 mg PO BID Qty: 60 5RF dexmethylphenidate 5 mg tablet 5 mg PO BID Rx Instructions: administer doses at least 4 hours apart Boost High Protein 0.06 gram- 1 kcal/mL liquid 1 ml PO DAILY Qty: 2844 3RF clonazepam 0.5 mg tablet 0.5 mg PO DAILY PRN (Reason: anxiety) Qty: 28 0RF lamotrigine 25 mg tablet 25 mg PO DAILY Qty: 90 1RF Drysol 20 % solution 1 applic topical QHS Qty: 60 2RF clobetasol 0.05 % shampoo 1 applic TP QHS 28 Days Qty: 118 4RF Rx Instructions: Use daily for 4 weeks. triamcinolone acetonide 0.5 % cream 1 applic topical BID Qty: 15 5RF Rx Instructions: apply small amount to arms and affected areas aripiprazole [Abilify] 10 mg tablet 10 mg PO DAILY Qty: 30 0RF albuterol sulfate 90 mcg/actuation HFA aerosol inhaler 2 inh inhalation Q6H PRN (Reason: shortness of breath or wheezing) Qty: 18 4RF (DME) BreatheRite MDI Spacer Spacer See Rx Instructions .ROUTE .MEDSUPPLY Qty: 1 0RF Rx Instructions: As directed acetaminophen 500 mg Tablet 1,000 mg PO PRN PRN Discharge Instructions Instructions: General Allergic Reaction (ED) Medical Decision Making 27-year-old female presents with sensation of burning in her throat, itching skin and subjective wheezing that began an hour ago shortly after she crushed up and swallowed some Tylenol. No respiratory distress. Lungs clear bilaterally, normal voice tolerating secretions midline uvula no oropharyngeal swelling. No rash appreciated. No hypotension nausea vomiting diarrhea or near syncope to suggest anaphylaxis. Consider component of pill esophagitis versus local irritation to oropharynx, possible mild allergic reaction again no evidence of anaphylaxis. Patient baseline tachycardia. Trial of Benadryl Mylanta. Patient does not want steroid as it gave her perineal burning the last time was administered to her. No indication for epinephrine at this time. Will observe patient here in department likely discharge home 12: 32 patient resting comfortably, feeling better wishing to leave. HPI General Date/Time Provider Initiated Documentation: 05/21/23 11:52. HPI Narrative: 27-year-old female presents after ingesting crushed Tylenol as she cannot swallow a whole pill. Noted burning sensation to her mouth skin itching and wheezing that began 1 hour ago. No vomiting. No presyncope. No chest pain Related Data Home Medications Medication Instructions Recorded Confirmed acetaminophen 500 mg tablet 1,000 mg PO PRN PRN 04/15/19 05/21/23 aluminum chloride 20 % topical 1 applic topical QHS #60 mL 10/02/20 05/21/23 solution (Drysol) clobetasol 0.05 % shampoo 1 applic topical QHS 4 weeks #118 12/04/21 05/21/23 mL triamcinolone acetonide 0.5 % 1 applic topical BID #15 grams 08/24/22 05/21/23 topical cream aripiprazole 10 mg tablet (Abilify) 10 mg PO DAILY #30 tabs 08/30/22 05/21/23 apixaban 5 mg tablet (Eliquis) 10 mg PO BID #60 tabs 03/15/23 05/21/23 clonazepam 0.5 mg tablet 0.5 mg PO DAILY PRN anxiety #28 05/09/23 05/21/23 tabs dexmethylphenidate 5 mg tablet 5 mg PO BID 05/09/23 05/21/23 food supplemt, lactose-reduced 1 ml PO DAILY #2,844 mL 05/09/23 05/21/23 0.06 gram-1 kcal/mL oral liquid (Boost High Protein) albuterol sulfate 90 mcg/actuation 2 inh inhalation Q6H PRN shortness 05/12/23 05/21/23 aerosol inhaler of breath or wheezing #18 grams inhalational spacing device #1 ea 05/12/23 05/19/23 (BreatheRite MDI Spacer) lamotrigine 25 mg tablet 25 mg PO DAILY #90 tabs 05/19/23 05/21/23 Previous Rx's Medication Instructions Recorded aluminum chloride 20 % topical 1 applic topical QHS #60 mL 10/02/20 solution (Drysol) clobetasol 0.05 % shampoo 1 applic topical QHS 4 weeks #118 12/04/21 mL triamcinolone acetonide 0.5 % 1 applic topical BID #15 grams 08/24/22 topical cream aripiprazole 10 mg tablet (Abilify) 10 mg PO DAILY #30 tabs 08/30/22 apixaban 5 mg tablet (Eliquis) 10 mg PO BID #60 tabs 03/15/23 clonazepam 0.5 mg tablet 0.5 mg PO DAILY PRN anxiety #28 05/09/23 tabs food supplemt, lactose-reduced 1 ml PO DAILY #2,844 mL 05/09/23 0.06 gram-1 kcal/mL oral liquid (Boost High Protein) albuterol sulfate 90 mcg/actuation 2 inh inhalation Q6H PRN shortness 05/12/23 aerosol inhaler of breath or wheezing #18 grams inhalational spacing device #1 ea 05/12/23 (BreatheRite MDI Spacer) lamotrigine 25 mg tablet 25 mg PO DAILY #90 tabs 05/19/23 Allergies Allergy/AdvReac Type Severity Reaction Status Date / Time amoxicillin [Amoxicillin] Allergy Severe Redness Verified 05/21/23 11:44 and swelling in throat naproxen [From Aleve] Allergy Severe Swelling/Ed Verified 05/21/23 11:44 summer Penicillins Allergy Severe Inflamed Verified 05/21/23 11:44 throat clindamycin Allergy Intermediate rash Verified 05/21/23 11:44 metronidazole [From Flagyl] Allergy Intermediate Verified 05/21/23 11:44 aspirin Allergy Mild Swelling Verified 05/21/23 11:44 in lips dexamethasone Allergy Other (See Unverified 05/21/23 11:44 Comment) adhesive AdvReac Intermediate scarring Verified 05/21/23 11:44 ipratropium [From DuoNeb] AdvReac Intermediate Verified 05/21/23 11:44 lactose AdvReac Mild Nausea, Verified 05/21/23 11:44 intolerance-causes gas/diarrhea oxycodone HCl [From Percocet] AdvReac Unknown Nausea Verified 05/21/23 11:44 General Stated Complaint: Allergic JACKSON: 3 Review of Systems Narrative: Review of Systems Constitutional: negative Eyes: negative ENT: Burning sensation to throat Cardiovascular: negative Respiratory: Wheeze Gastrointestinal: negative : negative Musculoskeletal: negative Skin: Itching Neurologic: negative Psych: negative PFSH All Active Problems (Updated 05/21/23 @ 12:34 by Hoang Wellington MD) Throat pain (Acute) Itching (Acute) Shortness of breath (Acute) ASCUS with positive high risk human papillomavirus of vagina (Acute) PATIENT NEEDS REPEAT PAP WHEN SEEN FOR IUD INSERTION Urine test negative (Acute) DVT prophylaxis (Acute) Left leg DVT (Acute) Bilateral pulmonary embolism (Acute) Attention and concentration deficit (Acute) Sciatica of left side (Acute) Tobacco use disorder (Acute) Anxiety (Chronic 11/15/11) RX Citalopram L-T x9 years (helped until stopped eating ~03/2020); RX Escitalopram, stopped 02/2021 in favor of Ability & Lamotrigine ([facility]) Depression (Chronic) RX Citalopram L-T x9 years (helped until stopped eating ~03/2020); RX Escitalopram 03/2020, stopped 02/2021 in favor of Ability & Lamotrigine ([facility]) Bipolar 1 disorder (Acute) PTSD (post-traumatic stress disorder) (Acute) ASCUS with positive high risk HPV cervical (Acute) Colpo on 05/13/22 with KJ. Recommendation is repeat 6 wks PP Medical History (Updated 05/21/23 @ 12:34 by Hoang Wellington MD) Acute thrombosis of right basilic vein [place] [facility] [place] Alcohol abuse Consumes four beers at a time. Had DWI 2020. 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 Scalp psoriasis Rx with clobetasol lotion and change from DeopProvera to OCPs. Rubella non-immune status, antepartum Sinus tachycardia Holter 08/2021, labs & ECHO pending Surgical History Tooth extraction teeth extraction. hx of colonoscopy and endoscopy Family History (Updated 05/09/23 @ 15:27 by Alana Springer) Mother Drug addiction Mental disorder Gastric ulcer Depression Father Essential hypertension Drug addiction Mental disorder Seizures Depression Sister Autism Maternal Grandmother CHF (congestive heart failure) Gastric ulcer COPD (chronic obstructive pulmonary disease) Paternal Great Aunt Coronary heart disease Grandmother CHF (congestive heart failure) Neoplasm Lung CA (smoker) Grandfather Diabetes Maternal Uncle Diabetes Paternal Grandmother COPD (chronic obstructive pulmonary disease) Other Alcohol abuse Congenital heart defect Substance use disorder Social History (Updated 05/09/23 @ 15:26 by Alana Springer) Smoking/Tobacco Use Status: Current every day Tobacco Type: cigarettes Smoking packs per day: 1 Smoking cigarettes per day: 20.0 Years smoked: 10 Smoking pack-years: 10.00 Tobacco: How many years used: 14 Quit status: not considering quitting Smoking risk assessment performed?: Yes Alcohol Intake: current Alcohol Intake frequency: a few times a week Alcohol type: beer Details: see A/P Drug use: Occasionally Substance use type: marijuana Caregiver/Support person: No Household members: significant other, children and other Details: New partner since 01/2020. Housing: apartment Number of Children: 0 Communication Needs: None Do you need help understanding health information?: Never current occupation: working as [employer] 08/2022. 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 What is your relationship status?: How often do you talk on the phone with friends or family?: three or more times per week How often do you get together with friends or relatives?: once per week How often do you attend episcopal or anabaptism services?: decline to answer Do you belong to any clubs or organized social groups?: decline to answer Panel score (0-1 are the most socially isolated patients): 2 What type of physical activity do you participate in: none and 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 Date GA/Weeks # Preg Succ Route Wgt Sex Labor Lgth Anesthesia Location Prov Complic 05/03/12 8 No No 04/29/17 6 No No 04/29/18 8 No No 11/15/22 39 No Yes vaginal Female [facility] other Delivery Date: 05/03/12 Last Updated by: Patt Smith CNM [facility] Delivery Date: 04/29/17 Last Updated by: Patt Smith CNM [facility] Delivery Date: 04/29/18 Last Updated by: Patt Smith CNM [facility] Delivery Date: 11/15/22 Last Updated by: Darline Sarmiento MD Pt transfered care to while in prodromal labor. Adrianna. 5w PP LE DVT and bilateral PEs Exam Narrative Exam Narrative: Physical Examination General: alert, awake, cooperative, resting comfortably, no acute distress HEENT: normocephalic, atraumatic; PERRL, EOM intact, conjunctiva normal; no nasal discharge; moist mucous membranes, oral and pharyngeal mucosa normal, tolerating secretions; midline uvula tolerating secretions, normal voice Neck: supple, trachea midline; full ROM Chest: normal to inspection Respiratory: normal respiratory effort, speaking in full sentences, clear to auscultation, no wheezing, rales or rhonchi Cardiac: regular rate, regular rhythm, S1S2 intact, no murmurs rubs or gallops GI: abdomen soft, non-tender, non-distended; no palpable mass or hepatosplenomegaly Skin: no lesions, rashes or trauma appreciated Neuro: AAOx3, normal speech, moving all extremities Psych: Appropriate mood and affect Course Vital Signs Vital signs: Vital Signs Pulse 114 H 05/21/23 11:41 Respiratory Rate 05/21/23 11:41 Blood Pressure 116/84 05/21/23 11:41 Pulse Oximetry 100 05/21/23 11:41 Pulse 114 H 05/21/23 11:41 Respiratory Rate 20 05/21/23 11:41 Blood Pressure 116/84 05/21/23 11:41 Blood Pressure Position Sitting 05/21/23 11:41 Pulse Oximetry 100 05/21/23 11:41 Oxygen Delivery Method Room Air 05/21/23 11:41 Oxygen Flow Rate 0 05/21/23 11:41
[2023-05-21 12:06] VITALS: PULSE 96; O2SAT 100
== END 2023-05-21 12:38 | disposition home or self-care (01) ==
PROVIDERS: Emergency Provider Emergency Medicine; PCP Nurse Practitioner Family
DX: L29.9 Pruritus, unspecified (principal); J02.9 Acute pharyngitis, unspecified
CPT/HCPCS: 99283

== ENCOUNTER 2023-06-09 18:38 | Outpatient (CLI) | payer MEDICAID, SELFPAY ==
[2023-06-09 14:13] LABS: HCG Quant, Pregnancy 1 mIU/mL (1-3)
[2023-06-09 14:34] LABS: Folate 8.8 ng/mL (8.6-20.0); Vitamin B12 269 pg/mL (193-986)
[2023-06-10 09:47] LABS: Homocysteine 25.4 umol/L (5.0-13.9)
== END 2023-06-09 18:39 | disposition home or self-care (01) ==
LOC: LBO 18:38
PROVIDERS: Obstetrics & Gynecology Gynecology; PCP Nurse Practitioner Family; Visit Provider Nurse Practitioner Family
DX: N91.2 Amenorrhea, unspecified (principal); I26.99 Other pulmonary embolism without acute cor pulmonale; I82.611 Acute embolism and thrombosis of superficial veins of right upper extremity; R06.02 Shortness of breath
CPT/HCPCS: 36415; 83090; 82607; 82746; 84702

== ENCOUNTER 2023-06-13 04:47 | Outpatient (CLI) | payer MEDICAID, SELFPAY ==
[2023-06-13 15:44] LABS: ALT 17 U/L (14-59); AST 15 U/L (15-37); Albumin 3.4 g/dL (3.4-5.0); Alkaline Phosphatase 42 U/L (46-116); Anion Gap 7.8 mmol/L (3-11); BUN 4 mg/dL (7-18); Bilirubin, Total 0.6 mg/dL (0.2-1.0); CO2 27.2 mmol/L (21.0-32.0); CREATININE 0.9 mg/dL (0.55-1.02); Calcium 9.3 mg/dL (8.5-10.1); Chloride 104 mmol/L (98-107); Glucose 112 mg/dL (74-106); Potassium 3.3 mmol/L (3.5-5.1); Sodium 139 mmol/L (136-145); Total Protein 6.6 g/dL (6.4-8.2)
[2023-06-13 15:46] LABS: HCG Quant, Pregnancy < 1 mIU/mL (1-3)
== END 2023-06-13 04:48 | disposition home or self-care (01) ==
PROVIDERS: PCP Nurse Practitioner Family; Visit Provider Obstetrics & Gynecology Gynecology
DX: Z32.01 Encounter for pregnancy test, result positive (principal); Z72.89 Other problems related to lifestyle
CPT/HCPCS: 36415; 80053; 84702

== ENCOUNTER 2023-07-11 14:44 | Outpatient (CLI) | payer MEDICAID, SELFPAY ==
--- NOTE | 2023-07-11 14:30 | RT.EKG_ITS ---
APPROVED REPORT Exam: Resting ECG Reason for Exam: cold symptoms Patient Location: O HR:117 bpm ECG Measurements Heart Rate 117 AXIS ME 112 P 54 QRSd 71 QRS 86 QT 316 T 42 QTc 441 Conclusion Sinus tachycardia...rate> 99 Normal Electrocardiogram
== END 2023-07-11 14:45 | disposition home or self-care (01) ==
LOC: DI.CM 14:45
PROVIDERS: PCP Nurse Practitioner Family; Visit Provider Nurse Practitioner Family
DX: R00.0 Tachycardia, unspecified (principal)
CPT/HCPCS: 93010

== ENCOUNTER 2023-07-11 15:42 | Emergency (ER) | payer MEDICAID, SELFPAY ==
[2023-07-11 15:47] VITALS: BP 116/80; PULSE 114; RESP 20; TEMP 37.2; O2SAT 100
--- NOTE | 2023-07-11 16:15 | RT.EKG_ITS ---
APPROVED REPORT Exam: Resting ECG Reason for Exam: tachycardia Patient Location: E HR:105 bpm ECG Measurements Heart Rate 105 AXIS NC 118 P 52 QRSd 72 QRS 84 QT 331 T 53 QTc 438 Conclusion Sinus tachycardia...rate> 99
--- NOTE | 2023-07-11 16:32 | W.ED.GENAD ---
Discharge Plan Disposition Patient Disposition: Home Discharge Details Clinical Impression: URI (upper respiratory infection), Tachycardia Primary Care Provider: Jennifer Marsh ED Provider: Dustin Rivera Home Meds and New Rx's Prescriptions: Continued Eliquis 5 mg tablet 10 mg PO BID Qty: 60 5RF dexmethylphenidate 5 mg tablet 5 mg PO BID Rx Instructions: administer doses at least 4 hours apart Boost High Protein 0.06 gram- 1 kcal/mL liquid 1 ml PO DAILY Qty: 2844 3RF clonazepam 0.5 mg tablet 0.5 mg PO BID PRN (Reason: anxiety) Qty: 56 0RF Rx Instructions: 1-2 tabs daily as needed lamotrigine 25 mg tablet 25 mg PO DAILY Qty: 90 1RF Drysol 20 % solution 1 applic topical QHS Qty: 60 2RF clobetasol 0.05 % shampoo 1 applic TP QHS 28 Days Qty: 118 4RF Rx Instructions: Use daily for 4 weeks. triamcinolone acetonide 0.5 % cream 1 applic topical BID Qty: 15 5RF Rx Instructions: apply small amount to arms and affected areas aripiprazole [Abilify] 10 mg tablet 10 mg PO DAILY Qty: 30 0RF albuterol sulfate 90 mcg/actuation HFA aerosol inhaler 2 inh inhalation Q6H PRN (Reason: shortness of breath or wheezing) Qty: 18 4RF (DME) BreatheRite MDI Spacer Spacer See Rx Instructions .ROUTE .MEDSUPPLY Qty: 1 0RF Rx Instructions: As directed Discharge Instructions Instructions: Upper Respiratory Infection (ED) Additional Instructions: It is very important to eat proper nutrition, stay well-hydrated, and get plenty of rest during illness. I suspect that this is a viral upper respiratory illness if you have any new or significant worsening of symptoms feel free to return the emergency department for reassessment. 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 Stand Alone Forms: Work Release Referrals: Jennifer Marsh, REPAIR CAMERAMAN [Primary Care Provider] - 1 week (As needed for reassessment or if not improving) Discharge Data Discharge Date/Time-TO BE ENTERED AT DEPARTURE: 07/11/23 18:07 Medical Decision Making Patient presenting to the emergency department after being seen at the urgent care for tachycardia, sore throat cough congestion and chest pain with shortness of breath. Patient states ongoing tachycardia for over the last year with heart rates ranging in the 1 teens to 130s even at rest at home. She states that her child had COVID approximately 2 weeks ago but over the past couple days she states that she has been feeling worse. She does have a history of DVT and PE and is on Eliquis but last week did miss 3 doses of her Eliquis which she states is only a day and a half of dosing. She states otherwise she has been taking this as prescribed. Patient reports cold-like symptoms that seem to have worsened over the past couple days. Patient states that with some of her respiratory symptoms she has been followed up with pulmonology at [facility] and has a CT scan scheduled for tomorrow morning. Physical exam shows some nasal congestion, erythematous posterior pharynx, no lymphadenopathy clear lung sounds and dry cough. I suspect upper respiratory infection but given patient's history of PE DVT, missing medications, and tachycardia with complaint of shortness of breath we will plan on checking labs including D-dimer. Did want to give patient hydration IV pending results given suspected viral illness but patient at this time is refusing IV access but is agreeable to butterfly stick. Patient does state understanding that we may need to obtain IV access if D-dimer is elevated or other concerning findings is noted once results are available. We will hold off on any imaging pending labs. Reviewed patient's labs and CBC which shows a slightly elevated neutrophils and monocytes otherwise unremarkable CBC, D-dimer considered negative with level of only 146, potassium slightly low at 3.4, no AST ALT total protein and albumin. TSH is within normal range patient is negative for COVID flu RSV mono and strep is also negative. Please see physician interpretation for full interpretation of EKG but upon my review patient is in sinus rhythm with tachycardia noted. Discussed findings with patient and that I was going to order a chest x-ray but patient is refusing at this time due to her already having scheduled a CT chest for tomorrow. I feel this is reasonable given clear lung sounds on assessment and no signs of respiratory distress. Did give patient potassium for repletion and discussed with her some concern for the low protein albumin and possible poor nutrition. She does state that since she has been ill she has not been eating well so encouraged her to increase protein intake along with normal nutrition. After discussion of diagnosis and plan of care patient has no further needs, questions, or concerns and states clear understanding to return to the emergency department for any worsening symptoms. This documentation was generated using [employer] dictation system, please disregard any oddities of phrase or misspellings. Lab Data Lab results reviewed: Yes I reviewed the patient's lab results. HPI General Mode of arrival: ambulatory. Date/Time Provider Initiated Documentation: 07/11/23 16:01. Limitations to Documentation: no limitations. Information obtained by: patient and RN notes reviewed. History of Present Illness 27 year old F presents to the emergency department with the chief complaint of Tachycardia, sore throat, cough, chest discomfort and shortness of breath, described as moderate and similar to prior episodes, Quality is described as aching, and is localized to the chest. Patient reports no radiation. Patient started experiencing this week(s) (With worsening cold symptoms over the past 2 days) and it has been constant. No relieving factors improve symptom(s), No exacerbating factors reported . Patient did receive the following treatments prior to arrival, none Related Data Home Medications Medication Instructions Recorded Confirmed aluminum chloride 20 % topical 1 applic topical QHS #60 mL 10/02/20 07/11/23 solution (Drysol) clobetasol 0.05 % shampoo 1 applic topical QHS 4 weeks #118 12/04/21 07/11/23 mL triamcinolone acetonide 0.5 % 1 applic topical BID #15 grams 08/24/22 07/11/23 topical cream aripiprazole 10 mg tablet (Abilify) 10 mg PO DAILY #30 tabs 08/30/22 07/11/23 apixaban 5 mg tablet (Eliquis) 10 mg (2 x 5 mg) PO BID #60 tabs 03/15/23 07/11/23 dexmethylphenidate 5 mg tablet 5 mg PO BID 05/09/23 07/11/23 food supplemt, lactose-reduced 1 ml PO DAILY #2,844 mL 05/09/23 07/11/23 0.06 gram-1 kcal/mL oral liquid (Boost High Protein) albuterol sulfate 90 mcg/actuation 2 inh inhalation Q6H PRN shortness 05/12/23 07/11/23 aerosol inhaler of breath or wheezing #18 grams inhalational spacing device #1 ea 05/12/23 07/11/23 (BreatheRite MDI Spacer) lamotrigine 25 mg tablet 25 mg PO DAILY #90 tabs 05/19/23 07/11/23 clonazepam 0.5 mg tablet 0.5 mg PO BID PRN anxiety #56 tabs 07/05/23 07/11/23 Previous Rx's Medication Instructions Recorded aluminum chloride 20 % topical 1 applic topical QHS #60 mL 10/02/20 solution (Drysol) clobetasol 0.05 % shampoo 1 applic topical QHS 4 weeks #118 12/04/21 mL triamcinolone acetonide 0.5 % 1 applic topical BID #15 grams 08/24/22 topical cream aripiprazole 10 mg tablet (Abilify) 10 mg PO DAILY #30 tabs 08/30/22 apixaban 5 mg tablet (Eliquis) 10 mg (2 x 5 mg) PO BID #60 tabs 03/15/23 food supplemt, lactose-reduced 1 ml PO DAILY #2,844 mL 05/09/23 0.06 gram-1 kcal/mL oral liquid (Boost High Protein) albuterol sulfate 90 mcg/actuation 2 inh inhalation Q6H PRN shortness 05/12/23 aerosol inhaler of breath or wheezing #18 grams inhalational spacing device #1 ea 05/12/23 (BreatheRite MDI Spacer) lamotrigine 25 mg tablet 25 mg PO DAILY #90 tabs 05/19/23 clonazepam 0.5 mg tablet 0.5 mg PO BID PRN anxiety #56 tabs 07/05/23 Allergies Allergy/AdvReac Type Severity Reaction Status Date / Time amoxicillin [Amoxicillin] Allergy Severe Redness Verified 07/11/23 15:52 and swelling in throat naproxen [From Aleve] Allergy Severe Swelling/Ed Verified 07/11/23 15:52 summer Penicillins Allergy Severe Inflamed Verified 07/11/23 15:52 throat clindamycin Allergy Intermediate rash Verified 07/11/23 15:52 metronidazole [From Flagyl] Allergy Intermediate Verified 07/11/23 15:52 acetaminophen [From Tylenol] Allergy Mild Hives Verified 07/11/23 15:52 aspirin Allergy Mild Swelling Verified 07/11/23 15:52 in lips dexamethasone Allergy Other (See Unverified 07/11/23 15:52 Comment) adhesive AdvReac Intermediate scarring Verified 07/11/23 15:52 ipratropium [From DuoNeb] AdvReac Intermediate Verified 07/11/23 15:52 ibuprofen AdvReac Mild Unverified 07/11/23 15:52 lactose AdvReac Mild Nausea, Verified 07/11/23 15:52 intolerance-causes gas/diarrhea oxycodone HCl [From Percocet] AdvReac Unknown Nausea Verified 07/11/23 15:52 General Stated Complaint: GenMedical JACKSON: 3 Review of Systems Constitutional Constitutional: Reports chills, Denies fever(s), Denies headache(s) and Reports malaise ENT Ears, Nose, Mouth, and Throat: Denies headache(s), Reports nasal congestion, Reports nasal discharge, Denies neck pain, Reports sinus pressure and Reports sore throat Cardiovascular Cardiovascular: Reports chest pain, Reports rapid heart rate and Reports dyspnea Respiratory Respiratory: Reports chest congestion, Reports cough and Reports dyspnea Gastrointestinal Gastrointestinal: Denies abdominal pain, Denies diarrhea, Denies nausea and Denies vomiting Musculoskeletal Musculoskeletal: Denies back pain and Denies neck pain Integumentary/Breasts Skin/Breast: Denies rash Neurologic Neurologic: Denies headache(s) PFSH All Active Problems (Updated 07/11/23 @ 17:38 by Dustin Rivera NP) Tachycardia (Acute) URI (upper respiratory infection) (Acute) Positive urine test (Acute) Alcohol abuse (Chronic) Consumes four beers at a time. Had DWI 2020. 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 of vagina (Acute) PATIENT NEEDS REPEAT PAP WHEN SEEN FOR IUD INSERTION Urine test negative (Acute) DVT prophylaxis (Acute) Left leg DVT (Acute) Bilateral pulmonary embolism (Acute) Attention and concentration deficit (Acute) Sciatica of left side (Acute) Tobacco use disorder (Acute) Anxiety (Chronic 11/15/11) RX Citalopram L-T x9 years (helped until stopped eating ~03/2020); RX Escitalopram, stopped 02/2021 in favor of Ability & Lamotrigine ([facility]) Depression (Chronic) RX Citalopram L-T x9 years (helped until stopped eating ~03/2020); RX Escitalopram 03/2020, stopped 02/2021 in favor of Ability & Lamotrigine ([facility]) Bipolar 1 disorder (Acute) PTSD (post-traumatic stress disorder) (Acute) ASCUS with positive high risk HPV cervical (Acute) Colpo on 05/13/22 with KJ. 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 Psoriasis (11/28/12) 09/2019. Scalp psoriasis Rx with clobetasol lotion and change from DeopProvera to OCPs. IBS (irritable bowel syndrome) Poor dentition has lost several teeth secondary to tooth decay Surgical History Tooth extraction teeth extraction. hx of colonoscopy and endoscopy Family History Mother Drug addiction Mental disorder Gastric ulcer Depression Father Essential hypertension Drug addiction Mental disorder Seizures Depression Sister Autism Maternal Grandmother CHF (congestive heart failure) Gastric ulcer COPD (chronic obstructive pulmonary disease) Paternal Great Aunt Coronary heart disease Grandmother CHF (congestive heart failure) Neoplasm Lung CA (smoker) Grandfather Diabetes Maternal Uncle Diabetes Paternal Grandmother COPD (chronic obstructive pulmonary disease) Other Alcohol abuse Congenital heart defect Substance use disorder Social History Smoking/Tobacco Use Status: Current every day Tobacco Type: cigarettes Smoking packs per day: 1 Smoking cigarettes per day: 20.0 Years smoked: 10 Smoking pack-years: 10.00 Tobacco: How many years used: 14 Quit status: not considering quitting Smoking risk assessment performed?: Yes Alcohol Intake: current Alcohol Intake frequency: a few times a week Alcohol type: beer Details: see A/P Drug use: Occasionally Substance use type: marijuana Caregiver/Support person: No Household members: significant other, children and other Details: New partner since 01/2020. Housing: apartment Number of Children: 0 Communication Needs: None Do you need help understanding health information?: Never current occupation: working as [employer] school 08/2022. 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 What is your relationship status?: How often do you talk on the phone with friends or family?: three or more times per week How often do you get together with friends or relatives?: once per week How often do you attend faith or congregation services?: decline to answer Do you belong to any clubs or organized social groups?: decline to answer Panel score (0-1 are the most socially isolated patients): 2 What type of physical activity do you participate in: none and 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 Date GA/Weeks # Preg Succ Route Wgt Sex Labor Lgth Anesthesia Location [facility] 05/03/12 8 No No 04/29/17 6 No No 04/29/18 8 No No 11/15/22 39 No Yes vaginal Female [facility] other Delivery Date: 05/03/12 Last Updated by: KASEY Perry Delivery Date: 04/29/17 Last Updated by: Patt Smith CNM SAB Delivery Date: 04/29/18 Last Updated by: KASEY Perry Delivery Date: 11/15/22 Last Updated by: Darline Sarmiento MD Pt transfered care to while in prodromal labor. Adrianna. 5w PP LE DVT and bilateral PEs Exam Const General: cooperative, comfortable and no acute distress Orientation: alert and awake [facility] Head: normal to inspection, normocephalic and atraumatic Ears: hearing grossly normal bilaterally and TM's normal bilaterally General nose exam: external nose normal Face and sinus: no erythema Mouth: oral mucosae normal, no drooling, no muffled voice and no trismus Throat: posterior oropharynx normal Neck Neck: normal visual inspection, full ROM, no lymphadenopathy, no meningeal signs, trachea midline and supple Resp Effort & Inspection: normal respiratory effort, able to speak in complete sentences and cough Quality of cough: dry Auscultation: clear to auscultation bilaterally Cardio Rate: tachycardic Rhythm: regular rhythm Heart Sounds: S1 normal, S2 normal, normal S1 and S2, no click, no gallops, no murmurs and no rubs Skin General skin exam: no rashes or lesions noted and dry skin (warm) Neuro General: patient alert, patient awake, patient oriented x3, gait normal and moves all extremities Cognition: normal cognition Speech: speech normal Course Vital Signs Vital signs: Vital Signs Temperature 37.2 C 07/11/23 15:47 Pulse 114 H 07/11/23 15:47 Respiratory Rate 20 07/11/23 15:47 Blood Pressure 116/80 07/11/23 15:47 Pulse Oximetry 100 07/11/23 15:47 Temperature 37.2 C 07/11/23 15:47 Temperature Source Oral 07/11/23 15:47 Pulse 114 H 07/11/23 15:47 Respiratory Rate 20 07/11/23 15:47 Blood Pressure 116/80 07/11/23 15:47 Blood Pressure Position Sitting 07/11/23 15:47 Pulse Oximetry 100 07/11/23 15:47 Oxygen Delivery Method Room Air 07/11/23 15:47 Oxygen Flow Rate 0 07/11/23 15:47 Pain Level 6 07/11/23 15:47
[2023-07-11 16:42] LABS: Abs Immature Grans 0.03 10^3/uL (0.0-0.06); Absolute Basophil Count 0.05 10^3/uL (0.0-0.2); Absolute Eosinophil Count 0.25 10^3/uL (0.0-0.7); Absolute Lymphocyte Count 1.84 10^3/uL (1.2-3.4); Basophils % 0.5; Eosinophils % 2.4; HCT 41.6 % (36.0-46.0); HGB 14.5 g/dL (11.2-15.7); Immature Grans % 0.3; Lymphocytes % 17.7; MCH 32.5 pg (27.0-33.0); MCHC 34.9 % (32.0-36.0); MCV 93 fL (80-95); MPV 10.3 fL (8.0-11.0); Monocytes % 9.6; Neutrophils % 69.5; Platelet Count 291 10^3/uL (130-400); RBC 4.46 10^6/uL (3.93-5.22); RDW 14.6 % (11.7-14.6); WBC 10.37 10^3/uL (4.4-10.8)
[2023-07-11 16:56] LABS: Mono Screening Negative (Negative)
[2023-07-11 17:00] LABS: ALT 11 U/L (14-59); AST 14 U/L (15-37); Albumin 2.8 g/dL (3.4-5.0); Alkaline Phosphatase 104 U/L (46-116); Anion Gap 10.5 mmol/L (3-11); BUN 7 mg/dL (7-18); Bilirubin, Total 0.5 mg/dL (0.2-1.0); CO2 24.5 mmol/L (21.0-32.0); CREATININE 0.9 mg/dL (0.55-1.02); Calcium 8.8 mg/dL (8.5-10.1); Chloride 103 mmol/L (98-107); Glucose 92 mg/dL (74-106); Potassium 3.4 mmol/L (3.5-5.1); Sodium 138 mmol/L (136-145); Total Protein 6.3 g/dL (6.4-8.2)
[2023-07-11 17:02] LABS: Troponin I < 50 ng/L (<or=60)
[2023-07-11 17:14] LABS: D-Dimer 146 ng/mlFEU (<500)
[2023-07-11 17:19] LABS: COVID-19 PCR Negative (Negative); Influenza A PCR Negative (Negative); Influenza B PCR Negative (Negative); RSV PCR Negative (Negative)
[2023-07-11 17:20] LABS: Source Nasopharynx
[2023-07-11 17:21] LABS: TSH (W/Ref FT4) 0.42 uIU/mL (0.36-3.74)
== END 2023-07-11 18:07 | disposition home or self-care (01) ==
PROVIDERS: Emergency Provider Nurse Practitioner Family; PCP Nurse Practitioner Family
DX: R00.2 Palpitations (principal); J06.9 Acute upper respiratory infection, unspecified; R00.0 Tachycardia, unspecified; Z79.01 Long term (current) use of anticoagulants; Z86.718 Personal history of other venous thrombosis and embolism; Z86.711 Personal history of pulmonary embolism; F17.210 Nicotine dependence, cigarettes, uncomplicated
CPT/HCPCS: 36415; 80053; 87637; 87880; 93005; 99283; 81003; 83735; 84443; 84484; 85025; 85379; 86308; 87081; 93010

== ENCOUNTER 2023-08-16 23:35 | Emergency (ER) | payer MEDICAID, SELFPAY ==
[2023-08-16 23:39] VITALS: BP 121/86; PULSE 116; RESP 16; TEMP 37.5; O2SAT 99
[2023-08-16 23:42] VITALS: BP 121/86; PULSE 109; RESP 16
[2023-08-16 23:45] VITALS: BP 124/83; PULSE 114
--- NOTE | 2023-08-16 23:55 | W.ED.GENAD ---
Discharge Plan Disposition Patient Disposition: Home Condition: Stable Discharge Details Clinical Impression: Leg pain Primary Care Provider: Jennifer Marsh ED Provider: Hoang Wellington Home Meds and New Rx's Prescriptions: No Action Eliquis 5 mg tablet 10 mg PO BID Qty: 60 5RF dexmethylphenidate 5 mg tablet 5 mg PO BID Rx Instructions: administer doses at least 4 hours apart Boost High Protein 0.06 gram- 1 kcal/mL liquid 1 ml PO DAILY Qty: 2844 3RF lamotrigine 25 mg tablet 25 mg PO DAILY Qty: 90 1RF Drysol 20 % solution 1 applic topical QHS Qty: 60 2RF clobetasol 0.05 % shampoo 1 applic TP QHS 28 Days Qty: 118 4RF Rx Instructions: Use daily for 4 weeks. triamcinolone acetonide 0.5 % cream 1 applic topical BID Qty: 15 5RF Rx Instructions: apply small amount to arms and affected areas aripiprazole [Abilify] 10 mg tablet 10 mg PO DAILY Qty: 30 0RF albuterol sulfate 90 mcg/actuation HFA aerosol inhaler 2 inh inhalation Q6H PRN (Reason: shortness of breath or wheezing) Qty: 18 4RF (DME) BreatheRite MDI Spacer Spacer See Rx Instructions .ROUTE .MEDSUPPLY Qty: 1 0RF Rx Instructions: As directed clonazepam 0.5 mg tablet 0.5 mg PO BID PRN (Reason: anxiety) Qty: 56 0RF Rx Instructions: 1-2 tabs daily as needed Discharge Instructions Instructions: Leg Pain (ED) Additional Instructions: Follow-up tomorrow for left lower and left upper extremity DVT study and ultrasound department. Please return to the emergency department for any worsening symptoms Medical Decision Making 27-year-old female history of prior DVT/PE, missed approximately 2 weeks of her Eliquis, has been experiencing lower left extremity discomfort over the past 5 hours, also paresthesias to the left upper extremity, no edema to upper or lower extremities no discoloration noted, neurovascular exam of limbs intact, warm well-perfused. Sensate mobile with full strength. Ambulatory without assistance. Bedside ultrasound left lower extremity negative for DVT. Will refer patient for official ultrasound tomorrow morning in radiology department. Patient has started taking 10 mg twice a day and will continue for 7 days then will go back to her 5 mg twice daily dose. Patient has appropriate amount of medication at home. No tachypnea or chest pain no lightheadedness or presyncope to suggest PE, patient has baseline tachycardia. Home care instructions and strict return precautions given. HPI General Date/Time Provider Initiated Documentation: 08/16/23 23:37. HPI Narrative: 27-year-old female history of DVT, PE, on Eliquis, discontinued her Eliquis for approximately 2 weeks, has felt discomfort in her left lower extremity over the past several hours. No chest pain or shortness of breath. No lightheadedness or syncope. Related Data Home Medications Medication Instructions Recorded Confirmed aluminum chloride 20 % topical 1 applic topical QHS #60 mL 10/02/20 08/16/23 solution (Drysol) clobetasol 0.05 % shampoo 1 applic topical QHS 4 weeks #118 12/04/21 08/16/23 mL triamcinolone acetonide 0.5 % 1 applic topical BID #15 grams 08/24/22 08/16/23 topical cream aripiprazole 10 mg tablet (Abilify) 10 mg PO DAILY #30 tabs 08/30/22 08/16/23 apixaban 5 mg tablet (Eliquis) 10 mg (2 x 5 mg) PO BID #60 tabs 03/15/23 08/16/23 dexmethylphenidate 5 mg tablet 5 mg PO BID 05/09/23 08/16/23 food supplemt, lactose-reduced 1 ml PO DAILY #2,844 mL 05/09/23 08/16/23 0.06 gram-1 kcal/mL oral liquid (Boost High Protein) albuterol sulfate 90 mcg/actuation 2 inh inhalation Q6H PRN shortness 05/12/23 08/16/23 aerosol inhaler of breath or wheezing #18 grams inhalational spacing device #1 ea 05/12/23 07/11/23 (BreatheRite MDI Spacer) lamotrigine 25 mg tablet 25 mg PO DAILY #90 tabs 05/19/23 08/16/23 clonazepam 0.5 mg tablet 0.5 mg PO BID PRN anxiety #56 tabs 08/04/23 08/16/23 Previous Rx's Medication Instructions Recorded aluminum chloride 20 % topical 1 applic topical QHS #60 mL 10/02/20 solution (Drysol) clobetasol 0.05 % shampoo 1 applic topical QHS 4 weeks #118 12/04/21 mL triamcinolone acetonide 0.5 % 1 applic topical BID #15 grams 08/24/22 topical cream aripiprazole 10 mg tablet (Abilify) 10 mg PO DAILY #30 tabs 08/30/22 apixaban 5 mg tablet (Eliquis) 10 mg (2 x 5 mg) PO BID #60 tabs 03/15/23 food supplemt, lactose-reduced 1 ml PO DAILY #2,844 mL 05/09/23 0.06 gram-1 kcal/mL oral liquid (Boost High Protein) albuterol sulfate 90 mcg/actuation 2 inh inhalation Q6H PRN shortness 05/12/23 aerosol inhaler of breath or wheezing #18 grams inhalational spacing device #1 ea 05/12/23 (BreatheRite MDI Spacer) lamotrigine 25 mg tablet 25 mg PO DAILY #90 tabs 05/19/23 clonazepam 0.5 mg tablet 0.5 mg PO BID PRN anxiety #56 tabs 08/04/23 Allergies Allergy/AdvReac Type Severity Reaction Status Date / Time amoxicillin [Amoxicillin] Allergy Severe Redness Verified 08/16/23 23:46 and swelling in throat naproxen [From Aleve] Allergy Severe Swelling/Ed Verified 08/16/23 23:46 summer Penicillins Allergy Severe Inflamed Verified 08/16/23 23:46 throat clindamycin Allergy Intermediate rash Verified 08/16/23 23:46 metronidazole [From Flagyl] Allergy Intermediate Verified 08/16/23 23:46 acetaminophen [From Tylenol] Allergy Mild Hives Verified 08/16/23 23:46 aspirin Allergy Mild Swelling Verified 08/16/23 23:46 in lips dexamethasone Allergy Other (See Unverified 08/16/23 23:46 Comment) adhesive AdvReac Intermediate scarring Verified 08/16/23 23:46 ipratropium [From DuoNeb] AdvReac Intermediate Verified 08/16/23 23:46 ibuprofen AdvReac Mild Unverified 08/16/23 23:46 lactose AdvReac Mild Nausea, Verified 08/16/23 23:46 intolerance-causes gas/diarrhea oxycodone HCl [From Percocet] AdvReac Unknown Nausea Verified 08/16/23 23:46 General Stated Complaint: Vascular JACKSON: 3 Review of Systems Narrative: Review of Systems Constitutional: negative Eyes: negative ENT: negative Cardiovascular: negative Respiratory: negative Gastrointestinal: negative : negative Musculoskeletal: Leg discomfort Skin: negative Neurologic: negative Psych: negative PFSH All Active Problems (Updated 08/17/23 @ 00:00 by Hoang Wellington MD) Leg pain (Acute) Positive urine test (Acute) Alcohol abuse (Chronic) Consumes four beers at a time. Had DWI 2020. 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 of vagina (Acute) PATIENT NEEDS REPEAT PAP WHEN SEEN FOR IUD INSERTION Urine test negative (Acute) DVT prophylaxis (Acute) Left leg DVT (Acute) Bilateral pulmonary embolism (Acute) Attention and concentration deficit (Acute) Sciatica of left side (Acute) Tobacco use disorder (Acute) Anxiety (Chronic 11/15/11) RX Citalopram L-T x9 years (helped until stopped eating ~03/2020); RX Escitalopram, stopped 02/2021 in favor of Ability & Lamotrigine ([facility]) Depression (Chronic) RX Citalopram L-T x9 years (helped until stopped eating ~03/2020); RX Escitalopram 03/2020, stopped 02/2021 in favor of Ability & Lamotrigine ([facility]) Bipolar 1 disorder (Acute) PTSD (post-traumatic stress disorder) (Acute) ASCUS with positive high risk HPV cervical (Acute) Colpo on 05/13/22 with KJ. 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 Psoriasis (11/28/12) 09/2019. Scalp psoriasis Rx with clobetasol lotion and change from DeopProvera to OCPs. IBS (irritable bowel syndrome) Poor dentition has lost several teeth secondary to tooth decay Surgical History Tooth extraction teeth extraction. hx of colonoscopy and endoscopy Family History Mother Drug addiction Mental disorder Gastric ulcer Depression Father Essential hypertension Drug addiction Mental disorder Seizures Depression Sister Autism Maternal Grandmother CHF (congestive heart failure) Gastric ulcer COPD (chronic obstructive pulmonary disease) Paternal Great Aunt Coronary heart disease Grandmother CHF (congestive heart failure) Neoplasm Lung CA (smoker) Grandfather Diabetes Maternal Uncle Diabetes Paternal Grandmother COPD (chronic obstructive pulmonary disease) Other Alcohol abuse Congenital heart defect Substance use disorder Social History Smoking/Tobacco Use Status: Current every day Tobacco Type: cigarettes Smoking packs per day: 1 Smoking cigarettes per day: 20.0 Years smoked: 10 Smoking pack-years: 10.00 Tobacco: How many years used: 14 Quit status: not considering quitting Smoking risk assessment performed?: Yes Alcohol Intake: current Alcohol Intake frequency: a few times a week Alcohol type: beer Details: see A/P Drug use: Occasionally Substance use type: marijuana Caregiver/Support person: No Household members: significant other, children and other Details: New partner since 01/2020. Housing: apartment Number of Children: 0 Communication Needs: None Do you need help understanding health information?: Never current occupation: working as [employer] 08/2022. 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 What is your relationship status?: How often do you talk on the phone with friends or family?: three or more times per week How often do you get together with friends or relatives?: once per week How often do you attend yarsanism or mosque services?: decline to answer Do you belong to any clubs or organized social groups?: decline to answer Panel score (0-1 are the most socially isolated patients): 2 What type of physical activity do you participate in: none and other Details: 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 Date GA/Weeks # Preg Succ Route Wgt Sex Labor Lgth Anesthesia Location Prov Complic 05/03/12 8 No No 04/29/17 6 No No 04/29/18 8 No No 11/15/22 39 No Yes vaginal Female [facility] other Delivery Date: 05/03/12 Last Updated by: KASEY Perry Delivery Date: 04/29/17 Last Updated by: Patt Smith CNM SAB Delivery Date: 04/29/18 Last Updated by: KASEY Perry Delivery Date: 11/15/22 Last Updated by: Darline Sarmiento MD Pt transfered care to while in prodromal labor. Adrianna. 5w PP LE DVT and bilateral PEs Exam Narrative Exam Narrative: Physical Examination General: alert, awake, cooperative, resting comfortably, no acute distress HEENT: normocephalic, atraumatic; PERRL, EOM intact, conjunctiva normal; no nasal discharge; moist mucous membranes, oral and pharyngeal mucosa normal, tolerating secretions Neck: supple, trachea midline; full ROM Chest: normal to inspection Respiratory: normal respiratory effort, speaking in full sentences Cardiac: regular rate, regular rhythm, S1S2 intact, no murmurs rubs or gallops Skin: no lesions, rashes or trauma appreciated Neuro: AAOx3, normal speech, moving all extremities Extremities: No peripheral edema noted, no discoloration of lower extremities; no edema or discoloration of upper extremities Psych: Appropriate mood and affect Course Vital Signs Vital signs: Vital Signs Temperature 37.5 C 08/16/23 23:39 Pulse 116 H 08/16/23 23:39 Respiratory Rate 16 08/16/23 23:39 Blood Pressure 121/86 08/16/23 23:39 Pulse Oximetry 99 08/16/23 23:39 Temperature 37.5 C 08/16/23 23:39 Temperature Source Skin 08/16/23 23:39 Pulse 114 H 08/16/23 23:45 Respiratory Rate 16 08/16/23 23:42 Respiratory Effort Normal, Non-Labored 08/16/23 23:42 Respiratory Depth Normal 08/16/23 23:42 Respiratory Pattern Normal 08/16/23 23:42 Blood Pressure 124/83 08/16/23 23:45 Blood Pressure Mean 95 08/16/23 23:45 Blood Pressure Position Sitting 08/16/23 23:39 Pulse Oximetry 99 08/16/23 23:39 Oxygen Delivery Method Room Air 08/16/23 23:39 Oxygen Flow Rate 0 08/16/23 23:39 Pain Level 9 08/16/23 23:42
== END 2023-08-17 00:07 | disposition home or self-care (01) ==
LOC: ER 08-17 00:01
PROVIDERS: Emergency Provider Emergency Medicine; PCP Nurse Practitioner Family
DX: M79.662 Pain in left lower leg (principal); Z86.711 Personal history of pulmonary embolism; Z86.718 Personal history of other venous thrombosis and embolism; Z79.01 Long term (current) use of anticoagulants
CPT/HCPCS: 99284; 99283

== ENCOUNTER 2023-08-17 13:01 | Emergency (ER) | payer MEDICAID, SELFPAY ==
[2023-08-17 13:04] VITALS: BP 123/73; PULSE 100; RESP 18; TEMP 37.6; O2SAT 100
== END 2023-08-17 14:18 | disposition left against medical advice (07) ==
PROVIDERS: PCP Nurse Practitioner Family
DX: Z53.29 Procedure and treatment not carried out because of patient's decision for other reasons (principal)

== ENCOUNTER 2023-10-11 19:10 | Outpatient (CLI) | payer MEDICAID, SELFPAY ==
[2023-10-11 17:02] LABS: HCG Quant, Pregnancy < 1 mIU/mL (1-3)
== END 2023-10-11 19:11 | disposition home or self-care (01) ==
LOC: LBO 19:10
PROVIDERS: PCP Nurse Practitioner Family; Visit Provider Obstetrics & Gynecology Gynecology
DX: Z32.01 Encounter for pregnancy test, result positive (principal)
CPT/HCPCS: 36415; 84702

== ENCOUNTER → 2023-10-18 08:27 | Outpatient (CLI) | payer MEDICAID, SELFPAY ==
--- NOTE | 2023-10-18 12:18 | DI.US_ITS ---
Exam(s) US LOWER EXTREMITY VENOUS LT EXAM: US LOWER EXTREMITY VENOUS LT CLINICAL HISTORY: Left leg pain,swelling, DVT hx, missed apixaba.M79.89 TECHNIQUE: Grayscale, color, and doppler imaging of the deep venous system of the left lower extremi ty was performed. COMPARISON: US US EXTREMITY VENOUS BI from 03/22/2023 FINDINGS: There is no evidence of intraluminal thrombus and there is normal compression and augmentation demons trated within the common femoral vein, femoral vein, and popliteal vein. In the ipsilateral calf the interrogated veins also exhibit normal compression/ augmentation properti es. The ipsilateral saphenofemoral junction is patent. IMPRESSION: 1. No evidence of DVT in the left lower extremity. DATA REPOSITORY:
== END ==
PROVIDERS: PCP Nurse Practitioner Family; Visit Provider Nurse Practitioner Family
DX: M79.89 Other specified soft tissue disorders (principal)
CPT/HCPCS: 93971

== ENCOUNTER 2023-10-29 17:49 | Emergency (ER) | payer MEDICAID, SELFPAY ==
[2023-10-29 17:54] VITALS: BP 126/96; PULSE 117; RESP 18; TEMP 36.3; O2SAT 100
[2023-10-29 18:13] LABS: HCT 40.2 % (36.0-46.0); HGB 13.2 g/dL (11.2-15.7); MCH 30.3 pg (27.0-33.0); MCHC 32.8 % (32.0-36.0); MCV 92 fL (80-95); MPV 10.9 fL (8.0-11.0); Platelet Count 262 10^3/uL (130-400); RBC 4.35 10^6/uL (3.93-5.22); RDW 14.3 % (11.7-14.6); RDW-SD 48.6 fL; WBC 7.92 10^3/uL (4.4-10.8)
--- NOTE | 2023-10-29 18:19 | W.ED.GENAD ---
Discharge Plan Disposition Patient Disposition: Home Condition: Stable Discharge Details Clinical Impression: Episode of heavy vaginal bleeding Primary Care Provider: Jennifer Marsh ED Provider: Latia Ordaz Home Meds and New Rx's Prescriptions: No Action paroxetine HCl [Paxil] 10 mg tablet 10 mg PO DAILY lamotrigine 25 mg tablet 25 mg PO DAILY Qty: 90 1RF Boost High Protein 0.06 gram- 1 kcal/mL liquid 1 ml PO DAILY Qty: 2844 3RF aripiprazole [Abilify] 10 mg tablet 10 mg PO DAILY Qty: 30 0RF albuterol sulfate 90 mcg/actuation HFA aerosol inhaler 2 inh inhalation Q6H PRN (Reason: shortness of breath or wheezing) Qty: 18 4RF (DME) BreatheRite MDI Spacer Spacer See Rx Instructions .ROUTE .MEDSUPPLY Qty: 1 0RF Rx Instructions: As directed triamcinolone acetonide 0.5 % cream 1 applic topical BID Qty: 15 5RF Rx Instructions: apply small amount to arms and affected areas clonazepam 0.5 mg tablet 0.5 mg PO BID PRN (Reason: anxiety) Qty: 56 0RF Rx Instructions: 1-2 tabs daily as needed Xerac AC 6.25 % solution 1 applic topical QHS Qty: 60 3RF Eliquis 5 mg tablet 5 mg PO BID Qty: 60 5RF clobetasol 0.05 % shampoo 1 applic TP QHS PRN Rx Instructions: Use daily for 4 weeks. HPI General Date/Time Provider Initiated Documentation: 10/29/23 17:58. HPI Narrative: Shayna is a 28-year-old female G4, P1 with history of PE x 2 currently being treated with Eliquis with known clotting disorder who presents to the emergency department today for evaluation of heavy vaginal bleeding. She reports that she started her menstrual cycle 2 days ago, last night she developed cramping and heavy bleeding. In the last 5 hours she has not fully soaked 6 pads and 2 super tampons. She reports that if she coughs or sneezes she has gushes of blood if she stands up blood pours out of her. she denies heavy clots. She reports she has had some lightheadedness and palpitations since this started, as well as nausea. She stopped Depo-Provera 9 months ago, has not had a menstrual cycle since 3 months prior. She is not on any control. Denies history of vaginal trauma. Denies h/o STDs or recent vaginal discharge. She is a current smoker. She denies fever/chills, change in urine output, black/tarry stools, other bleeding such as epistaxis or gum bleeding. She does not have any known MANAGER OF CONSTRUCTION disorders other than ovarian cyst, denies MANAGER OF CONSTRUCTION surgery history. She is accompanied by her . Related Data Home Medications Medication Instructions Recorded Confirmed aripiprazole 10 mg tablet (Abilify) 10 mg PO DAILY #30 tabs 08/30/22 10/29/23 albuterol sulfate 90 mcg/actuation 2 inh inhalation Q6H PRN shortness 05/12/23 10/29/23 aerosol inhaler of breath or wheezing #18 grams inhalational spacing device #1 ea 05/12/23 10/17/23 (BreatheRite MDI Spacer) lamotrigine 25 mg tablet 25 mg PO DAILY #90 tabs 05/19/23 10/29/23 food supplemt, lactose-reduced 1 ml PO DAILY #2,844 mL 09/01/23 10/29/23 0.06 gram-1 kcal/mL oral liquid (Boost High Protein) clonazepam 0.5 mg tablet 0.5 mg PO BID PRN anxiety #56 tabs 10/10/23 10/29/23 triamcinolone acetonide 0.5 % 1 applic topical BID #15 grams 10/10/23 10/29/23 topical cream aluminum chloride in alcohol 6.25 1 applic topical QHS #60 mL 10/13/23 10/29/23 % topical solution (Xerac AC) paroxetine HCl 10 mg tablet (Paxil) 10 mg PO DAILY 10/17/23 10/29/23 apixaban 5 mg tablet (Eliquis) 5 mg PO BID #60 tabs 10/18/23 10/29/23 clobetasol 0.05 % shampoo 1 applic topical QHS PRN 10/29/23 10/29/23 Previous Rx's Medication Instructions Recorded aripiprazole 10 mg tablet (Abilify) 10 mg PO DAILY #30 tabs 08/30/22 albuterol sulfate 90 mcg/actuation 2 inh inhalation Q6H PRN shortness 05/12/23 aerosol inhaler of breath or wheezing #18 grams inhalational spacing device #1 ea 05/12/23 (BreatheRite MDI Spacer) lamotrigine 25 mg tablet 25 mg PO DAILY #90 tabs 05/19/23 food supplemt, lactose-reduced 1 ml PO DAILY #2,844 mL 09/01/23 0.06 gram-1 kcal/mL oral liquid (Boost High Protein) clonazepam 0.5 mg tablet 0.5 mg PO BID PRN anxiety #56 tabs 10/10/23 triamcinolone acetonide 0.5 % 1 applic topical BID #15 grams 10/10/23 topical cream aluminum chloride in alcohol 6.25 1 applic topical QHS #60 mL 10/13/23 % topical solution (Xerac AC) apixaban 5 mg tablet (Eliquis) 5 mg PO BID #60 tabs 10/18/23 Allergies Allergy/AdvReac Type Severity Reaction Status Date / Time amoxicillin [Amoxicillin] Allergy Severe Redness Verified 10/29/23 17:57 and swelling in throat naproxen [From Aleve] Allergy Severe Swelling/Ed Verified 10/29/23 17:57 summer Penicillins Allergy Severe Inflamed Verified 10/29/23 17:57 throat clindamycin Allergy Intermediate rash Verified 10/29/23 17:57 metronidazole [From Flagyl] Allergy Intermediate Headache Verified 10/29/23 17:57 acetaminophen [From Tylenol] Allergy Mild Hives Verified 10/29/23 17:57 aspirin Allergy Mild Swelling Verified 10/29/23 17:57 in lips dexamethasone Allergy Other (See Unverified 10/29/23 17:57 Comment) adhesive AdvReac Intermediate scarring Verified 10/29/23 17:57 ipratropium [From DuoNeb] AdvReac Intermediate Wheezing Verified 10/29/23 17:57 ibuprofen AdvReac Mild Other (See Unverified 10/29/23 17:57 Comment) lactose AdvReac Mild Nausea, Verified 10/29/23 17:57 intolerance-causes gas/diarrhea oxycodone HCl [From Percocet] AdvReac Unknown Nausea Verified 10/29/23 17:57 General Stated Complaint: 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: 3 Review of Systems Narrative: see HPI Exam Const General: cooperative, comfortable and no acute distress Eyes General: appearance normal, both eyes and all related structures Conjunctivae: other (slight pallor) Resp Effort & Inspection: normal respiratory effort and able to speak in complete sentences Auscultation: clear to auscultation bilaterally Cardio Rate: tachycardic Rhythm: regular rhythm Heart Sounds: no murmurs GI Inspection: normal to inspection Palpation: soft and nontender Auscultation: normal bowel sounds External Female Exam: normal external appearance and normal appearance of the urethra Speculum Exam - Vagina: normal appearance of the vagina, no lacerations, vaginal bleeding and No tissue present in vagina Speculum Exam - Cervix: normal appearance of the cervix and closed OB/External & Speculum: no tissue noted in vagina and vaginal bleeding Course Vital Signs Vital signs: Vital Signs Temperature 36.3 C L 10/29/23 17:54 Pulse 117 H 10/29/23 17:54 Respiratory Rate 18 10/29/23 17:54 Blood Pressure 126/96 H 10/29/23 17:54 Pulse Oximetry 100 10/29/23 17:54 Temperature 36.3 C L 10/29/23 17:54 Pulse 117 H 10/29/23 17:54 Respiratory Rate 18 10/29/23 17:54 Blood Pressure 126/96 H 10/29/23 17:54 Pulse Oximetry 100 10/29/23 17:54 Lab/Test Results Lab/Test Results: Laboratory Tests Range/Units 10/29/23 18:00 WBC (4.4-10.8) 10^3/uL 7.92 RBC (3.93-5.22) 10^6/uL 4.35 Hgb (11.2-15.7) g/dL 13.2 Hct (36.0-46.0) % 40.2 MCV (80-95) fL 92 MCH (27.0-33.0) pg 30.3 MCHC (32.0-36.0) % 32.8 RDW (11.7-14.6) % 14.3 Plt Count (130-400) 10^3/uL 262 MPV (8.0-11.0) fL 10.9 Medical Decision Making Shayna is a 28-year-old female G4, P1 with history of PE x 2 currently being treated with Eliquis with known clotting disorder who presents to the emergency department today for evaluation of heavy vaginal bleeding. She reports that she started her menstrual cycle 2 days ago, last night she developed cramping and heavy bleeding. In the last 5 hours she has not fully soaked 6 pads and 2 super tampons. She reports that if she coughs or sneezes she has gushes of blood if she stands up blood pours out of her. she denies heavy clots. She reports she has had some lightheadedness and palpitations since this started, as well as nausea. She stopped Depo-Provera 9 months ago, has not had a menstrual cycle since 3 months prior. She is not on any control. Denies history of vaginal trauma. Denies h/o STDs or recent vaginal discharge. She is a current smoker. She denies fever/chills, change in urine output, black/tarry stools, other bleeding such as epistaxis or gum bleeding. She does not have any known MANAGER OF CONSTRUCTION disorders other than ovarian cyst, denies MANAGER OF CONSTRUCTION surgery history. She is accompanied by her . Physical exam reassuring. Patient is alert and interactive, no acute distress. Easy work of breathing, lung sounds clear bilaterally. Mild tachycardia noted, normal heart sounds. Abdomen soft, nondistended, nontender to palpation. MANAGER OF CONSTRUCTION exam performed with Mignon ARTEAGA at bedside. There was a moderate amount of blood in the vaginal vault, filled 3+ scope pets. Cervical os appears closed and normal. No vaginal trauma noted. No unusual discharge noted. Slightly pale conjunctiva. Strong radial pulses. DDx includes but is not limited to heavy menstrual bleeding due to anticoagulant use, severe anemia due to blood loss, miscarriage, ovulatory dysfunction, uterine fibroids or polyps, other structural causes I independently interpreted the following tests: CBC and CMP reassuring, only mild hypokalemia potassium 3.1 noted. hCG negative. Discussed case with Dr. Powell, on-call MANAGER OF CONSTRUCTION. Discussed TXA versus OCPs for controlling of abnormal uterine bleeding. She recommends Aygestin 5 mg twice daily x 3 to 4 days. F/u within week with market research analyst. Discussed plan of care with patient, who reports that she has suicidality/worsening depression with progesterone and would like to decline this at this time. Etiology of abnormal uterine bleeding unclear, however no red flags at this time indicating need for emergent diagnostic imaging. Recommend follow-up with BED SPRING MAKER next week. Reviewed red flags indicate need for return to emergency care. She is agreeable with plan of care. Quality:SDOH Health Related Social Needs: No Data to Display PFSH All Active Problems (Updated 10/29/23 @ 19:15 by Latia Jaeger) Episode of heavy vaginal bleeding (Acute) Malnutrition (Acute) Positive urine test (Acute) Alcohol abuse (Chronic) Consumes four beers at a time. Had DWI 2020. 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 of vagina (Acute) PATIENT NEEDS REPEAT PAP WHEN SEEN FOR IUD INSERTION Urine test negative (Acute) DVT prophylaxis (Acute) Left leg DVT (Acute) Bilateral pulmonary embolism (Acute) Attention and concentration deficit (Acute) Sciatica of left side (Acute) Tobacco use disorder (Acute) Anxiety (Chronic 11/15/11) RX Citalopram L-T x9 years (helped until stopped eating ~03/2020); RX Escitalopram, stopped 02/2021 in favor of Ability & Lamotrigine ([facility]) Depression (Chronic) RX Citalopram L-T x9 years (helped until stopped eating ~03/2020); RX Escitalopram 03/2020, stopped 02/2021 in favor of Ability & Lamotrigine ([facility]) Bipolar 1 disorder (Acute) PTSD (post-traumatic stress disorder) (Acute) ASCUS with positive high risk HPV cervical (Acute) Colpo on 05/13/22 with KJ. 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 Psoriasis (11/28/12) 09/2019. Scalp psoriasis Rx with clobetasol lotion and change from DeopProvera to OCPs. IBS (irritable bowel syndrome) Poor dentition has lost several teeth secondary to tooth decay Surgical History Tooth extraction teeth extraction. hx of colonoscopy and endoscopy Family History Mother Drug addiction Mental disorder Gastric ulcer Depression Father Essential hypertension Drug addiction Mental disorder Seizures Depression Sister Autism Maternal Grandmother CHF (congestive heart failure) Gastric ulcer COPD (chronic obstructive pulmonary disease) Paternal Great Aunt Coronary heart disease Grandmother CHF (congestive heart failure) Neoplasm Lung CA (smoker) Grandfather Diabetes Maternal Uncle Diabetes Paternal Grandmother COPD (chronic obstructive pulmonary disease) Other Alcohol abuse Congenital heart defect Substance use disorder Social History Smoking/Tobacco Use Status: Current every day Tobacco Type: cigarettes Smoking packs per day: 1 Smoking cigarettes per day: 20.0 Years smoked: 10 Smoking pack-years: 10.00 Tobacco: How many years used: 14 Quit status: not considering quitting Smoking risk assessment performed?: Yes Alcohol Intake: current Alcohol Intake frequency: a few times a week Alcohol type: beer Details: see A/P Drug use: Occasionally Substance use type: marijuana Caregiver/Support person: No Household members: significant other, children and other Details: New partner since 01/2020. Housing: apartment Number of Children: 0 Communication Needs: None Do you need help understanding health information?: Never current occupation: working as [employer] 08/2022. 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 What is your relationship status?: How often do you talk on the phone with friends or family?: three or more times per week How often do you get together with friends or relatives?: once per week How often do you attend episcopal or mu-ism services?: decline to answer Do you belong to any clubs or organized social groups?: decline to answer Panel score (0-1 are the most socially isolated patients): 2 What type of physical activity do you participate in: none and other 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 Date GA/Weeks # Preg Succ Route Wgt Sex Labor Lgth Anesthesia Location Prov Complic 05/03/12 8 No No 04/29/17 6 No No 04/29/18 8 No No 11/15/22 39 No Yes vaginal Female [facility] other Delivery Date: 05/03/12 Last Updated by: KASEY Perry Delivery Date: 04/29/17 Last Updated by: Patt Smith CNM SAB Delivery Date: 04/29/18 Last Updated by: KASEY Perry Delivery Date: 11/15/22 Last Updated by: Darline Sarmiento MD Pt transfered care to while in prodromal labor. Adrianna. 5w PP LE DVT and bilateral PEs
[2023-10-29 18:22] LABS: Anion Gap 10.3 mmol/L (3-11); BUN 6 mg/dL (7-18); CO2 25.7 mmol/L (21.0-32.0); CREATININE 0.8 mg/dL (0.55-1.02); Calcium 9.4 mg/dL (8.5-10.1); Chloride 102 mmol/L (98-107); Estimated GFR 102.22 (mL/min/1.73m2); Glucose 112 mg/dL (74-106); Potassium 3.1 mmol/L (3.5-5.1); Sodium 138 mmol/L (136-145)
[2023-10-29 18:30] LABS: HCG Qual (Serum) Negative
[2023-10-29 19:41] VITALS: BP 118/83; PULSE 92; RESP 18; O2SAT 97; O2SAT 98
== END 2023-10-29 19:43 | disposition home or self-care (01) ==
PROVIDERS: Emergency Provider Nurse Practitioner Family; PCP Nurse Practitioner Family
DX: R42 Dizziness and giddiness (principal); N93.9 Abnormal uterine and vaginal bleeding, unspecified; F17.210 Nicotine dependence, cigarettes, uncomplicated; Z79.01 Long term (current) use of anticoagulants; Z86.718 Personal history of other venous thrombosis and embolism; Z86.711 Personal history of pulmonary embolism
CPT/HCPCS: 80048; 81025; 85027; 86850; 86900; 86901; 99283; 84703

== ENCOUNTER 2024-01-08 12:11 | Emergency (ER) | payer MEDICAID, SELFPAY ==
[2024-01-08] VITALS (28 sets, daily range): BP systolic 111–144; BP diastolic 82–97; PULSE 96–142; RESP 15–35; TEMP 35.9; O2SAT 99–100
--- NOTE | 2024-01-08 12:15 | RT.EKG_ITS ---
APPROVED REPORT Exam: Resting ECG Reason for Exam: blood clot in lung Patient Location: E HR:122 bpm ECG Measurements Heart Rate 122 AXIS NE 119 P 84 QRSd 76 QRS 96 QT 308 T -35 QTc 439 Conclusion Sinus tachycardia...rate> 99 Narrow complex sinus tachycardia at a rate of 122. Right axis deviation. No T wave inversions beyon d leads III and aVF. Mild ST segment depressions V3 through V6. Compared to prior dated last year l ateral ST segment depressions are more pronounced and sinus tachycardia is persistent. QTc at within normal limits. Mildly shortened NE interval at 119. No obvious delta wave.
--- NOTE | 2024-01-08 12:26 | W.ED.GENAD ---
Discharge Plan Disposition Patient Disposition: Home Discharge Details Clinical Impression: Shortness of breath, DVT prophylaxis, Sinus tachycardia Primary Care Provider: Jennifer Marsh ED Provider: Arnulfo Jones Home Meds and New Rx's Prescriptions: New apixaban 5 mg tablet 5 mg PO BID 30 Days Qty: 60 0RF Continued Boost High Protein 0.06 gram- 1 kcal/mL liquid 1 ml PO DAILY Qty: 2844 3RF aripiprazole [Abilify] 10 mg tablet 10 mg PO DAILY Qty: 30 0RF albuterol sulfate 90 mcg/actuation HFA aerosol inhaler 2 inh inhalation Q6H PRN (Reason: shortness of breath or wheezing) Qty: 18 4RF (DME) BreatheRite MDI Spacer Spacer See Rx Instructions .ROUTE .MEDSUPPLY Qty: 1 0RF Rx Instructions: As directed triamcinolone acetonide 0.5 % cream 1 applic topical BID Qty: 15 5RF Rx Instructions: apply small amount to arms and affected areas Xerac AC 6.25 % solution 1 applic topical QHS Qty: 60 3RF Eliquis 5 mg tablet 5 mg PO BID Qty: 60 5RF lamotrigine 25 mg tablet 25 mg PO DAILY Qty: 90 1RF clonazepam 0.5 mg tablet 0.5 mg PO BID PRN (Reason: anxiety) Qty: 56 0RF Rx Instructions: 1-2 tabs daily as needed clobetasol 0.05 % shampoo 1 applic TP QHS PRN Rx Instructions: Use daily for 4 weeks. lisdexamfetamine 40 mg capsule 40 mg PO DAILY Patient Comments: TAKE 1 CAPSULE BY MOUTH DAILY IN THE MORNING Discharge Instructions Additional Instructions: You are seen in the emergency department for your shortness of breath. Your blood work and CAT scan showed no sign of a blood clot in your lungs. You have been given a short course of apixaban (Eliquis) please take these as directed and follow-up with your primary care provider later this week to determine a plan for ongoing anticoagulation. Please return to the emergency department if you develop chest pain if you pass out or if you have any other concerns. Discharge Data Discharge Date/Time-TO BE ENTERED AT DEPARTURE: 01/08/24 15:21 HPI General Date/Time Provider Initiated Documentation: 01/08/24 12:26. HPI Narrative: MDM This is a well-appearing and afebrile not hypoxic but tachycardic 28-year-old female with history of multiple prior PEs and DVTs now with chest pain shortness of breath and dizziness off of apixaban concerning for recurrent PE for which patient will undergo CT angiogram of her chest. No pain out of proportion to suggest necrotizing soft tissue infection. ECG not consistent with ACS however will obtain troponin and proBNP to assess for signs of right heart strain. Limited bedside echo with no obvious right heart strain. No trauma and equal breath sounds so doubt pneumothorax. No obvious pericardial effusion and not hypotensive nor dialysis patient so my suspicion for tamponade is low. No cough nor fevers to suggest pneumonia. No rash to chest to suggest zoster. No history of recent emesis to suggest increased risk for esophageal rupture. No tearing quality to pain to suggest aortic dissection. No epigastric tenderness no vomiting to suggest pancreatitis. Will reassess following CT and labs. Will need patient to see care management to help her overcome her difficulties paying for her anticoagulation. In the absence of calf pain and tenderness I did not complete a duplex study to assess for DVT. No positional component to the chest pain to suggest pericarditis. 1 PM Negative hCG. CBC with erythrocytosis. No thrombocytopenia. No leukocytosis. Patient complained of some anxiety. She is on outpatient benzodiazepines so I gave her 1 mg of oral lorazepam. 1:47 PM Negative reassuring troponin. Patient metabolic panel showing very mild anion gap. No hyperglycemia. Normal bicarbonate. Not consistent with DKA. Normal reassuring proBNP. No MAYRA. 2:[address] scan showed no PE. No signs of dissection. No pneumonia. No pneumothorax. I spoke to Orquidea from pharmacy and she agreed that continuing the patient twice daily 5 mg apixaban dose was appropriate and that the patient did not require an additional loading dose as she was not found to have a PE. I dispensed 5 days of apixaban to the patient. I have asked health munitions worker Georgette to have the patient seen later this week by her PCP. She will benefit from case management consultation as she is having difficulty affording her medication. She does tell me that she is planning on reapplying for Medicaid. She has been tachycardic through her ED course in a pattern similar to prior presentations. She appears well on ressessment and is on her phone. I advised ED return for recurrent chest pain shortness of breath and syncope. She understoodf her return indications and was discharged with an empiric trial of expectant outpatient managment, Chronic conditions affecting the care of the patient: History of thrombosis History obtained from an outside historian: N/A External record review: [facility] EMR Diagnostic interpretations performed by me: Per my independent interpretation EKG shows: Narrow complex sinus tachycardia at a rate of 122. Right axis deviation. No T wave inversions beyond leads III and aVF. Mild ST segment depressions V3 through V6. Compared to prior dated last year lateral ST segment depressions are more pronounced and sinus tachycardia is persistent. QTc at within normal limits. Mildly shortened WA interval at 119. No obvious delta wave. ]Medications: [] Social determinants of health affecting disposition: Lacks insurance and cannot afford anticoagulation Management discussed with: [] Treatment/interventions considered: [] Response to therapies provided: [] HPI This is a 28-year-old female history of prior thrombosis DVTs and PEs off of her apixaban for the past 3 days secondary to cost now arriving to the emergency department via private vehicle in the setting of shortness of breath and intermittent chest pain. Patient reports she has been dizzy. She reports that she has felt short of breath since last night. She denies fevers cough pain dysuria and frequency. No recent falls. No calf pain. Chest pain does not radiate. No exacerbating or alleviators. Shortness of breath does not worsen when she lays flat. She is a daily tobacco user but denies routine ethanol and illicits. She is intermittently has some central chest pain. She has not had a syncopal episode. No dysuria nor frequency. Exam General: Well-appearing in no acute distress speaking in complete sentences. Head: Normocephalic, atraumatic. Eye: Extraocular eye movements intact. No conjunctival injection. No scleral icterus. Ear, nose, mouth, throat: Grossly normal inspection. Normal voice, handling secretions normally. Neck: Trachea midline. Cardiovascular: Well-perfused distal extremities. Rapid regular rate. Respiratory: Nonlabored respiration. Clear lungs bilaterally. Gastrointestinal: Nondistended abdomen. Soft nontender. Musculoskeletal: No lower extremity pitting edema. No calf tenderness bilaterally. Moving all 4 extremities spontaneously. Skin: Normal for age and race, grossly normal temperature and turgor. No acute rash. Neurologic: Alert and appropriate, no apparent acute deficits. Psychiatric: Mood and manner are appropriate. Grooming and personal hygiene are appropriate. Related Data Home Medications Medication Instructions Recorded Confirmed aripiprazole 10 mg tablet (Abilify) 10 mg PO DAILY #30 tabs 08/30/22 01/08/24 albuterol sulfate 90 mcg/actuation 2 inh inhalation Q6H PRN shortness 05/12/23 01/08/24 aerosol inhaler of breath or wheezing #18 grams inhalational spacing device #1 ea 05/12/23 01/08/24 (BreatheRite MDI Spacer) food supplemt, lactose-reduced 1 ml PO DAILY #2,844 mL 09/01/23 01/08/24 0.06 gram-1 kcal/mL oral liquid (Boost High Protein) triamcinolone acetonide 0.5 % 1 applic topical BID #15 grams 10/10/23 01/08/24 topical cream aluminum chloride in alcohol 6.25 1 applic topical QHS #60 mL 10/13/23 01/08/24 % topical solution (Xerac AC) apixaban 5 mg tablet (Eliquis) 5 mg PO BID #60 tabs 10/18/23 01/08/24 clobetasol 0.05 % shampoo 1 applic topical QHS PRN 10/29/23 01/08/24 lamotrigine 25 mg tablet 25 mg PO DAILY #90 tabs 11/07/23 01/08/24 clonazepam 0.5 mg tablet 0.5 mg PO BID PRN anxiety #56 tabs 12/16/23 01/08/24 apixaban 5 mg tablet 5 mg PO BID 30 days #60 tabs 01/08/24 lisdexamfetamine 40 mg capsule 40 mg PO DAILY 01/08/24 01/08/24 Previous Rx's Medication Instructions Recorded aripiprazole 10 mg tablet (Abilify) 10 mg PO DAILY #30 tabs 08/30/22 albuterol sulfate 90 mcg/actuation 2 inh inhalation Q6H PRN shortness 05/12/23 aerosol inhaler of breath or wheezing #18 grams inhalational spacing device #1 ea 05/12/23 (BreatheRite MDI Spacer) food supplemt, lactose-reduced 1 ml PO DAILY #2,844 mL 09/01/23 0.06 gram-1 kcal/mL oral liquid (Boost High Protein) triamcinolone acetonide 0.5 % 1 applic topical BID #15 grams 10/10/23 topical cream aluminum chloride in alcohol 6.25 1 applic topical QHS #60 mL 10/13/23 % topical solution (Xerac AC) apixaban 5 mg tablet (Eliquis) 5 mg PO BID #60 tabs 10/18/23 lamotrigine 25 mg tablet 25 mg PO DAILY #90 tabs 11/07/23 clonazepam 0.5 mg tablet 0.5 mg PO BID PRN anxiety #56 tabs 12/16/23 apixaban 5 mg tablet 5 mg PO BID 30 days #60 tabs 01/08/24 Allergies Allergy/AdvReac Type Severity Reaction Status Date / Time amoxicillin [Amoxicillin] Allergy Severe Redness Verified 01/08/24 12:25 and swelling in throat naproxen [From Aleve] Allergy Severe Swelling/Ed Verified 01/08/24 12:25 summer Penicillins Allergy Severe Inflamed Verified 01/08/24 12:25 throat clindamycin Allergy Intermediate rash Verified 01/08/24 12:25 metronidazole [From Flagyl] Allergy Intermediate Headache Verified 01/08/24 12:25 acetaminophen [From Tylenol] Allergy Mild Hives Verified 01/08/24 12:25 aspirin Allergy Mild Swelling Verified 01/08/24 12:25 in lips dexamethasone Allergy Other (See Unverified 01/08/24 12:25 Comment) adhesive AdvReac Intermediate scarring Verified 01/08/24 12:25 ipratropium [From DuoNeb] AdvReac Intermediate Wheezing Verified 01/08/24 12:25 ibuprofen AdvReac Mild Other (See Unverified 01/08/24 12:25 Comment) lactose AdvReac Mild Nausea, Verified 01/08/24 12:25 intolerance-causes gas/diarrhea oxycodone HCl [From Percocet] AdvReac Unknown Nausea Verified 01/08/24 12:25 General Stated Complaint: SOB/SuddenOnset JACKSON: 3 Course Vital Signs Vital signs: Vital Signs Temperature 35.9 C L 01/08/24 12:14 Pulse 128 H 01/08/24 12:14 Respiratory Rate 17 01/08/24 12:14 Blood Pressure 125/93 H 01/08/24 12:14 Pulse Oximetry 100 01/08/24 12:14 Temperature 35.9 C L 01/08/24 12:14 Temperature Source Temporal Artery Scan 01/08/24 12:14 Pulse 128 H 01/08/24 12:14 Respiratory Rate 20 01/08/24 12:21 Respiratory Effort Short of Breath 01/08/24 12:23 Respiratory Depth Shallow 01/08/24 12:21 Respiratory Pattern Normal 01/08/24 12:21 Blood Pressure 125/93 H 01/08/24 12:14 Blood Pressure Position Sitting 01/08/24 12:14 Pulse Oximetry 100 01/08/24 12:14 Oxygen Delivery Method Room Air 01/08/24 12:14 Oxygen Flow Rate 0 01/08/24 12:14 Pain Level 0 01/08/24 12:14 Medical Decision Making Quality:SDOH Health Related Social Needs: No Data to Display PFSH All Active Problems (Updated 01/08/24 @ 15:07 by Arnulfo Jones MD) Sinus tachycardia (Acute) Shortness of breath (Acute) Malnutrition (Acute) Positive urine test (Acute) Alcohol abuse (Chronic) Consumes four beers at a time. Had DWI 2020. 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 of vagina (Acute) PATIENT NEEDS REPEAT PAP WHEN SEEN FOR IUD INSERTION Urine test negative (Acute) DVT prophylaxis (Acute) Left leg DVT (Acute) Bilateral pulmonary embolism (Acute) Attention and concentration deficit (Acute) Sciatica of left side (Acute) Tobacco use disorder (Acute) Anxiety (Chronic 11/15/11) RX Citalopram L-T x9 years (helped until stopped eating ~03/2020); RX Escitalopram, stopped 02/2021 in favor of Ability & Lamotrigine ([facility]) Depression (Chronic) RX Citalopram L-T x9 years (helped until stopped eating ~03/2020); RX Escitalopram 03/2020, stopped 02/2021 in favor of Ability & Lamotrigine ([facility]) Bipolar 1 disorder (Acute) PTSD (post-traumatic stress disorder) (Acute) ASCUS with positive high risk HPV cervical (Acute) Colpo on 05/13/22 with KJ. 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 Psoriasis (11/28/12) 09/2019. Scalp psoriasis Rx with clobetasol lotion and change from DeopProvera to OCPs. IBS (irritable bowel syndrome) Poor dentition has lost several teeth secondary to tooth decay Surgical History Tooth extraction teeth extraction. hx of colonoscopy and endoscopy Family History Mother Drug addiction Mental disorder Gastric ulcer Depression Father Essential hypertension Drug addiction Mental disorder Seizures Depression Sister Autism Maternal Grandmother CHF (congestive heart failure) Gastric ulcer COPD (chronic obstructive pulmonary disease) Paternal Great Aunt Coronary heart disease Grandmother CHF (congestive heart failure) Neoplasm Lung CA (smoker) Grandfather Diabetes Maternal Uncle Diabetes Paternal Grandmother COPD (chronic obstructive pulmonary disease) Other Alcohol abuse Congenital heart defect Substance use disorder Social History Smoking/Tobacco Use Status: Current every day Tobacco Type: cigarettes Smoking packs per day: 1 Smoking cigarettes per day: 20.0 Years smoked: 10 Smoking pack-years: 10.00 Tobacco: How many years used: 14 Quit status: not considering quitting Smoking risk assessment performed?: Yes Alcohol Intake: current Alcohol Intake frequency: a few times a month Alcohol type: beer Details: see A/P Substance use type: does not use Caregiver/Support person: No Household members: significant other, children and other Details: New partner since 01/2020. Housing: apartment Number of Children: 0 Communication Needs: None Do you need help understanding health information?: Never current occupation: working as [employer], [employer] 08/2022. 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 What is your relationship status?: How often do you talk on the phone with friends or family?: three or more times per week How often do you get together with friends or relatives?: once per week How often do you attend yazidi or restorationism services?: decline to answer Do you belong to any clubs or organized social groups?: decline to answer Panel score (0-1 are the most socially isolated patients): 2 What type of physical activity do you participate in: none and 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 Date GA/Weeks # Preg Succ Route Wgt Sex Labor Lgth Anesthesia Location [facility] Complic 05/03/12 8 No No 04/29/17 6 No No 04/29/18 8 No No 11/15/22 39 No Yes vaginal Female [facility] other Delivery Date: 05/03/12 Last Updated by: KASEY Perry Delivery Date: 04/29/17 Last Updated by: Patt Smith CNM SAB Delivery Date: 04/29/18 Last Updated by: KASEY Perry Delivery Date: 11/15/22 Last Updated by: Darline Sarmiento MD Pt transfered care to while in prodromal labor. Adrianna. 5w PP LE DVT and bilateral PEs PAWSS Have you Been Recently Intoxicated or Drunk Within the Last 30 days?: No Have you Ever Experienced Previous Episodes of Alcohol Withdrawal?: No Have you ever Experienced Withdrawal Seizures?: No Have you ever Experienced Delirium Tremens(DT)s?: No Have you ever undergone Alcohol Rehabilitation Treatment (i.e, inpt ot outpatient treatment programs)?: No Have you ever Experienced Blackouts?: No Have you ever Combined Alcohol with other Downers within the last 90 days?: No Have you ever Combined Alcohol with any other Substance of Abuse during the last 90 days?: No Positive Blood Alcohol level on Presentation? [PCS.BAL]: No Evidence of Increased Autonomic Activity (i.e. HR>120, tremor, sweating, agitation, nausea)?: No Result: 0 POCUS Exam (ED) Limited Cardiac Exam DATE OF EXAM: 01/08/24 TIME OF EXAM: 13:05 PROVIDER THAT PERFORMED THE STUDY: Arnulfo Jones IS THIS A REPEAT EXAM DURING THIS ENCOUNTER: no REASON FOR EXAM: Chest pain VISUALIZED STRUCTURES: Four Chambers, Left ventricle and LVOT VIEW OBTAINED: Apical 4-Chamber, Parasternal long-axis and Subxiphoid PERTINENT FINDINGS/IMPRESSION: No pericardial effusion and No RV dilation DIFFERENTIAL DIAGNOSES: Aortic outflow track less than 4 cm, good squeeze, RV less than LV, no significant pericardial effusion. Exam complete
--- NOTE | 2024-01-08 12:30 | DI.CT_ITS ---
Exam(s) CT CHEST PE CTA EXAM: CT CHEST PE CTA CLINICAL HISTORY: Shortness of breath. TECHNIQUE: Imaging Protocol: Axial CT angiography was performed with multi-slice acquisition and mu lti-planar and/or 3D reconstructions. CONTRAST MATERIAL: Intravenous: Omnipaque 350 contrast volume:85 mL COMPARISON: CT CT CHEST PE CTA from 10/17/[address] CHEST PE CTA from 12/22/[address] CHEST PE CTA from 03/14/[address] CHEST PE CTA from 03/22/[address] CHEST PE CTA from 05/13/2023 FINDINGS: Tracheobronchial tree: Patent where visualized. Pulmonary parenchyma: No consolidation or dominant measurable mass. No architectural distortion. Pulmonary Arteries: No evidence of filling defect to suggest pulmonary emboli. Mediastinum and Altagracia: No dominant adenopathy or fluid collection. The esophagus is unremarkable. Visualized thyroid gland: Unremarkable. Pleura: No effusion or pneumothorax. Heart: The heart is not dilated. No coronary artery calcifications are seen. No pericardial effusion. Aorta: Thoracic aorta non-dilated. No evidence of dissection. Upper abdomen: Unremarkable. Soft tissues: Unremarkable. Bones: Within normal limits for the patient's age. IMPRESSION: No evidence of pulmonary embolism, thoracic aortic dissection or aneurysm. RADIATION DOSE DELIVERED: 250.72mGy.cm Total DLP DATA REPOSITORY: All CT scans at this facility are submitted to the National Radiology Data Registry (NRDR) Dose Index Registry (DIR) with the [employer] (ACR). RADIATION OPTIMIZATION: All CT scans at this facility use at least one of these dose optimization te chniques: automated exposure control; mA and/or kV adjustment per patient size (includes targeted exa ms where dose is matched to clinical indication); or iterative reconstruction.
[2024-01-08 12:40] LABS: Abs Immature Grans 0.02 10^3/uL (0.0-0.06); Absolute Basophil Count 0.15 10^3/uL (0.0-0.2); Absolute Eosinophil Count 0.39 10^3/uL (0.0-0.7); Absolute Lymphocyte Count 2.77 10^3/uL (1.2-3.4); Absolute Monocyte Count 0.88 10^3/uL (0.1-0.8); Absolute Neutrophil Count 4.07 10^3/uL (1.2-6.7); Basophils % 1.8 %; Eosinophils % 4.7 %; HCT 48.2 % (36.0-46.0); Immature Grans % 0.2 %; Lymphocytes % 33.5 %; MCH 29.9 pg (27.0-33.0); MCHC 33.2 % (32.0-36.0); MCV 90 fL (80-95); Monocytes % 10.6 %; Neutrophils % 49.2 %; Platelet Count 369 10^3/uL (130-400); RBC 5.35 10^6/uL (3.93-5.22); RDW 13.7 % (11.7-14.6); RDW-SD 44.5 fL; WBC 8.28 10^3/uL (4.4-10.8)
[2024-01-08 12:58] LABS: INR 1.1 (0.9-1.1); PTT Activated 23.9 sec (23.6-32.8); Prothrombin Time 11.3 sec (9.1-11.1)
[2024-01-08 13:00] LABS: HCG Qual (Serum) Negative
[2024-01-08] MEDS: Normal Saline - Diluent 50 ML VIAL IJ (13:01)
[2024-01-08] MEDS: Omnipaque 350 MG/ML 100 ML BTL IJ (13:03)
[2024-01-08 13:07] LABS: BUN 5 mg/dL (7-18); CREATININE 0.9 mg/dL (0.55-1.02); Calcium 9.1 mg/dL (8.5-10.1); Chloride 101 mmol/L (98-107); Estimated GFR 88.75 (mL/min/1.73m2); Glucose 95 mg/dL (74-106); NT-proBNP 26 pg/mL (<300); Potassium 3.8 mmol/L (3.5-5.1); Sodium 139 mmol/L (136-145); Troponin I < 50 ng/L (< or =60)
[2024-01-08] MEDS: Normal Saline Flush 10 ML SYR IVP (13:07)
[2024-01-08] MEDS: LORazepam 2 MG/ML VIAL 1 MG IVP (13:31)
--- NOTE | 2024-01-08 14:31 | DI.VRAD_ITS ---
PROCEDURE INFORMATION: Exam: CTA Chest With Contrast Exam date and time: 01/08/2024 1:00 PM Age: 28 years old Clinical indication: Shortness of breath; Patient HX: HX of pe TECHNIQUE: Imaging protocol: Computed tomographic angiography of the chest with contrast. Exam focused on the arteries. 3D rendering (Not supervised by radiologist): MIP and/or 3D reconstructed images were created by the technologist. Contrast material: OMNIPAQUE 350; Contrast volume: 65 ml; Contrast route: INTRAVENOUS (IV); COMPARISON: CT CHEST PE CTA 05/13/2023 6:08 AM FINDINGS: Pulmonary arteries: Normal. No pulmonary emboli. Aorta: Unremarkable. No aortic aneurysm. No aortic dissection. Lungs: Unremarkable. No consolidation. No masses. Pleural spaces: Unremarkable. No pneumothorax. No pleural effusion. Heart: Unremarkable. No cardiomegaly. No pericardial effusion. Lymph nodes: Unremarkable. No enlarged lymph nodes. Bones/joints: Unremarkable. No acute fracture. Soft tissues: Unremarkable. IMPRESSION: No acute findings. Dictated and Authenticated by: Abrahan Christiansen MD. Ordering:SHERRY Arredondo MD
--- NOTE | 2024-01-08 15:04 | NUR.NOTE ---
Referral faxed to PCP and their Media Consultant for needs help affording medications, this week. Nursing Note:
[2024-01-08] MEDS: Apixaban 5 MG TAB PO ×2 (15:07)
== END 2024-01-08 15:21 | disposition home or self-care (01) ==
PROVIDERS: Emergency Provider Emergency Medicine; PCP Nurse Practitioner Family
DX: R07.9 Chest pain, unspecified (principal); R06.02 Shortness of breath; R00.0 Tachycardia, unspecified; Z86.718 Personal history of other venous thrombosis and embolism
CPT/HCPCS: 36415; 71275; 80048; 93005; 93308; 96374; 99285; 83880; 84484; 84703; 85025; 85610; 85730; 93010; 99283; J2060; J3490

== ENCOUNTER 2024-01-10 13:11 | Emergency (ER) | payer MEDICAID, SELFPAY ==
[2024-01-10] VITALS (19 sets, daily range): BP systolic 101–129; BP diastolic 65–84; PULSE 99–129; RESP 16–29; TEMP 37.4; O2SAT 83–100
--- NOTE | 2024-01-10 13:00 | RT.EKG_ITS ---
APPROVED REPORT Exam: Resting ECG Reason for Exam: Chest Pain Patient Location: E HR:125 bpm ECG Measurements Heart Rate 125 AXIS MA 128 P 63 QRSd 74 QRS 96 QT 320 T -70 QTc 462 Conclusion Sinus tachycardia...rate> 99 Probable left atrial enlargement...P >50mS, <-0.10mV V1 sinus tachycardia, normal axis
--- NOTE | 2024-01-10 13:45 | DI.CT_ITS ---
Exam(s) CT CHEST PE CTA EXAM: CT CHEST PE CTA CLINICAL HISTORY: cp hx pe. TECHNIQUE: Imaging Protocol: CT angiography of the chest was performed using pulmonary embolus tone col. Multi planar reconstructions were performed. CONTRAST MATERIAL: Intravenous: Omnipaque 350 Contrast volume: 100 cc COMPARISON: CT CT CHEST PE CTA from 01/08/2024 FINDINGS: CHEST: PULMONARY ARTERIES: There are no intraluminal filling defects to suggest acute pulmonary emboli. LUNGS: There are no infiltrates nor evidence of pulmonary infarction.. There are no pleural effusions . MEDIASTINUM: There is no hilar nor mediastinal adenopathy. Visualized thyroid unremarkable. CARDIAC: Heart size is upper normal. There is no pericardial effusion.Caliber of the thoracic aorta is within normal limits. No evidence of aortic dissection there is no significant shift of the interv entricular septum. PARTIALLY VISUALIZED UPPERMOST ABDOMEN: No obvious findings OSSEOUS: No significant osseous lesions.. IMPRESSION: 1. No evidence of acute pulmonary emboli. No evidence of pulmonary infarction.No pleural effusions. 2. No evidence of aortic dissection nor pericardial effusion. Normal heart size. 3. No infiltrates. Called to ER. RADIATION DOSE DELIVERED: 238.9mGy.cm Total DLP DATA REPOSITORY: All CT scans at this facility are submitted to the National Radiology Data Registry (NRDR) Dose Index Registry (DIR) with the [employer] (ACR). RADIATION OPTIMIZATION: All CT scans at this facility use at least one of these dose optimization te chniques: automated exposure control; mA and/or kV adjustment per patient size (includes targeted exa ms where dose is matched to clinical indication); or iterative reconstruction.
--- NOTE | 2024-01-10 13:54 | W.ED.GENAD ---
Discharge Plan Disposition Patient Disposition: Home Condition: Improving Discharge Details Chief Complaint: Chest Pain Clinical Impression: Chest pain Primary Care Provider: Jennifer Marsh ED Provider: Hoang Wellington Home Meds and New Rx's Prescriptions: No Action Boost High Protein 0.06 gram- 1 kcal/mL liquid 1 ml PO DAILY Qty: 2844 3RF aripiprazole [Abilify] 10 mg tablet 10 mg PO DAILY Qty: 30 0RF albuterol sulfate 90 mcg/actuation HFA aerosol inhaler 2 inh inhalation Q6H PRN (Reason: shortness of breath or wheezing) Qty: 18 4RF (DME) BreatheRite MDI Spacer Spacer See Rx Instructions .ROUTE .MEDSUPPLY Qty: 1 0RF Rx Instructions: As directed triamcinolone acetonide 0.5 % cream 1 applic topical BID Qty: 15 5RF Rx Instructions: apply small amount to arms and affected areas Xerac AC 6.25 % solution 1 applic topical QHS Qty: 60 3RF Eliquis 5 mg tablet 5 mg PO BID Qty: 60 5RF lamotrigine 25 mg tablet 25 mg PO DAILY Qty: 90 1RF clonazepam 0.5 mg tablet 0.5 mg PO BID PRN (Reason: anxiety) Qty: 56 0RF Rx Instructions: 1-2 tabs daily as needed clobetasol 0.05 % shampoo 1 applic TP QHS PRN Rx Instructions: Use daily for 4 weeks. lisdexamfetamine 40 mg capsule 40 mg PO DAILY Patient Comments: TAKE 1 CAPSULE BY MOUTH DAILY IN THE MORNING Discharge Instructions Instructions: Chest Pain (ED) HPI General Date/Time Provider Initiated Documentation: 01/10/24 13:49. HPI Narrative: 28-year-old female history of PE presents with shortness of breath and chest pain Related Data Home Medications Medication Instructions Recorded Confirmed aripiprazole 10 mg tablet (Abilify) 10 mg PO DAILY #30 tabs 08/30/22 01/10/24 albuterol sulfate 90 mcg/actuation 2 inh inhalation Q6H PRN shortness 05/12/23 01/10/24 aerosol inhaler of breath or wheezing #18 grams inhalational spacing device #1 ea 05/12/23 01/10/24 (BreatheRite MDI Spacer) food supplemt, lactose-reduced 1 ml PO DAILY #2,844 mL 09/01/23 01/10/24 0.06 gram-1 kcal/mL oral liquid (Boost High Protein) triamcinolone acetonide 0.5 % 1 applic topical BID #15 grams 10/10/23 01/10/24 topical cream aluminum chloride in alcohol 6.25 1 applic topical QHS #60 mL 10/13/23 01/10/24 % topical solution (Xerac AC) apixaban 5 mg tablet (Eliquis) 5 mg PO BID #60 tabs 10/18/23 01/10/24 clobetasol 0.05 % shampoo 1 applic topical QHS PRN 10/29/23 01/10/24 lamotrigine 25 mg tablet 25 mg PO DAILY #90 tabs 11/07/23 01/10/24 clonazepam 0.5 mg tablet 0.5 mg PO BID PRN anxiety #56 tabs 12/16/23 01/10/24 lisdexamfetamine 40 mg capsule 40 mg PO DAILY 01/08/24 01/10/24 Previous Rx's Medication Instructions Recorded aripiprazole 10 mg tablet (Abilify) 10 mg PO DAILY #30 tabs 08/30/22 albuterol sulfate 90 mcg/actuation 2 inh inhalation Q6H PRN shortness 05/12/23 aerosol inhaler of breath or wheezing #18 grams inhalational spacing device #1 ea 05/12/23 (BreatheRite MDI Spacer) food supplemt, lactose-reduced 1 ml PO DAILY #2,844 mL 09/01/23 0.06 gram-1 kcal/mL oral liquid (Boost High Protein) triamcinolone acetonide 0.5 % 1 applic topical BID #15 grams 10/10/23 topical cream aluminum chloride in alcohol 6.25 1 applic topical QHS #60 mL 10/13/23 % topical solution (Xerac AC) apixaban 5 mg tablet (Eliquis) 5 mg PO BID #60 tabs 10/18/23 lamotrigine 25 mg tablet 25 mg PO DAILY #90 tabs 11/07/23 clonazepam 0.5 mg tablet 0.5 mg PO BID PRN anxiety #56 tabs 12/16/23 Allergies Allergy/AdvReac Type Severity Reaction Status Date / Time amoxicillin [Amoxicillin] Allergy Severe Redness Verified 01/10/24 13:18 and swelling in throat naproxen [From Aleve] Allergy Severe Swelling/Ed Verified 01/10/24 13:18 summer Penicillins Allergy Severe Inflamed Verified 01/10/24 13:18 throat clindamycin Allergy Intermediate rash Verified 01/10/24 13:18 metronidazole [From Flagyl] Allergy Intermediate Headache Verified 01/10/24 13:18 acetaminophen [From Tylenol] Allergy Mild Hives Verified 01/10/24 13:18 aspirin Allergy Mild Swelling Verified 01/10/24 13:18 in lips dexamethasone Allergy Other (See Unverified 01/10/24 13:18 Comment) adhesive AdvReac Intermediate scarring Verified 01/10/24 13:18 ipratropium [From DuoNeb] AdvReac Intermediate Wheezing Verified 01/10/24 13:18 ibuprofen AdvReac Mild Other (See Unverified 01/10/24 13:18 Comment) lactose AdvReac Mild Nausea, Verified 01/10/24 13:18 intolerance-causes gas/diarrhea oxycodone HCl [From Percocet] AdvReac Unknown Nausea Verified 01/10/24 13:18 General Stated Complaint: Chest Pain JACKSON: 3 Review of Systems Narrative: Review of Systems Constitutional: negative Eyes: negative ENT: negative Cardiovascular: negative Respiratory: As of breath, chest pain Gastrointestinal: negative : negative Musculoskeletal: negative Skin: negative Neurologic: negative Psych: negative Exam Narrative Exam Narrative: Physical Examination General: alert, awake, cooperative, resting comfortably, no acute distress HEENT: normocephalic, atraumatic; PERRL, EOM intact, conjunctiva normal; no nasal discharge; moist mucous membranes, oral and pharyngeal mucosa normal, tolerating secretions Neck: supple, trachea midline; full ROM Chest: normal to inspection Respiratory: normal respiratory effort, speaking in full sentences, clear to auscultation, no wheezing, rales or rhonchi Cardiac: Tachycardia, regular rhythm, S1S2 intact, no murmurs rubs or gallops GI: abdomen soft, non-tender, non-distended; no palpable mass or hepatosplenomegaly Skin: no lesions, rashes or trauma appreciated Neuro: AAOx3, normal speech, moving all extremities Extremities: No peripheral edema Psych: Appropriate mood and affect Course Vital Signs Vital signs: Vital Signs Temperature 37.4 C 01/10/24 13:14 Pulse 121 H 01/10/24 13:14 Respiratory Rate 16 01/10/24 13:14 Blood Pressure 101/65 01/10/24 13:14 Pulse Oximetry 100 01/10/24 13:14 Temperature 37.4 C 01/10/24 13:14 Temperature Source Skin 01/10/24 13:14 Pulse 121 H 01/10/24 13:14 Respiratory Rate 20 01/10/24 13:38 Respiratory Effort Normal 01/10/24 13:38 Respiratory Depth Normal 01/10/24 13:38 Respiratory Pattern Normal 01/10/24 13:38 Blood Pressure 101/65 01/10/24 13:14 Blood Pressure Position Sitting 01/10/24 13:14 Pulse Oximetry 100 01/10/24 13:14 Oxygen Delivery Method Room Air 01/10/24 13:14 Oxygen Flow Rate 0 01/10/24 13:14 Pain Level 7 01/10/24 13:14 Medical Decision Making 28-year-old female history of PE on Eliquis presents with shortness of breath and chest discomfort hemodynamically stable noted to be tachycardic on arrival sinus tachycardia rate of 125 normal axis, normal intervals, T wave inversions to 3 aVF with poor R wave progression anterior leads, must consider recurrent PE low suspicion for ACS or CHF lower suspicion for pneumonia or pneumothorax muscles consider anxiety versus dehydration versus electrolyte derangement. Fluids basic labs troponin CT chest, close reassessment 15: 49 resting actively no acute distress CTA chest negative, labs unremarkable. Patient feeling much better. Home care instructions and return precautions given Quality:SDOH Health Related Social Needs: No Data to Display PFSH All Active Problems (Updated 01/10/24 @ 15:50 by Hoang Wellington MD) Chest pain (Acute) Sinus tachycardia (Acute) Shortness of breath (Acute) Malnutrition (Acute) Positive urine test (Acute) Alcohol abuse (Chronic) Consumes four beers at a time. Had DWI 2020. 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 of vagina (Acute) PATIENT NEEDS REPEAT PAP WHEN SEEN FOR IUD INSERTION Urine test negative (Acute) DVT prophylaxis (Acute) Left leg DVT (Acute) Bilateral pulmonary embolism (Acute) Attention and concentration deficit (Acute) Sciatica of left side (Acute) Tobacco use disorder (Acute) Anxiety (Chronic 11/15/11) RX Citalopram L-T x9 years (helped until stopped eating ~03/2020); RX Escitalopram, stopped 02/2021 in favor of Ability & Lamotrigine ([facility]) Depression (Chronic) RX Citalopram L-T x9 years (helped until stopped eating ~03/2020); RX Escitalopram 03/2020, stopped 02/2021 in favor of Ability & Lamotrigine ([facility]) Bipolar 1 disorder (Acute) PTSD (post-traumatic stress disorder) (Acute) ASCUS with positive high risk HPV cervical (Acute) Colpo on 05/13/22 with KJ. 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 Psoriasis (11/28/12) 09/2019. Scalp psoriasis Rx with clobetasol lotion and change from DeopProvera to OCPs. IBS (irritable bowel syndrome) Poor dentition has lost several teeth secondary to tooth decay Surgical History Tooth extraction teeth extraction. hx of colonoscopy and endoscopy Family History Mother Drug addiction Mental disorder Gastric ulcer Depression Father Essential hypertension Drug addiction Mental disorder Seizures Depression Sister Autism Maternal Grandmother CHF (congestive heart failure) Gastric ulcer COPD (chronic obstructive pulmonary disease) Paternal Great Aunt Coronary heart disease Grandmother CHF (congestive heart failure) Neoplasm Lung CA (smoker) Grandfather Diabetes Maternal Uncle Diabetes Paternal Grandmother COPD (chronic obstructive pulmonary disease) Other Alcohol abuse Congenital heart defect Substance use disorder Social History Smoking/Tobacco Use Status: Current every day Tobacco Type: cigarettes Smoking packs per day: 1 Smoking cigarettes per day: 20.0 Years smoked: 10 Smoking pack-years: 10.00 Tobacco: How many years used: 14 Quit status: not considering quitting Smoking risk assessment performed?: Yes Alcohol Intake: current Alcohol Intake frequency: a few times a month Alcohol type: beer Details: see A/P Drug use: Current Sobriety Substance use type: does not use and marijuana Caregiver/Support person: No Household members: significant other, children and other Details: New partner since 01/2020. Housing: apartment Number of Children: 0 Communication Needs: None Do you need help understanding health information?: Never current occupation: working as [employer] 08/2022. 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 What is your relationship status?: How often do you talk on the phone with friends or family?: three or more times per week How often do you get together with friends or relatives?: once per week How often do you attend hinduism or mu-ism services?: decline to answer Do you belong to any clubs or organized social groups?: decline to answer Panel score (0-1 are the most socially isolated patients): 2 What type of physical activity do you participate in: none and other 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 Date GA/Weeks # Preg Succ Route Wgt Sex Labor Lgth Anesthesia Location Prov Complic 05/03/12 8 No No 04/29/17 6 No No 04/29/18 8 No No 11/15/22 39 No Yes vaginal Female [facility] other Delivery Date: 05/03/12 Last Updated by: Patt Smith CNM EAB Delivery Date: 04/29/17 Last Updated by: Patt Smith CNM SAB Delivery Date: 04/29/18 Last Updated by: KASEY Perry Delivery Date: 11/15/22 Last Updated by: Darline Sarmiento MD Pt transfered care to while in prodromal labor. Adrianna. 5w PP LE DVT and bilateral PEs PAWSS Have you Been Recently Intoxicated or Drunk Within the Last 30 days?: Yes Have you Ever Experienced Previous Episodes of Alcohol Withdrawal?: No Have you ever Experienced Withdrawal Seizures?: No Have you ever Experienced Delirium Tremens(DT)s?: No Have you ever undergone Alcohol Rehabilitation Treatment (i.e, inpt ot outpatient treatment programs)?: No Have you ever Experienced Blackouts?: No Have you ever Combined Alcohol with other Downers within the last 90 days?: No Have you ever Combined Alcohol with any other Substance of Abuse during the last 90 days?: No Positive Blood Alcohol level on Presentation? [PCS.BAL]: Unable to Obtain Evidence of Increased Autonomic Activity (i.e. HR>120, tremor, sweating, agitation, nausea)?: No Result: 1
[2024-01-10 13:56] LABS: Abs Immature Grans 0.02 10^3/uL (0.0-0.06); Absolute Basophil Count 0.13 10^3/uL (0.0-0.2); Absolute Eosinophil Count 0.25 10^3/uL (0.0-0.7); Absolute Lymphocyte Count 2.25 10^3/uL (1.2-3.4); Absolute Neutrophil Count 5.62 10^3/uL (1.2-6.7); Basophils % 1.4 %; Eosinophils % 2.8 %; HCT 46.5 % (36.0-46.0); HGB 16.1 g/dL (11.2-15.7); Immature Grans % 0.2 %; Lymphocytes % 24.8 %; MCH 30.3 pg (27.0-33.0); MCHC 34.6 % (32.0-36.0); MCV 88 fL (80-95); Monocytes % 8.8 %; Platelet Count 322 10^3/uL (130-400); RBC 5.31 10^6/uL (3.93-5.22); RDW 13.2 % (11.7-14.6); RDW-SD 42.5 fL; WBC 9.07 10^3/uL (4.4-10.8)
[2024-01-10 14:13] LABS: INR 1.2 (0.9-1.1); Prothrombin Time 11.6 sec (9.1-11.1)
[2024-01-10] MEDS: LORazepam 2 MG/ML VIAL 1 MG IVP (14:16)
[2024-01-10 14:18] LABS: ALT 16 U/L (14-59); AST 15 U/L (15-37); Albumin 4.3 g/dL (3.4-5.0); Alkaline Phosphatase 78 U/L (46-116); Anion Gap 15.4 mmol/L (3-11); BUN 6 mg/dL (7-18); Bilirubin, Total 0.7 mg/dL (0.2-1.0); CO2 22.6 mmol/L (21.0-32.0); CREATININE 0.8 mg/dL (0.55-1.02); Calcium 9.4 mg/dL (8.5-10.1); Chloride 98 mmol/L (98-107); Estimated GFR 102.22 (mL/min/1.73m2); Glucose 85 mg/dL (74-106); NT-proBNP 24 pg/mL (<300); Potassium 3.6 mmol/L (3.5-5.1); Sodium 136 mmol/L (136-145); TSH (W/Ref FT4) 2.12 uIU/mL (0.36-3.74); Total Protein 8.6 g/dL (6.4-8.2)
[2024-01-10 14:19] LABS: Troponin I < 50 ng/L (< or =60)
[2024-01-10 14:21] LABS: PTT Activated 27.3 sec (23.6-32.8)
[2024-01-10] MEDS: Omnipaque 350 MG/ML 500 ML BTL-Imaging package IJ (14:52)
[2024-01-10] MEDS: Normal Saline - Diluent 50 ML VIAL IV (14:54)
[2024-01-10 15:52] LABS: *AMPHETAMINES SCREEN URINE Positive (Negative); *BARBITURATES SCREEN URINE Negative (Negative); *BENZODIAZEPINES SCREEN URINE Negative (Negative); Cannabinoids THC Negative (Negative); Cocaine Screen,Urine Negative (Negative); METHADONE URINE SCREEN Negative (Negative); OPIATES URINE SCREEN Negative (Negative); Tricyclic Antidepressants Negative (Negative)
== END 2024-01-10 16:08 | disposition home or self-care (01) ==
PROVIDERS: Emergency Provider Emergency Medicine; PCP Nurse Practitioner Family
DX: R07.9 Chest pain, unspecified (principal); R06.02 Shortness of breath; Z86.79 Personal history of other diseases of the circulatory system
CPT/HCPCS: 71275; 80053; 80307; 81025; 93005; 96374; 99285; 83880; 84443; 84484; 85025; 85610; 85730; 93010; 99283; J2060

== ENCOUNTER 2024-04-25 06:52 | Emergency (ER) | payer MEDICAID, SELFPAY ==
--- NOTE | 2024-04-25 07:00 | RT.EKG_ITS ---
APPROVED REPORT Exam: Resting ECG Reason for Exam: Dizzy, Heart Racing Patient Location: E HR:115 bpm ECG Measurements Heart Rate 115 AXIS RI 163 P 50 QRSd 76 QRS 82 QT 330 T 17 QTc 456 Conclusion Sinus tachycardia...rate> 99
[2024-04-25 07:05] VITALS: BP 119/74; PULSE 108; RESP 16; TEMP 37.2; O2SAT 100
--- NOTE | 2024-04-25 07:14 | W.ED.GENAD ---
Discharge Plan Disposition Patient Disposition: Home Condition: Stable Discharge Details Clinical Impression: Light-headed, Brain fog Primary Care Provider: Jennifer Marsh ED Provider: Kenneth Venegas Home Meds and New Rx's Prescriptions: Continued Boost High Protein 0.06 gram- 1 kcal/mL liquid 1 ml PO DAILY Qty: 2844 3RF (DME) BreatheRite MDI Spacer Spacer See Rx Instructions .ROUTE .MEDSUPPLY Qty: 1 0RF Rx Instructions: As directed Xerac AC 6.25 % solution 1 applic topical QHS Qty: 60 3RF albuterol sulfate 90 mcg/actuation HFA aerosol inhaler 2 inh inhalation Q6H PRN (Reason: shortness of breath or wheezing) Qty: 18 4RF clonazepam 0.5 mg tablet 0.5 mg PO BID PRN (Reason: anxiety) Qty: 56 0RF Rx Instructions: 1-2 tabs daily as needed triamcinolone acetonide 0.5 % cream 1 applic topical BID Qty: 30 5RF Rx Instructions: apply small amount to arms and affected areas lamotrigine 25 mg tablet 50 mg PO DAILY Qty: 180 1RF aripiprazole [Abilify] 10 mg tablet 10 mg PO DAILY Qty: 30 1RF Eliquis 5 mg tablet 5 mg PO BID Qty: 60 5RF clobetasol 0.05 % shampoo 1 applic TP QHS PRN Rx Instructions: Use daily for 4 weeks. Discharge Instructions Additional Instructions: Your blood work today did not show any concerning findings If your stomach symptoms few days follow-up with your primary care provider If you feel more ill or have new symptoms such as high fevers, persistent vomiting or difficulty breathing return to the emergency department for reevaluation Stand Alone Forms: Work Release [facility] General Mode of arrival: ambulatory. Date/Time Provider Initiated Documentation: 04/25/24 06:57. Limitations to Documentation: no limitations. Information obtained by: patient. History of Present Illness 28 year old F presents to the emergency department with the chief complaint of lightheaded, described as moderate, Patient started experiencing this day(s) (1) and it has been constant. No relieving factors improve symptom(s), No exacerbating factors reported . Patient notes denies chest pain, fever/chills and shortness of breath. Patient did receive the following treatments prior to arrival, none Related Data Home Medications ?Medication ?Instructions ?Recorded ?Confirmed inhalational spacing device #1 ea 05/12/23 01/30/24 (BreatheRite MDI Spacer) food supplemt, lactose-reduced 1 ml PO DAILY #2,844 mL 09/01/23 04/25/24 0.06 gram-1 kcal/mL oral liquid (Boost High Protein) aluminum chloride 6.25 % topical 1 applic topical QHS #60 mL 10/13/23 04/25/24 solution (Xerac AC) clobetasol 0.05 % shampoo 1 applic topical QHS PRN 10/29/23 04/25/24 albuterol sulfate 90 mcg/actuation 2 inh inhalation Q6H PRN shortness 04/03/24 04/25/24 aerosol inhaler of breath or wheezing #18 grams clonazepam 0.5 mg tablet 0.5 mg PO BID PRN anxiety #56 tabs 04/03/24 04/25/24 triamcinolone acetonide 0.5 % 1 applic topical BID #30 grams 04/03/24 04/25/24 topical cream apixaban 5 mg tablet (Eliquis) 5 mg PO BID #60 tabs 04/09/24 04/25/24 aripiprazole 10 mg tablet (Abilify) 10 mg PO DAILY #30 tabs 04/09/24 04/25/24 lamotrigine 25 mg tablet 50 mg (2 x 25 mg) PO DAILY #180 04/09/24 04/25/24 tabs Previous Rx's ?Medication ?Instructions ?Recorded inhalational spacing device #1 ea 05/12/23 (BreatheRite MDI Spacer) food supplemt, lactose-reduced 1 ml PO DAILY #2,844 mL 09/01/23 0.06 gram-1 kcal/mL oral liquid (Boost High Protein) aluminum chloride 6.25 % topical 1 applic topical QHS #60 mL 10/13/23 solution (Xerac AC) albuterol sulfate 90 mcg/actuation 2 inh inhalation Q6H PRN shortness 04/03/24 aerosol inhaler of breath or wheezing #18 grams clonazepam 0.5 mg tablet 0.5 mg PO BID PRN anxiety #56 tabs 04/03/24 triamcinolone acetonide 0.5 % 1 applic topical BID #30 grams 04/03/24 topical cream apixaban 5 mg tablet (Eliquis) 5 mg PO BID #60 tabs 04/09/24 aripiprazole 10 mg tablet (Abilify) 10 mg PO DAILY #30 tabs 04/09/24 lamotrigine 25 mg tablet 50 mg (2 x 25 mg) PO DAILY #180 04/09/24 tabs Allergies Allergy/AdvReac Type Severity Reaction Status Date / Time amoxicillin (Amoxicillin) Allergy Severe Redness Verified 04/25/24 07:07 and swelling in throat naproxen (From Aleve) Allergy Severe Swelling/Ed Verified 04/25/24 07:07 summer Penicillins Allergy Severe Inflamed Verified 04/25/24 07:07 throat clindamycin Allergy Intermediate rash Verified 04/25/24 07:07 metronidazole (From Flagyl) Allergy Intermediate Headache Verified 04/25/24 07:07 acetaminophen (From Tylenol) Allergy Mild Hives Verified 04/25/24 07:07 aspirin Allergy Mild Swelling Verified 04/25/24 07:07 in lips dexamethasone Allergy Other (See Unverified 04/25/24 07:07 Comment) adhesive AdvReac Intermediate scarring Verified 04/25/24 07:07 ipratropium (From DuoNeb) AdvReac Intermediate Wheezing Verified 04/25/24 07:07 ibuprofen AdvReac Mild Other (See Unverified 04/25/24 07:07 Comment) lactose AdvReac Mild Nausea, Verified 04/25/24 07:07 intolerance-causes gas/diarrhea oxycodone HCl (From Percocet) AdvReac Unknown Nausea Verified 04/25/24 07:07 General Stated Complaint: GenMedical JACKSON: 3 Review of Systems All systems reviewed & are unremarkable except as noted in HPI and below Constitutional Constitutional: Denies chills, Denies fever(s) and Denies weakness Cardiovascular Cardiovascular: Denies chest pain and Denies dyspnea Respiratory Respiratory: Denies cough and Denies dyspnea Gastrointestinal Gastrointestinal: Denies abdominal pain, Reports nausea and Denies vomiting Integumentary/Breasts Skin/Breast: Denies rash Neurologic Neurologic: Denies weakness Exam Const General: no acute distress Orientation: alert HENMT Head: normal to inspection Ears: external ears normal General nose exam: external nose normal Mouth: moist mucous membranes Eyes General: appearance normal, both eyes and all related structures Neck Neck: normal visual inspection Resp Effort & Inspection: normal respiratory effort and able to speak in complete sentences Auscultation: clear to auscultation bilaterally Cardio Jugular venous pressure: no JVD Rate: regular rate Heart Sounds: no murmurs GI Palpation: soft and nontender Skin General skin exam: no rashes or lesions noted Neuro General: patient alert and patient oriented x3 Extrem General: normal to inspection Psych Mental Status: mental status grossly normal Course Vital Signs Vital signs: Vital Signs Temperature 37.2 C 04/25/24 07:05 Pulse 108 H 04/25/24 07:05 Respiratory Rate 16 04/25/24 07:05 Blood Pressure 119/74 04/25/24 07:05 Pulse Oximetry 100 04/25/24 07:05 Temperature 37.2 C 04/25/24 07:05 Pulse 108 H 04/25/24 07:05 Respiratory Rate 16 04/25/24 07:05 Blood Pressure 119/74 04/25/24 07:05 Pulse Oximetry 100 04/25/24 07:05 Medical Decision Making 28-year-old female with a history of bipolar, prior PE on apixaban, who comes in with 1 day of bodyaches, nausea and lightheaded sensation. Denies any vomiting, chest pain, difficulty breathing. She is ambulatory on arrival with normal gait, has no focal neurological deficits, pupils are equal and reactive to light. Lungs are clear, abdomen soft and nontender. Unclear etiology of her symptoms but given she feels lightheaded will check a CBC a CMP and a troponin. She has no hypoxia no evidence of DVT on exam and she has not missed any doses of apixaban so doubt PE. No tearing back pain and equal peripheral pulses so doubt dissection. Given the body aches as well we will check a Fluvid. Patient stable, resting in bed in no acute distress. Labs unremarkable. Still reassuring exam. Discussed results with her and given reassuring workup feel she stable for discharge and can follow-up with her PCP if she is not feeling better in a few days, return precautions given Differential Diagnosis Differential Diagnosis: dehydration, anemia, covid, flu Lab Data Lab results reviewed: Yes I reviewed the patient's lab results. Quality:SDOH Health Related Social Needs: No Data to Display PFSH All Active Problems (Updated 04/25/24 @ 08:49 by Kenneth Venegas MD) Brain fog (Acute) Light-headed (Acute) Malnutrition (Acute) Positive urine test (Acute) Alcohol abuse (Chronic) Consumes four beers at a time. Had DWI 2020. 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 of vagina (Acute) PATIENT NEEDS REPEAT PAP WHEN SEEN FOR IUD INSERTION Urine test negative (Acute) DVT prophylaxis (Acute) Left leg DVT (Acute) Bilateral pulmonary embolism (Acute) Attention and concentration deficit (Acute) Sciatica of left side (Acute) Tobacco use disorder (Acute) Anxiety (Chronic 11/15/11) RX Citalopram L-T x9 years (helped until stopped eating ~03/2020); RX Escitalopram, stopped 02/2021 in favor of Ability & Lamotrigine ([facility]) Depression (Chronic) RX Citalopram L-T x9 years (helped until stopped eating ~03/2020); RX Escitalopram 03/2020, stopped 02/2021 in favor of Ability & Lamotrigine ([facility]) Bipolar 1 disorder (Acute) PTSD (post-traumatic stress disorder) (Acute) ASCUS with positive high risk HPV cervical (Acute) Colpo on 05/13/22 with KJ. 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 Psoriasis (11/28/12) 09/2019. Scalp psoriasis Rx with clobetasol lotion and change from DeopProvera to OCPs. IBS (irritable bowel syndrome) Poor dentition has lost several teeth secondary to tooth decay Surgical History Tooth extraction teeth extraction. hx of colonoscopy and endoscopy Family History Mother Drug addiction Mental disorder Gastric ulcer Depression Father Essential hypertension Drug addiction Mental disorder Seizures Depression Sister Autism Maternal Grandmother CHF (congestive heart failure) Gastric ulcer COPD (chronic obstructive pulmonary disease) Paternal Great Aunt Coronary heart disease Grandmother CHF (congestive heart failure) Neoplasm Lung CA (smoker) Grandfather Diabetes Maternal Uncle Diabetes Paternal Grandmother COPD (chronic obstructive pulmonary disease) Other Alcohol abuse Congenital heart defect Substance use disorder Social History Smoking/Tobacco Use Status: Current every day Tobacco Type: cigarettes Smoking packs per day: 1 Smoking cigarettes per day: 20.0 Years smoked: 10 Smoking pack-years: 10.00 Tobacco: How many years used: 14 Quit status: not considering quitting Smoking risk assessment performed?: Yes Alcohol Intake: current Alcohol Intake frequency: a few times a month Alcohol type: beer Details: see A/P Drug use: Current Sobriety Substance use type: does not use and marijuana Caregiver/Support person: No Household members: significant other, children and other Details: New partner since 01/2020. Housing: apartment Number of Children: 0 Communication Needs: None Do you need help understanding health information?: Never current occupation: working as [employer] 08/2022. 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 What is your relationship status?: How often do you talk on the phone with friends or family?: three or more times per week How often do you get together with friends or relatives?: once per week How often do you attend spiritism or church services?: decline to answer Do you belong to any clubs or organized social groups?: decline to answer Panel score (0-1 are the most socially isolated patients): 2 What type of physical activity do you participate in: none 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 Date GA/Weeks # Preg Succ Route Wgt Sex Labor Lgth Anesthesia Location Prov Complic 05/03/12 8 No No 04/29/17 6 No No 04/29/18 8 No No 11/15/22 39 No Yes vaginal Female [facility] other Delivery Date: 05/03/12 Last Updated by: KASEY Perry Delivery Date: 04/29/17 Last Updated by: Patt Smith CNM SAB Delivery Date: 04/29/18 Last Updated by: KASEY Perry Delivery Date: 11/15/22 Last Updated by: Darline Sarmiento MD Pt transfered care to while in prodromal labor. Adrianna. 5w PP LE DVT and bilateral PEs
[2024-04-25 07:24] LABS: Abs Immature Grans 0.01 10^3/uL (0.0-0.06); Absolute Basophil Count 0.08 10^3/uL (0.0-0.2); Absolute Eosinophil Count 0.27 10^3/uL (0.0-0.7); Absolute Lymphocyte Count 2.16 10^3/uL (1.2-3.4); Absolute Monocyte Count 0.61 10^3/uL (0.1-0.8); Absolute Neutrophil Count 2.29 10^3/uL (1.2-6.7); Basophils % 1.5 %; HCT 42.1 % (36.0-46.0); Immature Grans % 0.2 %; Lymphocytes % 39.9 %; MCHC 33.3 % (32.0-36.0); MCV 87 fL (80-95); MPV 10.2 fL (8.0-11.0); Monocytes % 11.3 %; Neutrophils % 42.1 %; Platelet Count 295 10^3/uL (130-400); RBC 4.82 10^6/uL (3.93-5.22); RDW 16.8 % (11.7-14.6); RDW-SD 53.8 fL; WBC 5.42 10^3/uL (4.4-10.8)
[2024-04-25] MEDS: Normal Saline 1,000 ML 1000 ML IV (07:25)
[2024-04-25] MEDS: Ondansetron 4 MG/2 ML VIAL IVP (07:26)
[2024-04-25 07:53] LABS: HCG Qual (Serum) Negative
[2024-04-25 07:56] LABS: Bilirubin Negative (Negative); Blood Negative (Negative); Clarity Clear (Clear); Glucose Negative (Negative); Ketones Negative (Negative); Leukocyte Esterase Negative (Negative); Nitrite Negative (Negative); Specific Gravity 1.015 (1.005-1.025); Urobilinogen 0.2 mg/dL (Up to 0.2); pH 7.5 (5-8)
[2024-04-25 08:00] LABS: ALT 14 U/L (14-59); AST 18 U/L (15-37); Albumin 3.8 g/dL (3.4-5.0); Alkaline Phosphatase 66 U/L (46-116); Anion Gap 8.4 mmol/L (3-11); BUN 4 mg/dL (7-18); Bilirubin, Direct 0.2 mg/dL (0.0-0.2); CO2 27.6 mmol/L (21.0-32.0); CREATININE 0.8 mg/dL (0.55-1.02); Calcium 9.3 mg/dL (8.5-10.1); Chloride 101 mmol/L (98-107); Estimated GFR 102.22 (mL/min/1.73m2); Glucose 88 mg/dL (74-106); Magnesium 1.8 mg/dL (1.8-2.4); Sodium 137 mmol/L (136-145); TSH (W/Ref FT4) 1.59 uIU/mL (0.36-3.74); Total Protein 7.7 g/dL (6.4-8.2)
[2024-04-25 08:01] LABS: Troponin I < 50 ng/L (< or =60)
[2024-04-25 08:21] LABS: COVID-19 PCR Negative (Negative); Influenza A PCR Negative (Negative); Influenza B PCR Negative (Negative); RSV PCR Negative (Negative)
[2024-04-25 08:36] LABS: Source Nasopharynx
== END 2024-04-25 09:07 | disposition home or self-care (01) ==
PROVIDERS: Emergency Provider Emergency Medicine; PCP Nurse Practitioner Family
DX: R11.0 Nausea (principal); R42 Dizziness and giddiness; R41.89 Other symptoms and signs involving cognitive functions and awareness
CPT/HCPCS: 80053; 87637; 93005; 96361; 96374; 99284; 81003; 82248; 83735; 84443; 84484; 84703; 85025; 93010; 99283; J2405

== ENCOUNTER 2024-07-13 12:02 | Emergency (ER) | payer OTHER, SELFPAY ==
[2024-07-13 12:11] VITALS: BP 116/73; PULSE 89; RESP 16; TEMP 37.3; O2SAT 100
[2024-07-13 12:14] VITALS: BP 116/73; PULSE 89; RESP 16; TEMP 37.3; O2SAT 100
[2024-07-13 13:09] VITALS: BP 111/66; PULSE 87; RESP 17; O2SAT 98
[2024-07-13] MEDS: Omnipaque 350 MG/ML 100 ML BTL 70 ML IJ (13:26)
[2024-07-13] MEDS: Normal Saline - Diluent 50 ML VIAL IJ (13:27)
--- NOTE | 2024-07-13 13:32 | DI.CT_ITS ---
Exam(s) CT ABDOMEN PELVIS W EXAM: CT ABDOMEN PELVIS W CLINICAL HISTORY: Blunt trauma to the abdomen. TECHNIQUE: Imaging Protocol: Axial computed tomography images with coronal and sagittal reformatted images were created and reviewed CONTRAST MATERIAL: Intravenous: Omnipaque 350 Contrast volume:70 ml Oral: no COMPARISON: CT CT CHEST/ABD/PEL W from 03/07/[address] CHEST PE CTA from 01/10/2024 FINDINGS: ABDOMEN and PELVIS: Lung Bases: No acute findings. Liver: Normal density. No suspicious mass. Gallbladder and biliary tract: No radiodense calculus. No biliary dilation. Pancreas: Normal density. No abnormal calcifications or inflammatory process. No evidence of mass. Spleen: Normal. Kidneys: Normal size, contour and axis. No radiodense stones. No obstructive uropathy. No suspicious masses seen. Adrenal glands: No masses seen. Vasculature: Abdominal aorta non-dilated. Soft tissues: Unremarkable. Bladder: No gross wall thickening. No calculi.No focal mass. Bowel: No obstruction. No bowel wall thickening. Appendix normal. Peritoneal cavity: No ascites. No focal collection. No mesenteric inflammatory response. Bones: Unremarkable for age. Reproductive organs: Unremarkable. Lymph nodes: No pathologically enlarged lymph nodes. IMPRESSION:: No acute abnormality in the abdomen or pelvis. RADIATION DOSE DELIVERED: 230.27mGy.cm Total DLP DATA REPOSITORY: All CT scans at this facility are submitted to the National Radiology Data Registry (NRDR) Dose Index Registry (DIR) with the [employer] (ACR). RADIATION OPTIMIZATION: All CT scans at this facility use at least one of these dose optimization te chniques: automated exposure control; mA and/or kV adjustment per patient size (includes targeted exa ms where dose is matched to clinical indication); or iterative reconstruction.
[2024-07-13 13:49] LABS: Abs Immature Grans 0.02 10^3/uL (0.0-0.06); Absolute Basophil Count 0.06 10^3/uL (0.0-0.2); Absolute Eosinophil Count 0.22 10^3/uL (0.0-0.7); Absolute Monocyte Count 0.62 10^3/uL (0.1-0.8); Absolute Neutrophil Count 3.56 10^3/uL (1.2-6.7); Basophils % 0.9 %; Eosinophils % 3.4 %; HCT 34.8 % (36.0-46.0); HGB 11.4 g/dL (11.2-15.7); Immature Grans % 0.3 %; Lymphocytes % 30.9 %; MCH 29.2 pg (27.0-33.0); MCHC 32.8 % (32.0-36.0); MCV 89 fL (80-95); MPV 9.9 fL (8.0-11.0); Monocytes % 9.6 %; Neutrophils % 54.9 %; Platelet Count 225 10^3/uL (130-400); RBC 3.91 10^6/uL (3.93-5.22); RDW 15.3 % (11.7-14.6); RDW-SD 50.1 fL; WBC 6.48 10^3/uL (4.4-10.8)
[2024-07-13 14:04] LABS: ALT 11 U/L (14-59); AST 12 U/L (15-37); Albumin 3.5 g/dL (3.4-5.0); Alkaline Phosphatase 51 U/L (46-116); Anion Gap 9.4 mmol/L (3-11); BUN 5 mg/dL (7-18); Bilirubin, Total 0.43 mg/dL (0.2-1.0); CO2 25.6 mmol/L (21.0-32.0); CREATININE 0.8 mg/dL (0.55-1.02); Calcium 8.4 mg/dL (8.5-10.1); Chloride 108 mmol/L (98-107); Estimated GFR 102.22 (mL/min/1.73m2); Glucose 63 mg/dL (74-106); Potassium 3.2 mmol/L (3.5-5.1); Sodium 143 mmol/L (136-145); Total Protein 6.5 g/dL (6.4-8.2)
[2024-07-13 14:14] VITALS: BP 112/57; PULSE 79; RESP 16; TEMP 36.8; O2SAT 100
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
== END 2024-07-13 14:36 | disposition home or self-care (01) ==
PROVIDERS: Emergency Provider Student in an Organized Health Care Education/Training Program; PCP Nurse Practitioner Family
DX: S30.1XXA Contusion of abdominal wall, initial encounter (principal); E87.6 Hypokalemia; E16.2 Hypoglycemia, unspecified; Z86.711 Personal history of pulmonary embolism; Z86.718 Personal history of other venous thrombosis and embolism; F17.210 Nicotine dependence, cigarettes, uncomplicated; Y04.2XXA Assault by strike against or bumped into by another person, initial encounter; Y93.F9 Activity, other caregiving; Y92.099 Unspecified place in other non-institutional residence as the place of occurrence of the external cause
CPT/HCPCS: 36415; 80053; 99285; 74177; 85025; 99284; J3490

== ENCOUNTER 2024-08-17 14:31 | Emergency (ER) | payer MEDICAID, SELFPAY ==
--- NOTE | 2024-08-17 14:30 | DI.US_ITS ---
Exam(s) US LOWER EXTREMITY VENOUS LT EXAM: US LOWER EXTREMITY VENOUS LT CLINICAL HISTORY: eval for DVT TECHNIQUE: Grayscale, color, and doppler imaging of the deep venous system of the left lower extremi ty was performed. COMPARISON: US POCUS EXAM from 07/13/2024 FINDINGS: There is no evidence of intraluminal thrombus and there is normal compression and augmentation demons trated within the common femoral vein, femoral vein, and popliteal vein. In the ipsilateral calf the interrogated veins also exhibit normal compression/ augmentation properti es. The ipsilateral saphenofemoral junction is patent. IMPRESSION: 1. No evidence of DVT in the left lower extremity. DATA REPOSITORY:
[2024-08-17 14:43] VITALS: BP 117/76; PULSE 100; RESP 24; TEMP 36.8; O2SAT 100
--- NOTE | 2024-08-17 14:45 | RT.EKG_ITS ---
APPROVED REPORT Exam: Resting ECG Reason for Exam: pe Patient Location: E HR:106 bpm ECG Measurements Heart Rate 106 AXIS [place] 122 P 66 QRSd 72 QRS 88 QT 334 T 1 QTc 443 Conclusion Sinus tachycardia...rate> 99 I have reviewed and interpreted ECG and agree with software generated interpretation.
[2024-08-17 14:53] VITALS: RESP 24
--- NOTE | 2024-08-17 15:06 | W.ED.GENAD ---
Discharge Plan Disposition Patient Disposition: Home Condition: Good Discharge Details Clinical Impression: Left leg swelling, Chest discomfort Primary Care Provider: Jennifer Marsh ED Provider: Ceasar Kelley Home Meds and New Rx's Prescriptions: No Action aripiprazole [Abilify] 10 mg tablet 10 mg PO DAILY Qty: 90 1RF lamotrigine 25 mg tablet 25 mg PO DAILY Qty: 90 3RF Boost High Protein 0.06 gram- 1 kcal/mL liquid 1 ml PO DAILY Qty: 2844 3RF clonazepam 0.5 mg tablet 0.5 mg PO BID PRN (Reason: anxiety) Qty: 56 0RF (DME) BreatheRite MDI Spacer Spacer See Rx Instructions .ROUTE .MEDSUPPLY Qty: 1 0RF Rx Instructions: As directed Xerac AC 6.25 % solution 1 applic topical QHS Qty: 60 3RF triamcinolone acetonide 0.5 % cream 1 applic topical BID Qty: 30 5RF Rx Instructions: apply small amount to arms and affected areas Eliquis 5 mg tablet 5 mg PO BID Qty: 60 5RF albuterol sulfate 90 mcg/actuation HFA aerosol inhaler 2 inh inhalation Q6H PRN (Reason: shortness of breath or wheezing) Qty: 18 4RF clobetasol 0.05 % shampoo 1 applic TP QHS PRN Rx Instructions: Use daily for 4 weeks. Discharge Instructions Instructions: Chest pain Additional Instructions: At this time your CAT scan does not show any evidence of blood clot or pneumonia. Your ultrasound of your leg does not show any evidence of blood clot. Please continue to wear knee-high compression stockings. Keep your legs elevated as often as possible. Avoid any smoking. Continue to take your blood thinner. If you notice any worsening of your symptoms, or any new symptoms such as vomiting, diarrhea, fever, chills, shortness of breath, chest pain, numbness, weakness, or fainting , please return immediately to the emergency department for reevaluation. Please follow up with your primary care provider as soon as possible for reassessment and reevaluation. As always, it was a pleasure participating in your medical care today. Referrals: Jennifer Marsh NP [Primary Care Provider] - [facility] General Date/Time Provider Initiated Documentation: 08/17/24 14:34. HPI Narrative: 28-year-old female with a past medical history of blood clots of unknown origin which has presented as DVTs and PEs, irritable bowel syndrome, who is chronically on Eliquis, who presents today for evaluation of chest pain and left leg pain. The patient states starting 4 days ago she did not take any Eliquis for the following 3 days. She restarted it today. She states that she was unable to get her medication at that time, but she has full access to it now. Starting yesterday she developed mild pain and tenderness and swelling in her left lower extremity, then last night she developed mild shortness of breath, and then today she developed mild chest pain which was pleuritic. There is a small tinge of blood in her sputum. She states the symptoms feel similar to her previous episodes of clots. No other complaints at this time. Her menstrual cycle just ended a day and a half ago. Related Data Home Medications ?Medication ?Instructions ?Recorded ?Confirmed inhalational spacing device #1 ea 05/12/23 08/17/24 (BreatheRite MDI Spacer) food supplemt, lactose-reduced 1 ml PO DAILY #2,844 mL 09/01/23 08/17/24 0.06 gram-1 kcal/mL oral liquid (Boost High Protein) aluminum chloride 6.25 % topical 1 applic topical QHS #60 mL 10/13/23 08/17/24 solution (Xerac AC) clobetasol 0.05 % shampoo 1 applic topical QHS PRN 10/29/23 08/17/24 triamcinolone acetonide 0.5 % 1 applic topical BID #30 grams 04/03/24 08/17/24 topical cream apixaban 5 mg tablet (Eliquis) 5 mg PO BID #60 tabs 04/09/24 08/17/24 aripiprazole 10 mg tablet (Abilify) 10 mg PO DAILY #90 tabs 05/29/24 08/17/24 lamotrigine 25 mg tablet 25 mg PO DAILY #90 tabs 05/30/24 08/17/24 albuterol sulfate 90 mcg/actuation 2 inh inhalation Q6H PRN shortness 06/25/24 08/17/24 aerosol inhaler of breath or wheezing #18 grams clonazepam 0.5 mg tablet 0.5 mg PO BID PRN anxiety #56 tabs 08/17/24 08/17/24 Previous Rx's ?Medication ?Instructions ?Recorded inhalational spacing device #1 ea 05/12/23 (BreatheRite MDI Spacer) food supplemt, lactose-reduced 1 ml PO DAILY #2,844 mL 09/01/23 0.06 gram-1 kcal/mL oral liquid (Boost High Protein) aluminum chloride 6.25 % topical 1 applic topical QHS #60 mL 10/13/23 solution (Xerac AC) triamcinolone acetonide 0.5 % 1 applic topical BID #30 grams 04/03/24 topical cream apixaban 5 mg tablet (Eliquis) 5 mg PO BID #60 tabs 04/09/24 aripiprazole 10 mg tablet (Abilify) 10 mg PO DAILY #90 tabs 05/29/24 lamotrigine 25 mg tablet 25 mg PO DAILY #90 tabs 05/30/24 albuterol sulfate 90 mcg/actuation 2 inh inhalation Q6H PRN shortness 06/25/24 aerosol inhaler of breath or wheezing #18 grams clonazepam 0.5 mg tablet 0.5 mg PO BID PRN anxiety #56 tabs 08/17/24 Allergies Allergy/AdvReac Type Severity Reaction Status Date / Time amoxicillin (Amoxicillin) Allergy Severe Redness Verified 07/13/24 12:13 and swelling in throat naproxen (From Aleve) Allergy Severe Swelling/Ed Verified 07/13/24 12:13 summer Penicillins Allergy Severe Inflamed Verified 07/13/24 12:13 throat clindamycin Allergy Intermediate rash Verified 07/13/24 12:13 metronidazole (From Flagyl) Allergy Intermediate Headache Verified 07/13/24 12:13 acetaminophen (From Tylenol) Allergy Mild Hives Verified 07/13/24 12:13 aspirin Allergy Mild Swelling Verified 07/13/24 12:13 in lips dexamethasone Allergy Other (See Unverified 07/13/24 12:13 Comment) adhesive AdvReac Intermediate scarring Verified 07/13/24 12:13 ipratropium (From DuoNeb) AdvReac Intermediate Wheezing Verified 07/13/24 12:13 ibuprofen AdvReac Mild Other (See Unverified 07/13/24 12:13 Comment) lactose AdvReac Mild Nausea, Verified 07/13/24 12:13 intolerance-causes gas/diarrhea oxycodone HCl (From Percocet) AdvReac Unknown Nausea Verified 07/13/24 12:13 General Stated Complaint: SOB JACKSON: 3 Exam Narrative Exam Narrative: 1.Const: Well-nourished, Well-developed, appearing stated age 2.Eyes: PERRL, no conjunctival injection, and symmetrical lids. 3.ENT: Atraumatic external nose and ears. Moist MM. Neck: Symmetric, trachea midline, No thyromegaly. 4.CVS: +S1/S2, Peripheral pulses 2+ and equal in all extremities. Brisk capillary refill in all extremities. 5.RESP: Unlabored respiratory effort. Clear to auscultation bilaterally. No wheezes rales or rhonchi 6.GI: Soft, Nontender/Nondistended, No hepatosplenomegaly. No guarding or rebound. 7.MSK: Normocephalic/Atraumatic, Extremities w/o deformity or ttp No cyanosis or clubbing, Normal movement of all extremities. Mild calf tenderness on the left. Minimal trace pitting edema left lower extremity. 8.Skin: Warm, Dry. No rashes or lesions. 9.Neuro: exercise physiologist II-XII grossly intact. Sensation grossly intact, no focal neurologic deficits. 10.Psych: (AAO) x3. Appropriate mood and affect Course Vital Signs Vital signs: Vital Signs Temperature 36.8 C 08/17/24 14:43 Pulse 100 H 08/17/24 14:43 Respiratory Rate 24 08/17/24 14:43 Blood Pressure 117/76 08/17/24 14:43 Pulse Oximetry 100 08/17/24 14:43 Temperature 36.8 C 08/17/24 14:43 Pulse 100 H 08/17/24 14:43 Respiratory Rate 24 08/17/24 14:53 Respiratory Effort Normal, Short of Breath 08/17/24 14:53 Respiratory Depth Normal 08/17/24 14:53 Respiratory Pattern Normal 08/17/24 14:53 Blood Pressure 117/76 08/17/24 14:43 Blood Pressure Position Sitting 08/17/24 14:43 Pulse Oximetry 100 08/17/24 14:43 Oxygen Delivery Method Room Air 08/17/24 14:43 Oxygen Flow Rate 0 08/17/24 14:43 Medical Decision Making 28-year-old female with a past medical history of blood clots of unknown origin which has presented as DVTs and PEs, irritable bowel syndrome, who is chronically on Eliquis, who presents today for evaluation of chest pain and left leg pain. The patient states starting 4 days ago she did not take any Eliquis for the following 3 days. She restarted it today. She states that she was unable to get her medication at that time, but she has full access to it now. Starting yesterday she developed mild pain and tenderness and swelling in her left lower extremity, then last night she developed mild shortness of breath, and then today she developed mild chest pain which was pleuritic. There is a small tinge of blood in her sputum. She states the symptoms feel similar to her previous episodes of clots. No other complaints at this time. Her menstrual cycle just ended a day and a half ago. Exam demonstrates well-appearing female, vital signs demonstrate mild tachycardia at 100, normal blood pressure. No signs of heart failure systemically, lungs are clear. Minimal swelling in the left lower extremity with trace pitting edema. Suspect DVT with potential PE. Pneumonia less likely, pulmonary infarct on the differential. ACS unlikely. We will evaluate for these etiologies, monitor closely and reassess. We will get a proBNP to evaluate for signs of heart strain. 4 PM Laboratory workup has returned, no white count bandemia or left shift. Renal function normal, troponin normal, proBNP normal showing no signs of heart strain. CTA of the chest is negative for infiltrate or abnormality. No evidence of PE. Ultrasound shows no evidence of DVT in the left lower extremity. Will recommend compression stockings, continued Eliquis use, close follow-up with PCP for recheck. Discussed red flags for which to return. Patient feels well. No evidence of marietta mopped assist, pulmonary hemorrhage, or other concerning etiology at this time based on current symptomatology. Vital signs notably stable. I have extensively reviewed the treatment plan and discharge instructions with the patient. I have addressed all patient concerns at this time. The patient was made aware of what symptoms to monitor for that would warrant a return to the emergency department. Discussed the plan with the patient, they demonstrate verbal understanding and agreement with our assessment and plan at this time. The documentation in this chart was dictated using [employer] dictation software. Please excuse any dictation errors. FINDINGS: CHEST: PULMONARY ARTERIES: There are no intraluminal filling defects to suggest acute pulmonary emboli. LUNGS: There are no infiltrates nor evidence of pulmonary infarction.. There are no pleural effusions. MEDIASTINUM: There is no hilar nor mediastinal adenopathy. Visualized thyroid unremarkable. CARDIAC: Heart size is upper normal. There is no pericardial effusion.Caliber of the thoracic aorta is within normal limits. No evidence of aortic dissection. There is no significant shift of the interventricular septum. PARTIALLY VISUALIZED UPPERMOST ABDOMEN: No obvious findings OSSEOUS: No significant osseous lesions.No fractures.. IMPRESSION: 1. No evidence of acute pulmonary emboli. No evidence of pulmonary infarction. No evidence of right heart strain. 2. No lung infiltrates, ominous pulmonary nodules, and no pleural effusions. 3. No intrathoracic adenopathy. FINDINGS: There is no evidence of intraluminal thrombus and there is normal compression and augmentation demonstrated within the common femoral vein, femoral vein, and popliteal vein. In the ipsilateral calf the interrogated veins also exhibit normal compression/ augmentation properties. The ipsilateral saphenofemoral junction is patent. IMPRESSION: 1. No evidence of DVT in the left lower extremity. Quality:[facility] Health Related Social Needs: Health related social needs transportation insecurity(Z59.82) Health related social needs details NA [facility] All Active Problems (Updated 08/17/24 @ 15:57 by Ceasar Kelley DO) Chest discomfort (Acute) Left leg swelling (Acute) Malnutrition (Acute) Positive urine test (Acute) Alcohol abuse (Chronic) Consumes four beers at a time. Had DWI 2020. 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 of vagina (Acute) PATIENT NEEDS REPEAT PAP WHEN SEEN FOR IUD INSERTION Urine test negative (Acute) DVT prophylaxis (Acute) Left leg DVT (Acute) Bilateral pulmonary embolism (Acute) Attention and concentration deficit (Acute) Sciatica of left side (Acute) Tobacco use disorder (Acute) Anxiety (Chronic 11/15/11) RX Citalopram L-T x9 years (helped until stopped eating ~03/2020); RX Escitalopram, stopped 02/2021 in favor of Ability & Lamotrigine ([facility]) Depression (Chronic) RX Citalopram L-T x9 years (helped until stopped eating ~03/2020); RX Escitalopram 03/2020, stopped 02/2021 in favor of Ability & Lamotrigine ([facility]) Bipolar 1 disorder (Acute) PTSD (post-traumatic stress disorder) (Acute) ASCUS with positive high risk HPV cervical (Acute) Colpo on 05/13/22 with KJ. 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 Psoriasis (11/28/12) 09/2019. Scalp psoriasis Rx with clobetasol lotion and change from DeopProvera to OCPs. IBS (irritable bowel syndrome) Poor dentition has lost several teeth secondary to tooth decay Surgical History Tooth extraction teeth extraction. hx of colonoscopy and endoscopy Family History Mother Drug addiction Mental disorder Gastric ulcer Depression Father Essential hypertension Drug addiction Mental disorder Seizures Depression Sister Autism Maternal Grandmother CHF (congestive heart failure) Gastric ulcer COPD (chronic obstructive pulmonary disease) Paternal Great Aunt Coronary heart disease Grandmother CHF (congestive heart failure) Neoplasm Lung CA (smoker) Grandfather Diabetes Maternal Uncle Diabetes Paternal Grandmother COPD (chronic obstructive pulmonary disease) Other Alcohol abuse Congenital heart defect Substance use disorder Social History Smoking/Tobacco Use Status: Current every day Tobacco Type: cigarettes Smoking packs per day: 1 Smoking cigarettes per day: 20.0 Years smoked: 10 Smoking pack-years: 10.00 Tobacco: How many years used: 14 Quit status: considering quitting Smoking risk assessment performed?: Yes Alcohol Intake: current Alcohol Intake frequency: a few times a month Alcohol type: beer Details: see A/P Drug use: Daily Substance use type: marijuana Caregiver/Support person: No Household members: significant other, children and other Details: New partner since 01/2020. Housing: apartment Number of Children: 0 Communication Needs: None Do you need help understanding health information?: Never current occupation: working as [employer] 08/2022. 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 What is your relationship status?: How often do you talk on the phone with friends or family?: three or more times per week How often do you get together with friends or relatives?: once per week How often do you attend restorationist or taoism services?: decline to answer Do you belong to any clubs or organized social groups?: decline to answer Panel score (0-1 are the most socially isolated patients): 2 What type of physical activity do you participate in: none and 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 Date GA/Weeks # Preg Succ Route Wgt Sex Labor Lgth Anesthesia Location [facility] Complic 05/03/12 8 No No 04/29/17 6 No No 04/29/18 8 No No 11/15/22 39 No Yes vaginal Female [facility] other Delivery Date: 05/03/12 Last Updated by: KASEY Perry Delivery Date: 04/29/17 Last Updated by: Patt Smith CNM SAB Delivery Date: 04/29/18 Last Updated by: KASEY Perry Delivery Date: 11/15/22 Last Updated by: Darline Sarmiento MD Pt transfered care to while in prodromal labor. Adrianna. 5w PP LE DVT and bilateral PEs
[2024-08-17 15:08] LABS: Abs Immature Grans 0.02 10^3/uL (0.0-0.06); Absolute Eosinophil Count 0.41 10^3/uL (0.0-0.7); Absolute Lymphocyte Count 1.57 10^3/uL (1.2-3.4); Absolute Monocyte Count 1.12 10^3/uL (0.1-0.8); Absolute Neutrophil Count 5.62 10^3/uL (1.2-6.7); Basophils % 1.1 %; Eosinophils % 4.6 %; HCT 41.4 % (36.0-46.0); HGB 13.5 g/dL (11.2-15.7); Immature Grans % 0.2 %; Lymphocytes % 17.8 %; MCHC 32.6 % (32.0-36.0); MCV 86 fL (80-95); MPV 10.1 fL (8.0-11.0); Monocytes % 12.7 %; Neutrophils % 63.6 %; Platelet Count 274 10^3/uL (130-400); RBC 4.83 10^6/uL (3.93-5.22); RDW 15.5 % (11.7-14.6); WBC 8.84 10^3/uL (4.4-10.8)
[2024-08-17 15:19] LABS: Lab Add On Test DONE
[2024-08-17 15:21] LABS: INR 1.1 (0.9-1.1); PTT Activated 25.6 sec (23.6-32.8); Prothrombin Time 11.1 sec (9.1-11.1)
[2024-08-17] MEDS: Omnipaque 350 MG/ML 100 ML BTL 60 ML IJ (15:25)
[2024-08-17] MEDS: Normal Saline - Diluent 50 ML VIAL IJ (15:26)
[2024-08-17 15:30] LABS: ALT 14 U/L (14-59); AST 15 U/L (15-37); Alkaline Phosphatase 70 U/L (46-116); Anion Gap 10.9 mmol/L (3-11); BUN 6 mg/dL (7-18); Bilirubin, Total 0.64 mg/dL (0.2-1.0); CO2 25.1 mmol/L (21.0-32.0); CREATININE 0.9 mg/dL (0.55-1.02); Chloride 106 mmol/L (98-107); Estimated GFR 88.75 (mL/min/1.73m2); Glucose 78 mg/dL (74-106); Potassium 3.5 mmol/L (3.5-5.1); Sodium 142 mmol/L (136-145); Total Protein 7.7 g/dL (6.4-8.2)
--- NOTE | 2024-08-17 15:30 | DI.CT_ITS ---
Exam(s) CT CHEST PE CTA EXAM: CT CHEST PE CTA CLINICAL HISTORY: hx of clots, CP and SOB, eval for PE. TECHNIQUE: Imaging Protocol: CT angiography of the chest was performed using pulmonary embolus tnoe col. Multi planar reconstructions were performed. CONTRAST MATERIAL: Intravenous: Omnipaque 350 Contrast volume: 60 cc COMPARISON: CT CT CHEST PE CTA from 01/10/2024 FINDINGS: CHEST: PULMONARY ARTERIES: There are no intraluminal filling defects to suggest acute pulmonary emboli. LUNGS: There are no infiltrates nor evidence of pulmonary infarction.. There are no pleural effusions . MEDIASTINUM: There is no hilar nor mediastinal adenopathy. Visualized thyroid unremarkable. CARDIAC: Heart size is upper normal. There is no pericardial effusion.Caliber of the thoracic aorta is within normal limits. No evidence of aortic dissection. There is no significant shift of the inte rventricular septum. PARTIALLY VISUALIZED UPPERMOST ABDOMEN: No obvious findings OSSEOUS: No significant osseous lesions.No fractures.. IMPRESSION: 1. No evidence of acute pulmonary emboli. No evidence of pulmonary infarction. No evidence of right heart strain. 2. No lung infiltrates, ominous pulmonary nodules, and no pleural effusions. 3. No intrathoracic adenopathy. Report called by myself to ER physician 08/17/2024 at 3:52 p.m. RADIATION DOSE DELIVERED: 42.09mGy.cm Total DLP DATA REPOSITORY: All CT scans at this facility are submitted to the National Radiology Data Registry (NRDR) Dose Index Registry (DIR) with the [employer] (ACR). RADIATION OPTIMIZATION: All CT scans at this facility use at least one of these dose optimization te chniques: automated exposure control; mA and/or kV adjustment per patient size (includes targeted exa ms where dose is matched to clinical indication); or iterative reconstruction.
[2024-08-17 15:35] VITALS: BP 105/66; PULSE 98; RESP 19; O2SAT 100
[2024-08-17 15:45] VITALS: BP 106/71; PULSE 104; PULSE 106; RESP 19; O2SAT 100
[2024-08-17 15:54] LABS: NT-proBNP 25 pg/mL (<300)
[2024-08-17 16:00] VITALS: BP 100/66; PULSE 92; PULSE 96; RESP 20; O2SAT 99
[2024-08-17 16:00] LABS: Troponin I < 4 ng/L (<or=51)
[2024-08-17 16:10] VITALS: O2SAT 98
== END 2024-08-17 16:14 | disposition home or self-care (01) ==
PROVIDERS: Emergency Provider Student in an Organized Health Care Education/Training Program; PCP Nurse Practitioner Family
DX: R06.02 Shortness of breath (principal); M79.89 Other specified soft tissue disorders; R07.9 Chest pain, unspecified; Z79.01 Long term (current) use of anticoagulants; Z86.718 Personal history of other venous thrombosis and embolism; Z86.711 Personal history of pulmonary embolism; M79.605 Pain in left leg; Z79.899 Other long term (current) drug therapy; F41.9 Anxiety disorder, unspecified; F32.A Depression, unspecified
CPT/HCPCS: 71275; 80053; 93005; 99285; 83880; 84484; 85025; 85610; 85730; 93010; 93971; J3490

== ENCOUNTER 2024-11-28 09:18 | Outpatient (REF) | payer MEDICAID, SELFPAY ==
[2024-11-28 16:57] LABS: Bilirubin Small (Negative); Blood Small (Negative); Clarity Sl Cloudy (Clear); Glucose Negative (Negative); Ketones Trace mg/dL (Negative); Leukocyte Esterase Moderate (Negative); Nitrite Negative (Negative)
[2024-11-28 17:07] LABS: C & S Indicated? Yes; WBC >50 HPF (0-5)
== END 2024-11-28 09:19 | disposition home or self-care (01) ==
LOC: LBN 09:18
PROVIDERS: PCP Nurse Practitioner Family; Visit Provider Nurse Practitioner Family
DX: R39.9 Unspecified symptoms and signs involving the genitourinary system (principal); N39.0 Urinary tract infection, site not specified; N30.01 Acute cystitis with hematuria
CPT/HCPCS: 87077; 81003; 81015; 87086; 87186

== ENCOUNTER 2024-11-29 14:22 | Emergency (ER) | payer MEDICAID, SELFPAY ==
[2024-11-29] VITALS (7 sets, daily range): BP systolic 114–126; BP diastolic 80–94; PULSE 97–127; RESP 16–21; TEMP 36.8; O2SAT 96–100
--- NOTE | 2024-11-29 14:42 | ED.GENADUL_ITS ---
Discharge Plan Discharge Details Chief Complaint: Urinary Primary Care Provider: Jennifer Marsh ED Provider: Elizabeth Chao Home Meds and New Rx's Prescriptions: No Action ciprofloxacin 500 mg/5 mL suspension,microcapsule recon 500 mg PO BID 7 Days Qty: 70 0RF triamcinolone acetonide 0.5 % cream 1 applic topical BID Qty: 30 5RF Rx Instructions: apply small amount to arms and affected areas albuterol sulfate 90 mcg/actuation HFA aerosol inhaler 2 inh inhalation Q6H PRN (Reason: shortness of breath or wheezing) Qty: 18 4RF clotrimazole 1 % ointment 1 applic topical BID Qty: 56.7 2RF Rx Instructions: Apply to bilateral underarms twice daily until fully resolved 4-6 weeks. lisdexamfetamine [Vyvanse] 30 mg capsule 30 mg PO QAM MDD 1 capsule Qty: 28 0RF aripiprazole [Abilify] 15 mg tablet 15 mg PO DAILY Qty: 30 3RF (DME) BreatheRite MDI Spacer Spacer See Rx Instructions .ROUTE .MEDSUPPLY Qty: 1 0RF Rx Instructions: As directed Xerac AC 6.25 % solution 1 applic topical QHS Qty: 60 3RF Eliquis 5 mg tablet 5 mg PO BID Qty: 60 5RF clonazepam 0.5 mg tablet 0.5 mg PO BID PRN (Reason: anxiety) Qty: 56 0RF clobetasol 0.05 % shampoo 1 applic TP QHS PRN Rx Instructions: Use daily for 4 weeks. HPI General Date/Time Provider Initiated Documentation: 11/29/24 14:26 . Limitations to Documentation: no limitations . Information obtained by: patient, RN notes reviewed and old records reviewed . History of Present Illness 29 year old F presents to the emergency department with the chief complaint of UTI, flank pain, unable to get antibiotics, described as severe, Quality is described as aching, and is localized to the back (right flank). Patient started experiencing this day(s) and it has been constant. No relieving factors improve symptom(s), No exacerbating factors reported . Patient notes fever/chills, loss of appetite and malaise; denies chest pain, cough, nausea/vomiting, rash and shortness of breath. Patient did receive the following treatments prior to arrival, none Related Data Home Medications ?Medication ?Instructions ?Recorded ?Confirmed inhalational spacing device #1 ea 05/12/23 10/22/24 (BreatheRite MDI Spacer) aluminum chloride 6.25 % topical 1 applic topical QHS #60 mL 10/13/23 10/22/24 solution (Xerac AC) clobetasol 0.05 % shampoo 1 applic topical QHS PRN 10/29/23 10/22/24 albuterol sulfate 90 mcg/actuation 2 inh inhalation Q6H PRN shortness 09/17/24 10/22/24 aerosol inhaler of breath or wheezing #18 grams triamcinolone acetonide 0.5 % 1 applic topical BID #30 grams 09/17/24 10/22/24 topical cream aripiprazole 15 mg tablet (Abilify) 15 mg PO DAILY #30 tabs 10/22/24 10/22/24 apixaban 5 mg tablet (Eliquis) 5 mg PO BID #60 tabs 11/02/24 clonazepam 0.5 mg tablet 0.5 mg PO BID PRN anxiety #56 tabs 11/21/24 clotrimazole 1 % topical ointment 1 applic topical BID #56.7 grams 11/26/24 11/26/24 lisdexamfetamine 30 mg capsule 30 mg PO QAM #28 caps 11/26/24 11/26/24 (Vyvanse) ciprofloxacin 500 mg/5 mL oral 500 mg (5 mL) PO BID 7 days #70 mL 11/28/24 11/28/24 suspension Previous Rx's ?Medication ?Instructions ?Recorded inhalational spacing device #1 ea 05/12/23 (BreatheRite MDI Spacer) aluminum chloride 6.25 % topical 1 applic topical QHS #60 mL 10/13/23 solution (Xerac AC) albuterol sulfate 90 mcg/actuation 2 inh inhalation Q6H PRN shortness 09/17/24 aerosol inhaler of breath or wheezing #18 grams triamcinolone acetonide 0.5 % 1 applic topical BID #30 grams 09/17/24 topical cream aripiprazole 15 mg tablet (Abilify) 15 mg PO DAILY #30 tabs 10/22/24 apixaban 5 mg tablet (Eliquis) 5 mg PO BID #60 tabs 11/02/24 clonazepam 0.5 mg tablet 0.5 mg PO BID PRN anxiety #56 tabs 11/21/24 clotrimazole 1 % topical ointment 1 applic topical BID #56.7 grams 11/26/24 lisdexamfetamine 30 mg capsule 30 mg PO QAM #28 caps 11/26/24 (Vyvanse) ciprofloxacin 500 mg/5 mL oral 500 mg (5 mL) PO BID 7 days #70 mL 11/28/24 suspension Allergies Allergy/AdvReac Type Severity Reaction Status Date / Time amoxicillin (Amoxicillin) Allergy Severe Redness Verified 11/29/24 14:39 and swelling in throat naproxen (From Aleve) Allergy Severe Swelling/Ed Verified 11/29/24 14:39 summer Penicillins Allergy Severe Inflamed Verified 11/29/24 14:39 throat clindamycin Allergy Intermediate rash Verified 11/29/24 14:39 metronidazole (From Flagyl) Allergy Intermediate Headache Verified 11/29/24 14:39 acetaminophen (From Tylenol) Allergy Mild Hives Verified 11/29/24 14:39 aspirin Allergy Mild Swelling Verified 11/29/24 14:39 in lips dexamethasone Allergy Other (See Unverified 11/29/24 14:39 Comment) adhesive AdvReac Intermediate scarring Verified 11/29/24 14:39 ipratropium (From DuoNeb) AdvReac Intermediate Wheezing Verified 11/29/24 14:39 ibuprofen AdvReac Mild Other (See Unverified 11/29/24 14:39 Comment) lactose AdvReac Mild Nausea, Verified 11/29/24 14:39 intolerance-causes gas/diarrhea oxycodone HCl (From Percocet) AdvReac Unknown Nausea Verified 11/29/24 14:39 General Stated Complaint: Urinary JACKSON: 3 Review of Systems Constitutional Constitutional: Reports as per HPI Cardiovascular Cardiovascular: Denies chest pain Respiratory Respiratory: Denies cough Gastrointestinal Gastrointestinal: Denies abdominal pain, Denies change in bowel habits, Denies nausea and Denies vomiting Genitourinary Genitourinary: Reports as per HPI Musculoskeletal Musculoskeletal: Reports as per HPI and Denies back pain Integumentary/Breasts Skin/Breast: Reports as per HPI and Denies rash Exam Const General: cooperative, healthy appearing, uncomfortable, no acute distress, well developed, well groomed and anxious Nutritional Appearance: average body habitus and well nourished Orientation: alert and awake Resp Effort & Inspection: normal respiratory effort and no respiratory distress Auscultation: clear to auscultation bilaterally, no rales, no rhonchi and no wheezes Cardio Rate: tachycardic Rhythm: regular rhythm Heart Sounds: S1 normal and S2 normal GI Inspection: normal to inspection Palpation: soft, no hepatosplenomegaly, not firm, no guarding, not rigid and tender suprapubicly Back/Spine/Pelvis Back: CVA tenderness (right) Skin General skin exam: no rashes or lesions noted Trauma: no lacerations or abrasions Neuro General: patient alert and patient awake Cognition: normal cognition Speech: speech normal Gait: normal gait Course Vital Signs Vital signs: Vital Signs Temperature 36.8 C 11/29/24 14:37 Pulse 127 H 11/29/24 14:37 Respiratory Rate 18 11/29/24 14:37 Blood Pressure 117/80 11/29/24 14:37 Pulse Oximetry 96 11/29/24 14:37 Temperature 36.8 C 11/29/24 14:37 Pulse 127 H 11/29/24 14:37 Respiratory Rate 18 11/29/24 14:37 Blood Pressure 117/80 11/29/24 14:37 Pulse Oximetry 96 11/29/24 14:37 Oxygen Delivery Method Room Air 11/29/24 14:37 Oxygen Flow Rate 0 11/29/24 14:37 Medical Decision Making Patient is a pleasant 29-year-old female presenting with chief plaint of UTI and flank pain. Patient was seen in urgent care yesterday and was diagnosed with pyelonephritis. She reports that they did prescribe her antibiotics, patient does have numerous allergies to antibiotics and the medications. She reports that she does not regularly take any pills and secondary to that was prescribed a liquid to the pharmacy did not carry said liquid. She reports since being seen yesterday her symptoms have persisted and if anything have worsened. The discomfort minutes that she has had difficulty sleeping, urinating very frequently. Noted some hematuria today. Has not had any further fevers. Pain has not spread, continues to be at the right flank and suprapubic region. Has had diminished appetite but no marietta vomiting. No change in bowel habits. Patient does report that she has chronic constipation has not had a bowel movement a few days but states this is her typical. On exam, patient appears anxious and fatigued but not acutely ill. She is tachycardic, had tachycardia yesterday as well. I am concerned with her decreased appetite, she may be developing some dehydration and feel that fluids would be appropriate at this point. Lungs are clear, normal cardiac exam. She does have right CVA tenderness as well as suprapubic tenderness on exam but no peritoneal findings. At this point, I do not see need for imaging, she seems more consistent with UTI and pyelonephritis rather than obstructive pathology. Reviewed notes from yesterday. Initial micro growing out E. coli although definitive results are still pending. Reviewed the note from urgent care yesterday. They are concerned based on exam for pyelonephritis and begin treatment with ciprofloxacin. With the patient's worsening symptoms and difficulty staying hydrated, will obtain baseline labs, hydrate the patient and give her a dose of antibiotics here while working on obtaining the liquid medication that she requires. Spoke with pharmacy, we do not have enough liquid for patient to take home. However, they advised that tablets could be crushed and patient does have mechanism to do so at home. At the end of my shift, care transitioned to oncoming provider with labs, reassessment and dispositioin pending. Expect d/c to home. Will need to transitoin to ciprofloxacin tablets which are able to be crushed as local pharmacies do not carry enough liquid. Quality:SDOH Health Related Social Needs: Health related social needs details [facility] All Active Problems (Updated 10/22/24 @ 15:10 by Luz Roberts NP) Schizoaffective disorder, bipolar type (Acute) Malnutrition (Acute) Positive urine test (Acute) Alcohol abuse (Chronic) Consumes four beers at a time. Had DWI 2020. 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 of vagina (Acute) PATIENT NEEDS REPEAT PAP WHEN SEEN FOR IUD INSERTION Urine test negative (Acute) DVT prophylaxis (Acute) Left leg DVT (Acute) Bilateral pulmonary embolism (Acute) Attention and concentration deficit (Acute) Sciatica of left side (Acute) Tobacco use disorder (Acute) Anxiety (Chronic 11/15/11) RX Citalopram L-T x9 years (helped until stopped eating ~03/2020); RX Escitalopram, stopped 02/2021 in favor of Ability & Lamotrigine ([facility]) PTSD (post-traumatic stress disorder) (Acute) ASCUS with positive high risk HPV cervical (Acute) Colpo on 05/13/22 with KJ. Recommendation is repeat 6 wks PP Medical History (Updated 10/22/24 @ 15:10 by Luz Roberts NP) Bipolar 1 disorder Depression RX Citalopram L-T x9 years (helped until stopped eating ~03/2020); RX Escitalopram 03/2020, stopped 02/2021 in favor of Ability & Lamotrigine ([facility]) COVID-19 affecting in third trimester Gestational diabetes History of COVID-16 Apr 2022 Rubella non-immune status, antepartum Sinus tachycardia Holter 08/2021, labs & ECHO pending Acute thrombosis of right basilic vein [place] [facility] [place] Hyperhidrosis of axilla Improved with Rx antiperspirant 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 Psoriasis (11/28/12) 09/2019. Scalp psoriasis Rx with clobetasol lotion and change from DeopProvera to OCPs. IBS (irritable bowel syndrome) Poor dentition has lost several teeth secondary to tooth decay Surgical History Tooth extraction teeth extraction. hx of colonoscopy and endoscopy Family History Mother Drug addiction Mental disorder Gastric ulcer Depression Father Essential hypertension Drug addiction Mental disorder Seizures Depression Sister Autism Maternal Grandmother CHF (congestive heart failure) Gastric ulcer COPD (chronic obstructive pulmonary disease) Paternal Great Aunt Coronary heart disease Grandmother CHF (congestive heart failure) Neoplasm Lung CA (smoker) Grandfather Diabetes Maternal Uncle Diabetes Paternal Grandmother COPD (chronic obstructive pulmonary disease) Other Alcohol abuse Congenital heart defect Substance use disorder Social History Smoking/Tobacco Use Status: Current every day Tobacco Type: cigarettes Smoking packs per day: 1 Smoking cigarettes per day: 20.0 Years smoked: 10 Smoking pack- years: 10.00 Tobacco: How many years used: 14 Quit status: considering quitting Smoking risk assessment performed?: Yes Alcohol Intake: current Alcohol Intake frequency: a few times a month Alcohol type: beer Details: see A/P Drug use: Daily Substance use type: marijuana Caregiver/Support person: No Household members: significant other, children and other Details: New partner since 01/2020. 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 What is your relationship status?: How often do you talk on the phone with friends or family?: three or more times per week How often do you get together with friends or relatives?: once per week How often do you attend anabaptism or zoroastrianism services?: decline to answer Do you belong to any clubs or organized social groups?: decline to answer Panel score (0-1 are the most socially isolated patients): 2 What type of physical activity do you participate in: none and other Details: works part time Seatbelt use: always Helmet use: Yes Drive intox or ride w/intox mechanic driver: No Working smoke detector in home: Yes Fire extinguisher in home: Yes Carbon monox detector in home: Yes Do you feel safe at home: Yes Do you feel safe in your relationship?: Yes Female Reproductive History Menstrual Age of Menarche: 13 Duration of menses: 6-7 days control method: none History History 4 Para 0 Hx # Term Pregnancies Multiple births Hx # Pregnancies Ectopic pregnancies AB induced 2 Hx Number of Living Children 0 AB spontaneous 1 Past Pregnancies Del. Date GA/Weeks # Preg Succ Route Wgt Sex Labor Lgth Anesth esia Location [facility] Compl 05/03/12 8 No No 04/29/17 6 No No 04/29/18 8 No No 11/15/22 39 No Yes vaginal Female [facility] other Delivery Date: 05/03/12 Last Updated by: KASEY Perry Delivery Date: 04/29/17 Last Updated by: Patt Smith CNM SAB Delivery Date: 04/29/18 Last Updated by: KASEY Perry Delivery Date: 11/15/22 Last Updated by: Darline Sarmiento MD Pt transfered care to while in prodromal labor. Adrianna. 5w PP LE DVT and bilateral PEs
[2024-11-29 14:54] LABS: Bilirubin Negative (Negative); Blood Large (Negative); Clarity Sl Cloudy (Clear); Glucose Negative (Negative); Ketones Negative (Negative); Leukocyte Esterase Moderate (Negative); Nitrite Negative (Negative); Specific Gravity <= 1.005 (1.005-1.025); Urobilinogen 0.2 mg/dL (Up to 0.2)
[2024-11-29 15:21] LABS: Bacteria Few HPF (Negative); C & S Indicated? No/Sq. Contamination; Casts Negative LPF (Negative); Crystals Negative HPF (Negative); Epithelial Cells Moderate HPF (Negative); Mucus Negative (Negative); WBC 20-50 HPF (0-5)
[2024-11-29] MEDS: Normal Saline 1,000 ML 1000 ML IV (15:35)
[2024-11-29] MEDS: CIPROFLOXACIN 400 MG/200 ML BAG 200 MG IVPB (15:36)
[2024-11-29 15:39] LABS: Abs Immature Grans 0.03 10^3/uL (0.0-0.06); Absolute Basophil Count 0.06 10^3/uL (0.0-0.2); Absolute Eosinophil Count 0.44 10^3/uL (0.0-0.7); Absolute Lymphocyte Count 1.65 10^3/uL (1.2-3.4); Absolute Monocyte Count 0.68 10^3/uL (0.1-0.8); Basophils % 0.7 %; Eosinophils % 5.4 %; HCT 42.6 % (36.0-46.0); HGB 14.1 g/dL (11.2-15.7); Immature Grans % 0.4 %; Lymphocytes % 20.2 %; MCH 28.3 pg (27.0-33.0); MCHC 33.1 % (32.0-36.0); MCV 86 fL (80-95); MPV 10.1 fL (8.0-11.0); Monocytes % 8.3 %; Platelet Count 260 10^3/uL (130-400); RBC 4.98 10^6/uL (3.93-5.22); RDW 15.9 % (11.7-14.6); RDW-SD 49.8 fL; WBC 8.16 10^3/uL (4.4-10.8)
[2024-11-29 15:40] LABS: Lactate 2.4 mmol/L (<or=2.0)
[2024-11-29 15:56] LABS: ALT 14 U/L (14-59); AST 15 U/L (15-37); Albumin 3.9 g/dL (3.4-5.0); Alkaline Phosphatase 73 U/L (46-116); Anion Gap 12.1 mmol/L (3-11); BUN 7 mg/dL (7-18); Bilirubin, Total 0.9 mg/dL (0.2-1.0); CO2 25.9 mmol/L (21.0-32.0); CREATININE 0.9 mg/dL (0.55-1.02); Calcium 9.4 mg/dL (8.5-10.1); Chloride 100 mmol/L (98-107); Glucose 79 mg/dL (74-106); Potassium 3.9 mmol/L (3.5-5.1); Sodium 138 mmol/L (136-145); Total Protein 7.5 g/dL (6.4-8.2)
--- NOTE | 2024-11-29 16:19 | W.EDPROG ---
Date of service: 11/29/24 Time of Service: 16:19 Medical Decision Making Care assumed from provider (MONICA Arellano) Please see their initial HPI, PE, and documentation. Discussed patient details and case and pending workup and disposition. Patient is hemodynamically stable, and alert and oriented. At the time of signout awaiting lab results and most likely discharge for pyelonephritis versus UTI. Patient was placed on Cipro liquid but was unable to fill this medication. As she is unable to swallow pills. 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 Plan is to discharge patient with Cipro tablets she was given a dose of Cipro IV here in the department. CBC shows no leukocytosis, lactate is 2.4, anion gap 12.1 urinalysis shows large blood moderate leukocytes 3-5 RBCs and 20-50 WBCs. This was squamous contaminated so culture was not indicated. Will give 2 tablets of Cipro to go here and a prescription. Patient discharged in hemodynamically stable condition. Heart rate had decreased to 98 at rest. This text was generated using Transaqation system, please disregard any oddities of phrase or misspellings. Medical Records Medical records reviewed: Yes I reviewed the patient's medical records. Lab Data Lab results reviewed: Yes I reviewed the patient's lab results. Labs: Laboratory Tests Range/Units 11/29/24 11/29/24 14:37 15:35 WBC (4.4-10.8) 10^3/uL 8.16 RBC (3.93-5.22) 10^6/uL 4.98 Hgb (11.2-15.7) g/dL 14.1 Hct (36.0-46.0) % 42.6 MCV (80-95) fL 86 MCH (27.0-33.0) pg 28.3 MCHC (32.0-36.0) % 33.1 RDW (11.7-14.6) % 15.9 H Plt Count (130-400) 10^3/uL 260 MPV (8.0-11.0) fL 10.1 Immature Gran % % 0.4 Neutrophils % % 65.0 Lymphocytes % % 20.2 Monocytes % % 8.3 Eosinophils % % 5.4 Basophils % % 0.7 Nucleated RBC % (0.0-0.3) % 0.0 Absolute Neutrophils (1.2-6.7) 10^3/uL 5.30 Absolute Lymphocytes (1.2-3.4) 10^3/uL 1.65 Absolute Monocytes (0.1-0.8) 10^3/uL 0.68 Absolute Eosinophils (0.0-0.7) 10^3/uL 0.44 Absolute Basophils (0.0-0.2) 10^3/uL 0.06 VBG Lactate (<or=2.0) mmol/L 2.4 H* Sodium (136-145) mmol/L 138 Potassium (3.5-5.1) mmol/L 3.9 Chloride (98-107) mmol/L 100 Carbon Dioxide (21.0-32.0) mmol/L 25.9 Anion Gap (3-11) mmol/L 12.1 H BUN (7-18) mg/dL 7 Creatinine (0.55-1.02) mg/dL 0.9 Est GFR (CKD-EPI 2020) (mL/min/1.73m2) 88.20 Glucose (74-106) mg/dL 79 Calcium (8.5-10.1) mg/dL 9.4 Total Bilirubin (0.2-1.0) mg/dL 0.9 AST (15-37) U/L 15 ALT (14-59) U/L 14 Alkaline Phosphatase (46-116) U/L 73 Total Protein (6.4-8.2) g/dL 7.5 Albumin (3.4-5.0) g/dL 3.9 Urine Color (Yellow) Yellow Urine Clarity (Clear) Sl Cloudy Urine pH (5-8) 6.0 Ur Specific [place] (1.005-1.025) <= 1.005 Urine Protein (Neg-Trace) mg/dL Negative Urine Ketones (Negative) mg/dL Negative Urine Blood (Negative) Large H Urine Nitrite (Negative) Negative Urine Bilirubin (Negative) Negative Urine Urobilinogen (Up to 0.2) mg/dL 0.2 Ur Leukocyte Esterase (Negative) Moderate H Urine RBC (0-2) HPF 3-5 H Urine WBC (0-5) HPF 20-50 H Ur Epithelial Cells (Negative) HPF Moderate Urine Crystals (Negative) HPF Negative Urine Bacteria (Negative) HPF Few Urine Casts (Negative) LPF Negative Urine Mucus (Negative) Negative Ur Culture Indicated? No/Sq. Contamination Urine Glucose (Negative) mg/dL Negative Quality:SDOH Health Related Social Needs: Health related social needs details NA Discharge Plan Disposition Patient Disposition: Home Condition: Stable Discharge Details Clinical Impression: UTI (urinary tract infection) Primary Care Provider: Jennifer Marsh ED Provider: Melisa Portillo Home Meds and New Rx's Prescriptions: New ciprofloxacin HCl 500 mg tablet 500 mg PO BID 7 Days Qty: 14 0RF Rx Instructions: Please take 1 tablet by mouth crushed twice daily for the next 7 days. No Action ciprofloxacin 500 mg/5 mL suspension,microcapsule recon 500 mg PO BID 7 Days Qty: 70 0RF triamcinolone acetonide 0.5 % cream 1 applic topical BID Qty: 30 5RF Rx Instructions: apply small amount to arms and affected areas albuterol sulfate 90 mcg/actuation HFA aerosol inhaler 2 inh inhalation Q6H PRN (Reason: shortness of breath or wheezing) Qty: 18 4RF clotrimazole 1 % ointment 1 applic topical BID Qty: 56.7 2RF Rx Instructions: Apply to bilateral underarms twice daily until fully resolved 4-6 weeks. lisdexamfetamine [Vyvanse] 30 mg capsule 30 mg PO QAM MDD 1 capsule Qty: 28 0RF aripiprazole [Abilify] 15 mg tablet 15 mg PO DAILY Qty: 30 3RF (DME) BreatheRite MDI Spacer Spacer See Rx Instructions .ROUTE .MEDSUPPLY Qty: 1 0RF Rx Instructions: As directed Xerac AC 6.25 % solution 1 applic topical QHS Qty: 60 3RF Eliquis 5 mg tablet 5 mg PO BID Qty: 60 5RF clonazepam 0.5 mg tablet 0.5 mg PO BID PRN (Reason: anxiety) Qty: 56 0RF clobetasol 0.05 % shampoo 1 applic TP QHS PRN Rx Instructions: Use daily for 4 weeks. Discharge Instructions Instructions: Urinary Tract Infection, Adult ED Additional Instructions: A prescription for 500 mg Cipro tablets was sent to the pharmacy on file. You were given an IV dose here in liter of fluids. You are also given 2 tablets to go. You may start this either tonight or tomorrow. You may crush the tablets. It does appear that you do have a urinary tract infection. Follow up with primary care provider in 3-5 days. Return to ED sooner if any worsening or concerns. Please take Tylenol or Ibuprofen with food every 4-6 hours as needed for pain and swelling. Increase oral fluids. Thank you for allowing us to care for you today. Referrals: Jennifer Marsh NP [Primary Care Provider] - 1 week Discharge Data Discharge Date/Time-TO BE ENTERED AT DEPARTURE: 11/29/24 16:50
== END 2024-11-29 16:50 | disposition home or self-care (01) ==
PROVIDERS: Emergency Medicine; Physician Assistant; Emergency Provider Registered Nurse Emergency; PCP Nurse Practitioner Family
DX: N39.0 Urinary tract infection, site not specified (principal); R30.0 Dysuria; M54.50 Low back pain, unspecified
CPT/HCPCS: 00123; 80053; 81025; 96365; 99284; 81003; 81015; 83605; 85025; 99283; J0744

== ENCOUNTER 2024-12-17 14:33 | Outpatient (CLI) | payer MEDICAID, SELFPAY ==
--- NOTE | 2024-12-17 14:30 | RT.EKG_ITS ---
APPROVED REPORT Exam: Resting ECG Reason for Exam: chest pain Patient Location: O HR:103 bpm ECG Measurements Heart Rate 103 AXIS FL 125 P 55 QRSd 75 QRS 87 QT 338 T 44 QTc 443 Conclusion Sinus tachycardia...rate> 99 Otherwise normal ECG
== END 2024-12-17 14:34 | disposition home or self-care (01) ==
LOC: DI.CM 14:34
PROVIDERS: PCP Nurse Practitioner Family; Visit Provider Nurse Practitioner Family
DX: Z01.818 Encounter for other preprocedural examination (principal); R00.0 Tachycardia, unspecified
CPT/HCPCS: 93010

== ENCOUNTER 2025-01-23 02:11 | Outpatient (CLI) | payer MEDICAID, SELFPAY ==
[2025-01-23 20:06] LABS: Homocysteine 24.2 umol/L (5.0-13.9)
[2025-01-28 09:18] LABS: Prothrombin G20210A Mutation Negative (Negative)
[2025-01-29 16:46] LABS: HLA-B27 Result Positive
== END 2025-01-23 02:12 | disposition home or self-care (01) ==
LOC: LBO 02:11
PROVIDERS: PCP Nurse Practitioner Family; Visit Provider Nurse Practitioner Family
DX: I26.99 Other pulmonary embolism without acute cor pulmonale; Z79.01 Long term (current) use of anticoagulants; Z82.69 Family history of other diseases of the musculoskeletal system and connective tissue; R00.0 Tachycardia, unspecified; I82.402 Acute embolism and thrombosis of unspecified deep veins of left lower extremity
CPT/HCPCS: 36415; 81240; 83090; 86812

== ENCOUNTER 2025-02-01 01:12 | Outpatient (CLI) | payer MEDICAID, SELFPAY ==
[2025-02-01 10:34] LABS: ESR 5 mm/hr (0-20)
[2025-02-01 11:38] LABS: ALT 11 U/L (14-59); AST 19 U/L (15-37); Albumin 4.1 g/dL (3.4-5.0); Alkaline Phosphatase 65 U/L (46-116); Anion Gap 8.7 mmol/L (3-11); BUN 4 mg/dL (7-18); Bilirubin, Total 0.7 mg/dL (0.2-1.0); CO2 28.3 mmol/L (21.0-32.0); CREATININE 0.9 mg/dL (0.55-1.02); Calcium 9.3 mg/dL (8.5-10.1); Chloride 101 mmol/L (98-107); Folate 4.5 ng/mL (8.6-20.0); Glucose 109 mg/dL (74-106); Sodium 138 mmol/L (136-145); Total Protein 7.6 g/dL (6.4-8.2); Vitamin B12 322 pg/mL (193-986)
[2025-02-01 12:05] LABS: C-Reactive Protein < 0.50 mg/dL (<or=0.5)
[2025-02-01 18:06] LABS: Rheumatoid Factor <8.6 IU/mL (<12.0)
[2025-02-04 14:07] LABS: ANA Interpretation Negative (Negative)
[2025-02-04 14:21] LABS: dsDNA Ab, IgG <22.0 IU/mL (<27.0)
[2025-02-04 17:57] LABS: Pyridoxal 5-Phosphate (PLP), P 22 mcg/L (5-50)
== END 2025-02-01 01:13 | disposition home or self-care (01) ==
PROVIDERS: PCP Nurse Practitioner Family; Referring Provider Nurse Practitioner Family; Visit Provider Nurse Practitioner Family
DX: M35.3 Polymyalgia rheumatica (principal); Z15.89 Genetic susceptibility to other disease; R79.89 Other specified abnormal findings of blood chemistry
CPT/HCPCS: 36415; 80053; 85652; 82607; 82746; 84207; 86038; 86140; 86225; 86431

== ENCOUNTER 2025-02-06 18:36 | Emergency (ER) | payer MEDICAID, SELFPAY ==
[2025-02-06 18:38] VITALS: BP 106/70; PULSE 99; RESP 16; TEMP 36.9; O2SAT 93
--- NOTE | 2025-02-06 19:02 | ED.GENADUL_ITS ---
Discharge Plan Disposition Patient Disposition: Home Condition: Stable Discharge Details Clinical Impression: Cervical paraspinous muscle spasm Primary Care Provider: Jennifer Marsh ED Provider: Ceasar Ceja Home Meds and New Rx's Prescriptions: New cyclobenzaprine 10 mg tablet 10 mg PO TID Qty: 30 0RF Continued albuterol sulfate 90 mcg/actuation HFA aerosol inhaler 2 inh inhalation Q6H PRN (Reason: shortness of breath or wheezing) Qty: 18 4RF aripiprazole [Abilify] 15 mg tablet 15 mg PO DAILY Qty: 30 3RF (DME) BreatheRite MDI Spacer Spacer See Rx Instructions .ROUTE .MEDSUPPLY Qty: 1 0RF Rx Instructions: As directed Eliquis 5 mg tablet 5 mg PO BID Qty: 60 5RF triamcinolone acetonide 0.5 % cream 1 applic topical BID Qty: 30 5RF Rx Instructions: apply small amount to arms and affected areas clonazepam 0.5 mg tablet 0.5 mg PO BID PRN (Reason: anxiety) Qty: 56 0RF lisdexamfetamine [Vyvanse] 30 mg capsule 30 mg PO QAM MDD 1 capsule Qty: 28 0RF clobetasol 0.05 % shampoo 1 applic TP QHS PRN Rx Instructions: Use daily for 4 weeks. Discontinued methocarbamol 500 mg tablet 500 mg PO QID PRN (Reason: muscle spasm) Qty: 30 0RF Discharge Instructions Instructions: Cyclobenzaprine, Muscle Spasm ED Additional Instructions: You were seen in the emergency department for your right lateral cervical paraspinal muscle spasm, your CT is normal and shows no acute pathology, please discontinue the methocarbamol prescribed by your PCP and start the cyclobenzaprine as it may provide more muscle relaxation. You may apply an [id number] lidocaine patch to the area for 12 hours each day. Try to perform gentle massage and apply heat to the area to help relax everything alternating heat and ice can also help. Please follow-up with your primary care provider for failure to improve as he may need an outpatient MRI or referral to [facility] spine service. Please return to the emergency department for profound weakness of the right upper extremity, vertigo or other neurologic concerns. Referrals: Jennifer Marsh NP [Primary Care Provider, Medicine] Discharge Data Discharge Date/Time-TO BE ENTERED AT DEPARTURE: 02/06/25 22:05 HPI General Date/Time Provider Initiated Documentation: 02/06/25 19:02 . HPI Narrative: 29 year-old female presents to ED today by POV/ambulating with a chief complaint of continued neck pain- mechanical in nature, was moving and felt neck pain with active toricollis, seen by PCP and given methocarbamol without relief with onset for the past few days. Quality described as R lateral neck pain, some R arm pain radiating to neck when moving arm, no radiation to fever, headache, numbness to R arm, slurred speech, midline vertebral tenderness, fall/trauma. Severity is described as severe. Palliating factors include methocarbamol without relief. Provoking factors include certain movements. Patient is anticoagulated on Eliquis due to clots in remote past. Related Data Home Medications ?Medication ?Instructions ?Recorded ?Confirmed inhalational spacing device #1 ea 05/12/23 02/06/25 (BreatheRite MDI Spacer) clobetasol 0.05 % shampoo 1 applic topical QHS PRN 10/2202/06/25 albuterol sulfate 90 mcg/actuation 2 inh inhalation Q6 H PRN shortness 09/17/24 02/06/25 aerosol inhaler of breath or wheezing #18 gr ams aripiprazole 15 mg tablet (Abilify) 15 mg PO DAILY #30 tabs 10/22/24 02/06/25 apixaban 5 mg tablet (Eliquis) 5 mg PO BID #60 tabs 02/06/25 triamcinolone acetonide 0.5 % 1 applic topical BID #30 grams 01/14/25 02/06/25 topical cream clonazepam 0.5 mg tablet 0.5 mg PO BID PRN anxiety #5 6 tabs 01/22/25 02/06/25 lisdexamfetamine 30 mg capsule 30 mg PO QAM #28 caps 0 01/30/25 02/06/25 (Vyvanse) cyclobenzaprine 10 mg tablet 10 mg PO TID #30 tabs 07/23 Previous Rx's ?Medication ?Instructions ?Recorded inhalational spacing device #1 ea 05/12/23 (BreatheRite MDI Spacer) albuterol sulfate 90 mcg/actuation 2 inh inhalation Q6 H PRN shortness 09/17/24 aerosol inhaler of breath or wheezing #18 gr ams aripiprazole 15 mg tablet (Abilify) 15 mg PO DAILY #30 tabs 10/22/24 apixaban 5 mg tablet (Eliquis) 5 mg PO BID #60 tabs triamcinolone acetonide 0.5 % 1 applic topical BID #30 grams 01/14/25 topical cream clonazepam 0.5 mg tablet 0.5 mg PO BID PRN anxiety #5 6 tabs 01/22/25 lisdexamfetamine 30 mg capsule 30 mg PO QAM #28 caps 0 01/30/25 (Vyvanse) cyclobenzaprine 10 mg tablet 10 mg PO TID #30 tabs 07/23 Allergies Allergy/AdvReac Type Severity Reaction Status Date / Time amoxicillin (Amoxicillin) Allergy Severe Redness Verified 02/06/25 18:37 and swelling in throat naproxen (From Aleve) Allergy Severe Swelling/Ed Verified 02/06/25 18:37 summer Penicillins Allergy Severe Inflamed Verified 02/06/25 18:37 throat clindamycin Allergy Intermediate rash Verified 02/06/25 18:37 metronidazole (From Flagyl) Allergy Intermediate Headache Verified 02/06/25 18:37 acetaminophen (From Tylenol) Allergy Mild Hives Verified 02/06/25 18:37 aspirin Allergy Mild Swelling Verified 02/06/25 18:37 in lips dexamethasone Allergy Other (See Verified 02/06/25 18:37 Comment) adhesive AdvReac Intermediate scarring Verified 02/06/25 18:37 ipratropium (From DuoNeb) AdvReac Intermediate Wheezing Verified 02/06/25 18:37 ibuprofen AdvReac Mild Other (See Verified 02/06/25 18:37 Comment) lactose AdvReac Mild Nausea, Verified 02/06/25 18:37 intolerance-causes gas/diarrhea oxycodone HCl (From Percocet) AdvReac Unknown Nausea Verified 02/06/25 18:37 General Stated Complaint: Nk/Back Pain JACKSON: 4 Review of Systems All systems reviewed & are unremarkable except as noted in HPI and below Exam Narrative Exam Narrative: GENERAL APPEARANCE: Well-nourished, non-toxic, awake and alert, atraumatic, no acute distress. SKIN: Warm, pink, dry, intact, without rashes/lesions/ulcerations. HEAD: Normocephalic, atraumatic, normal hair distribution for gender/age. EYES: Normal conjunctiva, no exudates on lids/lashes. ENT: Nares patent, no circumoral cyanosis, no facial swelling NECK: Supple, trachea midline, painless cervical ROM. LUNGS/CHEST: Non-labored respirations, normal A/P diameter, symmetrical expansion, no chest wall deformity HEART (CV/PV): No peripheral edema, no JVD, R radial pulse 2+ ABDOMEN: Soft, non-distended, no guarding. MSK: Normal ROM, no swelling/deformity to bilateral UEs or LEs, moving all extremities without weakness, no cyanosis, spine midline without tenderness, right lateral cervical muscle tension and stiffness, reduced range of motion of neck with torticollis toward the left side, neurovascular intact bilateral upper extremities. NEURO: Mental Status AAOx4 - alert to person, place, time, events No facial droop, no forehead involvement. Motor: No focal weakness - strength 5/5 in bilateral UEs and LEs, proximal and distal, symmetric. Sensory: sensation intact to light touch globally. Gait normal: patient ambulated without ataxia into ED room. PSYCH: euthymic, cooperative, pleasant, appropriate speech Course Vital Signs Vital signs: Vital Signs Temperature 36.9 C 02/06/25 18:38 Pulse 99 H 02/06/25 18:38 Respiratory Rate 16 02/06/25 18:38 Blood Pressure 106/70 02/06/25 18:38 Pulse Oximetry 93 02/06/25 18:38 Temperature 36.9 C 02/06/25 18:38 Temperature Source Oral 02/06/25 18:38 Pulse 99 H 02/06/25 18:38 Respiratory Rate 16 02/06/25 18:38 Blood Pressure 106/70 02/06/25 18:38 Blood Pressure Position Sitting 02/06/25 18:38 Pulse Oximetry 93 02/06/25 18:38 Oxygen Delivery Method Room Air 02/06/25 18:38 Oxygen Flow Rate 0 02/06/25 18:38 Pain Level 10 02/06/25 18:38 Medical Decision Making This dictation utilizes [id number] dictation software and may contain unedited grammatical errors. 29 year-old female presents to ED today by POV/ambulating with a chief complaint of continued neck pain- mechanical in nature, was moving and felt neck pain with active toricollis, seen by PCP and given methocarbamol without relief with onset for the past few days. Quality described as R lateral neck pain, some R arm pain radiating to neck when moving arm, no radiation to fever, headache, numbness to R arm, slurred speech, midline vertebral tenderness, fall/trauma. Severity is described as severe. Palliating factors include methocarbamol without relief. Provoking factors include certain movements. Patients' medical history: History of upper extremity clot, alcohol abuse, left leg DVT. Family and social history: nothing specific. Pertinent exam findings / vital signs include right lateral cervical muscle tension and stiffness, reduced range of motion of neck with torticollis toward the left side, neurovascular intact bilateral upper extremities, nontoxic and afebrile. Differential / pathologies of concern include cervical muscle spasm, disc herniation, spinal stenosis, unlikely fracture, consider thoracic outlet syndrome. Diagnostic studies of: -CT C-Spine wo contrast - no acute fractures, no severe stenosis seen. Interventions of: -[place] C-Collar provided, Rx for cyclobenzaprine, given 1 dose oxycodone and ativan for potent muscle relaxation/pain relief here in ED. ED Course/Assessment/Plan: 29-year-old female presents with severe torticollis space in the left side with right paraspinal muscle tenderness, has been seen by PCP and provided methocarbamol, patient has allergy to Tylenol as well as NSAIDs and is anti coagulated so I did provide 1 dose of oxycodone and Ativan for muscle spasm relief and pain relief here in the emergency department I did send her home with cyclobenzaprine after negative CT, she has a reassuring upper extremity neuroexam, no signs of swelling in any of the upper extremities send clot history is in remote past. Patient was provided an [place] collar to help with immobilization and recommended to seek physical therapy referral if her muscle spasm does not calm down in the next few days, encouraged gentle massage, Lidoderm patches and gentle heat applied. Strict return criteria for any signs of neurovascular compromise to upper extremity, severe worsening of neck pain with fever Findings not consistent with nuchal rigidity, meningismus, vertebral trauma, neurovascular compromise of upper extremities. Disposition of Cervical Paraspinous Muscle Spasm. Patient verbalized understanding of the plan and return to ED criteria and engaged in shared decision making. Medical Records Medical records reviewed: Yes I reviewed the patient's medical records. Imaging Data Radiologic Study: Attestation: I personally reviewed and interpreted this imaging study as follows: Imaging: CT Scan Radiologist's impression: Exam: CT Cervical Spine Without Contrast Exam date and time: 02/06/2025 19:39 Age: 29 years old Clinical indication: Radicular pain (radiculopathy); Location of radicular pain not specified; Inability to move neck, radicular pain R ue TECHNIQUE: Imaging protocol: Computed tomography of the cervical spine without contrast. Radiation optimization: All CT scans at this facility use at least one of these dose optimization techniques: automated exposure control; mA and/or kV adjustment per patient size (includes targeted exams where dose is matched to clinical indication); or iterative reconstruction. COMPARISON: CT HEAD CERVICAL SPINE WO 03/07/2021 01:14 FINDINGS: Bones: Rotational listhesis at C1-C2, likely related to head positioning. No acute fracture or subluxation. Disc spaces are normal on CT. No widening. No disc osteophyte disease. No significant stenosis. Lungs: No consolidation. Soft tissues: No suspicious lesions. IMPRESSION: No focal pathology is seen. Consider workup with noncontrast MRI if clinically indicated. Dictated and Authenticated by: Kira Rai MD. 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 Had DWI 2020. 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 of vagina (Acute) PATIENT NEEDS REPEAT PAP WHEN SEEN FOR IUD INSERTION Urine test negative (Acute) DVT prophylaxis (Acute) Left leg DVT (Acute) Bilateral pulmonary embolism (Acute) Attention and concentration deficit (Acute) Sciatica of left side (Acute) Tobacco use disorder (Acute) Anxiety (Chronic 11/15/11) RX Citalopram L-T x9 years (helped until stopped eating ~03/2020); RX Escitalopram, stopped 02/2021 in favor of Ability & Lamotrigine ([facility]) PTSD (post-traumatic stress disorder) (Acute) ASCUS with positive high risk HPV cervical (Acute) Colpo on 05/13/22 with KJ. Recommendation is repeat 6 wks PP Medical History (Updated 02/06/25 @ 21:52 by MONICA Rivera) Bipolar 1 disorder Depression RX Citalopram L-T x9 years (helped until stopped eating ~03/2020); RX Escitalopram 03/2020, stopped 02/2021 in favor of Ability & Lamotrigine ([facility]) COVID-19 affecting in third trimester Gestational diabetes History of COVID-16 Apr 2022 Rubella non-immune status, antepartum Sinus tachycardia Holter 08/2021, labs & ECHO pending Acute thrombosis of right basilic vein Started anticoag Apix [facility] Heme consult 10/2021 Hyperhidrosis of axilla Improved with Rx antiperspirant 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 Psoriasis (11/28/12) 09/2019. Scalp psoriasis Rx with clobetasol lotion and change from DeopProvera to OCPs. IBS (irritable bowel syndrome) Poor dentition has lost several teeth secondary to tooth decay Surgical History Tooth extraction teeth extraction. hx of colonoscopy and endoscopy Family History Mother Drug addiction Mental disorder Gastric ulcer Depression Father Essential hypertension Drug addiction Mental disorder Seizures Depression Sister Autism Maternal Grandmother CHF (congestive heart failure) Gastric ulcer COPD (chronic obstructive pulmonary disease) Paternal Great Aunt Coronary heart disease Grandmother CHF (congestive heart failure) Neoplasm Lung CA (smoker) Grandfather Diabetes Maternal Uncle Diabetes Paternal Grandmother COPD (chronic obstructive pulmonary disease) Other Alcohol abuse Congenital heart defect Substance use disorder Social History Smoking/Tobacco Use Status: Current every day Tobacco Type: cigarettes Smoking packs per day: 1 Smoking cigarettes per day: 20.0 Years smoked: 16 Smoking pack- years: 16.00 Tobacco: How many years used: 14 Quit status: considering quitting Smoking risk assessment performed?: Yes Alcohol Intake: current Alcohol Intake frequency: a few times a week Alcohol type: beer Details: see A/P Drug use: Daily Substance use type: marijuana Caregiver/Support person: No Household members: significant other, children and other Details: New partner since 01/2020. Housing: apartment Number of Children: 0 Communication Needs: None Do you need help understanding health information?: Never current occupation: working as [employer] 08/2022. 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 What is your relationship status?: How often do you talk on the phone with friends or family?: three or more times per week How often do you get together with friends or relatives?: once per week How often do you attend zoroastrianism or yazdanism services?: decline to answer Do you belong to any clubs or organized social groups?: decline to answer Panel score (0-1 are the most socially isolated patients): 2 What type of physical activity do you participate in: none and other 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 Date GA/Weeks # Preg Succ Route Wgt Sex Labor Lgth Anesth esia Location Prov Complic 05/03/12 8 No No 04/29/17 6 No No 04/29/18 8 No No 11/15/22 39 No Yes vaginal Female [facility] other Delivery Date: 05/03/12 Last Updated by: Patt Smith CNM EAB Delivery Date: 04/29/17 Last Updated by: Patt Smith CNM SAB Delivery Date: 04/29/18 Last Updated by: Patt Smith CNM EASusan Delivery Date: 11/15/22 Last Updated by: Darline Sarmiento MD Pt transfered care to while in prodromal labor. Adrianna. 5w PP LE DVT and bilateral PEs
[2025-02-06] MEDS: diazePAM 2 MG TAB PO (19:23)
--- NOTE | 2025-02-06 19:51 | DI.CT_ITS ---
Exam(s) CT CERVICAL SPINE WO EXAM: CT CERVICAL SPINE WO CLINICAL HISTORY: inability to move neck, radicular pain R UE. TECHNIQUE: Imaging Protocol: Axial computed tomography images with coronal and sagittal reformatted images were created and reviewed COMPARISON: No exams were available for comparison FINDINGS: CERVICAL SPINE: There is no evidence of acute fracture. No significant prevertebral soft tissue swelling. No disc space narrowing. No anterior or retrolisthesis. There is no significant facet arthropathy. Also no facet malalignment. No significant osseous lesions evident. Bone density normal IMPRESSION: No evidence of cervical spine fracture, malalignment, nor acute compromise of the cervical spinal can al. If clinically indicated follow-up cervical spine MRI can be performed. RADIATION DOSE DELIVERED: 271.53mGy.cm Total DLP DATA REPOSITORY: All CT scans at this facility are submitted to the National Radiology Data Registry (NRDR) Dose Index Registry (DIR) with the [employer] (ACR). RADIATION OPTIMIZATION: All CT scans at this facility use at least one of these dose optimization te chniques: automated exposure control; mA and/or kV adjustment per patient size (includes targeted exa ms where dose is matched to clinical indication); or iterative reconstruction.
--- NOTE | 2025-02-06 20:42 | DI.VRAD_ITS ---
PROCEDURE INFORMATION: Exam: CT Cervical Spine Without Contrast Exam date and time: 02/06/2025 19:39 Age: 29 years old Clinical indication: Radicular pain (radiculopathy); Location of radicular pain not specified; Inability to move neck, radicular pain R ue TECHNIQUE: Imaging protocol: Computed tomography of the cervical spine without contrast. Radiation optimization: All CT scans at this facility use at least one of these dose optimization techniques: automated exposure control; mA and/or kV adjustment per patient size (includes targeted exams where dose is matched to clinical indication); or iterative reconstruction. COMPARISON: CT HEAD CERVICAL SPINE WO 03/07/2021 01:14 FINDINGS: Bones: Rotational listhesis at C1-C2, likely related to head positioning. No acute fracture or subluxation. Disc spaces are normal on CT. No widening. No disc osteophyte disease. No significant stenosis. Lungs: No consolidation. Soft tissues: No suspicious lesions. IMPRESSION: No focal pathology is seen. Consider workup with noncontrast MRI if clinically indicated. Dictated and Authenticated by: Kira Rai MD. Orderin Marcial Mcdonough MD
[2025-02-06] MEDS: oxyCODONE 5 MG TAB PO (21:18)
[2025-02-06] MEDS: Lidocaine 5% Patch 1 PATCH TP (22:00)
[2025-02-06 22:04] VITALS: PULSE 90; RESP 18; O2SAT 99
== END 2025-02-06 22:05 | disposition home or self-care (01) ==
PROVIDERS: Emergency Provider Physician Assistant; PCP Nurse Practitioner Family
DX: M62.838 Other muscle spasm (principal)
CPT/HCPCS: 99284; 99283; 72125

== ENCOUNTER 2025-04-20 03:06 | Emergency (ER) | payer MEDICAID, SELFPAY ==
[2025-04-20 03:08] VITALS: BP 147/98; RESP 18; O2SAT 100
--- NOTE | 2025-04-20 03:09 | W.ED.GENAD ---
Discharge Plan Disposition Patient Disposition: Against Medical Advice Condition: Stable Discharge Details Clinical Impression: Headache, Paresthesia, Visual changes Primary Care Provider: Jennifer Marsh ED Provider: Joe Velázquez Home Meds and New Rx's Prescriptions: No Action albuterol sulfate 90 mcg/actuation HFA aerosol inhaler 2 inh inhalation Q6H PRN (Reason: shortness of breath or wheezing) Qty: 18 4RF (DME) BreatheRite MDI Spacer Spacer See Rx Instructions .ROUTE .MEDSUPPLY Qty: 1 0RF Rx Instructions: As directed Eliquis 5 mg tablet 5 mg PO BID Qty: 60 5RF triamcinolone acetonide 0.5 % cream 1 applic topical BID Qty: 30 5RF Rx Instructions: apply small amount to arms and affected areas clonazepam 0.5 mg tablet 0.5 mg PO BID PRN (Reason: anxiety) Qty: 56 0RF aripiprazole [Abilify] 15 mg tablet 15 mg PO DAILY Qty: 30 1RF Rx Instructions: 04/15/25 OK to fill early if needed, Pt lost her supply of this med. lisdexamfetamine 40 mg capsule 40 mg PO QAM MDD 1 capsule Qty: 28 0RF lisdexamfetamine [Vyvanse] 30 mg capsule Discharge Instructions Additional Instructions: Left AMA without instructions. HPI General Mode of arrival: ambulatory. Date/Time Provider Initiated Documentation: 04/20/25 03:09. Limitations to Documentation: no limitations. Information obtained by: patient, RN notes reviewed and old records reviewed. HPI Narrative: Patient presents to ED complaint of sudden headache about an hour prior. She reports having left eye pain and blurry vision in the left eye for about a week or so. She developed a headache earlier this morning. She was up when it occurred and reports it as being sudden onset and fairly intense. She has felt some numbness and tingling in the left upper arm and leg since the headache began. She feels like her vision is worse. Denies any neck pain, chest pain, shortness of breath, abdominal pain. She has nausea but no vomiting. 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 Reports decent compliance with her medication. She also reports history of previous stroke in 2022. Related Data Home Medications ?Medication ?Instructions ?Recorded ?Confirmed inhalational spacing device #1 ea 05/12/23 04/20/25 (BreatheRite MDI Spacer) albuterol sulfate 90 mcg/actuation 2 inh inhalation Q6H PRN shortness 09/17/24 04/20/25 aerosol inhaler of breath or wheezing #18 grams apixaban 5 mg tablet (Eliquis) 5 mg PO BID #60 tabs 11/02/24 04/20/25 triamcinolone acetonide 0.5 % 1 applic topical BID #30 grams 03/07/25 04/20/25 topical cream aripiprazole 15 mg tablet (Abilify) 15 mg PO DAILY #30 tabs 04/15/25 04/20/25 clonazepam 0.5 mg tablet 0.5 mg PO BID PRN anxiety #56 tabs 04/15/25 04/20/25 lisdexamfetamine 40 mg capsule 40 mg PO QAM #28 caps 04/16/25 04/20/25 lisdexamfetamine 30 mg capsule mg 04/20/25 (Vyvalexe) Previous Rx's ?Medication ?Instructions ?Recorded inhalational spacing device #1 ea 05/12/23 (BreatheRite MDI Spacer) albuterol sulfate 90 mcg/actuation 2 inh inhalation Q6H PRN shortness 09/17/24 aerosol inhaler of breath or wheezing #18 grams apixaban 5 mg tablet (Eliquis) 5 mg PO BID #60 tabs 11/02/24 triamcinolone acetonide 0.5 % 1 applic topical BID #30 grams 03/07/25 topical cream aripiprazole 15 mg tablet (Abilify) 15 mg PO DAILY #30 tabs 04/15/25 clonazepam 0.5 mg tablet 0.5 mg PO BID PRN anxiety #56 tabs 04/15/25 lisdexamfetamine 40 mg capsule 40 mg PO QAM #28 caps 04/16/25 Allergies Allergy/AdvReac Type Severity Reaction Status Date / Time amoxicillin (Amoxicillin) Allergy Severe Redness Verified 04/11/25 14:07 and swelling in throat naproxen (From Aleve) Allergy Severe Swelling/Ed Verified 04/11/25 14:07 summer Penicillins Allergy Severe Inflamed Verified 04/11/25 14:07 throat clindamycin Allergy Intermediate rash Verified 04/11/25 14:07 metronidazole (From Flagyl) Allergy Intermediate Headache Verified 04/11/25 14:07 acetaminophen (From Tylenol) Allergy Mild Hives Verified 04/11/25 14:07 aspirin Allergy Mild Swelling Verified 04/11/25 14:07 in lips dexamethasone Allergy Other (See Verified 04/11/25 14:07 Comment) adhesive AdvReac Intermediate scarring Verified 04/11/25 14:07 ipratropium (From DuoNeb) AdvReac Intermediate Wheezing Verified 04/11/25 14:07 ibuprofen AdvReac Mild Other (See Verified 04/11/25 14:07 Comment) lactose AdvReac Mild Nausea, Verified 04/11/25 14:07 intolerance-causes gas/diarrhea oxycodone HCl (From Percocet) AdvReac Unknown Nausea Verified 04/11/25 14:07 General JACKSON: 4 Exam Narrative Exam Narrative: Gen: WDWN female in NAD. Vitals per triage. HENT: NC/AT. Normal face. Eyes: PERRL and EOMI. VF in tact to confrontation, though reports very fuzzy involving lateral VF of left eye only. Funduscopic exam while limited looks pretty normal. Neck: Supple, trachea midline. Chest: Normal respirations. Lungs CTAB. CV: RRR w/o murmur. Good radial pulses. Neuro: A+Ox3. Normal speech, mentation. CN II-XII in tact. Required significant coaching for strength exam but is able to hold legs up for the counter 5 and arms for the count of 10. Initially left lower extremity dropped to stretcher but when queried whether she was able to walk in under her own power she responded yes. At that point she was coached to keep her leg elevated and she was able to do so. She has complaints of patchy sensory changes involving left upper and lower extremity with no actual loss of sensation completely. Ext: No C/C/E. Medical Decision Making Patient presenting to ED complaint of left eye visual change for a week. Onset of sudden headache early this morning with seemingly worsening of vision in left eye, paresthesia phenomenon involving left upper and lower extremity. Was able to walk into ED on her own. With coaching no evidence of unilateral weakness. Reports that her vision is fuzzy in the lateral visual vazquez of left eye. Funduscopic exam looks okay grossly. Review of her [facility] records show that her MRI from August 09, 2023 was actually negative for any evidence of stroke. She was supposed to follow-up with neurology clinic but never did. She has been worked up by pulmonary and hematology at [facility] regarding her PE/DVT. Patient presenting to ED with no definite focal neurologic change. Does report relatively sudden onset of headache this morning, does not typically have headaches. Has had similar paresthesia type symptoms involving left and right side at times per [facility] records. Normal MRI of the brain in July 2023. Does not seem likely to be TIA/CVA. Previous brain imaging has never shown aneurysm, doubt this is subarachnoid related. She does have a fairly complicated history, however. We will obtain laboratory studies and CTA of brain and neck, request teleneuro consult given previous episodes and symptoms as well as history of previous DVT/TIA. Patient's EKG is sinus arrhythmia with no acute ST changes no significant change from previous. Laboratory studies are unremarkable. Potassium a little low at 3.2. Patient returned from CT and was requesting discharge as she wanted to go home to sleep. I had given her prochlorperazine for her headache with some improvement. We were discussing risk of signing out AMA when teleneuro came on the video screen. She agreed to be evaluated by them but once the call got disconnected she elected to leave AMA. I did explain risk involved. She does understand and she does have capacity. I will follow-up on the CTA results once they are read by [facility]. Medical Records Medical records reviewed: Yes I reviewed the patient's medical records. Medical records narrative: Extensive review of [facility] records Imaging Data Radiologic Study: Imaging: CT Scan Lab Data Lab results reviewed: Yes I reviewed the patient's lab results. 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 Had DWI 2020. 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 of vagina (Acute) PATIENT NEEDS REPEAT PAP WHEN SEEN FOR IUD INSERTION Urine test negative (Acute) DVT prophylaxis (Acute) Left leg DVT (Acute) Bilateral pulmonary embolism (Acute) Attention and concentration deficit (Acute) Sciatica of left side (Acute) Tobacco use disorder (Acute) Anxiety (Chronic 11/15/11) RX Citalopram L-T x9 years (helped until stopped eating ~03/2020); RX Escitalopram, stopped 02/2021 in favor of Ability & Lamotrigine ([facility]) PTSD (post-traumatic stress disorder) (Acute) ASCUS with positive high risk HPV cervical (Acute) Colpo on 05/13/22 with KJ. Recommendation is repeat 6 wks PP Medical History Bipolar 1 disorder Depression RX Citalopram L-T x9 years (helped until stopped eating ~03/2020); RX Escitalopram 03/2020, stopped 02/2021 in favor of Ability & Lamotrigine ([facility]) COVID-19 affecting in third trimester Gestational diabetes History of COVID-16 Apr 2022 Rubella non-immune status, antepartum Sinus tachycardia Holter 08/2021, labs & ECHO pending Acute thrombosis of right basilic vein Started anticoag Apix 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 Heme consult 10/2021: do not recommend ppx during . Psoriasis (11/28/12) 09/2019. Scalp psoriasis Rx with clobetasol lotion and change from DeopProvera to OCPs. IBS (irritable bowel syndrome) Poor dentition has lost several teeth secondary to tooth decay Surgical History Tooth extraction teeth extraction. hx of colonoscopy and endoscopy Family History Mother Drug addiction Mental disorder Gastric ulcer Depression Father Essential hypertension Drug addiction Mental disorder Seizures Depression Sister Autism Maternal Grandmother CHF (congestive heart failure) Gastric ulcer COPD (chronic obstructive pulmonary disease) Paternal Great Aunt Coronary heart disease Grandmother CHF (congestive heart failure) Neoplasm Lung CA (smoker) Grandfather Diabetes Maternal Uncle Diabetes Paternal Grandmother COPD (chronic obstructive pulmonary disease) Other Alcohol abuse Congenital heart defect Substance use disorder Social History Smoking/Tobacco Use Status: Current every day Tobacco Type: cigarettes Smoking packs per day: 1 Smoking cigarettes per day: 20.0 Years smoked: 16 Smoking pack-years: 16.00 Tobacco: How many years used: 14 Quit status: considering quitting Smoking risk assessment performed?: Yes Alcohol Intake: current Alcohol Intake frequency: a few times a week Alcohol type: beer Details: see A/P Drug use: Daily Substance use type: marijuana Caregiver/Support person: No Household members: significant other, children and other Details: New partner since 01/2020. Housing: apartment Number of Children: 0 Communication Needs: None Do you need help understanding health information?: Never current occupation: working as [employer] 08/2022. 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 What is your relationship status?: How often do you talk on the phone with friends or family?: three or more times per week How often do you get together with friends or relatives?: once per week How often do you attend uatsdin or mandaeism services?: decline to answer Do you belong to any clubs or organized social groups?: decline to answer Panel score (0-1 are the most socially isolated patients): 2 What type of physical activity do you participate in: none 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 Date GA/Weeks # Preg Succ Route Wgt Sex Labor Lgth Anesthesia Location Prov Complic 05/03/12 8 No No 04/29/17 6 No No 04/29/18 8 No No 11/15/22 39 No Yes vaginal Female [facility] other Delivery Date: 05/03/12 Last Updated by: KASEY Perry Delivery Date: 04/29/17 Last Updated by: Patt Smith CNM SAB Delivery Date: 04/29/18 Last Updated by: KASEY Perry Delivery Date: 11/15/22 Last Updated by: Darline Sarmiento MD Pt transfered care to while in prodromal labor. Adrianna. 5w PP LE DVT and bilateral PEs
--- NOTE | 2025-04-20 03:15 | RT.EKG_ITS ---
APPROVED REPORT Exam: Resting ECG Reason for Exam: neuro symptoms Patient Location: E HR:70 bpm ECG Measurements Heart Rate 70 AXIS MN 124 P 68 QRSd 81 QRS 83 QT 421 T 62 QTc 455 Conclusion Sinus arrhythmia...V-rate 57- 83, variation>10% Normal [place]/Normal Interval There are no significant changes compared to prior EKG performed on 12/17/2024 at 14:35.
[2025-04-20 03:38] LABS: Abs Immature Grans 0.02 10^3/uL (0.0-0.06); HCT 43.0 % (36.0-46.0); HGB 14.3 g/dL (11.2-15.7); Immature Grans % 0.3 %; MCH 28.6 pg (27.0-33.0); MCHC 33.3 % (32.0-36.0); MCV 86 fL (80-95); MPV 9.8 fL (8.0-11.0); Platelet Count 321 10^3/uL (130-400); RBC 5.00 10^6/uL (3.93-5.22); RDW 17.6 % (11.7-14.6); RDW-SD 55.3 fL; WBC 6.09 10^3/uL (4.4-10.8)
[2025-04-20 03:44] LABS: HCG Qual (Serum) Negative
[2025-04-20] MEDS: Prochlorperazine 10 MG/2 ML VIAL IVP (03:46)
[2025-04-20 03:49] LABS: ALT 12 U/L (14-59); AST 14 U/L (15-37); Albumin 4.2 g/dL (3.4-5.0); Alkaline Phosphatase 68 U/L (46-116); Anion Gap 9.8 mmol/L (3-11); BUN 2 mg/dL (7-18); Bilirubin, Total 0.4 mg/dL (0.2-1.0); CO2 28.2 mmol/L (21.0-32.0); Calcium 9.1 mg/dL (8.5-10.1); Chloride 104 mmol/L (98-107); Estimated GFR 101.59 (mL/min/1.73m2); Glucose 126 mg/dL (74-106); Magnesium 2.0 mg/dL (1.8-2.4); Potassium 3.2 mmol/L (3.5-5.1); Sodium 142 mmol/L (136-145); Total Protein 7.9 g/dL (6.4-8.2)
[2025-04-20] MEDS: Normal Saline - Diluent 50 ML VIAL IJ (04:09)
[2025-04-20] MEDS: Omnipaque 350 MG/ML 100 ML BTL IJ (04:09)
--- NOTE | 2025-04-20 04:10 | DI.CT_ITS ---
Exam(s) CT BRAIN NECK CTA EXAM: CT BRAIN NECK CTA CLINICAL HISTORY: sudden h/a; left visual change; left sensory rosen. TECHNIQUE: Imaging Protocol: Axial CT angiography was performed with multi- slice acquisition and multi-planar and/or 3D reconstructions. CONTRAST MATERIAL: Intravenous: Omnipaque 350 Contrast volume:70 mL COMPARISON: CT CT HEAD CERVICAL SPINE WO from 03/07/2021 FINDINGS: CTA Neck W: Aortic arch anatomy: The aortic arch anatomy is conventional and there is no significant stenosis at the origin of the great vessels off of the aortic arch. No intimal flap evident. Anterior circulation: Both common carotid arteries ascend with normal luminal diameters. At the level the carotid bulbs and proximal internal carotid arteries there is no evidence of significant plaque. No stenosis Posterior circulation: Both vertebral arteries originate in conventional fashion off of the subclavian arteries and there is no obvious stenosis at the origin of the vertebral arteries. Both vertebral arteries exhibit normal luminal diameters within the foramen transversarium. No evidence of luminal narrowing, vertebral artery thrombosis nor dissection. Both vertebral arteries contribute to the formation of the basilar artery at the skull base. CTA Brain W: Anterior circulation: Both internal carotid arteries are patent in the skull base-carotid canals as well as within the cavernous sinuses. The supraclinoid aspects of the ICAs are patent. Both A1 segments are patent as are the anterior cerebral arteries and there is no evidence of aneurysm at the level of the anterior communicating artery. Both middle cerebral arteries are patent with no evidence of significant stenosis nor intraluminal thrombus. There also no aneurysms of these vessels. Posterior circulation: Basilar artery ascends with no significant stenosis. Distally it gives off patent superior cerebellar arteries. Above this level the basilar artery terminates as patent bilateral posterior cerebral arteries. There is no evidence of aneurysm at the tip of the basilar artery nor elsewhere in the [id number]. CT BRAIN: There are no skull fractures. There is mucosal thickening and fluid in the maxillary sinuses as well as within the more dorsal bilaterally and there is also opacification frontal sinuses and fluid and mucosal thickening also noted in the sphenoid sinuses. These findings were not evident in 2020. The mastoid air cells are clear. There is no evidence of intracranial hemorrhage, mass effect, or shift of midline structures. There are no extra-axial fluid collections. Ventricles are not enlarged or shifted. There are no ring enhancing lesions in the brain and no abnormal meningeal enhancement. IMPRESSION: 1. Patent carotid arteries in the neck. No hemodynamically significant stenosis. 2. Patent vertebral arteries. No stenosis. No dissection 3. Patent intracranial arteries. 4. No acute intracranial findings. 5. Pansinusitis is evident on the present study.. I note that the paranasal sinuses were clear on prior CT scan of February 2021. Preliminary virtual Radiology report was reviewed. RADIATION DOSE DELIVERED: 2,086.28mGy.cm Total DLP DATA REPOSITORY: All CT scans at this facility are submitted to the National Radiology Data Registry (NRDR) Dose Index Registry (DIR) with the [employer] (ACR). RADIATION OPTIMIZATION: All CT scans at this facility use at least one of these dose optimization techniques: automated exposure control; mA and/or kV adjustment per patient size (includes targeted exams where dose is matched to clinical indication); or iterative reconstruction.
--- NOTE | 2025-04-20 04:38 | DI.VRAD_ITS ---
PROCEDURE INFORMATION: Exam: CTA Head Without And With Contrast, Arteriography Exam date and time: 04/20/2025 3:32 AM Age: 29 years old Clinical indication: Stroke-like symptoms; Headache and visual disturbance and other: Sudden h/a; Left visual change; Left sensory rosen TECHNIQUE: Imaging protocol: Computed tomographic angiography of the head without and with contrast. Exam focused on the arteries. 3D rendering (Not supervised by radiologist): MIP and/or 3D reconstructed images were created by the technologist. Radiation optimization: All CT scans at this facility use at least one of these dose optimization techniques: automated exposure control; mA and/or kV adjustment per patient size (includes targeted exams where dose is matched to clinical indication); or iterative reconstruction. Contrast material: [id number]; Contrast volume: 70 ml; Contrast route: INTRAVENOUS (IV); Other technique: STROKE PROTOCOL was implemented. COMPARISON: CT HEAD WO 05/02/2020 9:36 PM FINDINGS: ANTERIOR CIRCULATION: Right internal carotid artery: Intracranial segment is patent with no significant stenosis or occlusion. No aneurysm. Right middle cerebral artery: No occlusion or significant stenosis. No aneurysm. Right anterior cerebral artery: No occlusion or significant stenosis. No aneurysm. Left internal carotid artery: Intracranial segment is patent with no significant stenosis. No aneurysm. Left middle cerebral artery: No occlusion or significant stenosis. No aneurysm. Left anterior cerebral artery: No occlusion or significant stenosis. No aneurysm. POSTERIOR CIRCULATION: Right vertebral artery: No occlusion or significant stenosis. No aneurysm. Left vertebral artery: No occlusion or significant stenosis. No aneurysm. Basilar artery: No occlusion or significant stenosis. No aneurysm. Right posterior cerebral artery: No occlusion or significant stenosis. No aneurysm. Left posterior cerebral artery: No occlusion or significant stenosis. No aneurysm. HEAD: Brain: Normal. No hemorrhage. Unremarkable white matter. No mass effect. Cerebral ventricles: Normal. No ventriculomegaly. Bones: Unremarkable. No acute fracture. Paranasal sinuses: Pansinusitis Mastoid air cells: Visualized mastoids are normal. No mastoid effusion. Soft tissues: Unremarkable. IMPRESSION: 1. Pansinusitis 2. No large vessel occlusion ASSESSMENT: ASPECTS (Jaye Stroke Program Early CT Score) is 10. PROCEDURE INFORMATION: Exam: CTA Neck Without And With Contrast Exam date and time: 04/20/2025 3:32 AM Age: 29 years old Clinical indication: Stroke-like symptoms; Headache and visual disturbance and other: Sudden h/a; Left visual change; Left sensory rosen TECHNIQUE: Imaging protocol: Computed tomographic angiography of the neck without and with contrast. Exam focused on the cervical segments of the vasculature. 3D rendering (Not supervised by radiologist): MIP and/or 3D reconstructed images were created by the technologist. Radiation optimization: All CT scans at this facility use at least one of these dose optimization techniques: automated exposure control; mA and/or kV adjustment per patient size (includes targeted exams where dose is matched to clinical indication); or iterative reconstruction. Contrast material: [id number]; Contrast volume: 70 ml; Contrast route: INTRAVENOUS (IV); COMPARISON: CT CHEST PE CTA 12/22/2022 4:58 PM FINDINGS: Right common carotid artery: No stenosis. No dissection or occlusion. Right internal carotid artery: No stenosis of the extracranial segment. No dissection or occlusion. Right external carotid artery: No occlusion or stenosis of the origin. Left common carotid artery: No stenosis. No dissection or occlusion. Left internal carotid artery: No stenosis of the extracranial segment. No dissection or occlusion. Left external carotid artery: No occlusion or stenosis of the origin. Right vertebral artery: No stenosis. No dissection or occlusion. Left vertebral artery: No stenosis. No dissection or occlusion. Soft tissues: Normal. No significant soft tissue swelling. Bones/joints: No acute fracture. IMPRESSION: No stenosis or occlusion. REFERENCES: NASCET CRITERIA. The degree of stenosis in the cervical segment of the internal carotid artery is based on NASCET criteria. Normal is no stenosis. Mild is less than 50% stenosis. Moderate is 50-69% stenosis. Severe is 70% to 99% stenosis. Total occlusion is no detectable patent lumen. Dictated and Authenticated by: Smita Castrejon MD. Orderin Eber Diaz MD
== END 2025-04-20 04:29 | disposition left against medical advice (07) ==
PROVIDERS: Emergency Provider Emergency Medicine; PCP Nurse Practitioner Family
DX: R51.9 Headache, unspecified (principal); H53.8 Other visual disturbances; R20.2 Paresthesia of skin
CPT/HCPCS: 99284; 99285; 96374; 70496; 70498; 80053; 93005; 83735; 84703; 85025; 93010; J0780; J3490

== ENCOUNTER 2025-04-23 21:15 | Emergency (ER) | payer MEDICAID, SELFPAY ==
--- NOTE | 2025-04-23 21:15 | RT.EKG_ITS ---
APPROVED REPORT Exam: Resting ECG Reason for Exam: SOB Patient Location: E HR:100 bpm ECG Measurements Heart Rate 100 AXIS NV 128 P 41 QRSd 67 QRS 88 QT 327 T -17 QTc 424 Conclusion Sinus tachycardia...rate> 99
[2025-04-23 21:16] VITALS: BP 116/83; PULSE 105; RESP 20; TEMP 36.9; O2SAT 97
[2025-04-23 21:29] VITALS: BP 116/83; PULSE 105; RESP 20; TEMP 36.9; O2SAT 97
--- NOTE | 2025-04-23 21:38 | ED.GENADUL_ITS ---
Discharge Plan Disposition Patient Disposition: Home Condition: Stable Discharge Details Clinical Impression: Localized swelling of right upper extremity Primary Care Provider: Jennifer Marsh ED Provider: Kenneth Venegas Home Meds and New Rx's Prescriptions: Continued albuterol sulfate 90 mcg/actuation HFA aerosol inhaler 2 inh inhalation Q6H PRN (Reason: shortness of breath or wheezing) Qty: 18 4RF (DME) BreatheRite MDI Spacer Spacer See Rx Instructions .ROUTE .MEDSUPPLY Qty: 1 0RF Rx Instructions: As directed Eliquis 5 mg tablet 5 mg PO BID Qty: 60 5RF triamcinolone acetonide 0.5 % cream 1 applic topical BID Qty: 30 5RF Rx Instructions: apply small amount to arms and affected areas clonazepam 0.5 mg tablet 0.5 mg PO BID PRN (Reason: anxiety) Qty: 56 0RF aripiprazole [Abilify] 15 mg tablet 15 mg PO DAILY Qty: 30 1RF Rx Instructions: 04/15/25 OK to fill early if needed, Pt lost her supply of this med. lisdexamfetamine [Vyvanse] 30 mg capsule 40 mg PO DAILY No Action lisdexamfetamine 40 mg capsule 40 mg PO QAM MDD 1 capsule Qty: 28 0RF Discharge Instructions Additional Instructions: Continue to take your anticoagulation as prescribed. You should call radiology to arrange for an ultrasound of the upper extremity. Follow-up with your primary care provider as well. If you feel more ill or have new symptoms such as high fevers return to the emergency department for reevaluation. HPI General Mode of arrival: ambulatory . Date/Time Provider Initiated Documentation: 04/23/25 21:27 . Limitations to Documentation: no limitations . Information obtained by: patient . History of Present Illness 29 year old F presents to the emergency department with the chief complaint of right arm iv site hard/swollen, described as mild, Quality is described as aching, Patient started experiencing this day(s) (2) and it has been constant. No relieving factors improve symptom(s), No exacerbating factors reported . Patient notes no other symptoms.. Patient did receive the following treatments prior to arrival, none Related Data Home Medications ?Medication ?Instructions ?Recorded ?Confirmed inhalational spacing device #1 ea 05/12/23 04/23/25 (BreatheRite MDI Spacer) albuterol sulfate 90 mcg/actuation 2 inh inhalation Q6 H PRN shortness 09/17/24 04/23/25 aerosol inhaler of breath or wheezing #18 gr ams apixaban 5 mg tablet (Eliquis) 5 mg PO BID #60 tabs 04/23/25 triamcinolone acetonide 0.5 % 1 applic topical BID #30 grams 03/07/25 04/23/25 topical cream aripiprazole 15 mg tablet (Abilify) 15 mg PO DAILY #30 tabs 04/15/25 04/23/25 clonazepam 0.5 mg tablet 0.5 mg PO BID PRN anxiety #5 6 tabs 04/15/25 04/23/25 lisdexamfetamine 40 mg capsule 40 mg PO QAM #28 caps 0 04/16/25 04/23/25 lisdexamfetamine 30 mg capsule 40 mg PO DAILY 04/20/25 04/23/25 (Vyvanse) Previous Rx's ?Medication ?Instructions ?Recorded inhalational spacing device #1 ea 05/12/23 (BreatheRite MDI Spacer) albuterol sulfate 90 mcg/actuation 2 inh inhalation Q6 H PRN shortness 09/17/24 aerosol inhaler of breath or wheezing #18 gr ams apixaban 5 mg tablet (Eliquis) 5 mg PO BID #60 tabs triamcinolone acetonide 0.5 % 1 applic topical BID #30 grams 03/07/25 topical cream aripiprazole 15 mg tablet (Abilify) 15 mg PO DAILY #30 tabs 04/15/25 clonazepam 0.5 mg tablet 0.5 mg PO BID PRN anxiety #5 6 tabs 04/15/25 lisdexamfetamine 40 mg capsule 40 mg PO QAM #28 caps 0 04/16/25 Allergies Allergy/AdvReac Type Severity Reaction Status Date / Time amoxicillin (Amoxicillin) Allergy Severe Redness Verified 04/23/25 21:30 and swelling in throat naproxen (From Aleve) Allergy Severe Swelling/Ed Verified 04/23/25 21:30 summer Penicillins Allergy Severe Inflamed Verified 04/23/25 21:30 throat clindamycin Allergy Intermediate rash Verified 04/23/25 21:30 metronidazole (From Flagyl) Allergy Intermediate Headache Verified 04/23/25 21:30 acetaminophen (From Tylenol) Allergy Mild Hives Verified 04/23/25 21:30 aspirin Allergy Mild Swelling Verified 04/23/25 21:30 in lips dexamethasone Allergy Other (See Verified 04/23/25 21:30 Comment) adhesive AdvReac Intermediate scarring Verified 04/23/25 21:30 ipratropium (From DuoNeb) AdvReac Intermediate Wheezing Verified 04/23/25 21:30 ibuprofen AdvReac Mild Other (See Verified 04/23/25 21:30 Comment) lactose AdvReac Mild Nausea, Verified 04/23/25 21:30 intolerance-causes gas/diarrhea oxycodone HCl (From Percocet) AdvReac Unknown Nausea Verified 04/23/25 21:30 General Stated Complaint: SOB JACKSON: 3 Review of Systems All systems reviewed & are unremarkable except as noted in HPI and below Constitutional Constitutional: Denies chills, Denies fever(s) and Denies weakness Cardiovascular Cardiovascular: Denies chest pain and Reports dyspnea Respiratory Respiratory: Denies cough and Reports dyspnea Gastrointestinal Gastrointestinal: Denies nausea and Denies vomiting Neurologic Neurologic: Denies weakness Exam Const General: no acute distress Orientation: alert HENFL Head: normal to inspection Ears: external ears normal General nose exam: external nose normal Mouth: moist mucous membranes Eyes General: appearance normal, both eyes and all related structures Neck Neck: normal visual inspection Resp Effort & Inspection: normal respiratory effort and able to speak in complete sentences Auscultation: clear to auscultation bilaterally Cardio Rate: regular rate Neuro General: patient alert and patient oriented x3 Extrem General: normal to inspection, full ROM and capillary refill normal Psych Mental Status: mental status grossly normal Course Vital Signs Vital signs: Vital Signs Temperature 36.9 C 04/23/25 21:16 Pulse 105 H 04/23/25 21:16 Respiratory Rate 20 04/23/25 21:16 Blood Pressure 116/83 04/23/25 21:16 Pulse Oximetry 97 04/23/25 21:16 Temperature 36.9 C 04/23/25 21:29 Temperature Source Oral 04/23/25 21:29 Pulse 105 H 04/23/25 21:29 Respiratory Rate 20 04/23/25 21:29 Blood Pressure 116/83 04/23/25 21:29 Blood Pressure Position Sitting 04/23/25 21:29 Pulse Oximetry 97 08/26/25 21:29 Oxygen Delivery Method Room Air 04/23/25 21:29 Oxygen Flow Rate 0 04/23/25 21:16 Pain Level 6 04/23/25 21:16 Medical Decision Making 29-year-old female with a history of DVT/PE on Eliquis though she states that she misses evening doses sometimes comes in with pain and swelling in the site where she had IV placed a few days ago when she was here. She also notes shortness of breath but does not feel this is significant change from baseline. No chest pain, no fevers or chills. Her arm is not swollen compared to the left. In the right AC she has a 1 x 2 cm area that is mobile and hard. It does feel like a likely superficial thrombus. There is no erythema or warmth. I advised do not have ultrasound at this hour the night but I am going to place an order for her to have 1 done tomorrow. With her shortness of breath I did discuss if she is missed some doses of Eliquis there is a chance of a PE so we c ould proceed with a CTA but the treatment would still be that she has to take her anticoagulation regularly. She has medical decision-making capacity and declines to have a CT which I feel is reasonable as she has had multiple CTs in the past she has stable vital signs. I will place an order for her to come back to have an ultrasound tomorrow. Return precautions given and she will also follow-up with her PCP Differential Diagnosis Differential Diagnosis: superficial thrombosis, dvt Medical Records Medical records reviewed: Yes I reviewed the patient's medical records. 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 Had DWI 2020. 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 of vagina (Acute) PATIENT NEEDS REPEAT PAP WHEN SEEN FOR IUD INSERTION Urine test negative (Acute) DVT prophylaxis (Acute) Left leg DVT (Acute) Bilateral pulmonary embolism (Acute) Attention and concentration deficit (Acute) Sciatica of left side (Acute) Tobacco use disorder (Acute) Anxiety (Chronic 11/15/11) RX Citalopram L-T x9 years (helped until stopped eating ~03/2020); RX Escitalopram, stopped 02/2021 in favor of Ability & Lamotrigine ([facility]) PTSD (post-traumatic stress disorder) (Acute) ASCUS with positive high risk HPV cervical (Acute) Colpo on 05/13/22 with KJ. 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 Psoriasis (11/28/12) 09/2019. Scalp psoriasis Rx with clobetasol lotion and change from DeopProvera to OCPs. IBS (irritable bowel syndrome) Poor dentition has lost several teeth secondary to tooth decay Surgical History Tooth extraction teeth extraction. hx of colonoscopy and endoscopy Family History Mother Drug addiction Mental disorder Gastric ulcer Depression Father Essential hypertension Drug addiction Mental disorder Seizures Depression Sister Autism Maternal Grandmother CHF (congestive heart failure) Gastric ulcer COPD (chronic obstructive pulmonary disease) Paternal Great Aunt Coronary heart disease Grandmother CHF (congestive heart failure) Neoplasm Lung CA (smoker) Grandfather Diabetes Maternal Uncle Diabetes Paternal Grandmother COPD (chronic obstructive pulmonary disease) Other Alcohol abuse Congenital heart defect Substance use disorder Social History Smoking/Tobacco Use Status: Current every day Tobacco Type: cigarettes Smoking packs per day: 1 Smoking cigarettes per day: 20.0 Years smoked: 16 Smoking pack- years: 16.00 Tobacco: How many years used: 14 Quit status: considering quitting Smoking risk assessment performed?: Yes Alcohol Intake: current Alcohol Intake frequency: a few times a week Alcohol type: beer Details: see A/P Drug use: Daily Substance use type: marijuana Caregiver/Support person: No Household members: significant other, children and other Details: New partner since 01/2020. Housing: apartment Number of Children: 0 Communication Needs: None Do you need help understanding health information?: Never current occupation: working as [employer] 08/2022. 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 What is your relationship status?: How often do you talk on the phone with friends or family?: three or more times per week How often do you get together with friends or relatives?: once per week How often do you attend scientology or church services?: decline to answer Do you belong to any clubs or organized social groups?: decline to answer Panel score (0-1 are the most socially isolated patients): 2 What type of physical activity do you participate in: none and other 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 Date GA/Weeks # Preg Succ Route Wgt Sex Labor Lgth Anesth esia Location Prov Complic 05/03/12 8 No No 04/29/17 6 No No 09/01/18 8 No No 11/15/22 39 No Yes vaginal Female [employer] other Delivery Date: 05/03/12 Last Updated by: KASEY Perry Delivery Date: 04/29/17 Last Updated by: Patt Smith CNM SAB Delivery Date: 04/29/18 Last Updated by: KASEY Perry Delivery Date: 11/15/22 Last Updated by: Darline Sarmiento MD Pt transfered care to while in prodromal labor. Adrianna. 5w PP LE DVT and bilateral PEs PAWSS Have you Been Recently Intoxicated or Drunk Within the Last 30 days?: Yes Have you Ever Experienced Previous Episodes of Alcohol Withdrawal?: No Have you ever Experienced Withdrawal Seizures?: Yes Have you ever Experienced Delirium Tremens(DT)s?: No Have you ever undergone Alcohol Rehabilitation Treatment (i.e, inpt ot outpatient treatment programs)?: No Have you ever Experienced Blackouts?: No Have you ever Combined Alcohol with other Downers within the last 90 days?: No Have you ever Combined Alcohol with any other Substance of Abuse during the last 90 days?: No Positive Blood Alcohol level on Presentation? [PCS.BAL]: No Evidence of Increased Autonomic Activity (i.e. HR>120, tremor, sweating, agitation, nausea)?: No Result: 2
--- NOTE | 2025-04-23 21:58 | NUR.NOTE ---
Ultrasound req faxed to [facility], physician unable to order upper extremity ultrasound in ambulatory orders. Patient advised to call scheduling after 7:00a.m.Nursing Note:
--- NOTE | 2025-04-25 10:27 | NUR.NOTE ---
Accessed Pt chart to locate the ultrasound order that needs to be cancelled due to the Pt not wanting to come in for the scan. Unable to locate an order.
== END 2025-04-23 22:16 | disposition home or self-care (01) ==
PROVIDERS: Emergency Provider Emergency Medicine; PCP Nurse Practitioner Family
DX: R22.31 Localized swelling, mass and lump, right upper limb (principal); Z79.01 Long term (current) use of anticoagulants
CPT/HCPCS: 99283 ×2; 93005; 93010

== ENCOUNTER 2025-04-24 14:28 | Emergency (ER) | payer MEDICAID, SELFPAY ==
[2025-04-24] VITALS (9 sets, daily range): BP systolic 121–124; BP diastolic 80–85; PULSE 83–112; RESP 14–25; TEMP 36.9; O2SAT 97–100
--- NOTE | 2025-04-24 14:45 | RT.EKG_ITS ---
APPROVED REPORT Exam: Resting ECG Reason for Exam: chest pain Patient Location: E HR:103 bpm ECG Measurements Heart Rate 103 AXIS TN 124 P 69 QRSd 79 QRS 88 QT 310 T -51 QTc 407 Conclusion Sinus tachycardia, rate 103 No interval abnormalities No STEMI No significant changes from priors
--- NOTE | 2025-04-24 15:00 | DI.CT_ITS ---
Exam(s) CT CHEST PE CTA EXAM: CT CHEST PE CTA CLINICAL HISTORY: hypercoagulable, hx PE, SOB and CP. TECHNIQUE: Imaging Protocol: CT angiography of the chest was performed using pulmonary embolus protocol. Multi planar reconstructions were performed. CONTRAST MATERIAL: Intravenous: Omnipaque 350 Contrast volume: 100 cc COMPARISON: CT CT CHEST PE CTA from 08/17/2024 FINDINGS: CHEST: PULMONARY ARTERIES: There are no intraluminal filling defects to suggest acute pulmonary emboli. LUNGS: There are no infiltrates nor evidence of pulmonary infarction.. There are no pleural effusions. MEDIASTINUM: There is no hilar nor mediastinal adenopathy. Visualized thyroid unremarkable. CARDIAC: Heart size is normal. There is no pericardial effusion.Caliber of the thoracic aorta is within normal limits. No evidence of dissection. There is no significant shift of the interventricular septum. PARTIALLY VISUALIZED UPPERMOST ABDOMEN: No obvious findings OSSEOUS: No significant osseous lesions.. IMPRESSION: 1. No evidence of acute pulmonary emboli. No evidence of pulmonary infarction.No evidence of right heart strain. 2. No lung infiltrates nor pleural effusions nor intrathoracic adenopathy 3. No concerning pulmonary nodules Report called by myself to ER physician 04/24/2025 at 4:36 p.m. RADIATION DOSE DELIVERED: 58.67mGy.cm Total DLP DATA REPOSITORY: All CT scans at this facility are submitted to the National Radiology Data Registry (NRDR) Dose Index Registry (DIR) with the [employer] (ACR). RADIATION OPTIMIZATION: All CT scans at this facility use at least one of these dose optimization techniques: automated exposure control; mA and/or kV adjustment per patient size (includes targeted exams where dose is matched to clinical indication); or iterative reconstruction.
--- NOTE | 2025-04-24 15:35 | ED.GENADUL_ITS ---
Discharge Plan Disposition Patient Disposition: Home Condition: Stable Discharge Details Clinical Impression: Shortness of breath, Chest pain Primary Care Provider: Jennifer Marsh ED Provider: Odessa August Home Meds and New Rx's Prescriptions: New prednisone 20 mg tablet 40 mg PO DAILY 5 Days Qty: 10 0RF No Action albuterol sulfate 90 mcg/actuation HFA aerosol inhaler 2 inh inhalation Q6H PRN (Reason: shortness of breath or wheezing) Qty: 18 4RF (DME) BreatheRite MDI Spacer Spacer See Rx Instructions .ROUTE .MEDSUPPLY Qty: 1 0RF Rx Instructions: As directed Eliquis 5 mg tablet 5 mg PO BID Qty: 60 5RF triamcinolone acetonide 0.5 % cream 1 applic topical BID Qty: 30 5RF Rx Instructions: apply small amount to arms and affected areas clonazepam 0.5 mg tablet 0.5 mg PO BID PRN (Reason: anxiety) Qty: 56 0RF aripiprazole [Abilify] 15 mg tablet 15 mg PO DAILY Qty: 30 1RF Rx Instructions: 04/15/25 OK to fill early if needed, Pt lost her supply of this med. lisdexamfetamine 40 mg capsule 40 mg PO QAM MDD 1 capsule Qty: 28 0RF lisdexamfetamine [Vyvanse] 30 mg capsule 40 mg PO DAILY Discharge Instructions Instructions: Chest Pain, Adult ED Additional Instructions: You were seen in the emergency department today for evaluation of shortness of breath and chest pain. In her department you had a full physical examination performed, had a reassuring EKG, and laboratory studies that did not show any sign of damage to your heart, electrolyte changes, or kidney or liver injury. You had a CT scan to look at your pulmonary arteries that did not show any sign of pulmonary embolism, and did not show any pneumonia or fluid in your lungs. As we discussed, we are sometimes unable to determine the exact cause of symptoms in the emergency department setting. I am most suspicious for either a viral infection called an upper respiratory infection, inflammation in the cartilage of your lungs known as costochondritis, or exacerbation of your asthma due to your recent illness. We discussed a prednisone burst, and I sent a prescription for this medication to your pharmacy. You should also continue to use your albuterol inhaler, and Tylenol as needed for pain or fever. Please follow-up with your primary care provider in the next few days to discuss this visit and any symptoms that change, worsen, or persist. Thank you for allowing us to be part of your care. Discharge Data Discharge Date/Time-TO BE ENTERED AT DEPARTURE: 04/24/25 17:09 HPI General Mode of arrival: ambulatory . Date/Time Provider Initiated Documentation: 04/24/25 14:30 . Limitations to Documentation: no limitations . Information obtained by: patient and old records reviewed . HPI Narrative: This is a 29-year-old female patient with a past medical history significant for unprovoked PE and hypercoagulability of unknown etiology, chronically anticoagulated on Eliquis, history of schizoaffective disorder, HLA-B27 positive, presenting for evaluation of chest pain and shortness of breath. The patient was seen recently for phlebitis symptoms of her right antecubital fossa after IV placement, came to this hospital today for an ultrasound to evaluate for clot. She does state that the pain and swelling in her antecubital fossa has improved and she is concerned that it has migrated. About an hour ago she started to have sharp pain in her left lateral chest at the mid axillary line radiating into her back. The pain is worse with deep breath or cough, as well as palpation. She states that she is most concerned for another PE. She occasionally will miss her nighttime doses of Eliquis, did not take her morning dose today. Denies calf swelling or tenderness, had a negative test at her last ED visit and just finished her period. No fevers or chills, no productive cough. Related Data Home Medications ?Medication ?Instructions ?Recorded ?Confirmed inhalational spacing device #1 ea 05/12/23 04/24/25 (BreatheRite MDI Spacer) albuterol sulfate 90 mcg/actuation 2 inh inhalation Q6 H PRN shortness 09/17/24 04/24/25 aerosol inhaler of breath or wheezing #18 gr ams apixaban 5 mg tablet (Eliquis) 5 mg PO BID #60 tabs 04/24/25 triamcinolone acetonide 0.5 % 1 applic topical BID #30 grams 03/07/25 04/24/25 topical cream aripiprazole 15 mg tablet (Abilify) 15 mg PO DAILY #30 tabs 04/15/25 04/24/25 clonazepam 0.5 mg tablet 0.5 mg PO BID PRN anxiety #5 6 tabs 04/15/25 04/24/25 lisdexamfetamine 40 mg capsule 40 mg PO QAM #28 caps 0 04/16/25 04/24/25 lisdexamfetamine 30 mg capsule 40 mg PO DAILY 04/20/25 04/24/25 (Vyvanse) prednisone 20 mg tablet 40 mg (2 x 20 mg) PO DAILY 5 days 04/24/25 #10 tabs Previous Rx's ?Medication ?Instructions ?Recorded inhalational spacing device #1 ea 05/12/23 (BreatheRite MDI Spacer) albuterol sulfate 90 mcg/actuation 2 inh inhalation Q6 H PRN shortness 09/17/24 aerosol inhaler of breath or wheezing #18 gr ams apixaban 5 mg tablet (Eliquis) 5 mg PO BID #60 tabs triamcinolone acetonide 0.5 % 1 applic topical BID #30 grams 03/07/25 topical cream aripiprazole 15 mg tablet (Abilify) 15 mg PO DAILY #30 tabs 04/15/25 clonazepam 0.5 mg tablet 0.5 mg PO BID PRN anxiety #5 6 tabs 04/15/25 lisdexamfetamine 40 mg capsule 40 mg PO QAM #28 caps 0 04/16/25 prednisone 20 mg tablet 40 mg (2 x 20 mg) PO DAILY 5 days 04/24/25 #10 tabs Allergies Allergy/AdvReac Type Severity Reaction Status Date / Time amoxicillin (Amoxicillin) Allergy Severe Redness Verified 04/23/25 21:30 and swelling in throat naproxen (From Aleve) Allergy Severe Swelling/Ed Verified 04/23/25 21:30 summer Penicillins Allergy Severe Inflamed Verified 04/23/25 21:30 throat clindamycin Allergy Intermediate rash Verified 04/23/25 21:30 metronidazole (From Flagyl) Allergy Intermediate Headache Verified 04/23/25 21:30 aspirin Allergy Mild Swelling Verified 04/23/25 21:30 in lips dexamethasone Allergy Other (See Verified 04/23/25 21:30 Comment) adhesive AdvReac Intermediate scarring Verified 04/23/25 21:30 ipratropium (From DuoNeb) AdvReac Intermediate Wheezing Verified 04/23/25 21:30 ibuprofen AdvReac Mild Other (See Verified 04/23/25 21:30 Comment) lactose AdvReac Mild Nausea, Verified 04/23/25 21:30 intolerance-causes gas/diarrhea General Stated Complaint: SOB JACKSON: 2 Exam Narrative Exam Narrative: Gen: Awake and alert, in no apparent distress HEENT: Non-icteric sclera Neck: Supple Lungs: No apparent respiratory distress, normal respiratory effort. Lung sounds clear and equal bilaterally without wheezing, rhonchi, rales CV: Appears well perfused, heart with tachycardic rate but regular rhythm, strong distal pulses. The patient's left mid axillary chest wall is tender to palpation without overlying skin changes Abdomen: Non-distended, soft MSK: Moves 4 extremities without apparent limitation in ROM. No unilateral calf swelling or tenderness, no peripheral edema Skin: Visualized skin without rashes, cyanosis. Neuro: Normal Gait, no obvious focal deficits or facial asymmetry. Speaks in full, clear sentences. Psych: Appropriate for situation. Course Vital Signs Vital signs: Vital Signs Temperature 36.9 C 04/24/25 14:43 Pulse 106 H 04/24/25 14:43 Respiratory Rate 20 04/24/25 14:43 Blood Pressure 124/85 04/24/25 14:43 Pulse Oximetry 97 04/24/25 14:43 Temperature 36.9 C 04/24/25 14:43 Temperature Source Tympanic 04/24/25 14:43 Pulse 106 H 04/24/25 14:43 Respiratory Rate 20 04/24/25 14:43 Blood Pressure 124/85 04/24/25 14:43 Blood Pressure Position Sitting 04/24/25 14:43 Pulse Oximetry 97 04/24/25 14:43 Oxygen Delivery Method Room Air 04/24/25 14:43 Oxygen Flow Rate 0 04/24/25 14:43 Pain Level 9 04/24/25 14:43 Medical Decision Making This is a 29-year-old female patient presenting for evaluation of chest pain and shortness of breath with a strong history of pulmonary embolism. Differential includes but is not limited to PE, certainly considered pneumonia, bronchitis, pleural effusion, pulmonary edema. Considered rib fracture and contusion, costochondritis. The patient is young and without risk factors for ACS, though I did consider this, pericarditis and myocarditis, arrhythmia. No GI symptoms to suggest pancreatitis, esophagitis, Boerhaave's, PUD. I obtained and reviewed an EKG which shows a sinus tachycardia with no evidence of ischemia, interval abnormality, or ectopy. There are no significant changes appreciated from priors. Will obtain a CT PE given her very high risk, as well as labs to include CBC, CMP, magnesium, troponin, and BNP. - I independently interpreted the laboratory studies, which show no significant leukocytosis, anemia, or thrombocytopenia. The chemistry panel is without evidence of electrolyte abnormality, kidney dysfunction, or liver injury. Troponin undetectable and given the lack of significant risk factors and low clinical concern for ACS I do not see indication for delta troponins. BNP is very low. CT PE without evidence of pulmonary embolism, pneumonia, or other acute pulmonary finding. The patient has remained without hypoxia, her tachycardia has resolved, and I did have a discussion with her regarding possibilities for her symptoms today. On my list included viral URI, the patient reports she felt sick recently, asthma exacerbation, costochondritis, etc. I discussed the use of Tylenol and offered her a prednisone burst for potential reactive airway disease exacerbation in the setting of her recent URI. She did have a COVID and influenza swab that was negative. Prednisone sent to her pharmacy, and at this time, the patient has had a full medical evaluation and is safe for discharge to home. They are hemodynamically stable, ambulatory, and tolerating PO. They are understanding of the follow-up plan and return precautions. They left our facility without incident. Odessa August MD Quality:SDOH Health Related Social Needs: Health related social needs details NA [facility] All Active Problems (Updated 04/24/25 @ 16:49 by Odessa August MD) Chest pain (Acute) Shortness of breath (Acute) Localized swelling of right upper extremity (Acute) Visual changes (Acute) Paresthesia (Acute) Headache (Acute) High plasma homocystine (Acute) HLA B27 (HLA B27 positive) (Acute) Chronic anticoagulation (Acute) Schizoaffective disorder, bipolar type (Acute) Malnutrition (Acute) Positive urine test (Acute) Alcohol abuse (Chronic) Consumes four beers at a time. Had DWI 2020. 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 of vagina (Acute) PATIENT NEEDS REPEAT PAP WHEN SEEN FOR IUD INSERTION Urine test negative (Acute) DVT prophylaxis (Acute) Left leg DVT (Acute) Bilateral pulmonary embolism (Acute) Attention and concentration deficit (Acute) Sciatica of left side (Acute) Tobacco use disorder (Acute) Anxiety (Chronic 11/15/11) RX Citalopram L-T x9 years (helped until stopped eating ~03/2020); RX Escitalopram, stopped 02/2021 in favor of Ability & Lamotrigine ([facility]) PTSD (post-traumatic stress disorder) (Acute) ASCUS with positive high risk HPV cervical (Acute) Colpo on 05/13/22 with KJ. 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 Psoriasis (11/28/12) 09/2019. Scalp psoriasis Rx with clobetasol lotion and change from DeopProvera to OCPs. IBS (irritable bowel syndrome) Poor dentition has lost several teeth secondary to tooth decay Surgical History Tooth extraction teeth extraction. hx of colonoscopy and endoscopy Family History Mother Drug addiction Mental disorder Gastric ulcer Depression Father Essential hypertension Drug addiction Mental disorder Seizures Depression Sister Autism Maternal Grandmother CHF (congestive heart failure) Gastric ulcer COPD (chronic obstructive pulmonary disease) Paternal Great Aunt Coronary heart disease Grandmother CHF (congestive heart failure) Neoplasm Lung CA (smoker) Grandfather Diabetes Maternal Uncle Diabetes Paternal Grandmother COPD (chronic obstructive pulmonary disease) Other Alcohol abuse Congenital heart defect Substance use disorder Social History Smoking/Tobacco Use Status: Current every day Tobacco Type: cigarettes Smoking packs per day: 1 Smoking cigarettes per day: 20.0 Years smoked: 16 Smoking pack- years: 16.00 Tobacco: How many years used: 14 Quit status: considering quitting Smoking risk assessment performed?: Yes Alcohol Intake: current Alcohol Intake frequency: a few times a week Alcohol type: beer Details: see A/P Drug use: Daily Substance use type: marijuana Caregiver/Support person: No Household members: significant other, children and other Details: New partner since 01/2020. Housing: apartment Number of Children: 0 Communication Needs: None Do you need help understanding health information?: Never current occupation: working as [employer] 08/2022. 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 What is your relationship status?: How often do you talk on the phone with friends or family?: three or more times per week How often do you get together with friends or relatives?: once per week How often do you attend christian or roman catholic services?: decline to answer Do you belong to any clubs or organized social groups?: decline to answer Panel score (0-1 are the most socially isolated patients): 2 What type of physical activity do you participate in: none 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 Date GA/Weeks # Preg Succ Route Wgt Sex Labor Lgth Anesth esia Location Prov Complic 05/03/12 8 No No 04/29/17 6 No No 04/29/18 8 No No 11/15/22 39 No Yes vaginal Female [facility] other Delivery Date: 05/03/12 Last Updated by: KASEY Perry Delivery Date: 04/29/17 Last Updated by: Patt Smith CNM [facility] Delivery Date: 04/29/18 Last Updated by: KASEY Perry Delivery Date: 11/15/22 Last Updated by: Darline Sarmiento MD Pt transfered care to while in prodromal labor. Adrianna. 5w PP LE DVT and bilateral PEs
[2025-04-24 15:50] LABS: Abs Immature Grans 0.01 10^3/uL (0.0-0.06); HCT 43.9 % (36.0-46.0); HGB 14.4 g/dL (11.2-15.7); Immature Grans % 0.1 %; MCH 28.0 pg (27.0-33.0); MCHC 32.8 % (32.0-36.0); MCV 85 fL (80-95); MPV 10.2 fL (8.0-11.0); Platelet Count 325 10^3/uL (130-400); RBC 5.14 10^6/uL (3.93-5.22); RDW 17.2 % (11.7-14.6); RDW-SD 53.4 fL; WBC 6.79 10^3/uL (4.4-10.8)
[2025-04-24] MEDS: Normal Saline - Diluent 50 ML VIAL IJ (16:06)
[2025-04-24] MEDS: Normal Saline Flush 10 ML SYR IVP (16:07)
[2025-04-24 16:25] LABS: ALT 13 U/L (14-59); AST 22 U/L (15-37); Albumin 4.1 g/dL (3.4-5.0); Alkaline Phosphatase 81 U/L (46-116); Anion Gap 11.4 mmol/L (3-11); BUN 4 mg/dL (7-18); Bilirubin, Total 0.5 mg/dL (0.2-1.0); CO2 24.6 mmol/L (21.0-32.0); Calcium 9.5 mg/dL (8.5-10.1); Chloride 101 mmol/L (98-107); Estimated GFR 88.20 (mL/min/1.73m2); Glucose 87 mg/dL (74-106); Magnesium 2.1 mg/dL (1.8-2.4); NT-proBNP 32 pg/mL (<300); Potassium 4.0 mmol/L (3.5-5.1); Sodium 137 mmol/L (136-145); Total Protein 8.0 g/dL (6.4-8.2); Troponin I < 4 ng/L (<or=51)
== END 2025-04-24 17:09 | disposition home or self-care (01) ==
PROVIDERS: Emergency Provider Emergency Medicine; PCP Nurse Practitioner Family
DX: R07.9 Chest pain, unspecified (principal); R06.02 Shortness of breath
CPT/HCPCS: 99284; 99285; 36415; 71275; 80053; 93005; 83735; 83880; 84484; 85025; 93010

== ENCOUNTER 2025-05-07 17:53 | Outpatient (REF) | payer MEDICAID, SELFPAY | END 2025-05-07 17:54 | disposition home or self-care (01) | LOC: LBN 17:53 | PROVIDERS: PCP Nurse Practitioner Family; Visit Provider Family Medicine | DX: N89.8 Other specified noninflammatory disorders of vagina (principal) | CPT/HCPCS: 87480; 87510; 87660 ==

== ENCOUNTER 2025-07-20 21:02 | Emergency (ER) | payer MEDICAID, SELFPAY ==
--- NOTE | 2025-07-20 21:15 | RT.EKG_ITS ---
APPROVED REPORT Exam: Resting ECG Reason for Exam: SOB Patient Location: E HR:100 bpm ECG Measurements Heart Rate 100 AXIS VA 123 P 84 QRSd 81 QRS 85 QT 360 T 25 QTc 465 Conclusion Sinus tachycardia...rate> 99 Normal [place]/Interval Nonspecific ST-T changes
[2025-07-20 21:17] VITALS: BP 115/77; PULSE 113; RESP 22; TEMP 36.6; O2SAT 100
--- NOTE | 2025-07-20 21:37 | W.ED.GENAD ---
Discharge Plan Disposition Condition: Good Discharge Details Chief Complaint: Chest/Rib Clinical Impression: Acute thoracic back pain Primary Care Provider: Jennifer Marsh ED Provider: Joe Velázquez Meds and New Rx's Prescriptions: No Action methylphenidate HCl 10 mg tablet 10 mg PO BID MDD 2 tablets Qty: 56 0RF (DME) BreatheRite MDI Spacer Spacer See Rx Instructions .ROUTE .MEDSUPPLY Qty: 1 0RF Rx Instructions: As directed triamcinolone acetonide 0.5 % cream 1 applic topical BID Qty: 30 5RF Rx Instructions: apply small amount to arms and affected areas albuterol sulfate 90 mcg/actuation HFA aerosol inhaler 2 inh inhalation Q6H PRN (Reason: shortness of breath or wheezing) Qty: 18 4RF fluconazole 150 mg tablet 150 mg PO Q3D 0 Days Qty: 2 0RF Rx Instructions: may repeat second dose 72 hrs after first dose if symptoms persist metronidazole 0.75 % gel 1 applic topical QDAY Qty: 45 0RF Rx Instructions: (0.75% gel) insert 5 g (one applicatorful) into the vagina once daily at night for 5 days clobetasol 0.05 % shampoo 1 applic TP QHS Qty: 118 0RF Rx Instructions: Use daily for 4 weeks. clonazepam 0.5 mg tablet 0.5 mg PO BID PRN (Reason: anxiety) Qty: 56 0RF Eliquis 5 mg tablet 5 mg PO BID Qty: 60 5RF aripiprazole 10 mg tablet 10 mg PO DAILY Patient Comments: TAKE 1 TABLET BY MOUTH DAILY lisdexamfetamine [Vyvanse] 40 mg capsule 40 mg PO DAILY Discharge Instructions Instructions: Upper Back Pain ED Additional Instructions: You were seen for upper back pain that is worse with breathing and movement. Your exam/vitals, EKG, labs and CXR are all reassuring. Your d-dimer is normal. Continue your apixaban and other medications as before. Heat and massage may help. Please follow up with your PCP next week. Return to ED for new/worse pain, shortness of breath, fainting, other concerns. Stand Alone Forms: Portal Information, Work Release Referrals: Jennifer Marsh NP [Primary Care Provider, Medicine] HPI <Latia Jaeger - Last Filed: 07/20/25 23:04> General Date/Time Provider Initiated Documentation: 07/20/25 21:13. HPI Narrative: Dao is a 29-year-old female presents to the emergency department today for evaluation of shortness of breath accompanied by sharp pain located between her shoulder blades to her upper back. Reports this started yesterday while at work. Accompanied by nausea and dizziness, as well as occasional tingling in extremities. Feels like it is hard to take a deep breath. She denies new fever/chills, cough, abdominal pain, change in bowel or bladder function. She does admit to mild left calf discomfort with palpation. 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 Denies history of IV drug use. Related Data Home Medications Medication Instructions Recorded Confirmed inhalational spacing device #1 ea 05/12/23 07/20/25 (BreatheRite MDI Spacer) triamcinolone acetonide 0.5 % 1 applic topical BID #30 grams 03/07/25 07/20/25 topical cream albuterol sulfate 90 mcg/actuation 2 inh inhalation Q6H PRN shortness 04/25/25 07/20/25 aerosol inhaler of breath or wheezing #18 grams fluconazole 150 mg tablet 150 mg PO Q3D 2 doses #2 tabs 05/09/25 07/20/25 metronidazole 0.75 % topical gel 1 applic topical QDAY #45 grams 05/09/25 07/20/25 clobetasol 0.05 % shampoo 1 applic topical QHS #118 mL 05/21/25 07/20/25 clonazepam 0.5 mg tablet 0.5 mg PO BID PRN anxiety #56 tabs 07/12/25 07/20/25 apixaban 5 mg tablet (Eliquis) 5 mg PO BID #60 tabs 07/15/25 07/20/25 methylphenidate HCl 10 mg tablet 10 mg PO BID #56 tabs 07/18/25 07/20/25 aripiprazole 10 mg tablet 10 mg PO DAILY 07/20/25 07/20/25 lisdexamfetamine 40 mg capsule 40 mg PO DAILY 07/20/25 07/20/25 (Vyvanse) Previous Rx's Medication Instructions Recorded inhalational spacing device #1 ea 05/12/23 (BreatheRite MDI Spacer) triamcinolone acetonide 0.5 % 1 applic topical BID #30 grams 03/07/25 topical cream albuterol sulfate 90 mcg/actuation 2 inh inhalation Q6H PRN shortness 04/25/25 aerosol inhaler of breath or wheezing #18 grams fluconazole 150 mg tablet 150 mg PO Q3D 2 doses #2 tabs 05/09/25 metronidazole 0.75 % topical gel 1 applic topical QDAY #45 grams 05/09/25 clobetasol 0.05 % shampoo 1 applic topical QHS #118 mL 05/21/25 clonazepam 0.5 mg tablet 0.5 mg PO BID PRN anxiety #56 tabs 07/12/25 apixaban 5 mg tablet (Eliquis) 5 mg PO BID #60 tabs 07/15/25 methylphenidate HCl 10 mg tablet 10 mg PO BID #56 tabs 07/18/25 Allergies Allergy/AdvReac Type Severity Reaction Status Date / Time amoxicillin (Amoxicillin) Allergy Severe Redness Verified 07/20/25 21:28 and swelling in throat naproxen (From Aleve) Allergy Severe Swelling/Ed Verified 07/20/25 21:28 summer Penicillins Allergy Severe Inflamed Verified 07/20/25 21:28 throat clindamycin Allergy Intermediate rash Verified 07/20/25 21:28 metronidazole (From Flagyl) Allergy Intermediate Headache Verified 07/20/25 21:28 aspirin Allergy Mild Swelling Verified 07/20/25 21:28 in lips dexamethasone Allergy Other (See Verified 07/20/25 21:28 Comment) adhesive AdvReac Intermediate scarring Verified 07/20/25 21:28 ipratropium (From DuoNeb) AdvReac Intermediate Wheezing Verified 07/20/25 21:28 ibuprofen AdvReac Mild Other (See Verified 07/18/25 14:13 Comment) lactose AdvReac Mild Nausea, Verified 07/20/25 21:28 intolerance-causes gas/diarrhea General Stated Complaint: Chest/Rib JACKSON: 3 Exam <Latia Paulino Gold - Last Filed: 07/20/25 23:04> Const General: cooperative Nutritional Appearance: thin Orientation: alert and oriented x3 Resp Effort & Inspection: normal respiratory effort and able to speak in complete sentences Auscultation: clear to auscultation bilaterally Cardio Rate: tachycardic Rhythm: regular rhythm GI Inspection: normal to inspection Palpation: soft and nontender Skin General skin exam: no rashes or lesions noted Extrem General: normal to inspection Right lower extremity: normal to inspection Left lower extremity: lower leg Details: tenderness and no edema; no erythema, no localized swelling and no ecchymosis Course <Latia Jaeger Last Filed: 07/20/25 23:04> Vital Signs Vital signs: Vital Signs Temperature 36.6 C 07/20/25 21:17 Pulse 113 H 07/20/25 21:17 Respiratory Rate 22 07/20/25 21:17 Blood Pressure 115/77 07/20/25 21:17 Pulse Oximetry 100 07/20/25 21:17 Temperature 36.6 C 07/20/25 21:17 Temperature Source Oral 07/20/25 21:17 Pulse 113 H 07/20/25 21:17 Respiratory Rate 22 07/20/25 21:17 Respiratory Effort Non-Labored, Short of Breath 07/20/25 21:22 Respiratory Depth Normal 07/20/25 21:22 Respiratory Pattern Normal 07/20/25 21:22 Blood Pressure 115/77 07/20/25 21:17 Blood Pressure Position Sitting 07/20/25 21:17 Pulse Oximetry 100 07/20/25 21:17 Oxygen Delivery Method Room Air 07/20/25 21:17 Oxygen Flow Rate 0 07/20/25 21:17 Pain Level 10 07/20/25 21:22 Medical Decision Making <Latia Jaeger Last Filed: 07/20/25 23:04> Dao is a 29-year-old female presents to the emergency department today for evaluation of shortness of breath accompanied by sharp pain located between her shoulder blades to her upper back. Reports this started yesterday while at work. Accompanied by nausea and dizziness, as well as occasional tingling in extremities. Feels like it is hard to take a deep breath. She denies new fever/chills, cough, abdominal pain, change in bowel or bladder function. She does admit to mild left calf discomfort with palpation. 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 Denies history of IV drug use. Past medical history significant for DVT and PE, autoimmune disease, schizoaffective disorder, PTSD, anxiety, tobacco use Physical exam remarkable for tenderness with palpation of upper back between the shoulder blades. She is able to breathing, lung sounds clear bilaterally. Normal heart sounds, tachycardia noted. Abdomen soft, nondistended, nontender to palpation. No lower leg swelling or erythema, however mild tenderness to palpation of left calf. Normal gait. DDx includes but is not limited to: PE, cardiac arrhythmia, ACS, muscle spasm, PNA, GERD, anxiety, electrolyte imbalance, thyroid dysfunction I independently interpreted the following tests: EKG shows sinus tachycardia, rate 100, no changes consistent with acute ischemia. Normal intervals. CBC, CMP, coags, troponin, and TSH unremarkable. COVID/flu/RSV negative. Review of records shows that patient was seen 2 days ago by PCP for viral symptoms, was negative for flu and COVID. At that time she was reporting congestion and bodyaches which were improving. Handoff report given to DR Velázquez, overnight attending, d-dimer results pending. Quality:[facility] Health Related Social Needs: Health related social needs details NA <Joe Velázquez MD - Last Filed: 07/20/25 23:37> Dao is a 29-year-old female presents to the emergency department today for evaluation of shortness of breath accompanied by sharp pain located between her shoulder blades to her upper back. Reports this started yesterday while at work. Accompanied by nausea and dizziness, as well as occasional tingling in extremities. Feels like it is hard to take a deep breath. She denies new fever/chills, cough, abdominal pain, change in bowel or bladder function. She does admit to mild left calf discomfort with palpation. 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 Denies history of IV drug use. Past medical history significant for DVT and PE, autoimmune disease, schizoaffective disorder, PTSD, anxiety, tobacco use Physical exam remarkable for tenderness with palpation of upper back between the shoulder blades. She is able to breathing, lung sounds clear bilaterally. Normal heart sounds, tachycardia noted. Abdomen soft, nondistended, nontender to palpation. No lower leg swelling or erythema, however mild tenderness to palpation of left calf. Normal gait. DDx includes but is not limited to: PE, cardiac arrhythmia, ACS, muscle spasm, PNA, GERD, anxiety, electrolyte imbalance, thyroid dysfunction I independently interpreted the following tests: EKG shows sinus tachycardia, rate 100, no changes consistent with acute ischemia. Normal intervals. CBC, CMP, coags, troponin, and TSH unremarkable. COVID/flu/RSV negative. Review of records shows that patient was seen 2 days ago by PCP for viral symptoms, was negative for flu and COVID. At that time she was reporting congestion and bodyaches which were improving. Handoff report given to DR Velázquez, overnight attending, d-dimer results pending. 23:20 - Patient signed out to me after presenting to ED with pain between her shoulder blades that is worse with breathing and with movement. She has history of DVT/PE and is pretty good about taking her apixaban but misses night time doses sometimes. Patient's labs are reassuring and d-dimer is normal. Troponin is normal after prolong pain, no need to repeat. EKG read by me with no acute ST changes. CXR read by me no acute process. Patient reports allergy to NSAIDs and cannot take them chronically due to anticoagulation. Has skin reaction to adhesives. Reports allergy to Tylenol though not in her list or allergies. Offered muscle relaxant but declined. I am hesitant to treat what appears to be musculoskeletal back pain with narcotics. Patient requesting discharge and work note. Should follow up with PCP early next week. Return precautions provided. 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 Had DWI 2020. 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 of vagina (Acute) PATIENT NEEDS REPEAT PAP WHEN SEEN FOR IUD INSERTION Urine test negative (Acute) DVT prophylaxis (Acute) Left leg DVT (Acute) Bilateral pulmonary embolism (Acute) Attention and concentration deficit (Acute) Sciatica of left side (Acute) Tobacco use disorder (Acute) Anxiety (Chronic 11/15/11) RX Citalopram L-T x9 years (helped until stopped eating ~03/2020); RX Escitalopram, stopped 02/2021 in favor of Ability & Lamotrigine ([facility]) PTSD (post-traumatic stress disorder) (Acute) ASCUS with positive high risk HPV cervical (Acute) Colpo on 05/13/22 with KJ. 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 Psoriasis (11/28/12) 09/2019. Scalp psoriasis Rx with clobetasol lotion and change from DeopProvera to OCPs. IBS (irritable bowel syndrome) Poor dentition has lost several teeth secondary to tooth decay Surgical History Tooth extraction teeth extraction. hx of colonoscopy and endoscopy Family History Mother Drug addiction Mental disorder Gastric ulcer Depression Father Essential hypertension Drug addiction Mental disorder Seizures Depression Sister Autism Maternal Grandmother CHF (congestive heart failure) Gastric ulcer COPD (chronic obstructive pulmonary disease) Paternal Great Aunt Coronary heart disease Grandmother CHF (congestive heart failure) Neoplasm Lung CA (smoker) Grandfather Diabetes Maternal Uncle Diabetes Paternal Grandmother COPD (chronic obstructive pulmonary disease) Other Alcohol abuse Congenital heart defect Substance use disorder Social History Smoking/Tobacco Use Status: Current every day Tobacco Type: cigarettes Smoking packs per day: 1 Smoking cigarettes per day: 20.0 Years smoked: 16 Smoking pack-years: 16.00 Tobacco: How many years used: 14 Quit status: considering quitting Smoking risk assessment performed?: Yes Alcohol Intake: current Alcohol Intake frequency: a few times a week Alcohol type: beer Details: see A/P Drug use: Daily Substance use type: marijuana Caregiver/Support person: No Household members: significant other, children and other Details: New partner since 01/2020. Housing: apartment Number of Children: 0 Communication Needs: None Do you need help understanding health information?: Never current occupation: working as [employer] 08/2022. 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 What is your relationship status?: How often do you talk on the phone with friends or family?: three or more times per week How often do you get together with friends or relatives?: once per week How often do you attend scientologist or congregational services?: decline to answer Do you belong to any clubs or organized social groups?: decline to answer Panel score (0-1 are the most socially isolated patients): 2 What type of physical activity do you participate in: none and 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 Date GA/Weeks # Preg Succ Route Wgt Sex Labor Lgth Anesthesia Location [facility] Compl 05/03/12 8 No No 04/29/17 6 No No 04/29/18 8 No No 11/15/22 39 No Yes vaginal Female [facility] other Delivery Date: 09/05/12 Last Updated by: KASEY Perry Delivery Date: 04/29/17 Last Updated by: Patt Smith CNM SAB Delivery Date: 04/29/18 Last Updated by: KASEY Perry Delivery Date: 11/15/22 Last Updated by: Darline Sarmiento MD Pt transfered care to while in prodromal labor. Adrianna. 5w PP LE DVT and bilateral PEs PAWSS <Latia Jaeger - Last Filed: 07/20/25 23:04> Have you Been Recently Intoxicated or Drunk Within the Last 30 days?: No Have you Ever Experienced Previous Episodes of Alcohol Withdrawal?: No Have you ever Experienced Withdrawal Seizures?: No Have you ever Experienced Delirium Tremens(DT)s?: No Have you ever undergone Alcohol Rehabilitation Treatment (i.e, inpt ot outpatient treatment programs)?: No Have you ever Experienced Blackouts?: No Have you ever Combined Alcohol with other Downers within the last 90 days?: No Have you ever Combined Alcohol with any other Substance of Abuse during the last 90 days?: No Positive Blood Alcohol level on Presentation? [PCS.BAL]: No Evidence of Increased Autonomic Activity (i.e. HR>120, tremor, sweating, agitation, nausea)?: No Result: 0 <Joe Velázquez MD - Last Filed: 07/20/25 23:37> Result: 0
[2025-07-20 22:12] LABS: Abs Immature Grans 0.00 10^3/uL (0.0-0.06); HCT 40.3 % (36.0-46.0); HGB 13.3 g/dL (11.2-15.7); Immature Grans % 0.0 %; MCH 28.1 pg (27.0-33.0); MCHC 33.0 % (32.0-36.0); MCV 85 fL (80-95); MPV 9.9 fL (8.0-11.0); Platelet Count 309 10^3/uL (130-400); RBC 4.73 10^6/uL (3.93-5.22); RDW 18.5 % (11.7-14.6); RDW-SD 57.1 fL; WBC 5.02 10^3/uL (4.4-10.8)
[2025-07-20 22:16] LABS: COVID-19 PCR Negative (Negative); RSV PCR Negative (Negative)
[2025-07-20 22:25] LABS: INR 1.2 (0.9-1.1); PTT Activated 25.1 sec (20.6-30.2); Prothrombin Time 11.8 sec (9.1-11.1)
--- NOTE | 2025-07-20 22:30 | DI.RAD_ITS ---
Exam(s) XR CHEST 2V PA LATERAL EXAM: XR CHEST 2V PA LATERAL CLINICAL HISTORY: pleuritic thoracic back pain TECHNIQUE: 2D digital imaging was performed. Two views. COMPARISON: CT CT CHEST PE CTA from 04/24/2025 FINDINGS: HEART: Normal size. Aorta: Not dilated. PULMONARY VASCULATURE: Normal. MEDIASTINUM: Unremarkable. LUNGS: Clear. PLEURAL SPACE: No pleural effusion or pneumothorax. BONE:Unremarkable for age. SOFT TISSUES: Unremarkable. IMPRESSION: No acute abnormality. The preliminary [facility] report was reviewed. DATA REPOSITORY: RADIATION DOSE DELIVERED:
[2025-07-20 22:31] LABS: Troponin I < 3 ng/L (<35)
[2025-07-20 22:32] LABS: TSH (W/Ref FT4) 2.29 uIU/mL (0.55-4.78)
[2025-07-20 22:36] LABS: D-Dimer 133 ng/mlFEU (<500)
[2025-07-20 22:37] LABS: ALT 9 U/L (10-49); AST 22 U/L (<34); Albumin 4.1 g/dL (3.4-5.0); Alkaline Phosphatase 51 U/L (46-116); Anion Gap 11 mmol/L (3-11); BUN < 5 mg/dL (9-23); Bilirubin, Total 0.50 mg/dL (0.2-1.2); CO2 25.0 mmol/L (20.0-31.0); Calcium 9.0 mg/dL (8.3-10.6); Chloride 106 mmol/L (98-107); Glucose 68 mg/dL (74-106); Potassium 3.5 mmol/L (3.5-5.1); Sodium 142 mmol/L (136-145); Total Protein 6.7 g/dL (5.7-8.2)
--- NOTE | 2025-07-20 23:25 | DI.[facility]_ITS ---
PROCEDURE INFORMATION: Exam: XR Chest Exam date and time: 07/20/2025 11:09 PM Age: 29 years old Clinical indication: Other: Pleuritic thoracic back pain TECHNIQUE: Imaging protocol: Radiologic exam of the chest. Views: 2 views. COMPARISON: CT CHEST PE CTA 04/24/2025 3:56 PM FINDINGS: Lungs: No pulmonary consolidation is seen. Pleural spaces: No pleural effusion or pneumothorax is demonstrated. Heart/Mediastinum: The heart appears normal in size. Bones/joints: The visualized bony structures appear grossly intact. IMPRESSION: No active disease is seen in the chest. Dictated and Authenticated by: Issa Alfaro MD. Orderin Eber Diaz MD
== END 2025-07-20 23:39 | disposition home or self-care (01) ==
PROVIDERS: General Practice; Nurse Practitioner Family; Emergency Provider Emergency Medicine; PCP Nurse Practitioner Family
DX: M54.6 Pain in thoracic spine (principal); R11.0 Nausea; R42 Dizziness and giddiness; M79.662 Pain in left lower leg; Z79.01 Long term (current) use of anticoagulants
CPT/HCPCS: 99285 ×2; 81025; 80053; 87637; 93005; 71046; 84443; 84484; 85025; 85379; 85610; 85730; 93010

== ENCOUNTER 2025-08-13 01:32 | Outpatient (CLI) | payer MEDICAID, SELFPAY ==
[2025-08-13 15:44] LABS: Abs Immature Grans 0.02 10^3/uL (0.0-0.06); ESR 5 mm/hr (0-20); HCT 39.6 % (36.0-46.0); HGB 13.0 g/dL (11.2-15.7); Immature Grans % 0.3 %; MCH 28.0 pg (27.0-33.0); MCHC 32.8 % (32.0-36.0); MCV 85 fL (80-95); MPV 10.5 fL (8.0-11.0); Platelet Count 253 10^3/uL (130-400); RBC 4.65 10^6/uL (3.93-5.22); RDW 18.6 % (11.7-14.6); RDW-SD 57.1 fL; WBC 6.31 10^3/uL (4.4-10.8)
[2025-08-13 16:29] LABS: LDH 150 U/L (120-246)
[2025-08-13 16:57] LABS: ALT 10 U/L (10-49); AST 20 U/L (<34); Albumin 4.0 g/dL (3.2-5.0); Alkaline Phosphatase 49 U/L (46-116); Anion Gap 11 mmol/L (3-11); BUN < 5 mg/dL (9-23); Bilirubin, Total 0.4 mg/dL (0.2-1.2); CO2 24.0 mmol/L (20.0-31.0); Calcium 9.2 mg/dL (8.3-10.6); Chloride 107 mmol/L (98-107); Glucose 75 mg/dL (74-106); Potassium 3.5 mmol/L (3.5-5.1); Sodium 142 mmol/L (136-145); Total Protein 6.9 g/dL (5.7-8.2)
== END 2025-08-13 01:33 | disposition home or self-care (01) ==
LOC: LBO 01:34
PROVIDERS: PCP Nurse Practitioner Family; Visit Provider Nurse Practitioner Family
DX: R63.4 Abnormal weight loss (principal); Z15.89 Genetic susceptibility to other disease; E46 Unspecified protein-calorie malnutrition; R79.89 Other specified abnormal findings of blood chemistry; I26.99 Other pulmonary embolism without acute cor pulmonale; I82.611 Acute embolism and thrombosis of superficial veins of right upper extremity; I82.402 Acute embolism and thrombosis of unspecified deep veins of left lower extremity; M35.3 Polymyalgia rheumatica
CPT/HCPCS: 36415; 80053; 81170; 81405; 85652; 86147; 86200; 82232; 83615; 85025; 86038; 86160

== ENCOUNTER 2025-08-13 15:48 | Outpatient (REF) | payer MEDICAID, SELFPAY ==
--- NOTE | 2025-08-13 15:30 | PAPFT_PTH ---
PATIENT: Shayna Echeverria LOC: [facility] U#:[id number] AGE/SX: 29/F ROOM: RE08/13/[address]: Jennifer Marsh NP : 1995 BED: DIS: 08/13/2025 SPEC #: [id number] RECD: 08/14/25 13:01 STATUS: BONNY REMary Jane #: [id number] EMILIA: 08/13/25 15:[address]: Jennifer Marsh DEPT: [facility] Cytology RECD BY: Letty Yusuf Tissues: 1 - CX/ENDOCX FOR PAP SMEARS Procedures: PAP THIN PREP/[facility] Screening Comments: [id number] (CHLAMYDIA/GC)
[2025-08-15 13:50] LABS: Chlamydia Result Negative (Negative); GC Result Negative (Negative)
== END 2025-08-13 15:49 | disposition home or self-care (01) ==
LOC: LBN 15:48
PROVIDERS: PCP Nurse Practitioner Family; Visit Provider Nurse Practitioner Family
DX: Z12.4 Encounter for screening for malignant neoplasm of cervix (principal)
CPT/HCPCS: 87491; 87591; 88142